=== PATIENT | male | born 1955 | race Caucasian/White ===

== ENCOUNTER → 2020-10-11 09:27 | Day surgery (SDC) | payer MEDICARE, MEDICAID, SELFPAY ==
[2020-10-11 11:44] VITALS: PULSE 56; RESP 16; TEMP 36.4; O2SAT 93
== END ==
PROVIDERS: Visit Provider Nurse Practitioner Family
DX: N39.0 Urinary tract infection, site not specified (principal)
CPT/HCPCS: 36569

== ENCOUNTER 2021-06-21 12:54 | Inpatient (IN) | payer MEDICARE, MEDICAID, SELFPAY ==
[2021-06-21] VITALS (14 sets, daily range): BP systolic 141–167; BP diastolic 85–121; PULSE 91–104; RESP 15–27; TEMP 36.9; O2SAT 86–99; BMI 21.5
--- NOTE | 2021-06-21 13:06 | W.ED.SOB ---
HPI - SOB/Dyspnea General: Chief Complaint: ER Hold Stated Complaint: COPD EXACERBATION Time Seen by Provider: 06/21/21 12:57 History of Present Illness: HPI Narrative: 65-year-old male comes in complaining of shortness of breath last 2 days. Patient took a COVID test at home yesterday that was negative. He has a history of liver failure and previous pneumonia as well as moderate COPD. He is significantly disabled has some contractures of his upper extremities. Has had a nonproductive cough and loose stools. Flulike symptoms as well. MD elicited complaint: shortness of breath and cough Pertinent past history: COPD Onset (ago): minute(s) Context: recent illness Timing: constant Severity: moderate Exacerbating factors: exertion and coughing Relieving factors: oxygen and rest Known history of: COPD Associated symptoms: Reports chest congestion, cough, fever(s) and myalgias; Deny abdominal pain, chest pain, diaphoresis, dizziness, extremity pain, hemoptysis, lightheadedness, nausea, orthopnea, palpitations, paresthesias, polydipsia, polyuria, rash, sense of impending doom, syncope or vomiting Treatment prior to arrival: oxygen Related Data: Home oxygen amount: none Review of Systems Const: Reports: fever(s); Denies: diaphoresis Card: Denies: chest pain, palpitations, lightheadedness, syncope or orthopnea Resp: Reports: chest congestion; Denies: hemoptysis GI: Denies: abdominal pain, nausea or vomiting Musc: Denies: extremity pain Neuro: Denies: dizziness Endo: Denies: polyuria or polydipsia PFSH ED PFSH: Medical History Afib BPH (benign prostatic hyperplasia) COPD (chronic obstructive pulmonary disease) Disability Gastritis HTN (hypertension) Liver cirrhosis etoh abuse Osmotic myelinolysis Pill rolling tremors Presence of externally removable percutaneous endoscopic gastrostomy (PEG) tube Pulmonary HTN Surgical History H/O hemorrhoidectomy Family History Denies family history of Diabetes Social History Smoking and tobacco status: current every day smoker Alcohol intake: unknown Physical Exam Const: COMMON NORMALS: no acute distress GENERAL APPEARANCE: cooperative and comfortable ORIENTATION/CONSCIOUSNESS: Yes awake, Yes oriented to person, Yes oriented to place and Yes oriented to time HENMT: COMMON NORMALS: normocephalic, atraumatic and hearing grossly normal bilaterally HEAD & SCALP: normocephalic and atraumatic Neck/C-Spine: COMMON NORMALS: no JVD Lymph: LYMPHATIC: no lymphadenopathy noted and no lymphedema noted Resp: AUSCULTATION: crackles, wheezes and diminished lung sounds Cardio: COMMON NORMALS: no JVD, regular rate, regular rhythm and No murmurs present (Cardio) RATE: regular rate RHYTHM: regular rhythm GI: COMMON NORMALS: Soft to palpation and No hepatosplenomegaly present AUSCULTATION: Yes normoactive bowel sounds PALPATION: Yes Soft to palpation, No Tenderness to palpation present (GI), No Guarding due to palpation present (GI) and Yes No hepatosplenomegaly present Extremity: COMMON NORMALS: normal to inspection, capillary refill normal, no clubbing, cyanosis or edema, no calf tenderness and no pedal edema Neuro: SENSORIUM/ORIENTATION: Yes oriented to person, Yes oriented to place and Yes oriented to time Skin: COMMON NORMALS: no rashes or lesions noted GENERAL SKIN EXAM: no rashes or lesions noted Course Vital Signs: Vital signs: Vital Signs Temperature 98 F 06/23/21 03:17 Pulse Rate 100 06/23/21 05:41 Respiratory Rate 23 H 06/23/21 03:17 Blood Pressure 136/93 06/23/21 03:17 Pulse Oximetry 93 06/23/21 03:17 MDM - SOB/Dyspnea Medical Decision Making Coronavirus is positive its variant does not test positive is COVID-19. However he acts as if he does have a full-blown COVID-19 infection he certainly has an exacerbation of his COPD and is requiring oxygen supplementation which is not usually at home. Patient also has progressive neurologic disorder much she cannot give me the name of will have to contact family to get more history. Given his neurologic disorder and his respiratory exacerbation and COPD I do believe he needs to be hospitalized for aggressive pulmonary toilet oxygen support and monitoring for development of secondary pneumonia. Discussed with hospitalist were going to go ahead and start remdesivir at this point as well. Medical Records I reviewed the patient's medical records. Lab Data I reviewed the patient's lab results. : 06/23/21 02:23 06/23/21 02:23 Labs/Radiology: Radiology Impressions Chest X-Ray 06/21/21 13:10 IMPRESSION: Complex chest with long interval since the previous examination at which time the patient had a large left pleural effusion. Much if not all of the abnormality is likely chronic however an acute pneumonitis is difficult to exclude especially within the left lower lung. Chest Ultrasound 06/22/21 23:54 IMPRESSION: Long-term stability of a small LEFT pleural effusion with extensive pleural thickening noted. Due to long-term stability thoracentesis will not be performed at this time. Laboratory Results WBC 3.2 10^3/uL (4.0-10.0) L 06/21/21 11:49 RBC 3.90 10^6/uL (4.1-5.3) L 06/21/21 11:49 Hgb 11.4 g/dL (11.7-16.6) L 06/21/21 11:49 Hct 33.4 % (42.0-52.0) L 06/21/21 11:49 MCV 85.6 fl (80-94) 06/21/21 11:49 MCH 29.2 pg (28.0-34.0) 06/21/21 11:49 MCHC 34.1 g/dL (30.0-36.0) 06/21/21 11:49 RDW 13.2 % (12.1-15.1) 06/21/21 11:49 Plt Count 333 10^3/cmm (130-400) 06/21/21 11:49 MPV 8.6 fL (7.4-10.4) 06/21/21 11:49 Neut % (Auto) 63.7 % 06/21/21 11:49 Lymph % (Auto) 13.8 % 06/21/21 11:49 [place] % (Auto) 17.5 % 06/21/21 11:49 Eos % (Auto) 3.8 % 06/21/21 11:49 Baso % (Auto) 0.6 % 06/21/21 11:49 Neut # (Auto) 2.04 10^3/uL (1.8-7.7) 06/21/21 11:49 Lymph # (Auto) 0.4 10^3/uL (0.8-4.8) L 06/21/21 11:49 [place] # (Auto) 0.6 10^3/uL (0.2-0.9) 06/21/21 11:49 Eos # (Auto) 0.1 10^3/uL (0.0-0.8) 06/21/21 11:49 Baso # (Auto) 0.0 10^3/uL (0.0-0.1) 06/21/21 11:49 Nucleated RBC % (auto) 0 % 06/21/21 11:49 Nucleated RBCs # 0.0 /100WBC 06/21/21 11:49 Specimen Type Arterial 06/21/21 13:45 Sample Site Brachial, right 06/21/21 13:45 ABG pH 7.32 (7.35-7.45) L 06/21/21 13:45 ABG pCO2 49.2 mmHg (35-45) H 06/21/21 13:45 ABG pO2 88.9 mmHg (80.0-100.0) 06/21/21 13:45 ABG HCO3 25.5 mmol/L (22-26) 06/21/21 13:45 ABG O2 Saturation 97.2 06/21/21 13:45 ABG Base Excess -0.9 mmol/L (-2.0-2.0) 06/21/21 13:45 Hammad Test N/a 06/21/21 13:45 A-a O2 Gradient 6.4 mmHg (5-10) 06/21/21 13:45 Hematocrit 34.8 % (42-52) L 06/21/21 13:45 Hgb O2 Saturation 95.0 % (95-100) 06/21/21 13:45 Carboxyhemoglobin 1.8 %THgb (0.4-20.1) 06/21/21 13:45 Methemoglobin 0.4 % (0.4-1.5) 06/21/21 13:45 Total Hemoglobin 11.4 g/dL (14-18) L 06/21/21 13:45 Sodium 123.0 mmol/L (131-143) L 06/21/21 13:45 Potassium 3.8 mmol/L (3.5-5.0) 06/21/21 13:45 Glucose 99.0 mg/dL (70-115) 06/21/21 13:45 Ionized Calcium 1.2 mmol/L (1.1-1.4) 06/21/21 13:45 O2 Delivery Device Nc 06/21/21 13:45 O2 Liters/Min 2.0 % 06/21/21 13:45 FiO2 28.0 % 06/21/21 13:45 Materials Research Engineer ID Amh 06/21/21 13:45 Sodium 122 mmol/L (136-145) L 06/21/21 11:49 Potassium 4.0 mmol/L (3.5-5.1) 06/21/21 11:49 Chloride 89 mmol/L (98-107) L 06/21/21 11:49 Carbon Dioxide 26 mmol/L (22-29) 06/21/21 11:49 Anion Gap 11.0 (5-19) 06/21/21 11:49 BUN 12 mg/dL (8-23) 06/21/21 11:49 Creatinine 0.5 mg/dL (0.7-1.2) L 06/21/21 11:49 GFR Calculation 166.4 mL/min (90-130) H 06/21/21 11:49 Glucose 82 mg/dL (65-115) 06/21/21 11:49 Calculated Osmolality 253 mOsm/kg (285-295) L 06/21/21 11:49 Calcium 8.1 mg/dL (8.5-10.5) L 06/21/21 11:49 Total Bilirubin 0.2 mg/dL (0.15-1.2) 06/21/21 11:49 AST 18 U/L (0-40) 06/21/21 11:49 ALT 14 U/L (0-41) 06/21/21 11:49 Alkaline Phosphatase 83 IU/L (40-130) 06/21/21 11:49 Total Protein 6.7 g/dL (6.6-8.7) 06/21/21 11:49 Albumin 3.4 g/dL (3.5-5.2) L 06/21/21 11:49 Globulin 3.3 g/dL (1.3-4.6) 06/21/21 11:49 Procalcitonin 0.44 ng/mL (0-0.5) 06/21/21 11:49 Coronavirus 229E (PCR) Detected (NOT DETECT) A 06/21/21 13:45 SARS-CoV-2 (PCR) Not detected (NOT DETECT) 06/21/21 13:45 Discharge Plan Discharge Patient Disposition: Admitted As Inpatient Admit Provider: Shay Bhagat Clinical Impression: Acute exacerbation of chronic obstructive pulmonary disease, Coronavirus infection Condition: Stable Coding Level of Care Code ED Panel Assembler for Demetria Villalobos
--- NOTE | 2021-06-21 13:10 | ECG_ITS ---
[facility] Test Date: 2021-06-21 Pat Name: Ludwin Lux Department: Room: Gender: Male Data Integrity Consultant: : 1955 Requested By: Billy Contreras Order Number: [id number] Prakash MD: Jessica Rios M.D. Measurements Intervals [place] Rate: 91 P: 91 VT: 161 QRS: 29 QRSD: 110 T: 18 QT: 371 QTc: 459 Interpretive Statements SINUS RHYTHM ANTEROSEPTAL MYOCARDIAL INFARCTION , OF INDETERMINATE AGE [40+ ms Q WAVE IN V1-V4] Compared to ECG 02/04/2018 11:02:11 No significant changes Electronically Signed On 06-21-2021 17:08:15 HEAVY DUTY TRUCK MECHANIC by Jessica Rios M.D. [id number]
--- NOTE | 2021-06-21 13:10 | XR_ITS ---
WS: [id number] XR chest 1V portable [id number] REASON FOR EXAM: dyspnea/cough FINDINGS: In comparison to the previous examination of 02/04/2018, there is complex opacification of the left lo wer hemithorax presumably related to previous large left pleural effusion with interval development o f pleural peel, left lower lung entrapment, and tenting/elevation of the left hemidiaphragm. Reticula r opacities in the left lower lung are of unknown chronicity. There are reticular nodular opacities in the right lower lung field and right mid lung field some of which were not present on the previous examination of 02/04/2018. There is blunting of the right costophrenic angle which has occurred since the previous examination o f 02/04/2018. XR/XR chest 1V portable [id number] IMPRESSION: Complex chest with long interval since the previous examination at which time t he patient had a large left pleural effusion. Much if not all of the abnormalit y is likely chronic however an acute pneumonitis is difficult to exclude especi ally within the left lower lung.
[2021-06-21 13:25] LABS: Basophils % 0.6 %; Eosinophils # 0.1 10^3/uL (0.0-0.8); Eosinophils % 3.8 %; Hematocrit 33.4 % (42.0-52.0); Hemoglobin 11.4 g/dL (11.7-16.6); Lymphocytes # 0.4 10^3/uL (0.8-4.8); Lymphocytes % 13.8 %; Mean Corpuscular HGB Conc 34.1 g/dL (30.0-36.0); Mean Corpuscular Hemoglobin 29.2 pg (28.0-34.0); Mean Corpuscular Volume 85.6 fl (80-94); Mean Platelet Volume 8.6 fL (7.4-10.4); Monocytes # 0.6 10^3/uL (0.2-0.9); Monocytes % 17.5 %; Neutrophils # 2.04 10^3/uL (1.8-7.7); Neutrophils % 63.7 %; Nucleated Red Blood Cells % 0 %; Platelet Count 333 10^3/cmm (130-400); Red Cell Distribution Width 13.2 % (12.1-15.1); White Blood Count 3.2 10^3/uL (4.0-10.0)
[2021-06-21 13:57] LABS: ABG PCO2 49.2 mmHg (35-45); ABG PH Result 7.32 (7.35-7.45); Alveolar-Arterial Oxygen Gradi 6.4 mmHg (5-10); Arterial Blood Gas Hematocrit 34.8 % (42-52); Base Excess ABG -0.9 mmol/L (-2.0-2.0); Blood Gas Operator Identificat AMH; Blood Gas Sample Site Brachial, right; Blood Gas Sample Type Arterial; Carboxyhemoglobin 1.8 %THgb (0.4-20.1); HCO3 ABG 25.5 mmol/L (22-26); Ionized Calcium Level - ABG 1.2 mmol/L (1.1-1.4); Methemoglobin 0.4 % (0.4-1.5); Oxygen Device NC; Oxygen Saturation ABG 97.2; PO2 ABG 88.9 mmHg (80.0-100.0); Potassium Level - ABG 3.8 mmol/L (3.5-5.0); Total Hemoglobin 11.4 g/dL (14-18)
[2021-06-21 13:59] LABS: Alanine Aminotransferase 14 U/L (0-41); Albumin Level 3.4 g/dL (3.5-5.2); Alkaline Phosphatase 83 IU/L (40-130); Aspartate Amino Transferase 18 U/L (0-40); Blood Urea Nitrogen 12 mg/dL (8-23); Calcium 8.1 mg/dL (8.5-10.5); Carbon Dioxide 26 mmol/L (22-29); Chloride 89 mmol/L (98-107); Creatinine Clr Calc Pharmacy 91.2353; Globulin 3.3 g/dL (1.3-4.6); Glomerular Filtration Rate 166.4 mL/min (90-130); Glucose 82 mg/dL (65-115); Osmolality Calculated 253 mOsm/kg (285-295); Sodium 122 mmol/L (136-145); Total Bilirubin 0.2 mg/dL (0.15-1.2); Total Protein 6.7 g/dL (6.6-8.7)
[2021-06-21] MEDS: sodium chloride 0.9% 1,000 ML 75 ML IV (14:48)
[2021-06-21 15:51] LABS: Adenovirus Not Detected (NOT DETECT); Chlamydia Pneumoniae Not Detected (NOT DETECT); Coronavirus 229E,HKU1,NL63,OC4 Detected (NOT DETECT); Human Metapneumovirus Not Detected (NOT DETECT); Human Rhinovirus/Enterovirus Not Detected (NOT DETECT); Influenza A Not Detected (NOT DETECT); Influenza A H1 Not Detected (NOT DETECT); Influenza A H1-2009 Not Detected (NOT DETECT); Influenza A H3 Not Detected (NOT DETECT); Influenza B Not Detected (NOT DETECT); Mycoplasma Pneumoniae Not Detected (NOT DETECT); Parainfluenza Virus Type 1 Not Detected (NOT DETECT); Parainfluenza Virus Type 2 Not Detected (NOT DETECT); Parainfluenza Virus Type 3 Not Detected (NOT DETECT); Parainfluenza Virus Type 4 Not Detected (NOT DETECT); Respiratory Syncytial Virus A Not Detected (NOT DETECT); Respiratory Syncytial Virus B Not Detected (NOT DETECT); SARS-COV-2 Not Detected (NOT DETECT)
[2021-06-21] MEDS: dexamethasone 10 mg/mL INJ 6 MG IVP (16:57)
[2021-06-21] MEDS: remdesivir 200 MG in sodium chloride 0.9% (100 ml) 60 ML 100 MG IV (16:58)
--- NOTE | 2021-06-21 18:51 | PM.HP ---
Providers/Chief Complaint Chief Complaint: COPD EXACERBATION History of Present Illness Ludwin Lux is a 65 year old male carries history of liver cirrhosis, etoh abuse in the past, chronic left-sided pleural effusion, osmotic demyelination syndrome, chronic indwelling catheter, presented to the hospital chief: Worsening shortness of breath patient is not a reliable historian. 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 No nausea, vomiting or chest pain. He was having conversational dyspnea as well at home. In the ER he has Covid 229E screen positive chest x-ray consistent with left-sided pneumonia and pleural effusion Chronic hyponatremia Patient has a chronic indwelling catheter Is only oriented to himself Cachectic, malnourished Able to answer my questions Nonfocal neuro exam he was given remdesivir and Decadron in the ER along normal saline Review of Systems Const: Reports: chills, body aches and fatigue Eyes: Denies: change in vision ENMT: Denies: throat pain Card: Denies: chest pain Resp: Reports: dyspnea and non-productive cough GI: Denies: abdominal pain : Denies: flank pain Musc: Denies: neck pain Skin/Breast: Denies: rash Neuro: Denies: headache(s) Psych: Reports: anxiety Endo: Denies: polyuria Thiago/Lymph: Denies: easy bruising All/Imm: Denies: urticaria Medications/Allergies Home Medications Medication Instructions Recorded Confirmed Last Taken Type amlodipine 10 mg tablet 10 mg PO DAILY 06/21/21 06/21/21 Unknown History calcium carbonate 500 mg (1,250 1 tab PO DAILY 06/21/21 06/21/21 Unknown History mg)-vitamin D3 200 unit tablet (Oyster Shell Calcium-Vit D3) cetirizine 10 mg tablet 10 mg PO DAILY 06/21/21 06/21/21 Unknown History doxycycline hyclate 100 mg capsule 100 mg PO DAILY 06/21/21 06/21/21 Unknown History fluticasone propionate 50 1 spray INTRANASAL DAILY PRN 06/21/21 06/21/21 Unknown History mcg/actuation nasal spray,suspension folic acid 1 mg tablet 1 mg PO DAILY 06/21/21 06/21/21 Unknown History hydroxyzine pamoate 50 mg capsule 50 mg PO Q6H PRN 06/21/21 06/21/21 Unknown History nystatin 100,000 unit/gram topical 1 applic TOPICAL BID 06/21/21 06/21/21 Unknown History cream propranolol 10 mg tablet 10 mg PO TID 06/21/21 06/21/21 Unknown History ropinirole 1 mg tablet 1 mg PO BID 06/21/21 06/21/21 Unknown History sennosides 8.6 mg-docusate sodium 2 tab PO DAILY 06/21/21 06/21/21 Unknown History 50 mg tablet (Stool Softener-Laxative) temazepam 30 mg capsule 30 mg PO DAILY 06/21/21 06/21/21 Unknown History venlafaxine 225 mg tablet,extended 225 mg PO DAILY 06/21/21 06/21/21 Unknown History release 24 hr Allergies Allergy/AdvReac Type Severity Reaction Status Date / Time Unable to Assess Allergy Unverified 06/21/21 17:50 PFSH Acute PFSH: Medical History Afib BPH (benign prostatic hyperplasia) COPD (chronic obstructive pulmonary disease) Disability Gastritis HTN (hypertension) Liver cirrhosis etoh abuse Osmotic myelinolysis Pill rolling tremors Presence of externally removable percutaneous endoscopic gastrostomy (PEG) tube Pulmonary HTN Surgical History H/O hemorrhoidectomy Family History Denies family history of Diabetes Social History Smoking and tobacco status: current every day smoker Alcohol intake: unknown Vitals/I&O/Wt Last Vital Signs Temp 98.4 F 06/21/21 12:59 Pulse 95 06/21/21 18:30 Resp 22 H 06/21/21 18:30 BP 165/99 06/21/21 18:30 Pulse Ox 94 06/21/21 18:30 Weight last 48 hrs Weight 68.039 kg Physical Exam Narrative: EXAM NARRATIVE: Middle-age male Bedbound Malnourished Cachectic Answer to my questions appropriately Not able to give much detail Answering simple questions Nonfocal neuro exam Decrease strength of upper and lower extremities Chronic indwelling catheter Abdomen soft No acute respiratory distress or conversational dyspnea Currently on 2 L of oxygen saturating 93% When I entered he was on room air saturating 91% Data : 06/21/21 11:49 06/21/21 11:49 A&P Assessment and plan (1) Acute exacerbation of chronic obstructive pulmonary disease: Status: Acute (2) Coronavirus infection: Status: Acute (3) Chronic hyponatremia: Status: Acute (4) Respiratory acidosis: Status: Acute Plan Acute on chronic hypoxia related to left-sided pneumonia Common cold variant of COVID-19 positive I will continue remdesivir and Decadron Vancomycin and Zosyn Sputum culture Bacterial antigen MRSA PCR DuoNeb every 4 as needed Budesonide Patient is full code Chronic smoker more than 2 packs/day Never has been diagnosed with malignancy, weight loss, cachectic, malnourished Chronic hyponatremia, history of osmotic demyelination syndrome Bedbound, chronic indwelling catheter EKG showing sinus rhythm We will put him on BiPAP for mild respiratory acidosis We will request left-sided pleural effusion thoracentesis to rule out malignancy Attestations Medical Necessity Statement*: >2midnights anticipated Time Spent in Patient Care: 45mins Coding Level of Care Code Acute Wafer Slicer for [facility] Fwem[facility] Diagnoses Acute exacerbation of chronic obstructive pulmonary disease J44.1 Coronavirus infection B34.2 Chronic hyponatremia E87.1 Respiratory acidosis E87.2
[2021-06-21 19:44] LABS: Procalcitonin 0.44 ng/mL (0-0.5)
[2021-06-22] VITALS (33 sets, daily range): BP systolic 129–177; BP diastolic 75–107; PULSE 80–102; RESP 17–30; TEMP 36.6–37.3; O2SAT 86–100
--- NOTE | 2021-06-22 00:11 | PC.PHAR ---
Vancomycin is dosed at 1gm IVPB every 8 hours to produce a predicted trough level of 15.34 (population based pharmacokinetic analysis). A trough level has been ordered from the lab to be obtained before the fourth dose to confirm and adjust if needed.
[2021-06-22] MEDS: dexamethasone 10 mg/mL INJ 6 MG IVP (00:39)
[2021-06-22] MEDS: piperacillin-tazobactam 3.375 GM in sodium chloride 0.9% (plus) 50 ML IV ×3 (00:40→15:01)
[2021-06-22] MEDS: HYDROmorphone 1 mg/mL INJ 1 mL 0.4 MG IVP (00:41)
[2021-06-22] MEDS: vancomycin 1,000 MG in sodium chloride 0.9% 250 ML 250 MG IV ×3 (02:44→15:47)
[2021-06-22] MEDS: propranolol 20 mg Tablet 10 MG PO ×4 (03:30→20:51)
[2021-06-22 04:28] LABS: Basophils % 0.2 %; Hematocrit 32.3 % (42.0-52.0); Lymphocytes # 0.3 10^3/uL (0.8-4.8); Lymphocytes % 4.9 %; Mean Corpuscular HGB Conc 34.1 g/dL (30.0-36.0); Mean Corpuscular Hemoglobin 28.9 pg (28.0-34.0); Mean Corpuscular Volume 84.8 fl (80-94); Mean Platelet Volume 8.4 fL (7.4-10.4); Monocytes # 0.3 10^3/uL (0.2-0.9); Monocytes % 5.4 %; Neutrophils # 5.66 10^3/uL (1.8-7.7); Nucleated Red Blood Cells % 0 %; Platelet Count 353 10^3/cmm (130-400); Red Blood Count 3.81 10^6/uL (4.1-5.3); Red Cell Distribution Width 12.9 % (12.1-15.1); White Blood Count 6.4 10^3/uL (4.0-10.0)
[2021-06-22 04:58] LABS: Alanine Aminotransferase 12 U/L (0-41); Alkaline Phosphatase 78 IU/L (40-130); Blood Urea Nitrogen 14 mg/dL (8-23); C Reactive Protein 42.5 mg/L (0.0-4.9); Calcium 7.8 mg/dL (8.5-10.5); Carbon Dioxide 23 mmol/L (22-29); Chloride 90 mmol/L (98-107); Globulin 3.1 g/dL (1.3-4.6); Glomerular Filtration Rate 134.8 mL/min (90-130); Glucose 160 mg/dL (65-115); Osmolality Calculated 262 mOsm/kg (285-295); Sodium 124 mmol/L (136-145); Total Bilirubin 0.2 mg/dL (0.15-1.2); Total Protein 6.1 g/dL (6.6-8.7)
[2021-06-22 05:12] LABS: Creatinine Clr Calc Pharmacy 91.2353
[2021-06-22 05:13] LABS: Aspartate Amino Transferase 15 U/L (0-40)
[2021-06-22 05:30] LABS: ABG PCO2 41.4 mmHg (35-45); Arterial Blood Gas Hematocrit 35.5 % (42-52); Base Excess ABG 0.3 mmol/L (-2.0-2.0); Blood Gas Allen Test Pos; Blood Gas Sample Site Brachial, right; Blood Gas Sample Type Arterial; HCO3 ABG 25.3 mmol/L (22-26); Oxygen Device NC; PO2 ABG 93.5 mmHg (80.0-100.0)
[2021-06-22 05:44] LABS: Lactate Dehydrogenase 137 U/L (135-225)
[2021-06-22 08:10] LABS: INR 1.05 (0.8-1.2)
[2021-06-22] MEDS: ropinirole 1 mg Tablet PO ×2 (08:18→17:33)
[2021-06-22] MEDS: nicotine 21 mg Patch 1 PATCH TRANSDERMA (08:18)
[2021-06-22] MEDS: amlodipine 10 mg Tablet PO (08:18)
[2021-06-22] MEDS: cetirizine 10 mg Tablet PO (08:18)
[2021-06-22] MEDS: sennosides-docusate Tablet 2 TAB PO (08:18)
[2021-06-22] MEDS: bumetanide 1 mg Tablet PO (08:18)
[2021-06-22] MEDS: nystatin cream 30 gm 1 APPLIC TOPICAL ×2 (08:24→18:26)
[2021-06-22] MEDS: acetylcysteine 200 mg/mL SDV 4 mL INHALATION ×3 (08:50→22:37)
[2021-06-22] MEDS: ipratropium-albuterol 3 mL Neb INHALATION ×3 (08:50→22:38)
[2021-06-22] MEDS: budesonide 0.5 mg/2 mL Neb INHALATION (08:50)
--- NOTE | 2021-06-22 12:25 | P.PN_ITS ---
Subjective Subjective: Interval history: Patient is requiring 5 L of nasal cannula however he was saturating 99% asked RT to wean off oxygen down to 2 to 3 L, he is not complaining of active shortness of breath or chest pain Thoracentesis canceled because of thickened pleura chronic pleural effusion, he is not spiking fever,No leukocytosis dc covid rx as this is common cold variant Vitals/I&O/Wt Last Vital Signs Temp 98.4 F 06/21/21 12:59 Pulse 87 06/22/21 09:02 Resp 20 H 06/22/21 09:02 BP 161/94 06/22/21 08:00 Pulse Ox 96 06/22/21 09:02 06/21/21 06/22/21 06/22/21 22:59 06:59 14:59 Intake Total 60 / 60 300 / 360 300 / 300 Balance 60 / 60 300 / 360 300 / 300 Weight last 48 hrs Weight 68.039 kg Physical Exam Narrative: EXAM NARRATIVE: Patient is doing well on 5 nasal cannula No active shortness of breath No active chest pain Dehydrated malnourished cachectic Urias catheter draining yellow-colored urine He is able to comprehend all my questions Nonfocal neuro exam EOMI, PERRLA Data : 06/22/21 04:20 06/22/21 04:20 A&P Assessment and plan (1) Pneumonia: Status: Acute (2) Chronic hyponatremia: Status: Acute (3) Respiratory acidosis: Status: Acute (4) Acute exacerbation of chronic obstructive pulmonary disease: Status: Acute (5) Coronavirus infection: Status: Acute (6) Disability: Status: Acute Plan Coronavirus 229 e- strain which is not COVID-19, I will discontinue Decadron and remdesivir, he can be off isolation for now, this variant is common cold coronavirus species I would continue antibiotics for community-acquired pneumonia for his left-sided chronic pleural effusion thoracentesis could not be done today I am planning to keep him today and continue antibiotics and steroids Wean off oxygen bring it down to 2 to 3 L Continue breathing regimen Osmotic demyelination syndrome Patient will be able to return home Patient is currently full code he was on hospice few years ago, currently living with his sister I will keep him on mechanical soft diet N-acetylcysteine Bumex 1 mg daily, IV Zosyn, will DC vancomycin if MRSA PCR negative Attestations Medical Necessity Statement*: Continue medical management Time Spent in Patient Care: 15min Coding Level of Care Code Acute Automatic Lathe Setter for Chg Fwd Diagnoses Pneumonia J18.9 Chronic hyponatremia E87.1 Respiratory acidosis E87.2 Acute exacerbation of chronic obstructive pulmonary disease J44.1 Coronavirus infection B34.2 Disability
[2021-06-22 13:18] LABS: D Dimer 2.11 ug/mIFEU (0-0.59)
[2021-06-22] MEDS: ALPRAZolam 0.5 mg Tablet PO (15:47)
--- NOTE | 2021-06-22 19:30 | PC.NURSE ---
Received patient from ED via stretcher to 101. Patient has chronic prieto in place. Patient admission complete in ED. Patient denies needs. No distress observed. Instructed patient regarding Restoril. Patient verbalized complete understanding. Will continue to monitor.
[2021-06-22] MEDS: temazepam 15 mg Capsule 30 MG PO (20:51)
--- NOTE | 2021-06-22 23:54 | US_ITS ---
WS: [id number] Ultrasound thorax. HISTORY: Evaluate LEFT pleural effusion for possible thoracentesis. COMPARISON: 06/21/2021, 02/04/2018 and 10/10/2017 There is a small LEFT pleural effusion identified. There is significant pleural thickening. There are low level echoes within the fluid. This effusion has been present for multiple years. Small effusion has been present since at least 2018. The lungs would probably not reexpand after removing fluid. Pr oceeding with thoracentesis at this time is not strongly recommended unless this effusion increases i n size. US/US chest [id number] IMPRESSION: Long-term stability of a small LEFT pleural effusion with extensive pleural thi ckening noted. Due to long-term stability thoracentesis will not be performed a t this time.
[2021-06-23] VITALS (13 sets, daily range): BP systolic 131–157; BP diastolic 80–105; PULSE 84–108; RESP 18–29; TEMP 36.6–37.1; O2SAT 85–97
[2021-06-23] MEDS: vancomycin 1,000 MG in sodium chloride 0.9% 250 ML 250 MG IV ×2 (00:13→07:44)
[2021-06-23] MEDS: piperacillin-tazobactam 3.375 GM in sodium chloride 0.9% (plus) 50 ML IV (01:13)
[2021-06-23] MEDS: acetylcysteine 200 mg/mL SDV 4 mL INHALATION ×3 (03:12→14:33)
[2021-06-23] MEDS: ipratropium-albuterol 3 mL Neb INHALATION ×3 (03:12→14:33)
[2021-06-23 03:44] LABS: Basophils % 0.3 %; Eosinophils # 0.1 10^3/uL (0.0-0.8); Eosinophils % 1.9 %; Hematocrit 32.3 % (42.0-52.0); Hemoglobin 10.9 g/dL (11.7-16.6); Lymphocytes # 0.6 10^3/uL (0.8-4.8); Lymphocytes % 11.1 %; Mean Corpuscular HGB Conc 33.7 g/dL (30.0-36.0); Mean Corpuscular Hemoglobin 28.7 pg (28.0-34.0); Mean Platelet Volume 8.2 fL (7.4-10.4); Monocytes # 0.7 10^3/uL (0.2-0.9); Monocytes % 12.3 %; Neutrophils # 4.23 10^3/uL (1.8-7.7); Neutrophils % 73.7 %; Nucleated Red Blood Cells % 0 %; Platelet Count 353 10^3/cmm (130-400); Red Cell Distribution Width 13.1 % (12.1-15.1); White Blood Count 5.8 10^3/uL (4.0-10.0)
[2021-06-23 04:09] LABS: Anion Gap 13.5 (5-19); Blood Urea Nitrogen 12 mg/dL (8-23); Calcium 8.5 mg/dL (8.5-10.5); Carbon Dioxide 25 mmol/L (22-29); Chloride 93 mmol/L (98-107); Glomerular Filtration Rate 166.4 mL/min (90-130); Glucose 79 mg/dL (65-115); Osmolality Calculated 265 mOsm/kg (285-295); Potassium 3.5 mmol/L (3.5-5.1); Sodium 128 mmol/L (136-145)
[2021-06-23 04:16] LABS: Creatinine Clr Calc Pharmacy 91.2353
--- NOTE | 2021-06-23 07:20 | CT_ITS ---
WS: [id number] CTA OF THE CHEST WITH PULMONARY EMBOLISM PROTOCOL TECHNIQUE: High-resolution contrast enhanced CTA of the chest with coronal and sagittal reformatted i mages with pulmonary embolism protocol. MIP images are also reviewed. CLINICAL INFORMATION: Hypoxia COMPARISON: No prior CT chest comparisons. DLP: 703.[address] scans at [facility] use at least one of these dose optimization techniques: automated e xposure control; mA and/or kV adjustment per patient size (includes targeted exams where dose is matc hed to clinical indication); or iterative reconstruction. FINDINGS: Small complex LEFT pleural effusion with diffuse enhancing circumferential pleural thickening similar to the recent ultrasound. Subsegmental atelectasis and partial consolidation LEFT lower lobe. Obstru ction of the LEFT lower lobe bronchi with volume loss LEFT lung. Proximal main pulmonary arteries are normal. Normal segmental and subsegmental pulmonary arteries. No evidence of pulmonary embolus. Normal caliber thoracic aorta. RIGHT to LEFT mediastinal shift due to volume loss LEFT lung. No mediastinal or hilar lymphadenopathy. No axillary lymphadenopathy. Moderate to advanced chronic emphysematous changes. Small RIGHT pleural effusion with slight atelecta sis RIGHT lower lobe. Mild hypertrophic changes thoracic spine. Adrenal glands appear normal. Partial ly evaluated lobulated lesion upper pole LEFT kidney likely renal cyst measuring 2.9 CM. This can be followed up with ultrasound. CT/CT angio chest PE protcl [id number] IMPRESSION: 1. No evidence of pulmonary embolus. 2. Chronic volume loss LEFT lung with chronic appearing complex LEFT pleural e ffusion with peripheral enhancing pleural thickening. This is unchanged since t he recent ultrasound. 3. Partial collapse LEFT lower lobe with subtotal consolidation 4. Small RIGHT pleural effusion with slight subsegmental atelectasis. 5. Chronic RIGHT to LEFT mediastinal shift due to chronic LEFT lung volume los s. 6. Moderate to advanced chronic emphysematous changes. 7. Partially evaluated LEFT upper pole renal lesion likely renal cyst but tech nically indeterminate. This can be followed up with ultrasound. This measures 2 .9 cm 8. A few low-attenuation lesions in the liver likely hepatic cysts.
--- NOTE | 2021-06-23 07:20 | USCV_ITS ---
LuxLudwin cruz Age: 65 Gender: M : 1955 Exam Date: 06/23/2021 08:41 Ordering Phys: Shay Bhagat MD Technologist: Exam Location: [facility] [place] Indication: bed statis PROCEDURES: The venous duplex Doppler examination of both lower extremities was performed in the standard fashion. The following venous structures were evaluated: common femoral vein, profunda vein, proximal portion of the greater saphenous vein, superficial femoral vein, and the popliteal vein. FINDINGS: Normal 2-D Doppler and augmentation and compressibility throughout the lower extremity venous structures. Additional imaging through the proximal calf veins also reveals no thrombus. Limited evaluation of the greater saphenous vein is patent with no thrombus. CONCLUSIONS No DVT bilateral lower extremities. Dr. Marlena Guzmán DO (Electronically Signed) Final Date: 23 June 2021 09:15 S
[2021-06-23] MEDS: bumetanide 1 mg Tablet PO (07:46)
[2021-06-23] MEDS: cetirizine 10 mg Tablet PO (07:46)
[2021-06-23] MEDS: propranolol 20 mg Tablet 10 MG PO ×3 (07:46→22:49)
[2021-06-23] MEDS: nicotine 21 mg Patch 1 PATCH TRANSDERMA (07:47)
[2021-06-23] MEDS: sennosides-docusate Tablet 2 TAB PO (07:47)
[2021-06-23] MEDS: amlodipine 10 mg Tablet PO (07:47)
--- NOTE | 2021-06-23 09:18 | P.PN_ITS ---
Subjective Subjective: Interval history: No leukocytosis or fever requested CT chest rule out PE patient is doing well on 4 L nasal cannula Patient was eating breakfast IV antibiotics discontinued Vitals/I&O/Wt Last Vital Signs Temp 97.8 F 06/23/21 07:11 Pulse 92 06/23/21 07:11 Resp 25 H 06/23/21 07:11 BP 147/91 06/23/21 07:11 Pulse Ox 93 06/23/21 07:11 06/22/21 06/23/21 06/23/21 22:59 06:59 14:59 Intake Total 418 / 1190 300 / 1490 Output Total 700 / 2700 2400 / 5100 Balance -282 / -1510 -2100 / -3610 Weight last 48 hrs Weight 68.039 kg Physical Exam Narrative: EXAM NARRATIVE: Patient was eating breakfast this morning Saturating well on 4 L nasal cannula Bilateral breath sounds slightly diminished left-sided No active wheezing or crackles Abdomen soft Hard of hearing Nonfocal neuro exam Urias catheter draining dilute urine EOMI: PERRLA Data : 06/23/21 02:23 06/23/21 02:23 Micro: Microbiology 06/22/21 03:44 MRSA Culture - Final Nose A&P Assessment and plan (1) Pneumonia: Status: Acute (2) Chronic hyponatremia: Status: Acute (3) Respiratory acidosis: Status: Acute (4) Acute exacerbation of chronic obstructive pulmonary disease: Status: Acute (5) Coronavirus infection: Status: Acute (6) Disability: Status: Acute Plan Left-sided community-acquired pneumonia Common cold variant of coronavirus Discontinued remdesivir and Decadron I will discontinue IV antibiotics and switch to p.o. 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
--- NOTE | 2021-06-23 09:33 | PC.CHAP ---
Pastoral Care Encounter/Spiritual Assessment Type of Contact [] Declined template layout worker visit [] Patient/Family/Request visit [] Outpatient visit [] Follow-up visit [] Physician referral [] Code/Alert [x] Routine visit [] Staff referral [] Actively dying [] Patient sleeping [] Family support [] [] Out of room [] Palliative care [] [] Receiving care in room [] Pre-surgical visit [] Trauma [] Long length of stay [] ICU visit [] Other: Relational/Emotional Strength [] Patient feels connected with others/family/visitors/staff [] Distress [] Loneliness/isolation [] Abandonment Spirituality of Patient [] Person of Casi [] Attends Anabaptism of their Casi [] Believes in Prayer [] Reads Bible or Latter Day materials [] There are Spiritual issues to be addressed Linen Manager Interventions [x] Prayer [x] Active listening [x] Non-anxious presence [x] Spiritual/emotional support [] Crisis/trauma care [] Spiritual counseling [] Bereavement support [] Provided bereavement packet [] Provided Bible/devotional materials [] Provided toy/stuffed animal, coloring book to patient or family member [] Provided Communion [] Anointing/Raven [] Salvation [x] Completed spiritual assessment [] Other: Impact on Illness or Injury [] Angry [] Fearful [] Anxious [] Often cries [] Exhaustion [] Unable to work [] Unable to attend moravian [] Unable to walk/stand [] Unable to read [] Unable to drive [] Unable to eat/drink [] Unable to sleep [] Unable to be with family [] Patient intubated [] Other: Summary not a praying man... but we did it anyway... resting well Time spent with patient 5 min
[2021-06-23] MEDS: budesonide 0.5 mg/2 mL Neb INHALATION (09:35)
[2021-06-23] MEDS: iohexol 350 mg/mL 100 mL Btl IV (10:01)
[2021-06-23] MEDS: temazepam 15 mg Capsule 30 MG PO (10:32)
[2021-06-23] MEDS: ropinirole 1 mg Tablet PO ×2 (10:32→18:28)
[2021-06-23] MEDS: enoxaparin 40 mg/0.4 mL Syringe SUBCUT (10:35)
[2021-06-24] VITALS (10 sets, daily range): BP systolic 142–147; BP diastolic 92–100; PULSE 79–100; RESP 18–21; TEMP 36.8; O2SAT 87–96
[2021-06-24] MEDS: acetylcysteine 200 mg/mL SDV 4 mL INHALATION (02:16)
[2021-06-24] MEDS: ipratropium-albuterol 3 mL Neb INHALATION ×2 (02:17→07:37)
[2021-06-24] MEDS: levoFLOXacin 750 mg Tablet PO (05:10)
--- NOTE | 2021-06-24 05:13 | PC.NURSE ---
Frequent safety and comfort rounds continue. Orders and/or nursing care completed as indicated. Patient monitored for response to intervention and treatment(s). Education provided includes levaquin and oxygen safety. Patient and/or instruments sales representative verbalizes understanding. Will continue to monitor.
--- NOTE | 2021-06-24 06:13 | PC.NURSE ---
Patient eager for breakfast. Wishes for coffee. Called and wanted to know why he was wrapped in all the wires that were connected to him. Patient with suprapubic catheter draining well. Will continue to monitor.
[2021-06-24] MEDS: budesonide 0.5 mg/2 mL Neb INHALATION (07:37)
--- NOTE | 2021-06-24 08:32 | PC.SOCIAL ---
IM follow up explained and copy provided. Pt indicates he is ready to go home now. Initial assessment also completed.
[2021-06-24] MEDS: propranolol 20 mg Tablet 10 MG PO (10:19)
[2021-06-24] MEDS: bumetanide 1 mg Tablet PO (10:19)
[2021-06-24] MEDS: ropinirole 1 mg Tablet PO (10:19)
[2021-06-24] MEDS: cetirizine 10 mg Tablet PO (10:20)
[2021-06-24] MEDS: amlodipine 10 mg Tablet PO (10:20)
[2021-06-24] MEDS: nicotine 21 mg Patch 1 PATCH TRANSDERMA (10:23)
[2021-06-24] MEDS: enoxaparin 40 mg/0.4 mL Syringe SUBCUT (10:27)
--- NOTE | 2021-06-24 10:46 | PM.DCS ---
Discharge Providers Date of Admission: 06/21/21 18:30 Date of Discharge: June 24, 2021 Attending Provider at Admission: Shay Bhagat MD Attending Provider at Discharge: Shay Bhagat MD Primary Care Provider: Indu Cullen Diagnoses at Discharge Discharge Diagnosis (1) Pneumonia: Status: Acute (2) Chronic hyponatremia: Status: Acute (3) Respiratory acidosis: Status: Acute (4) Acute exacerbation of chronic obstructive pulmonary disease: Status: Acute (5) Coronavirus infection: Status: Acute Permanent problem details: Common cold variant 229E (6) Disability: Status: Acute Reason for Visit Reason for Visit: COPD EXACERBATION Hospital Course Hospital Course This is my admission note: Ludwin Lux is a 65 year old male carries history of liver cirrhosis, etoh abuse in the past, chronic left-sided pleural effusion, osmotic demyelination syndrome, chronic indwelling catheter, presented to the hospital chief: Worsening shortness of breath patient is not a reliable historian.? I called his sister who is stating that he is a chronic smoker who would smoke more than 2 packs a day, is bedbound since his pneumonia 3 years ago, he was intubated for 14 days and was discharged [facility], his sister brought him back to her home and he has been living there for last 3 years, and last 24 hours he started becoming short of breath and hypoxic on room air, he was prescribed oxygen but he never used it yesterday was the first time he used 2.5 L of oxygen.? No nausea, vomiting or chest pain.? He was having conversational dyspnea as well at home. In the ER he has Covid 229E screen positive chest x-ray consistent with left-sided pneumonia and pleural effusion Chronic hyponatremia Patient has a chronic indwelling catheter Is only oriented to himself Cachectic, malnourished Able to answer my questions Nonfocal neuro exam he was given remdesivir and Decadron in the ER along normal saline Hospital course Patient was admitted for management evaluation of acute on chronic hypoxic respiratory failure, he does have underlying COPD, he was prescribed oxygen however he has not been using it for quite some time recently started using 2 to 3 L of oxygen at home, in the ER he was diagnosed with COVID 229 e- strain which is associated with common cold flulike symptoms. His Decadron and remdesivir discontinued next day. His symptoms did not worsen during hospitalization. He was kept on broad-spectrum antibiotics for pneumonia associated with pleural effusion. Review of records revealed that his pleural effusion is chronic and interventional radiologist did not recommend thoracentesis for chronic pleural effusion. He remained afebrile no severe leukocytosis noted during hospitalization. Bacterial antigen, sputum culture negative. MRSA PCR negative. Patient smokes more than 2 packs of cigarettes at home he was put on high-dose nicotine patch. He does have history of chronic hyponatremia related to osmotic demyelination syndrome, sodium level did not worsen with the treatment during hospitalization. Qualified for 2 L of oxygen with home O2 eval. He was able to eat properly, he did not aspirate on regular diet. Physical Exam Narrative: EXAM NARRATIVE: Cachectic malnourished Patient was eating breakfast this morning Doing well on 2 L nasal cannula Abdomen soft Nonfocal neuro exam Decrease strength of lower extremities Hard of hearing S1, S2 sinus rhythm non labored breathing No signs of edema of legs Discharge Data Studies Completed and Pending Completed Studies During Hospitalization Category Date Time Status CTA PE [CT angio chest PE protcl 52814] Routine Cat Scan 06/23/21 07:20 Completed XR chest 1V portable [id number] Stat Exams 06/21/21 13:10 [place] [id number] Routine Ultrasound 06/23/21 07:20 Completed US chest [id number] Routine Ultrasound 06/22/21 23:54 Completed Pending at discharge Category Date Time Status Bacterial Antigen Routine Lab 06/21/21 23:54 Uncollected Radiology Impressions Chest X-Ray 06/21/21 13:10 IMPRESSION: Complex chest with long interval since the previous examination at which time the patient had a large left pleural effusion. Much if not all of the abnormality is likely chronic however an acute pneumonitis is difficult to exclude especially within the left lower lung. Chest Ultrasound 06/22/21 23:54 IMPRESSION: Long-term stability of a small LEFT pleural effusion with extensive pleural thickening noted. Due to long-term stability thoracentesis will not be performed at this time. Chest CTA 06/23/21 07:20 IMPRESSION: 1. No evidence of pulmonary embolus. 2. Chronic volume loss LEFT lung with chronic appearing complex LEFT pleural effusion with peripheral enhancing pleural thickening. This is unchanged since the recent ultrasound. 3. Partial collapse LEFT lower lobe with subtotal consolidation 4. Small RIGHT pleural effusion with slight subsegmental atelectasis. 5. Chronic RIGHT to LEFT mediastinal shift due to chronic LEFT lung volume loss. 6. Moderate to advanced chronic emphysematous changes. 7. Partially evaluated LEFT upper pole renal lesion likely renal cyst but technically indeterminate. This can be followed up with ultrasound. This measures 2.9 cm 8. A few low-attenuation lesions in the liver likely hepatic cysts. Laboratory Results WBC 5.8 10^3/uL (4.0-10.0) 06/23/21 02: RBC 3.80 10^6/uL (4.1-5.3) L 06/23/21 02:23 Hgb 10.9 g/dL (11.7-16.6) L 06/23/21 02: Hct 32.3 % (42.0-52.0) L 06/23/21 02: MCV 85.0 fl (80-94) 06/23/21 02: MCH 28.7 pg (28.0-34.0) 06/23/21 02: MCHC 33.7 g/dL (30.0-36.0) 06/23/21 02: RDW 13.1 % (12.1-15.1) 06/23/21 02: Plt Count 353 10^3/cmm (130-400) 06/23/21 02: MPV 8.2 fL (7.4-10.4) 06/23/21 02: Neut % (Auto) 73.7 % 06/23/21 02: Lymph % (Auto) 11.1 % 06/23/21 02:23 [facility] % (Auto) 12.3 % 06/23/21 02: Eos % (Auto) 1.9 % 06/23/21 02: Baso % (Auto) 0.3 % 06/23/21 02:23 Neut # (Auto) 4.23 10^3/uL (1.8-7.7) 06/23/21 02: Lymph # (Auto) 0.6 10^3/uL (0.8-4.8) L 06/23/21 02:23 [facility] [place] # (Auto) 0.7 10^3/uL (0.2-0.9) 06/23/21 02: Eos # (Auto) 0.1 10^3/uL (0.0-0.8) 06/23/21 02:23 Baso # (Auto) 0.0 10^3/uL (0.0-0.1) 06/23/21 02: Nucleated RBC % (auto) 0 % 06/23/21 02: Nucleated RBCs # 0.0 /100WBC 06/23/21 02:23 PT 14.00 SECONDS (12.1-14.9) 06/22/21 07:45 INR 1.05 (0.8-1.2) 06/22/21 07:45 D-Dimer 2.11 ug/mIFEU (0-0.59) H 06/22/21 07:45 Specimen Type Arterial 06/22/21 04:52 Sample Site Brachial, right 06/22/21 04:52 ABG pH 7.40 (7.35-7.45) 06/22/21 04:52 ABG pCO2 41.4 mmHg (35-45) 06/22/21 04:52 ABG pO2 93.5 mmHg (80.0-100.0) 06/22/21 04:52 ABG HCO3 25.3 mmol/L (22-26) 06/22/21 04:52 ABG O2 Saturation 97.2 06/21/21 13:45 ABG Base Excess 0.3 mmol/L (-2.0-2.0) 06/22/21 04:52 Hammad Test Pos 06/22/21 04:52 A-a O2 Gradient 6.4 mmHg (5-10) 06/21/21 13:45 Hematocrit 35.5 % (42-52) L 06/22/21 04:52 Hgb O2 Saturation 95.0 % (95-100) 06/21/21 13:45 Carboxyhemoglobin 1.8 %THgb (0.4-20.1) 06/21/21 13:45 Methemoglobin 0.4 % (0.4-1.5) 06/21/21 13:45 Total Hemoglobin 11.4 g/dL (14-18) L 06/21/21 13:45 Sodium 123.0 mmol/L (131-143) L 06/21/21 13:45 Potassium 3.8 mmol/L (3.5-5.0) 06/21/21 13:45 Glucose 99.0 mg/dL (70-115) 06/21/21 13:45 Ionized Calcium 1.2 mmol/L (1.1-1.4) 06/21/21 13:45 O2 Delivery Device Nc 06/22/21 04:52 O2 Liters/Min 3.0 % 06/22/21 04:52 FiO2 28.0 % 06/21/21 13:45 Mix House Operator ID Buttr 06/22/21 04:52 Sodium 128 mmol/L (136-145) L 06/23/21 02:23 Potassium 3.5 mmol/L (3.5-5.1) 06/23/21 02:23 Chloride 93 mmol/L (98-107) L 06/23/21 02:23 Carbon Dioxide 25 mmol/L (22-29) 06/23/21 02:23 Anion Gap 13.5 (5-19) 06/23/21 02:23 BUN 12 mg/dL (8-23) 06/23/21 02:23 Creatinine 0.5 mg/dL (0.7-1.2) L 06/23/21 02:23 GFR Calculation 166.4 mL/min (90-130) H 06/23/21 02:23 Glucose 79 mg/dL (65-115) 06/23/21 02:23 Calculated Osmolality 265 mOsm/kg (285-295) L 06/23/21 02:23 Calcium 8.5 mg/dL (8.5-10.5) 06/23/21 02:23 Magnesium 2.0 mg/dL (1.7-2.3) 06/22/21 04:20 Total Bilirubin 0.2 mg/dL (0.15-1.2) 06/22/21 04:20 AST 15 U/L (0-40) 06/22/21 04:20 ALT 12 U/L (0-41) 06/22/21 04:20 Alkaline Phosphatase 78 IU/L (40-130) 06/22/21 04:20 Lactate Dehydrogenase 137 U/L (135-225) 06/22/21 04:20 C-Reactive Protein 42.5 mg/L (0.0-4.9) H 06/22/21 04:20 Total Protein 6.1 g/dL (6.6-8.7) L 06/22/21 04:20 Albumin 3.0 g/dL (3.5-5.2) L 06/22/21 04:20 Globulin 3.1 g/dL (1.3-4.6) 06/22/21 04:20 Procalcitonin 0.44 ng/mL (0-0.5) 06/21/21 11:49 Vancomycin Trough 17.0 ug/mL (10-15) H 06/22/21 23:15 Coronavirus 229E (PCR) Detected (NOT DETECT) A 06/21/21 13:45 SARS-CoV-2 (PCR) Not detected (NOT DETECT) 06/21/21 13:45 Vitals Last Vital Signs Temp 98.2 F 06/24/21 03:44 Pulse 88 06/24/21 07:47 Resp 20 H 06/24/21 07:39 BP 147/97 06/24/21 03:44 Pulse Ox 87 L 06/24/21 07:50 Discharge Plan Discharge Patient Disposition: Home Condition: Stable Prescriptions: New albuterol sulfate 90 mcg/actuation HFA aerosol inhaler 2 inh inhalation Q8H PRN (Reason: shortness of breath or wheezing) Qty: 8.5 2RF Continued ropinirole 1 mg tablet 1 mg PO BID 0RF cetirizine 10 mg tablet 10 mg PO DAILY 0RF Stool Softener-Laxative 8.6-50 mg tablet 2 tab PO DAILY 0RF hydroxyzine pamoate 50 mg capsule 50 mg PO Q6H PRN (Reason: Anxiety) 0RF propranolol 10 mg tablet 10 mg PO TID 0RF temazepam 30 mg capsule 30 mg PO DAILY 0RF amlodipine 10 mg tablet 10 mg PO DAILY 0RF nystatin 100,000 unit/gram cream 1 applic TOPICAL BID 0RF folic acid 1 mg tablet 1 mg PO DAILY 0RF fluticasone propionate 50 mcg/actuation spray,suspension 1 spray INTRANASAL DAILY PRN (Reason: Nasal Congestion) 0RF Oyster Shell Calcium-Vit D3 500 mg(1,250mg) -200 unit tablet 1 tab PO DAILY 0RF venlafaxine 225 mg tablet extended release 24hr 225 mg PO DAILY 0RF doxycycline hyclate 100 mg capsule 100 mg PO DAILY Qty: 10 0RF Discharge Orders: Discharge Order (Routine); Ordered 06/24/21 Ordered By: Shya Bhagat Referrals: Indu Cullen FNP-C [Primary Care Provider] - 7-10 days ([facility] will be calling to schedule a hospital followup with MERLYN Montesinos. If you don't hear from them within a reasonable amount of time, please give them a call. Thank you) Discharge Diet: Regular Discharge Activity: Resume usual activity Patient Instructions: Opioid Safety Discharge Attestations Time Spent in Discharge Care*: less than 30 min Quality Metrics Clinical Quality Measures [ No reported AMI, CVA or VTE this stay] Coding Level of Care Code Acute Chg FW MI note Diagnoses Pneumonia J18.9 Chronic hyponatremia E87.1 Respiratory acidosis E87.2 Acute exacerbation of chronic obstructive pulmonary disease J44.1 Coronavirus infection B34.2 Disability
--- NOTE | 2021-06-24 14:26 | PC.NURSE ---
discharge instructions given and explained to cg.she verb understanding of instructions.discharged via w/c to exit.daughter to drive pt home.
== END 2021-06-24 13:30 | disposition home or self-care (01) | DRG 190 ==
LOC: ER 17:33 → ER IP 21:07 → CSU 06-22 16:49
PROVIDERS: Admitting Provider Internal Medicine; Emergency Provider Family Medicine; PCP Nurse Practitioner Family; Visit Provider Internal Medicine
DX: J44.1 Chronic obstructive pulmonary disease with (acute) exacerbation (principal); J18.9 Pneumonia, unspecified organism; J96.21 Acute and chronic respiratory failure with hypoxia; G37.8 Other specified demyelinating diseases of central nervous system; E87.1 Hypo-osmolality and hyponatremia; E46 Unspecified protein-calorie malnutrition; J90 Pleural effusion, not elsewhere classified; E87.2 Acidosis; J44.0 Chronic obstructive pulmonary disease with (acute) lower respiratory infection; B34.2 Coronavirus infection, unspecified; K70.30 Alcoholic cirrhosis of liver without ascites; F10.11 Alcohol abuse, in remission; Z87.01 Personal history of pneumonia (recurrent); I48.91 Unspecified atrial fibrillation; N40.0 Benign prostatic hyperplasia without lower urinary tract symptoms; I10 Essential (primary) hypertension; I27.20 Pulmonary hypertension, unspecified; F17.210 Nicotine dependence, cigarettes, uncomplicated; Z96.0 Presence of urogenital implants; Z74.01 Bed confinement status; Z68.21 Body mass index [BMI] 21.0-21.9, adult
CPT/HCPCS: 36415; 36600; 71045; 71275; 76604; 80048; 80051; 80053; 80202; 82330; 82803; 82805; 83615; 83735; 84145; 85025; 85378; 85610; 86140; 87635; 87641; 93005; 93970; 94640; 96372; J1100; J1170; J1650; J2543; J3370; J7030; J7050; J7608; J7626; Q9967

== ENCOUNTER 2022-02-03 11:38 | Inpatient (IN) | payer MEDICARE, MEDICAID, SELFPAY ==
[2022-02-03] VITALS (26 sets, daily range): BP systolic 112–194; BP diastolic 52–121; PULSE 74–100; RESP 12–23; TEMP 36.2–36.6; O2SAT 85–100; BMI 24.3
--- NOTE | 2022-02-03 11:43 | XR_ITS ---
WS: [id number] Portable AP upright chest, 02/03/2022 Clinical Data: mas Comparison: Portable chest, 06/21/2021. Findings: There is an opacity in the left lower lung which is probably a combination of effusion, ate lectasis and pleural thickening. The appearance is not changed in the last 7 months. The right diaphr agm is flattened with minimal right pleural thickening. The heart is normal. The aortic arch and desc ending thoracic aorta show calcification and tortuosity. No nodules or masses are seen. No acute pneu monia or pneumothorax is noted. XR/XR chest 1V portable [id number] Impression: 1. No change in left lower lobe opacity. 2. Atherosclerosis and hyperinflation.
--- NOTE | 2022-02-03 11:43 | CT_ITS ---
WS: [id number] CT abdomen pelvis w con* [id number] REASON FOR EXAM: abd pain IV CONTRAST ADMINISTERED: Omnipaque 350 80 mL. TOTAL EXAM DLP: 495.[address] scans at [facility] use at least one of these dose optimization techniques: automat ed exposure control; mA and/or kV adjustment per patient size (includes targeted exams where dose is matched to clinical indication); or iterative reconstruction. FINDINGS: Left pleural effusion and consolidation in the left lower lobe. The liver and spleen are unremarkable. Gallbladder is dilated and elongated and contains a single christopher culus. No bile duct dilatation. There is mild to moderate atrophy of the pancreas without focal lesion or calcification. Multiple cysts within the kidneys. No free fluid. Air-fluid collection seen in the right upper quadrant just medial and inferior to the gallbladder whi ch appears to be a loop of small bowel. Significant dilatation of the left and transverse colons. Moderate amount of stool in the right colon . Gross dilatation of the rectum/rectosigmoid. There is a large mass within the rectum which contains s tool, fat density, and small amounts of air. There is a narrowed segment of colon in the sigmoid colon proximal to the rectosigmoid. CT/CT abdomen pelvis w con* [id number] IMPRESSION: Dilated colon proximal to a nonspecific narrowing of the sigmoid colon and a la rge complex mass in the rectum as above. Presumably the rectal mass is some for m of chronic impaction.
--- NOTE | 2022-02-03 11:43 | CT_ITS ---
WS: [id number] CT head wo con* [id number] REASON FOR EXAM: ams IV CONTRAST ADMINISTERED:None. TOTAL EXAM DLP: 1052.[address] scans at [facility] use at least one of these dose optimization techniques: automat ed exposure control; mA and/or kV adjustment per patient size (includes targeted exams where dose is matched to clinical indication); or iterative reconstruction. FINDINGS: Examination is unchanged compared to 02/04/2018. There is no midline shift or other significant mass effect. No findings of intracranial hemorrhage. No acute focal brain parenchymal abnormality. Prominence of the pituitary unchanged compared to the previous examination. Mild global symmetric atrophy. Moderate symmetric low attenuation in the periventricular white matter compatible with small vessel c hronic ischemic demyelination. The base of the skull and the calvarium are intact. CT/CT head wo con* [id number] IMPRESSION: Stable CT scan of the brain with no acute abnormality identified.
[2022-02-03 11:57] LABS: Basophils # 0.1 10^3/uL (0.0-0.1); Basophils % 1.4 %; Eosinophils # 0.6 10^3/uL (0.0-0.8); Eosinophils % 9.8 %; Hematocrit 33.5 % (42.0-52.0); Hemoglobin 11.1 g/dL (11.7-16.6); Lymphocytes # 0.8 10^3/uL (0.8-4.8); Lymphocytes % 14.7 %; Mean Corpuscular HGB Conc 33.1 g/dL (30.0-36.0); Mean Corpuscular Volume 87.5 fl (80-94); Mean Platelet Volume 8.3 fL (7.4-10.4); Monocytes # 0.6 10^3/uL (0.2-0.9); Monocytes % 9.6 %; Neutrophils # 3.66 10^3/uL (1.8-7.7); Neutrophils % 64.1 %; Nucleated Red Blood Cells % 0 %; Platelet Count 316 10^3/cmm (130-400); Red Blood Count 3.83 10^6/uL (4.1-5.3); Red Cell Distribution Width 14.7 % (12.1-15.1); White Blood Count 5.7 10^3/uL (4.0-10.0)
[2022-02-03 11:59] LABS: ABG PH Result 7.44 (7.35-7.45); Arterial Blood Gas Hematocrit 34.4 % (42-52); Base Excess ABG 2.9 mmol/L (-2.0-2.0); Blood Gas Sample Type Arterial; HCO3 ABG 27.3 mmol/L (22-26); PO2 ABG 75.1 mmHg (80.0-100.0)
[2022-02-03 12:00] LABS: Blood Gas Operator Identificat ED; Blood Gas Sample Site Brachial, left; Oxygen Device ROOM AIR
[2022-02-03 12:11] LABS: Ammonia 10 umol/L (16-60)
[2022-02-03] MEDS: nicotine 21 mg Patch 1 PATCH TRANSDERMA (12:15)
[2022-02-03 12:20] LABS: Troponin(5th) Baseline 18 ng/L (0-15)
--- NOTE | 2022-02-03 12:20 | ECG_ITS ---
[facility] Test Date: 2022-02-03 Pat Name: Ludwin Lux Department: Room: Gender: Male Cloth Tester: : 1955 Requested By: [place] Order Number: [id number] Prakash MD: Jessica Rios M.D. Measurements Intervals [place] Rate: 75 P: 73 NC: 173 QRS: 53 QRSD: 98 T: 35 QT: 401 QTc: 448 Interpretive Statements SINUS RHYTHM ANTEROSEPTAL MYOCARDIAL INFARCTION , OF INDETERMINATE AGE [40+ ms Q WAVE IN V1-V4] Compared to ECG 06/21/2021 13:08:27 No significant changes Electronically Signed On 02-03-2022 13:30:43 CDT by Jessica Rios M.D. [email or web address]
[2022-02-03 12:29] LABS: Alanine Aminotransferase 15 U/L (0-41); Albumin Level 3.3 g/dL (3.5-5.2); Alkaline Phosphatase 72 U/L (40-130); Anion Gap 11.5 (5-19); Aspartate Amino Transferase 14 U/L (0-40); Blood Urea Nitrogen 11 mg/dL (8-23); Calcium 8.3 mg/dL (8.5-10.5); Carbon Dioxide 27 mmol/L (22-29); Chloride 90 mmol/L (98-107); Globulin 3.2 g/dL (1.3-4.6); Glomerular Filtration Rate 134.4 mL/min (90-130); Glucose 79 mg/dL (65-115); Lipase 30 U/L (13-60); Magnesium 1.7 mg/dL (1.7-2.3); NT Pro B Type Natriuretic Pept 873 pg/mL (0-125); Osmolality Calculated 258 mOsm/kg (285-295); Potassium 3.5 mmol/L (3.5-5.1); Sodium 125 mmol/L (136-145); Total Bilirubin 0.2 mg/dL (0.15-1.2); Total Protein 6.5 g/dL (6.6-8.7)
[2022-02-03 12:42] LABS: Add Urine Microscopic? YES; Bilirubin Urine Neg (Negative); Blood Urine 3+ (Negative); Glucose Urine UA Norm (Normal); Ketones Urine Negative (Negative); Leukocyte Esterase Urine 2+ (Negative); Nitrate Urine Negative (Negative); Protein Urine 2+ (Negative); Specific Gravity, Urine 1.005 (1.005-1.030); Urine Appearance Clear (CLEAR); Urine Color Yellow (Yellow); Urobilinogen Urine Norm (Negative); pH Urine 6.5 (5-7)
[2022-02-03 12:43] LABS: Add Urine Culture? Yes; Bacteria Urine TRACE /hpf; RBC Urine 25-40 /hpf (0-2); Squamous Epithelial Cell Urine 0-4 /hpf (0-5); WBC Urine 25-40 /hpf (0-5)
[2022-02-03 12:46] LABS: INR 1.34 (0.8-1.2)
[2022-02-03] MEDS: iohexol 350 mg/mL 100 mL Btl IV (12:48)
[2022-02-03 13:13] LABS: Lactate (Lactic Acid level) 0.5 mmol/L (0.5-2.2)
--- NOTE | 2022-02-03 13:29 | W.ED.AMS ---
HPI - Altered Mental Status General: Chief Complaint: Altered Mental Status Stated Complaint: CONFUSION SINCE SUNDAY & UTI Time Seen by Provider: 02/03/22 11:38 Source: EMS Mode of arrival: EMS Limitations: altered mental status History of Present Illness: 66-year-old male who has a history of cirrhosis has had increasing altered mental status since Sunday. Patient able to follow verbal commands but does not answer any questions he has a history of cirrhosis he had a UTI on Sunday has been on antibiotics. He has been afebrile no vomiting no diarrhea. Review of Systems General: Reports: ROS unobtainable due to mental status [facility] PFSH: Medical History Acute exacerbation of chronic obstructive pulmonary disease Afib BPH (benign prostatic hyperplasia) Chronic hyponatremia COPD (chronic obstructive pulmonary disease) Coronavirus infection Common cold variant 229E Disability Gastritis HTN (hypertension) Liver cirrhosis etoh abuse Osmotic myelinolysis Pill rolling tremors Presence of externally removable percutaneous endoscopic gastrostomy (PEG) tube Pulmonary HTN Surgical History H/O hemorrhoidectomy Family History Denies family history of Diabetes Social History Smoking and tobacco status: current every day smoker Alcohol intake: unknown Physical Exam Const: COMMON NORMALS: apparent distress and negative for patient oriented x3 HENMT: COMMON NORMALS: normocephalic and atraumatic HEAD & SCALP: normocephalic and atraumatic THROAT: posterior oropharynx normal Eye: COMMON NORMALS: negative for Equal, round and reactive pupils present PUPIL: No Equal, round and reactive pupils present Neck/C-Spine: COMMON NORMALS: supple Chest: COMMONS NORMALS: normal inspection of the chest and normal palpation of entire chest wall Resp: COMMON NORMALS: normal respiratory effort and No retractions Cardio: COMMON NORMALS: regular rate and regular rhythm RATE: regular rate RHYTHM: regular rhythm GI: COMMON NORMALS: Normal to inspection, nondistended, normoactive bowel sounds present and non-tender Extremity: COMMON NORMALS: normal to inspection Neuro: COMMON NORMALS: negative for patient oriented x3 Skin: COMMON NORMALS: no rashes or lesions noted GENERAL SKIN EXAM: no rashes or lesions noted Course Vital Signs: Vital signs: Vital Signs Temperature 97.2 F L 02/03/22 11:39 Pulse Rate 74 02/03/22 11:39 Respiratory Rate 18 02/03/22 11:39 Blood Pressure 172/107 02/03/22 14:00 Pulse Oximetry 94 02/03/22 13:30 Oxygen Delivery Me thod 02/03/22 11:39 MDM - Altered Mental Status Medical Decision Making Patient presents here with altered mental status he is quite altered here he is hyponatremic chronic in nature no signs of any severe infection spoke to hospitalist will admit at this time. Lab Data : 02/03/22 11:50 02/03/22 11:50 Radiology Impressions Abdomen/Pelvis CT 02/03/22 11:43 IMPRESSION: Dilated colon proximal to a nonspecific narrowing of the sigmoid colon and a large complex mass in the rectum as above. Presumably the rectal mass is some form of chronic impaction. Chest X-Ray 02/03/22 11:43 Impression: 1. No change in left lower lobe opacity. 2. Atherosclerosis and hyperinflation. Head CT 02/03/22 11:43 IMPRESSION: Stable CT scan of the brain with no acute abnormality identified. Laboratory Results WBC 5.7 10^3/uL (4.0-10.0) 02/03/22 11:50 RBC 3.83 10^6/uL (4.1-5.3) L 02/03/22 11:50 Hgb 11.1 g/dL (11.7-16.6) L 02/03/22 11:50 Hct 33.5 % (42.0-52.0) L 02/03/22 11:50 MCV 87.5 fl (80-94) 02/03/22 11:50 MCH 29.0 pg (28.0-34.0) 02/03/22 11:50 MCHC 33.1 g/dL (30.0-36.0) 02/03/22 11:50 RDW 14.7 % (12.1-15.1) 02/03/22 11:50 Plt Count 316 10^3/cmm (130-400) 02/03/22 11:50 MPV 8.3 fL (7.4-10.4) 02/03/22 11:50 Neut % (Auto) 64.1 % 02/03/22 11:50 Lymph % (Auto) 14.7 % 02/03/22 11:50 [place] % (Auto) 9.6 % 02/03/22 11:50 Eos % (Auto) 9.8 % 02/03/22 11:50 Baso % (Auto) 1.4 % 02/03/22 11:50 Neut # (Auto) 3.66 10^3/uL (1.8-7.7) 02/03/22 11:50 Lymph # (Auto) 0.8 10^3/uL (0.8-4.8) 02/03/22 11:50 [place] # (Auto) 0.6 10^3/uL (0.2-0.9) 02/03/22 11:50 Eos # (Auto) 0.6 10^3/uL (0.0-0.8) 02/03/22 11:50 Baso # (Auto) 0.1 10^3/uL (0.0-0.1) 02/03/22 11:50 Nucleated RBC % (auto) 0 % 02/03/22 11:50 Nucleated RBCs # 0.0 /100WBC 02/03/22 11:50 PT 16.90 SECONDS (12.1-14.9) H 02/03/22 12:25 INR 1.34 (0.8-1.2) H 02/03/22 12:25 Specimen Type Arterial 02/03/22 11:49 Sample Site Brachial, left 02/03/22 11:49 ABG pH 7.44 (7.35-7.45) 02/03/22 11:49 ABG pCO2 40.0 mmHg (35-45) 02/03/22 11:49 ABG pO2 75.1 mmHg (80.0-100.0) L 02/03/22 11:49 ABG HCO3 27.3 mmol/L (22-26) H 02/03/22 11:49 ABG Base Excess 2.9 mmol/L (-2.0-2.0) H 02/03/22 11:49 Hammad Test N/a 02/03/22 11:49 Hematocrit 34.4 % (42-52) L 02/03/22 11:49 O2 Delivery Device Room air 02/03/22 11:49 FiO2 21.0 % 02/03/22 11:49 International Account Representative ID Ed 02/03/22 11:49 Sodium 125 mmol/L (136-145) L 02/03/22 11:50 Potassium 3.5 mmol/L (3.5-5.1) 02/03/22 11:50 Chloride 90 mmol/L (98-107) L 02/03/22 11:50 Carbon Dioxide 27 mmol/L (22-29) 02/03/22 11:50 Anion Gap 11.5 (5-19) 02/03/22 11:50 BUN 11 mg/dL (8-23) 02/03/22 11:50 Creatinine 0.6 mg/dL (0.7-1.2) L 02/03/22 11:50 GFR Calculation 134.4 mL/min (90-130) H 02/03/22 11:50 Glucose 79 mg/dL (65-115) 02/03/22 11:50 Calculated Osmolality 258 mOsm/kg (285-295) L 02/03/22 11:50 Lactate 0.5 mmol/L (0.5-2.2) 02/03/22 11:50 Calcium 8.3 mg/dL (8.5-10.5) L 02/03/22 11:50 Magnesium 1.7 mg/dL (1.7-2.3) 02/03/22 11:50 Total Bilirubin 0.2 mg/dL (0.15-1.2) 02/03/22 11:50 AST 14 U/L (0-40) 02/03/22 11:50 ALT 15 U/L (0-41) 02/03/22 11:50 Alkaline Phosphatase 72 U/L (40-130) 02/03/22 11:50 Ammonia 10 umol/L (16-60) L 02/03/22 11:50 Troponin T Baseline 18 ng/L (0-15) H 02/03/22 11:50 Troponin T 120 Minute 18.56 ng/L (0-15) H 02/03/22 13:58 Delta Troponin T 0.56 ABS# (0-10) 02/03/22 13:58 NT-Pro-B Natriuret Pep 873 pg/mL (0-125) H 02/03/22 11:50 Total Protein 6.5 g/dL (6.6-8.7) L 02/03/22 11:50 Albumin 3.3 g/dL (3.5-5.2) L 02/03/22 11:50 Globulin 3.2 g/dL (1.3-4.6) 02/03/22 11:50 Lipase 30 U/L (13-60) 02/03/22 11:50 Urine Color Yellow (Yellow) 02/03/22 12:20 Urine Appearance Clear (CLEAR) 02/03/22 12:20 Urine pH 6.5 (5-7) 02/03/22 12:20 Ur Specific [place] 1.005 (1.005-1.030) 02/03/22 12:20 Urine Protein 2+ (Negative) H 02/03/22 12:20 Urine Glucose (UA) Norm (Normal) 02/03/22 12:20 Urine Ketones Negative (Negative) 02/03/22 12:20 Urine Blood 3+ (Negative) H 02/03/22 12:20 Urine Nitrate Negative (Negative) 02/03/22 12:20 Urine Bilirubin Neg (Negative) 02/03/22 12:20 Urine Urobilinogen Norm mg/dL (Negative) 02/03/22 12:20 Ur Leukocyte Esterase 2+ (Negative) H 02/03/22 12:20 Urine RBC 25-40 /hpf (0-2) H 02/03/22 12:20 Urine WBC 25-40 /hpf (0-5) H 02/03/22 12:20 Ur Squamous Epith Cells 0-4 /hpf (0-5) H 02/03/22 12:20 Amorphous Sediment Not Reportable 02/03/22 12:20 Urine Bacteria Trace /hpf (NONE) 02/03/22 12:20 EKG Data EKG 1: I personally reviewed and interpreted this EKG as follows: EKG interpretation date: 02/03/22 Interpretation: nsr hr [address] or t wave abnormalities qrs 98 qtc 429 Discharge Plan Discharge Patient Disposition: Admitted As Inpatient Clinical Impression: Altered mental status, Hyponatremia Condition: Stable Coding Level of Care Code ED Seasonal Sales Associate for Chg Fwd Exam Comprehensive
--- NOTE | 2022-02-03 13:44 | ECG_ITS ---
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 Measurements Intervals [place] Rate: 78 P: 75 ND: 163 QRS: 60 QRSD: 102 T: 54 QT: 406 QTc: 463 Interpretive Statements SINUS RHYTHM ANTEROSEPTAL MYOCARDIAL INFARCTION , OF INDETERMINATE AGE [40+ ms Q WAVE IN V1-V4] Compared to ECG 02/03/2022 12:20:49 No significant changes Electronically Signed On 02-04-2022 8:41:31 CDT by Jessica Rios M.D. [email or web address] [email or web address] [email or web address] [id number]
[2022-02-03 14:21] LABS: Troponin 5 2HR 18.56 ng/L (0-15)
[2022-02-03 14:25] LABS: Troponin 5 2HR Delta 0.56 ABS# (0-10)
--- NOTE | 2022-02-03 17:04 | P.HP_ITS ---
Providers/Chief Complaint Primary Care Provider: JAYNA Rivera Chief Complaint: CONFUSION SINCE SUNDAY & UTI History of Present Illness Ludwin Lux is a 66 year old male with past medical history of COPD, atrial fibrillation, BPH, chronic hyponatremia, COPD, gastritis, hypertension, liver cirrhosis secondary to alcohol abuse, osmotic myelinolysis, pulmonary hypertension presented to the hospital today with altered mental status. He is complete with his daughter. He states he has a chronic suprapubic catheter neurogenic bladder and primary care doctor manages that. He has a history of recurrent UTIs. Most recently he was diagnosed with a UTI on Sunday and placed on oral antibiotics at home. She does not know the name of the antibiotics but in the chart it is listed it seems it was doxycycline and levofloxacin. He states however he has been worsening. He has gotten very very confused as the days have gone by. He is also been slightly more distended according to her. He is chronically hyponatremic. She states he was hospitalized recently and [facility] for possibly abdominal issues. We will be requesting records. There was something to do with the gallbladder but she does not know t he details. She states that she is supposed to follow-up with the surgeon soon to find out the results of the work-up that was done there. At this time she says she repeats everything you tell him to and is confused. He does not follow many commands but does follow some. She also states that prior to this he was able to have normal conversations. He is chronically bedbound. She states years ago he was in the ICU and critically ill and after his stay he became chronically bedbound. His got a contracture on his left arm and right side is weak at baseline. Prepubic catheter was replaced today by nurse. He has home health nurse comes every 2 weeks to replace the catheter. ED course: Blood pressure 172/107, respiratory 18, pulse 74, temperature 97.2, pulse ox 94%. CT abdomen pelvis showed dilated colon proximal to the nonspecific narrowing of sigmoid colon and large complex mass in rectum as above. Presumably picture of masses some form of chronic impaction. Chest x- ray did not show a change in left lower lobe opacity. Atherosclerosis and hyperinflation. Head CT showed stable CT scan of brain with no acute abnormality identified. Hospitalist was called to admit patient for altered mental status and hyponatremia. Medications/Allergies Home Medications Medication Instructions Recorded Confirmed Last Taken Type cetirizine 10 mg tablet 10 mg PO DAILY 06/21/21 02/03/22 02/02/22 History fluticasone propionate 50 1 spray intranasal DAILY PRN Nasal 06/21/21 02/03/22 Unknown History mcg/actuation nasal Congestion spray,suspension hydroxyzine pamoate 50 mg capsule 50 mg PO Q6H PRN Anxiety 06/21/21 02/03/22 02/02/22 History nystatin 100,000 unit/gram topical 1 applic topical BID PRN Rash 06/21/21 02/03/22 Unknown History cream propranolol 10 mg tablet 10 mg PO TID 06/21/21 02/03/22 02/03/22 History ropinirole 1 mg tablet 1 mg PO BID PRN Cramps 06/21/21 02/03/22 Unknown History sennosides 8.6 mg-docusate sodium 2 tab PO DAILY 06/21/21 02/03/22 02/02/22 History 50 mg tablet (Stool Softener-Laxative) temazepam 30 mg capsule 30 mg PO DAILY 06/21/21 02/03/22 02/02/22 History venlafaxine 225 mg tablet,extended 225 mg PO DAILY 06/21/21 02/03/22 02/03/22 History release 24 hr doxycycline hyclate 100 mg capsule 100 mg PO DAILY #10 caps 06/24/21 02/03/22 02/03/22 Rx Lactobacillus acidophilus 500 500 mmu cells PO DAILY 02/03/22 02/03/22 02/03/22 History million cell tablet albuterol sulfate 2.5 mg inhalation TID PRN 02/03/22 02/03/22 02/03/22 History Shortness Of Breath Or Wheezing apixaban 5 mg tablet (Eliquis) 5 mg PO BID 02/03/22 02/03/22 02/03/22 History budesonide 0.5 mg/2 mL suspension 0.5 mg inhalation BID 02/03/22 02/03/22 02/03/22 History for nebulization cranberry extract-vitamin C 250 1 cap PO QPM 02/03/22 02/03/22 02/02/22 History mg-60 mg capsule cyanocobalamin (vitamin B-12) 500 500 mcg PO QPM 02/03/22 02/03/2202/02/22 History mcg tablet (Vitamin B-12) diltiazem HCl 240 mg 240 mg PO DAILY 02/03/22 02/03/22 02/03/22 History capsule,extended release 24 hr ferrous sulfate 325 mg (65 mg 325 mg PO QPM 02/03/22 02/03/22 02/02/22 History iron) tablet (iron) formoterol fumarate 20 mcg/2 mL 2 ml inhalation BID 02/03/22 02/03/22 02/03/22 History solution for nebulization (Perforomist) guaifenesin 600 mg tablet, 600 mg PO Q12H PRN Congestion 02/03/22 02/03/22 Unknown History extended release 12 hr (Mucinex) lactulose 10 gram/15 mL oral 15 ml PO DAILY PRN Constipation 02/03/22 02/03/22 Unknown History solution levofloxacin 500 mg tablet 500 mg PO DAILY 02/03/22 02/03/22 02/03/22 History rqhvpujd-inksfyck-jtdjy acid 400 1 tab PO QPM 02/03/22 02/03/22 02/02/22 History mcg-vit K 20 mcg-lycop 300 mcg tablet (Men's One Daily) mupirocin 2 % topical ointment 1 applic topical BID PRN Rash 02/03/22 02/03/22 Unknown History ondansetron 8 mg disintegrating 8 mg PO Q8H PRN Nausea And Vomiting 02/03/22 02/03/22 Unknown History tablet polyethylene glycol 3350 17 gram 17 g PO DAILY 02/03/22 02/03/22 Unknown History oral powder packet (Miralax) revefenacin 175 mcg/3 mL solution 175 mcg inhalation DAILY 02/03/22 02/03/22 02/03/22 History for nebulization (Yupelri) sodium chloride 1 gram tablet 1,000 mg PO BID 02/03/22 02/03/22 02/03/22 History Allergies Allergy/AdvReac Type Severity Reaction Status Date / Time Sulfa (Sulfonamide Allergy ALGY-Rash Verified 02/03/22 14:57 Antibiotics) PFSH Acute PFSH: Medical History (Updated 02/03/22 @ 19:34 by Gabriela Angelo MD) Acute exacerbation of chronic obstructive pulmonary disease Afib BPH (benign prostatic hyperplasia) Chronic hyponatremia COPD (chronic obstructive pulmonary disease) Coronavirus infection Common cold variant 229E Disability Gastritis HTN (hypertension) Liver cirrhosis etoh abuse Osmotic myelinolysis Pill rolling tremors Presence of externally removable percutaneous endoscopic gastrostomy (PEG) tube Pulmonary HTN Surgical History H/O hemorrhoidectomy Family History Denies family history of Diabetes Social History Smoking and tobacco status: current every day smoker Alcohol intake: unknown Vitals/I&O/Wt Last Vital Signs Temp 97.2 F L 02/03/22 11:39 Pulse 74 02/03/22 11:39 Resp 18 02/03/22 11:39 BP 176/105 02/03/22 15:00 Pulse Ox 97 02/03/22 15:00 O2 Del Method 02/03/22 11:39 Weight last 48 hrs Weight 77.111 kg Physical Exam Narrative: General: Alert but not oriented. Unable to assess orientation. Repeats every word that you say to him. Does not follow any commands. Was able to stick his tongue out for me but that is it. No acute distress at this time daughter present at bedside. Frail-appearing thin male. Has got a contracture on left arm unable to assess neurologically otherwise. Able to somewhat track my head. Altered. Unable to obtain any history. HEENT: Normocephalic, atraumatic, EOMI, breathing comfortably on room air. Cardio: Regular rate rhythm, normal S1-S2, Respiratory: Rales at left base, rest of lungs clear to auscultation with diminished in bilateral upper lobes GI: Abdomen soft, but distended, nontender, does not grimace to palpation, suprapubic catheter in place. Extremities: No lower extremity edema noted no cyanosis. Patient able to wiggle his toes. Data : 02/03/22 11:50 02/03/22 11:50 A&P Assessment and plan (1) Altered mental status: Status: Acute (2) Hyponatremia: Status: Acute (3) Liver cirrhosis: Status: Acute (4) HTN (hypertension): Status: Acute (5) Afib: Status: Acute (6) Osmotic myelinolysis: Status: Acute (7) COPD (chronic obstructive pulmonary disease): Status: Acute (8) BPH (benign prostatic hyperplasia): Status: Acute Plan #Altered mental status, metabolic? #Urinary tract infection #Chronic hyponatremia, seems to be at baseline #COPD, stable #Hypertension #Liver cirrhosis secondary to alcohol abuse #History of osmotic myelinolysis syndrome #Pulmonary hypertension #A. fib #BPH #Rectal mass ? Continue Cardizem 240 daily, hydroxyzine, formoterol, fluticasone, vitamin B12, budesonide twice daily, MiraLAX, propranolol 3 times daily, revefenacin, ropinirole, sodium tablet 1 g twice daily, venlafaxine to 25 daily ? Speech swallow evaluation. Patient qualified for ground meat and thin liquids ? CT head negative for stroke ? Check vitamin B12, ammonia. Ammonia is 10 ? We will place on gentle fluid hydration normal saline 75 cc/h ? Check urine culture, blood culture. Will place on Zosyn ? CT abdomen pelvis shows dilated colon proximal to nonspecific narrowing assessment: Complex large mass in rectum. Mass has stool fat and air in it. We will consult general surgery for evaluation -Placed on oxygen and wean as able. DuoNeb every 4 hours as needed -Patient's medication list is not reconciled accurately. Nursing staff is working to obtain the list. At that point we will reconcile his medications properly. Apparently patient took all his morning medications will be unable to identify which ones are the morning medications at this time. For now for blood pressure we will give hydralazine 5 mg IV x1. -Check abdominal ultrasound to evaluate for ascites Full code DVT prophylaxis: Heparin subcu Will obtain records from [facility] regarding patient's most recent stay. Attestations Medical Necessity Statement*: Patient will cross greater than 2 midnight stay for work-up and management of altered mental status, chronic hyponatremia, UTI, rectal mass Coding Level of Care Code Acute Clinical Education Consultant for g Fwd Diagnoses Altered mental status R41.82 Hyponatremia E87.1 Liver cirrhosis K74.60 HTN (hypertension) I10 Afib I48.91 Osmotic myelinolysis G37.2 COPD (chronic obstructive pulmonary disease) J44.9 BPH (benign prostatic hyperplasia) N40.0
--- NOTE | 2022-02-03 17:57 | ECG_ITS ---
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 Measurements Intervals [place] Rate: 83 P: 72 [place]: 171 QRS: 62 QRSD: 104 T: 69 QT: 394 QTc: 465 Interpretive Statements SINUS RHYTHM WITH SINUS ARRHYTHMIA ANTEROSEPTAL MYOCARDIAL INFARCTION , OF INDETERMINATE AGE [40+ ms Q WAVE IN V1-V4] Compared to ECG 02/03/2022 14:26:31 No significant changes Electronically Signed On 02-04-2022 8:39:29 CDT by Jessica Rios M.D. [id number]
[2022-02-03] MEDS: labetalol 5 mg/mL SDV 20mL IVP (18:02)
[2022-02-03 19:33] LABS: Troponin 5 6HR 17.42 ng/L (0-15); Troponin 5 6HR Delta -0.58 ng/L (0-12)
--- NOTE | 2022-02-03 19:34 | USR_ITS ---
PROCEDURE INFORMATION: Exam: US Abdomen Complete Exam date and time: 02/03/2022 7:48 PM Age: 66 years old Clinical indication: Abdominal pain; Acute; Patient HX: Abd pain; Additional info: Ascites TECHNIQUE: Imaging protocol: Real-time ultrasound of the abdomen with image documentation. Complete exam. COMPARISON: US abdomen limited [id number] 02/04/2018 4:35 PM FINDINGS: Liver: Normal. No mass. Gallbladder: Cholelithiasis. Biliary ducts: Normal. No stones. No dilation. Pancreas: Visualized pancreas is unremarkable. Right kidney: Normal. No mass. No hydronephrosis. Left kidney: Left kidney 2.6 cm cyst. Spleen: Normal. No splenomegaly. Aorta: Normal. No aneurysm. Inferior vena cava: Normal. US/US abdomen complete* [id number] IMPRESSION: 1. Cholelithiasis negative for cholecystitis 2. Left kidney 2.6 cm cyst.
[2022-02-03] MEDS: sodium chloride 0.9% 1,000 ML 75 ML IV ×2 (19:45→23:13)
[2022-02-03] MEDS: piperacillin-tazobactam 3.375 GM in sodium chloride 0.9% (plus) 50 ML IV (19:46)
--- NOTE | 2022-02-03 19:55 | PM.CONSULT ---
Providers/Reason For Consult Consulting Physician/Specialty*: Karel Harrison/Gen surg Reason for Consult*: Abdominal distention Requesting Physician: Dr. Angelo Primary Care Provider: JAYNA Rivera History of Present Illness History of Present Illness Ludwin Lux is a 66 year old male He was brought to the emergency room today by his daughter. By the time I came to evaluate the patient, the doctor left. The patient is nonverbal is not able to provide any details about his symptoms, past medical surgical history or anything else related to the history of present illness. History obtained from reviewing of the medical records and conversation with other healthcare providers. The patient has multiple medical problems as outlined below. He was brought to the emergency room today with altered mental status. He was evaluated by the emergency room physician and hospitalist and admitted to medicine. Reportedly, he was recently admitted to [facility] with some kind of abdominal issues. His daughter does not know details. Records were requested by the hospitalist. CT scan was performed for abdominal distention and showed colonic obstruction at the distal rectum. Large amount of stool in the rectum. No obvious mass present, questionable fecal impaction versus malignancy. Review of Systems Narrative: Unable to obtain review of system because of the altered mental status of the patient Medications/Allergies Home Medications Medication Instructions Recorded Confirmed Last Taken Type cetirizine 10 mg tablet 10 mg PO DAILY 06/21/21 02/03/22 02/02/22 History fluticasone propionate 50 1 spray intranasal DAILY PRN Nasal 06/21/21 02/03/22 Unknown History mcg/actuation nasal Congestion spray,suspension hydroxyzine pamoate 50 mg capsule 50 mg PO Q6H PRN Anxiety 06/21/21 02/03/22 02/02/22 History nystatin 100,000 unit/gram topical 1 applic topical BID PRN Rash 06/21/21 02/03/22 Unknown History cream propranolol 10 mg tablet 10 mg PO TID 06/21/21 02/03/22 02/03/22 History ropinirole 1 mg tablet 1 mg PO BID PRN Cramps 06/21/21 02/03/22 Unknown History sennosides 8.6 mg-docusate sodium 2 tab PO DAILY 06/21/21 02/03/22 02/02/22 History 50 mg tablet (Stool Softener-Laxative) temazepam 30 mg capsule 30 mg PO DAILY 06/21/21 02/03/22 02/02/22 History venlafaxine 225 mg tablet,extended 225 mg PO DAILY 06/21/21 02/03/22 02/03/22 History release 24 hr doxycycline hyclate 100 mg capsule 100 mg PO DAILY #10 caps 06/24/21 02/03/22 02/03/22 Rx Lactobacillus acidophilus 500 500 mmu cells PO DAILY 02/03/22 02/03/22 02/03/22 History million cell tablet albuterol sulfate 2.5 mg inhalation TID PRN 02/03/22 02/03/22 02/03/22 History Shortness Of Breath Or Wheezing apixaban 5 mg tablet (Eliquis) 5 mg PO BID 02/03/22 02/03/22 02/03/22 History budesonide 0.5 mg/2 mL suspension 0.5 mg inhalation BID 02/03/22 02/03/22 02/03/22 History for nebulization cranberry extract-vitamin C 250 1 cap PO QPM 02/03/22 02/03/22 02/02/22 History mg-60 mg capsule cyanocobalamin (vitamin B-12) 500 500 mcg PO QPM 02/03/22 02/03/22 02/02/22 History mcg tablet (Vitamin B-12) diltiazem HCl 240 mg 240 mg PO DAILY 02/03/22 02/03/22 02/03/22 History capsule,extended release 24 hr ferrous sulfate 325 mg (65 mg 325 mg PO QPM 02/03/22 02/03/22 02/02/22 History iron) tablet (iron) formoterol fumarate 20 mcg/2 mL 2 ml inhalation BID 02/03/22 02/03/22 02/03/22 History solution for nebulization (Perforomist) guaifenesin 600 mg tablet, 600 mg PO Q12H PRN Congestion 02/03/22 02/03/22 Unknown History extended release 12 hr (Mucinex) lactulose 10 gram/15 mL oral 15 ml PO DAILY PRN Constipation 02/03/22 02/03/22 Unknown History solution levofloxacin 500 mg tablet 500 mg PO DAILY 02/03/22 02/03/22 02/03/22 History rjsrobis-hobwlcqi-jkaxv acid 400 1 tab PO QPM 02/03/22 02/03/2202/02/22 History mcg-vit K 20 mcg-lycop 300 mcg tablet (Men's One Daily) mupirocin 2 % topical ointment 1 applic topical BID PRN Rash 02/03/22 02/03/22 Unknown History ondansetron 8 mg disintegrating 8 mg PO Q8H PRN Nausea And Vomiting 02/03/22 02/03/22 Unknown History tablet polyethylene glycol 3350 17 gram 17 g PO DAILY 02/03/22 02/03/22 Unknown History oral powder packet (Miralax) revefenacin 175 mcg/3 mL solution 175 mcg inhalation DAILY 02/03/22 02/03/22 02/03/22 History for nebulization (Yupelri) sodium chloride 1 gram tablet 1,000 mg PO BID 02/03/22 02/03/22 02/03/22 History Allergies Allergy/AdvReac Type Severity Reaction Status Date / Time Sulfa (Sulfonamide Allergy ALGY-Rash Verified 02/03/22 14:57 Antibiotics) Current Medications Generic Name Dose Route Start Last Admin Trade Name Freq PRN Reason Stop Dose Admin Sodium Chloride 1,000 mls @ 75 mls/hr 02/03/22 19:15 02/03/22 19:45 Sodium Chloride 0.9% IV 75 mls/hr .[id number] ANGELA Administration Piperacillin Sod/Tazobactam 50 mls @ 12.5 mls/hr 02/03/22 19:30 02/03/22 19:46 Sod 3.375 gm/ Sodium Chloride IV 12.5 mls/hr Q8H ANGELA Administration Protocol As Directed PFSH Acute PFSH: Medical History (Updated 02/03/22 @ 20:05 by Karel Harrison MD) Acute exacerbation of chronic obstructive pulmonary disease Afib BPH (benign prostatic hyperplasia) Chronic hyponatremia COPD (chronic obstructive pulmonary disease) Coronavirus infection Common cold variant 229E Disability Gastritis HTN (hypertension) Liver cirrhosis etoh abuse Osmotic myelinolysis Pill rolling tremors Presence of externally removable percutaneous endoscopic gastrostomy (PEG) tube Pulmonary HTN Surgical History H/O hemorrhoidectomy Family History Denies family history of Diabetes Social History Smoking and tobacco status: current every day smoker Alcohol intake: unknown Vitals/I&O/Wt Last Vital Signs Temp 97.2 F L 02/03/22 11:39 Pulse 74 02/03/22 11:39 Resp 18 02/03/22 11:39 BP 167/110 02/03/22 19:00 Pulse Ox 85 L 02/03/22 19:00 O2 Del Method 02/03/22 11:39 Weight last 48 hrs Weight 170 lb Physical Exam Narrative: General: Very thin and cachectic, Psych: Nonverbal Eyes: [sclerae are white] Head/ENT: [normocephalic, symmetric] CV: no JVD Lungs: [symmetrical chest rise] Abdomen: Diffusely distended, the patient does not react to palpation, no peritoneal signs. Suprapubic urinary catheter present. It is not clear if he has no pain or he is altered to the point that he cannot perceive pain well. Ext: [no obvious traumatic deformities] Skin: warm Data : 02/03/22 11:50 02/03/22 11:50 A&P Assessment and plan (1) Fecal impaction in rectum: Status: Acute (2) Obstruction of colon: Status: Acute (3) Liver cirrhosis: Status: Acute (4) Altered mental status: Status: Acute (5) Hyponatremia: Status: Acute (6) Afib: Status: Acute (7) COPD (chronic obstructive pulmonary disease): Status: Acute (8) HTN (hypertension): Status: Acute Plan Large bowel obstruction secondary to fecal impaction versus malignancy in the rectum. The patient is in altered mental status and is unable to cooperate. Plan to proceed with fecal disimpaction under light conscious sedation to facilitate cooperation with the procedure. Can be done at bedside. If impaction secondary to malignancy and there is an obstructive lesion, he will require surgical intervention. We will reassess after attempted disimpaction. At this time there is no evidence of any perforation/ischemic colon. He is hemodynamically stable. Troponins are elevated, EKG showed age-indeterminate infarcts, I will defer need for cardiology consult to medical team. However, given degree of abdominal distention and large bowel obstruction, troponin elevation may represent demand ischemia secondary to pain/stress. Multiple other medical problems will be managed by a medical team as well.. -Plan to proceed with rectal exam, disimpaction and light conscious sedation. Consent: Management was discussed with the patient's daughter. Plan to perform the procedure under conscious sedation. Agreed to proceed. Risks and benefits of surgery were discussed. All questions were answered. Moderate sedation/preanesthesia assessment: Heart: AFib Lungs: COPD, on oxygen Airway: MP class 2 List of medications was reviewed. ASA class: [III] Independent trained observer was present and assisted with monitoring of the patient?s level of consciousness and physiologic status through the procedure Immediately prior to procedure the patient was reassessed and remains an appropriate candidate for the planned sedation and procedure. Under conscious sedation with 2 of Versed and 50 of fentanyl rectal exam was performed. There was a large rocklike ball of stool located in the upper rectum which I was not able to remove. A lot of liquid gas and air came out under pressure and rectum was effectively decompressed. Abdominal distention improved. There was no obstructive malignancy or any other obstructive lesion on physical exam. Plan to proceed with laxatives, MiraLAX twice daily and bisacodyl twice a day suppository in addition to docusate senna and lactulose. If abdominal distention recur, decompression and disimpaction can be performed by nursing staff twice a day. If above mentioned therapies not sufficient, the patient may require colostomy, however, it will be the very last step. Also, the patient is nonverbal, his quality of life is poor, goals of care should be carefully discussed with the family. - Surgery will continue to follow until resolution of large bowel obstruction. - Please hold oral anticoagulation for now and continue with short acting agents until there is normal need for a surgical intervention Coding Level of Care Code Acute [employer] Teacher for Chg Fwd Diagnoses Fecal impaction in rectum K56.41 Obstruction of colon K56.609 Liver cirrhosis K74.60 Altered mental status R41.82 Hyponatremia E87.1 Afib I48.91 COPD (chronic obstructive pulmonary disease) J44.9 HTN (hypertension) I10
--- NOTE | 2022-02-03 20:03 | PC.NURSE ---
Per Dr Harrison hold Heparin until after conscious sedation
[2022-02-03] MEDS: midazolam 1 mg/mL INJ 2 mL 2 MG IVP (20:24)
[2022-02-03] MEDS: fentaNYL 50 mcg/mL INJ 2mL IVP (20:24)
[2022-02-03 20:26] LABS: Procalcitonin 0.07 ng/mL (0-0.5)
[2022-02-03] MEDS: heparin 5,000 unit/mL INJ 1 mL 5000 UNIT SUBCUT (20:45)
--- NOTE | 2022-02-03 20:50 | XRR_ITS ---
PROCEDURE INFORMATION: Exam: XR Abdomen Exam date and time: 02/03/2022 8:57 PM Age: 66 years old Clinical indication: Bloating; Additional info: Colon obstruction TECHNIQUE: Imaging protocol: Radiologic exam of the abdomen. Views: Frontal supine view of the abdomen. 1 View. COMPARISON: CT abdomen pelvis w con* [id number] 02/03/2022 12:40 PM FINDINGS: Gastrointestinal tract: Colon appears somewhat diffusely prominent measuring up to 8 cm without gross dilation to indicate obstruction, finding may potentially reflect an ileus or perhaps a partial obstruction. Bones/joints: Unremarkable. XR/XR abdomen 1V* [id number] IMPRESSION: Colon appears somewhat diffusely prominent measuring up to 8 cm without gross dilation to indicate obstruction, finding may potentially reflect an ileus or perhaps a partial obstruction.
--- NOTE | 2022-02-03 21:03 | PC.NURSE ---
Gave report to Jose Hancock
[2022-02-03] MEDS: ipratropium-albuterol 3 mL Neb INHALATION (21:44)
[2022-02-03] MEDS: propranolol 20 mg Tablet 10 MG PO (22:00)
[2022-02-03] MEDS: polyethylene glycol 3350 Pkt 17 gm PO (22:00)
[2022-02-04] VITALS (24 sets, daily range): BP systolic 101–174; BP diastolic 46–94; PULSE 75–90; RESP 16–20; TEMP 36.4–36.9; O2SAT 92–98
[2022-02-04 00:49] LABS: Urine Random Sodium 96 mmol/L
[2022-02-04] MEDS: piperacillin-tazobactam 3.375 GM in sodium chloride 0.9% (plus) 50 ML IV ×3 (03:45→19:58)
--- NOTE | 2022-02-04 03:51 | PC.NURSE ---
suprapubic catheter noted
--- NOTE | 2022-02-04 04:29 | PC.NURSE ---
0420 patient becoming nauseated with small amount of thick, yellow emesis noted; Dr. Pacheco notified, new orders noted (see MAR)
[2022-02-04] MEDS: ondansetron 2 mg/ML SDV 2 mL 4 MG IVP (04:34)
[2022-02-04 05:49] LABS: Basophils % 0.5 %; Eosinophils # 0.4 10^3/uL (0.0-0.8); Eosinophils % 5.6 %; Hematocrit 35.2 % (42.0-52.0); Hemoglobin 11.6 g/dL (11.7-16.6); Lymphocytes # 0.4 10^3/uL (0.8-4.8); Lymphocytes % 6.3 %; Mean Corpuscular Hemoglobin 28.4 pg (28.0-34.0); Mean Corpuscular Volume 86.1 fl (80-94); Mean Platelet Volume 8.9 fL (7.4-10.4); Monocytes # 0.3 10^3/uL (0.2-0.9); Monocytes % 4.7 %; Neutrophils % 82.4 %; Nucleated Red Blood Cells % 0 %; Platelet Count 351 10^3/cmm (130-400); Red Blood Count 4.09 10^6/uL (4.1-5.3); Red Cell Distribution Width 14.6 % (12.1-15.1); White Blood Count 6.6 10^3/uL (4.0-10.0)
[2022-02-04 06:18] LABS: Alanine Aminotransferase 12 U/L (0-41); Albumin Level 3.2 g/dL (3.5-5.2); Alkaline Phosphatase 71 U/L (40-130); Anion Gap 10.6 (5-19); Aspartate Amino Transferase 12 U/L (0-40); Blood Urea Nitrogen 11 mg/dL (8-23); Carbon Dioxide 27 mmol/L (22-29); Chloride 96 mmol/L (98-107); Globulin 2.6 g/dL (1.3-4.6); Glomerular Filtration Rate 134.4 mL/min (90-130); Glucose 80 mg/dL (65-115); Magnesium 1.7 mg/dL (1.7-2.3); Osmolality Calculated 268 mOsm/kg (285-295); Potassium 3.6 mmol/L (3.5-5.1); Sodium 130 mmol/L (136-145); Total Bilirubin 0.4 mg/dL (0.15-1.2); Total Protein 5.8 g/dL (6.6-8.7)
[2022-02-04] MEDS: ipratropium-albuterol 3 mL Neb INHALATION ×4 (07:37→20:51)
[2022-02-04] MEDS: budesonide 0.5 mg/2 mL Neb INHALATION ×2 (08:00→20:51)
--- NOTE | 2022-02-04 08:50 | XRR_ITS ---
PROCEDURE INFORMATION: Exam: XR Abdomen Exam date and time: 02/04/2022 7:57 AM Age: 66 years old Clinical indication: Condition or disease; Intestinal condition; Obstruction; Additional info: Colon obstruction TECHNIQUE: Imaging protocol: Radiologic exam of the abdomen. Views: Frontal supine view of the abdomen. 1 View. COMPARISON: CR (ABDOMEN, ) 02/03/2022 8:57 PM FINDINGS: Gastrointestinal tract: Marked colonic dilatation along with prominent stool. Intraperitoneal space: Incomplete visualization of the superior and left lateral abdomen. Vasculature: Vascular calcification. Bones/joints: Osteopenia and degenerative change. XR/XR abdomen 1V* [id number] IMPRESSION: Marked colonic dilatation along with prominent stool.
[2022-02-04] MEDS: bisacodyl 10 mg Supp PR ×2 (09:47→17:30)
[2022-02-04] MEDS: lactobacillus 1 Tablet 1 TAB PO (09:47)
[2022-02-04] MEDS: propranolol 20 mg Tablet 10 MG PO ×3 (09:47→20:00)
[2022-02-04] MEDS: polyethylene glycol 3350 Pkt 17 gm PO ×2 (09:47→17:29)
[2022-02-04] MEDS: sodium chloride 1 gm Tablet PO ×2 (09:48→17:31)
[2022-02-04] MEDS: venlafaxine ER (24HR) 75 mg Capsule 225 MG PO (09:48)
[2022-02-04] MEDS: dilTIAZem ER (24HR) 240 mg Capsule PO (09:49)
[2022-02-04] MEDS: heparin 5,000 unit/mL INJ 1 mL 5000 UNIT SUBCUT ×2 (09:49→19:58)
[2022-02-04] MEDS: cetirizine 10 mg Tablet PO (09:49)
[2022-02-04] MEDS: sennosides-docusate Tablet 2 TAB PO (09:49)
--- NOTE | 2022-02-04 10:25 | P.PN_ITS ---
Subjective Subjective: The patient did not have any bowel movements overnight. No other acute events per nursing report. Vitals/I&O/Wt Last Vital Signs Temp 97.5 F L 02/04/22 08:00 Pulse 82 02/04/22 08:00 Resp 17 02/04/22 08:00 BP 165/89 02/04/22 08:00 Pulse Ox 94 02/04/22 08:00 O2 Del Method 02/04/22 08:00 02/03/22 02/04/22 02/04/22 22:59 06:59 14:59 Intake Total 1111 / 1111 50 / 50 Output Total 1000 / 1000 Balance 111 / 111 50 / 50 Weight last 48 hrs Weight 170 lb Physical Exam Narrative: General: Very thin and cachectic, Psych: Nonverbal Eyes: [sclerae are white] Head/ENT: [normocephalic, symmetric] CV: no JVD Lungs: [symmetrical chest rise] Abdomen: Diffusely distended, slightly less than yesterday, however, more than after decompression and disimpaction in the evening. The patient does not react to palpation, no peritoneal signs. Suprapubic urinary catheter present. It is not clear if he has no pain or he is altered to the point that he cannot perceive pain at all Ext: [no obvious traumatic deformities] Skin: warm Data : 02/04/22 04:45 02/04/22 04:45 Micro: Microbiology 02/03/22 12:20 Urine Culture - Preliminary Urine,Clean Catch 02/03/22 19:51 Blood Culture - Preliminary Blood SPECIMEN COLLECTED 02/03/22 19:45 Blood Culture - Preliminary Blood SPECIMEN COLLECTED Other data: Abdominal x-ray was reviewed. Sigmoid: Remains very dilated, up to 10 cm. X- ray picture consistent with a sigmoid volvulus, distal obstruction of the rectum. No free air. A&P Assessment and plan (1) Fecal impaction in rectum: Status: Acute (2) Obstruction of colon: Status: Acute (3) Chronic constipation with overflow: Status: Acute (4) Dolichocolon: Status: Acute (5) Liver cirrhosis: Status: Acute (6) Altered mental status: Status: Acute (7) Hyponatremia: Status: Acute (8) Afib: Status: Acute (9) COPD (chronic obstructive pulmonary disease): Status: Acute (10) HTN (hypertension): Status: Acute Plan I discussed the patient's care with the daughter of the patient Patsy Nieves. Phone number is [phone]. She confirmed that the patient is suffering from chronic constipation for multiple years. Usually she does not have a bowel movement for several days despite laxative administration and then continues to leak liquid stool several times a day in his diapers. Clinical picture consistent with chronic constipation with overflow incontinence. 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 I am almost certain that there is some degree of chronic sigmoid volvulus which contributes to constipation, chronic intermittent obstruction of the colon. Sigmoid is up to 10 cm on the x-ray today, no free air present, however, there is no significant improvement in the appearance of the sigmoid colon compared to yesterday. Rectal exam with decompression and evacuation of more air and stool was again performed at bedside. At least half a liter of liquid stool and significant amount of air came out. Abdominal distention improved significantly after the procedure. I will order an x-ray at 4:00 PM to reassess the radiologic appearan ce of the sigmoid. Management was discussed with the patient's daughter. It seems to be a chronic ongoing problem which culminated in obstruction of the colon secondary to fecal impaction, dolichosigma and some degree of chronic intermittent volvulus. If there is no significant improvement in the next 12 to 24 hours, I think the patient will benefit from sigmoidectomy and permanent colostomy. He is nonverbal and it will be very difficult to follow him clinically, if colonic distention persist, he will be at high risk for perforation. The patient's daughter agreed with the plan. The patient is on apixaban, last dose was presumably yesterday. His coags are essentially normal. If there is no significant deterioration on the x-ray, I would rather do his surgery tomorrow to let the effect of anticoagulation to wear off. I will repeat INR and PTT tomorrow. Also, mild coagulopathy on ad mission may be related to the history of liver cirrhosis. Attestations Medical Necessity Statement*: Colon obstruction Coding Level of Care Code Acute [employer] Operator for g Fwd Diagnoses Fecal impaction in rectum K56.41 Obstruction of colon K56.609 Chronic constipation with overflow K59.09 Dolichocolon Q43.8 Liver cirrhosis K74.60 Altered mental status R41.82 Hyponatremia E87.1 Afib I48.91 COPD (chronic obstructive pulmonary disease) J44.9 HTN (hypertension) I10 Time Spent (min) 70
[2022-02-04] MEDS: sodium chloride 0.9% 1,000 ML 75 ML IV (11:01)
--- NOTE | 2022-02-04 11:12 | PM.PN ---
Subjective Subjective: Seen this AM. Family present at bedside patient son and patient's is there. Patient again is nonverbal unable to answer any questions or give any history at this time. He was disimpacted by general surgery yesterday. There is evidence of sigmoid volvulus on x-ray this AM. Plan for possible surgery in a.m. Discussed this with the family and they are agreeable Vitals/I&O/Wt Last Vital Signs Temp 97.5 F L 02/04/22 08:00 Pulse 82 02/04/22 08:00 Resp 17 02/04/22 08:00 BP 165/89 02/04/22 08:00 Pulse Ox 94 02/04/22 08:00 O2 Del Method 02/04/22 08:00 02/03/22 02/04/22 02/04/22 22:59 06:59 14:59 Intake Total 1111 / 1111 935 / 935 Output Total 1000 / 1000 Balance 111 / 111 935 / 935 Weight last 48 hrs Weight 77.111 kg Physical Exam Narrative: General: Alert but not oriented. Unable to assess orientation. No acute distress frail-appearing thin male. Has got a contracture on left arm unable to assess neurologically otherwise. Altered. Unable to obtain any history. HEENT: Normocephalic, atraumatic, EOMI, breathing comfortably on room air. Cardio: Regular rate rhythm, normal S1-S2, Respiratory: Rales at left base, rest of lungs clear to auscultation with diminished in bilateral upper lobes GI: Abdomen soft, but distended, nontender, does not grimace to palpation, suprapubic catheter in place. Extremities: No lower extremity edema noted no cyanosis. Patient able to wiggle his toes. Data : 02/04/22 04:45 02/04/22 04:45 Micro: Microbiology 02/03/22 12:20 Urine Culture - Preliminary Urine,Clean Catch 02/03/22 19:51 Blood Culture - Preliminary Blood SPECIMEN COLLECTED 02/03/22 19:45 Blood Culture - Preliminary Blood SPECIMEN COLLECTED A&P Assessment and plan (1) Altered mental status: Status: Acute (2) Hyponatremia: Status: Acute (3) Liver cirrhosis: Status: Acute (4) HTN (hypertension): Status: Acute (5) Afib: Status: Acute (6) Osmotic myelinolysis: Status: Acute (7) COPD (chronic obstructive pulmonary disease): Status: Acute (8) BPH (benign prostatic hyperplasia): Status: Acute Plan #Altered mental status, metabolic? #Urinary tract infection #Sigmoid volvulus #CHronic constipation with overflow incontinance #Chronic hyponatremia, seems to be at baseline #COPD, stable #Hypertension #Liver cirrhosis secondary to alcohol abuse #History of osmotic myelinolysis syndrome #Pulmonary hypertension #A. fib #BPH ? Continue Cardizem 240 daily, hydroxyzine, formoterol, fluticasone, vitamin B12, budesonide twice daily, MiraLAX, propranolol 3 times daily, revefenacin, ropinirole, sodium tablet 1 g twice daily, venlafaxine to 25 daily ? Speech swallow evaluation. Patient qualified for ground meat and thin liquids ? CT head negative for stroke ? Check vitamin B12, ammonia. Ammonia is 10 ? We will place on gentle fluid hydration normal saline 75 cc/h ? Check urine culture, blood culture. Will place on Zosyn ? CT abdomen pelvis shows dilated colon proximal to nonspecific narrowing assessment: Complex large mass in rectum. Mass has stool fat and air in it. No surgery evaluated patient and disimpacted him. Appreciate recommendations and help with management. 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 Patient will require a permanent colostomy and sigmoidectomy possibly. General surgery would repeat an x-ray of the abdomen around 4 PM to see if there is any improvement. If not he will go for surgery in a.m. He discussed this with the daughter who is agreeable as well. -Placed on oxygen and wean as able. DuoNeb every 4 hours as needed -Keep patient n.p.o. tonight for surgery in a.m. ? Check PT/INR in a.m. ? Continue to hold Eliquis. Full code DVT prophylaxis: Heparin subcu Will obtain records from [facility] regarding patient's most recent stay. Attestations Medical Necessity Statement*: Possible surgery in AM. COntinue to monitor in hospital. Coding Level of Care Code Acute Ict Analyst for Chg Fwd Diagnoses Altered mental status R41.82 Hyponatremia E87.1 Liver cirrhosis K74.60 HTN (hypertension) I10 Afib I48.91 Osmotic myelinolysis G37.2 COPD (chronic obstructive pulmonary disease) J44.9 BPH (benign prostatic hyperplasia) N40.0
--- NOTE | 2022-02-04 16:00 | XRR_ITS ---
PROCEDURE INFORMATION: Exam: XR Abdomen Exam date and time: 02/04/2022 4:00 PM Age: 66 years old Clinical indication: Other: Sigmoid volvulous TECHNIQUE: Imaging protocol: Radiologic exam of the abdomen. Views: Frontal supine view of the abdomen. 1 View. COMPARISON: CR (ABDOMEN, ) 02/04/2022 7:57 AM FINDINGS: Gastrointestinal tract: Air/stool filled sigmoid colon with dilatation similar to the prior study. Colonic constipation is present. Bones/joints: Unremarkable. XR/XR abdomen 1V* [id number] IMPRESSION: The appearance of the dilated air/stool-filled sigmoid colon is similar to the prior study.
[2022-02-04] MEDS: cyanocobalamin 1,000 mcg Tablet 500 MCG PO (17:31)
[2022-02-04] MEDS: ferrous sulfate EC 325 mg Tablet PO (17:31)
--- NOTE | 2022-02-04 19:23 | P.PN_ITS ---
Subjective Subjective: The patient had 1 medium size liquid bowel movement. X-ray at 1600 showed slight improvement in the size of the sigmoid colon, however, his provement is mild. I personally reviewed x-ray and radiology report.. Patient mental status somewhat improved, he is able to say yes or no. His vital signs remain unremarkable. Abdomen soft, distended, no peritoneal signs. Degree of distention is stable, not worse, however, not significantly better as well. -Continue observation, laxatives -Nursing will perform disimpaction and suppository at 1999 -Abdominal x-ray tomorrow a.m., if there is no significant resolution of gaseous distention of the colon, will plan for surgical intervention and colostomy. Vitals/I&O/Wt Last Vital Signs Temp 98.2 F 02/04/22 16:00 Pulse 78 02/04/22 16:00 Resp 17 02/04/22 16:00 BP 144/90 02/04/22 16:00 Pulse Ox 94 02/04/22 16:00 O2 Del Method 02/04/22 16:00 02/04/22 02/04/22 02/04/22 06:59 14:59 22:59 Intake Total 1111 / 1111 935 / 935 50 / 985 Output Total 1000 / 1000 Balance 111 / 111 935 / 935 50 / 985 Weight last 48 hrs Weight 170 lb Data : 02/04/22 04:45 02/04/22 04:45 Micro: Microbiology 02/03/22 12:20 Urine Culture - Preliminary Urine,Clean Catch 02/03/22 19:51 Blood Culture - Preliminary Blood SPECIMEN COLLECTED 02/03/22 19:45 Blood Culture - Preliminary Blood SPECIMEN COLLECTED Attestations Medical Necessity Statement*: bowel obstruction Coding Level of Care Code Acute Reporting Process Consultant for g Griselda
[2022-02-05] VITALS (26 sets, daily range): BP systolic 77–162; BP diastolic 50–124; PULSE 62–96; RESP 8–25; TEMP 36.3–38.1; O2SAT 85–100
[2022-02-05] MEDS: sodium chloride 0.9% 1,000 ML 75 ML IV ×2 (00:16→22:15)
[2022-02-05] MEDS: piperacillin-tazobactam 3.375 GM in sodium chloride 0.9% (plus) 50 ML IV ×3 (02:38→18:36)
[2022-02-05 05:59] LABS: Basophils % 0.2 %; Eosinophils # 0.8 10^3/uL (0.0-0.8); Hematocrit 34.4 % (42.0-52.0); Hemoglobin 11.2 g/dL (11.7-16.6); Lymphocytes # 0.5 10^3/uL (0.8-4.8); Lymphocytes % 7.4 %; Mean Corpuscular HGB Conc 32.6 g/dL (30.0-36.0); Mean Corpuscular Hemoglobin 28.1 pg (28.0-34.0); Mean Corpuscular Volume 86.4 fl (80-94); Mean Platelet Volume 8.5 fL (7.4-10.4); Monocytes # 0.3 10^3/uL (0.2-0.9); Neutrophils # 5.02 10^3/uL (1.8-7.7); Neutrophils % 76.2 %; Nucleated Red Blood Cells % 0 %; Platelet Count 341 10^3/cmm (130-400); Red Blood Count 3.98 10^6/uL (4.1-5.3); Red Cell Distribution Width 14.6 % (12.1-15.1); White Blood Count 6.6 10^3/uL (4.0-10.0)
--- NOTE | 2022-02-05 06:00 | XRR_ITS ---
PROCEDURE INFORMATION: Exam: XR Abdomen Exam date and time: 02/05/2022 7:30 AM Age: 66 years old Clinical indication: Condition or disease; Intestinal condition; Obstruction; Additional info: Colonic obstruction, pls, include entire abdomen and pelvis TECHNIQUE: Imaging protocol: Radiologic exam of the abdomen. Views: Frontal supine view of the abdomen. 1 View. COMPARISON: Abdominal CT 02/03/22 FINDINGS: Gastrointestinal tract: Marked bowel dilatation, disproportionately involving the colon, as evidenced on recent CT. Prominent stool also demonstrated. Intraperitoneal space: Incomplete visualization of the superior and lateral most aspects of the abdomen. Bones/joints: Degenerative change. XR/XR abdomen 1V* [id number] IMPRESSION: Marked bowel dilatation, disproportionately involving the colon, along with prominent stool.
[2022-02-05 06:11] LABS: INR 1.26 (0.8-1.2)
[2022-02-05 06:24] LABS: Anion Gap 13.1 (5-19); Blood Urea Nitrogen 15 mg/dL (8-23); Calcium 7.8 mg/dL (8.5-10.5); Carbon Dioxide 23 mmol/L (22-29); Chloride 96 mmol/L (98-107); Glomerular Filtration Rate 112.5 mL/min (90-130); Glucose 72 mg/dL (65-115); Magnesium 1.8 mg/dL (1.7-2.3); Osmolality Calculated 267 mOsm/kg (285-295); Potassium 3.1 mmol/L (3.5-5.1); Sodium 129 mmol/L (136-145)
[2022-02-05] MEDS: heparin 5,000 unit/mL INJ 1 mL 5000 UNIT SUBCUT (06:24)
[2022-02-05] MEDS: ipratropium-albuterol 3 mL Neb INHALATION (07:33)
--- NOTE | 2022-02-05 07:55 | PM.CONSULT ---
Providers/Reason For Consult Consulting Physician/Specialty*: Karel Harrison / gen surgery Reason for Consult*: HD catheter placement Attending Physician: Gabriela Angelo MD Primary Care Provider: JAYNA Rivera History of Present Illness History of Present Illness Ludwin Lux is a 66 year old male Review of Systems Narrative: 10 point review of systems is negative except as per HPI Medications/Allergies Home Medications Medication Instructions Recorded Confirmed Last Taken Type cetirizine 10 mg tablet 10 mg PO DAILY 06/21/21 02/03/22 02/02/22 History fluticasone propionate 50 1 spray intranasal DAILY PRN Nasal 06/21/21 02/03/22 Unknown History mcg/actuation nasal Congestion spray,suspension hydroxyzine pamoate 50 mg capsule 50 mg PO Q6H PRN Anxiety 06/21/21 02/03/22 02/02/22 History nystatin 100,000 unit/gram topical 1 applic topical BID PRN Rash 06/21/21 02/03/22 Unknown History cream propranolol 10 mg tablet 10 mg PO TID 06/21/21 02/03/22 02/03/22 History ropinirole 1 mg tablet 1 mg PO BID PRN Cramps 06/21/21 02/03/22 Unknown History sennosides 8.6 mg-docusate sodium 2 tab PO DAILY 06/21/21 02/03/22 02/02/22 History 50 mg tablet (Stool Softener-Laxative) temazepam 30 mg capsule 30 mg PO DAILY 06/21/21 02/03/22 02/02/22 History venlafaxine 225 mg tablet,extended 225 mg PO DAILY 06/21/21 02/03/22 02/03/22 History release 24 hr doxycycline hyclate 100 mg capsule 100 mg PO DAILY #10 caps 06/24/21 02/03/22 02/03/22 Rx Lactobacillus acidophilus 500 500 mmu cells PO DAILY 02/03/22 02/03/22 02/03/22 History million cell tablet albuterol sulfate 2.5 mg inhalation TID PRN 02/03/22 02/03/22 02/03/22 History Shortness Of Breath Or Wheezing apixaban 5 mg tablet (Eliquis) 5 mg PO BID 02/03/22 02/03/22 02/03/22 History budesonide 0.5 mg/2 mL suspension 0.5 mg inhalation BID 02/03/22 02/03/22 02/03/22 History for nebulization cranberry extract-vitamin C 250 1 cap PO QPM 02/03/22 02/03/22 02/02/22 History mg-60 mg capsule cyanocobalamin (vitamin B-12) 500 500 mcg PO QPM 02/03/22 02/03/22 02/02/22 History mcg tablet (Vitamin B-12) diltiazem HCl 240 mg 240 mg PO DAILY 02/03/22 02/03/22 02/03/22 History capsule,extended release 24 hr ferrous sulfate 325 mg (65 mg 325 mg PO QPM 02/03/22 02/03/22 02/02/22 History iron) tablet (iron) formoterol fumarate 20 mcg/2 mL 2 ml inhalation BID 02/03/22 02/03/22 02/03/22 History solution for nebulization (Perforomist) guaifenesin 600 mg tablet, 600 mg PO Q12H PRN Congestion 02/03/22 02/03/22 Unknown History extended release 12 hr (Mucinex) lactulose 10 gram/15 mL oral 15 ml PO DAILY PRN Constipation 02/03/22 02/03/22 Unknown History solution levofloxacin 500 mg tablet 500 mg PO DAILY 02/03/22 02/03/22 02/03/22 History lcozkaee-zkpmcltw-daowo acid 400 1 tab PO QPM 02/03/22 02/03/22 02/02/22 History mcg-vit K 20 mcg-lycop 300 mcg tablet (Men's One Daily) mupirocin 2 % topical ointment 1 applic topical BID PRN Rash 02/03/22 02/03/22 Unknown History ondansetron 8 mg disintegrating 8 mg PO Q8H PRN Nausea And Vomiting 02/03/22 02/03/22 Unknown History tablet polyethylene glycol 3350 17 gram 17 g PO DAILY 02/03/22 02/03/22 Unknown History oral powder packet (Miralax) revefenacin 175 mcg/3 mL solution 175 mcg inhalation DAILY 02/03/22 02/03/22 02/03/22 History for nebulization (Yupelri) sodium chloride 1 gram tablet 1,000 mg PO BID 02/03/22 02/03/22 02/03/22 History Allergies Allergy/AdvReac Type Severity Reaction Status Date / Time Sulfa (Sulfonamide Allergy ALGY-Rash Verified 02/03/22 14:57 Antibiotics) Current Medications Generic Name Dose Route Start Last Admin Trade Name Freq PRN Reason Stop Dose Admin Albuterol/Ipratropium 3 ml 02/03/22 20:00 02/05/22 07:33 Ipratropium-Albuterol 3 Ml Neb INHALATION 3 ml QID.RESPIRATORY ANGELA Administration Bisacodyl 10 mg 02/04/22 09:00 02/04/22 17:30 Bisacodyl 10 Mg Supp DC 10 mg BID ANGELA Administration Budesonide 0.5 mg 02/04/22 09:00 02/04/22 20:51 Budesonide 0.5 Mg/2 Ml Neb INHALATION 0.5 mg BID ANGELA Administration Cetirizine HCl 10 mg 02/04/22 09:00 02/04/22 09:49 Cetirizine 10 Mg Tablet PO 10 mg DAILY ANGELA Administration Cyanocobalamin 500 mcg 02/04/22 18:00 02/04/22 17:31 Cyanocobalamin 1,000 Mcg Tablet PO 500 mcg QPM ANGELA Administration Diltiazem HCl 240 mg 02/04/22 09:00 02/04/22 09:49 Diltiazem Er (24hr) 240 Mg Capsule PO 240 mg DAILY ANGELA Administration Ferrous Sulfate 325 mg 02/04/22 18:00 02/04/22 17:31 Ferrous Sulfate Ec 325 Mg Tablet PO 325 mg QPM ANGELA Administration Heparin Sodium (Porcine) 5,000 unit 02/03/22 19:30 02/05/22 06:24 Heparin 5,000 Unit/Ml Inj 1 Ml SUBCUT 5,000 unit Q12H ANGELA Administration Sodium Chloride 1,000 mls @ 75 mls/hr 02/03/22 19:15 02/05/22 00:16 Sodium Chloride 0.9% IV 75 mls/hr .[id number] ANGELA Administration Piperacillin Sod/Tazobactam 50 mls @ 12.5 mls/hr 02/03/22 19:30 02/05/22 06:36 Sod 3.375 gm/ Sodium Chloride IV Infused Q8H ANGELA Infusion Protocol As Directed Lactobacillus Acidophilus 1 tab 02/04/22 09:00 02/04/22 09:47 Lactobacillus 1 Tablet PO 1 tab DAILY ANGELA Administration Non-Formulary Medication 1 cap 02/04/22 18:00 02/04/22 17:31 Cranberry Extract-Vitamin C PO Not Given QPM ANGELA Non-Formulary Medication 2 ml 02/04/22 09:00 02/04/22 17:31 Formoterol Fumarate [Perforomist] INHALATION Not Given BID ANGELA Non-Formulary Medication 175 mcg 02/04/22 09:00 02/04/22 10:02 Revefenacin [Yupelri] INHALATION Not Given DAILY ANGELA Ondansetron HCl 4 mg 02/04/22 04:26 02/04/22 04:34 Ondansetron 2 Mg/Ml Sdv 2 Ml IVP 4 mg Q4H PRN Administration NAUSEA AND VOMITING Polyethylene Glycol 17 gm 02/04/22 09:00 02/04/22 09:47 Polyethylene Glycol 3350 Pkt 17 Gm PO 17 gm DAILY ANGELA Administration Polyethylene Glycol 17 gm 02/03/22 20:40 02/04/22 17:29 Polyethylene Glycol 3350 Pkt 17 Gm PO 17 gm BID ANGELA Administration Propranolol HCl 10 mg 02/03/22 21:00 02/04/22 20:00 Propranolol 20 Mg Tablet PO 10 mg TID ANGELA Administration Senna/Docusate Sodium 2 tab 02/04/22 09:00 02/04/22 09:49 Sennosides-Docusate Tablet PO 2 tab DAILY ANGELA Administration Sodium Chloride 1 gm 02/04/22 09:00 02/04/22 17:31 Sodium Chloride 1 Gm Tablet PO 1 gm BID ANGELA Administration Venlafaxine HCl 225 mg 02/04/22 09:00 02/04/22 09:48 Venlafaxine Er (24hr) 75 Mg Capsule PO 225 mg DAILY ANGELA Administration PFSH Acute PFSH: Medical History (Updated 02/04/22 @ 10:35 by Karel Harrison MD) Acute exacerbation of chronic obstructive pulmonary disease Afib BPH (benign prostatic hyperplasia) Chronic hyponatremia COPD (chronic obstructive pulmonary disease) Coronavirus infection Common cold variant 229E Disability Gastritis HTN (hypertension) Liver cirrhosis etoh abuse Osmotic myelinolysis Pill rolling tremors Presence of externally removable percutaneous endoscopic gastrostomy (PEG) tube Pulmonary HTN Surgical History H/O hemorrhoidectomy Family History Denies family history of Diabetes Social History Smoking and tobacco status: current every day smoker Alcohol intake: unknown Vitals/I&O/Wt Last Vital Signs Temp 98.5 F 02/05/22 07:40 Pulse 92 02/05/22 07:40 Resp 17 02/05/22 07:40 BP 160/88 02/05/22 07:40 Pulse Ox 93 02/05/22 07:40 O2 Del Method 02/05/22 07:40 02/04/22 02/05/22 02/05/22 22:59 06:59 14:59 Intake Total 50 / 985 1093.75 / 2078.75 Output Total 350 / 350 200 / 550 Balance -300 / 635 893.75 / 1528.75 Weight last 48 hrs Weight 170 lb Physical Exam Narrative: General: No acute distress Psych: [AAOx3] Eyes: [sclerae are white] Head/ENT: [normocephalic, symmetric] CV: no JVD Lungs: [symmetrical chest rise] Abdomen: [soft, ND] Ext: [no obvious traumatic deformities] Skin: warm Data : 02/05/22 05:25 02/05/22 05:25 Micro: Microbiology 02/03/22 19:51 Blood Culture - Preliminary Blood NEGATIVE TO DATE 02/03/22 19:45 Blood Culture - Preliminary Blood NEGATIVE TO DATE 02/03/22 12:20 Urine Culture - Preliminary Urine,Clean Catch Coding Level of Care Code Acute Mortgage Loan Closer for Demetria Villalobos
[2022-02-05] MEDS: budesonide 0.5 mg/2 mL Neb INHALATION (08:01)
--- NOTE | 2022-02-05 09:02 | P.PN_ITS ---
Subjective Subjective: The patient had a liquid bowel movement overnight. Abdominal x- ray showed marked distention of the colon, not much different compared to yesterday, not much worse as well. I personally reviewed x-ray picture and radiology report. No other acute events overnight. Remains afebrile, complains about mild abdominal pain by nodding his head and saying yes Vitals/I&O/Wt Last Vital Signs Temp 98.5 F 02/05/22 07:40 Pulse 92 02/05/22 07:40 Resp 17 02/05/22 07:40 BP 160/88 02/05/22 07:40 Pulse Ox 93 02/05/22 07:40 O2 Del Method 02/05/22 07:40 02/04/22 02/05/22 02/05/22 22:59 06:59 14:59 Intake Total 50 / 985 1093.75 / 2078.75 Output Total 350 / 350 200 / 550 Balance -300 / 635 893.75 / 1528.75 Weight last 48 hrs Weight 170 lb Physical Exam Narrative: General: No acute distress Psych: [AAOx3] Eyes: [sclerae are white] Head/ENT: [normocephalic, symmetric] CV: no JVD Lungs: [symmetrical chest rise] Abdomen: [soft, slightly more distended than yesterday evening. Rectal exam was performed, again, a lot of liquid stool came out under a lot of pressure.] Skin: warm Data : 02/05/22 05:25 02/05/22 05:25 Micro: Microbiology 02/03/22 12:20 Urine Culture - Final Urine,Clean Catch 02/03/22 19:51 Blood Culture - Preliminary Blood NEGATIVE TO DATE 02/03/22 19:45 Blood Culture - Preliminary Blood NEGATIVE TO DATE A&P Assessment and plan (1) Fecal impaction in rectum: Status: Acute (2) Obstruction of colon: Status: Acute (3) Chronic constipation with overflow: Status: Acute (4) Dolichocolon: Status: Acute (5) Liver cirrhosis: Status: Acute (6) Altered mental status: Status: Acute (7) Hyponatremia: Status: Acute (8) Afib: Status: Acute (9) COPD (chronic obstructive pulmonary disease): Status: Acute (10) HTN (hypertension): Status: Acute Plan I discussed the patient's care with his daughter, Patsy Nieves. She again confirms that the patient is suffering from chronic constipation for several years, also, it is his first visit to the hospital. He appears to have a complex problem including the dolichosigma, possible intermittent partial volvulus, chronic distention of the colon with subsequent atony of the rectosigmoid parts. It all results with a large bowel obstruction and level of rectosigmoid colon. Mild colonic distention improved compared to admission, however, it is still markedly distended and it did not resolve in 3 days. Today during rectal exam the stool and gas came out from under such a high pressure that is present for almost 2-2-1/2 m distance from the patient. My concern is that this chronic distention of the rectosigmoid area and constant high pressure may lead to a necrosis at the rectosigmoid junction with subsequent perforation. Over the 3 days the condition did not improve significantly to attempt the procedure laparoscopically. I think the patient would benefit from fecal diversion and permanent colostomy to resolve acute on chronic colonic obstruction with subsequent risk of perforation and alleviate chronic problems with constipation. Anticoagulation should wear off by this time. His coags look better already. Given his history of liver cirrhosis, they may not ever normalize completely. Risks and benefits of surgery were discussed with the patient's daughter Patsy Nieves. Explained the risk and benefits of surgery and she agreed to proceed. However, she has a second sister who is coming to the hospital right now to actually sign a consent and have another discussion. -Plan for a laparotomy, sigmoidectomy, permanent colostomy Attestations Medical Necessity Statement*: bowel obstruction Coding Level of Care Code Acute Pocketed Spring Assembler for g Fwd Diagnoses Fecal impaction in rectum K56.41 Obstruction of colon K56.609 Chronic constipation with overflow K59.09 Dolichocolon Q43.8 Liver cirrhosis K74.60 Altered mental status R41.82 Hyponatremia E87.1 Afib I48.91 COPD (chronic obstructive pulmonary disease) J44.9 HTN (hypertension) I10
[2022-02-05] MEDS: bisacodyl 10 mg Supp PR (09:08)
[2022-02-05] MEDS: venlafaxine ER (24HR) 75 mg Capsule 225 MG PO (09:08)
[2022-02-05] MEDS: cetirizine 10 mg Tablet PO (09:08)
[2022-02-05] MEDS: lactobacillus 1 Tablet 1 TAB PO (09:09)
[2022-02-05] MEDS: dilTIAZem ER (24HR) 240 mg Capsule PO (09:09)
[2022-02-05] MEDS: propranolol 20 mg Tablet 10 MG PO (09:09)
[2022-02-05] MEDS: sennosides-docusate Tablet 2 TAB PO (09:09)
[2022-02-05] MEDS: polyethylene glycol 3350 Pkt 17 gm PO (09:20)
[2022-02-05] MEDS: sodium chloride 1 gm Tablet PO (09:21)
--- NOTE | 2022-02-05 09:56 | ANES.PREANE2 ---
Pre-Anesthetic Assessment Height/Weight: Height 1.78 m Weight 77.111 kg Temp Pulse Resp BP Pulse Ox O2 Del Method 98.5 F 92 17 160/88 93 02/05/22 07:40 02/05/22 07:40 02/05/22 07:40 02/05/22 07:40 02/05/22 07:40 02/05/22 07:40 Preop Diagnosis: Impaction, colon obstruction laparotomy, sigmoidectomy, colostomy Familial anesthetic complications: Hx from patient's daughter, no complications in family/patient from anesthesia Was Beta Joselo taken within 24 hours: Yes Was Clonidine taken within 24 hours: N/A Last intake: 02/04/22 Social Tobacco and No alcohol Exam alert (AMS), oriented x 3, clear to auscultation bilaterally and regular rate & rhythm Airway Cervical ROM: within normal limits and Other (Does not participate in this component of exam ) Mallampati: Class II Dentition: false Pulmonary Chronic Obstructive Pulmonary Disease Pulmonary HTN CV/HEM Atrial Fibrillation, Anemia (Hgb 11.2) and Hypertension Plt 341 EKG 02/03/22 ?? Interpretive Statements SINUS RHYTHM WITH SINUS ARRHYTHMIA ANTEROSEPTAL MYOCARDIAL INFARCTION , OF INDETERMINATE AGE [40+ ms Q WAVE IN V1-V4] Compared to ECG 02/03/2022 14:26:31 No significant changes Electronically Signed On 02-04-2022 8:39:29 CDT by Jessica Rios M.D. [email or web address] BPH Chronic hyponatremia, NA 129, K 3.1, Chloride 96 Hepatic Cirrhosis (Secondary to ETOH abuse ) GI Obstruction of colon, fecal impaction, dolichocolon Gastritis Metabolic Thyroid Disease [facility] [place] Right side weakness Contracture left arm Bed bound Neuropsych Osmotic myelinolysis AMS Anesthetic Plan ASA status: 3 Anesthesia: Anesthesia Evaluation, General and Regional (specify below) Other: We discussed risk and benefits of general anesthesia including PONV, sore throat (sometimes severe), corneal abrasion, positioning and peripheral nerve injuries, life threatening allergic reaction, post operative ICU admission requiring prolonged intubation, aspiration, stroke, heart attack, , and rare incidences of recall. Patient consents to proceed with general anesthesia. Plan GETA, RSI, arterial line. Risk of > 500 ml blood loss (7ml/kg in children): No Medications/Allergies Home Medications Medication Instructions Recorded Confirmed Last Taken Type cetirizine 10 mg tablet 10 mg PO DAILY 06/21/21 02/03/22 02/02/22 History fluticasone propionate 50 1 spray intranasal DAILY PRN Nasal 06/21/21 02/03/22 Unknown History mcg/actuation nasal Congestion spray,suspension hydroxyzine pamoate 50 mg capsule 50 mg PO Q6H PRN Anxiety 06/21/21 02/03/22 02/02/22 History nystatin 100,000 unit/gram topical 1 applic topical BID PRN Rash 06/21/21 02/03/22 Unknown History cream propranolol 10 mg tablet 10 mg PO TID 06/21/21 02/03/22 02/03/22 History ropinirole 1 mg tablet 1 mg PO BID PRN Cramps 06/21/21 02/03/22 Unknown History sennosides 8.6 mg-docusate sodium 2 tab PO DAILY 06/21/21 02/03/22 02/02/22 History 50 mg tablet (Stool Softener-Laxative) temazepam 30 mg capsule 30 mg PO DAILY 06/21/21 02/03/22 02/02/22 History venlafaxine 225 mg tablet,extended 225 mg PO DAILY 06/21/21 02/03/22 02/03/22 History release 24 hr doxycycline hyclate 100 mg capsule 100 mg PO DAILY #10 caps 06/24/21 02/03/22 02/03/22 Rx Lactobacillus acidophilus 500 500 mmu cells PO DAILY 02/03/22 02/03/22 02/03/22 History million cell tablet albuterol sulfate 2.5 mg inhalation TID PRN 02/03/22 02/03/22 02/03/22 History Shortness Of Breath Or Wheezing apixaban 5 mg tablet (Eliquis) 5 mg PO BID 02/03/22 02/03/22 02/03/22 History budesonide 0.5 mg/2 mL suspension 0.5 mg inhalation BID 02/03/22 02/03/22 02/03/22 History for nebulization cranberry extract-vitamin C 250 1 cap PO QPM 02/03/22 02/03/22 02/02/22 History mg-60 mg capsule cyanocobalamin (vitamin B-12) 500 500 mcg PO QPM 02/03/22 02/03/22 02/02/22 History mcg tablet (Vitamin B-12) diltiazem HCl 240 mg 240 mg PO DAILY 02/03/22 02/03/22 02/03/22 History capsule,extended release 24 hr ferrous sulfate 325 mg (65 mg 325 mg PO QPM 02/03/22 02/03/22 02/02/22 History iron) tablet (iron) formoterol fumarate 20 mcg/2 mL 2 ml inhalation BID 02/03/22 02/03/22 02/03/22 History solution for nebulization (Perforomist) guaifenesin 600 mg tablet, 600 mg PO Q12H PRN Congestion 02/03/22 02/03/22 Unknown History extended release 12 hr (Mucinex) lactulose 10 gram/15 mL oral 15 ml PO DAILY PRN Constipation 02/03/22 02/03/22 Unknown History solution levofloxacin 500 mg tablet 500 mg PO DAILY 02/03/22 02/03/22 02/03/22 History dbhuyzjz-gqvidrhb-xdwzf acid 400 1 tab PO QPM 02/03/22 02/03/22 02/02/22 History mcg-vit K 20 mcg-lycop 300 mcg tablet (Men's One Daily) mupirocin 2 % topical ointment 1 applic topical BID PRN Rash 02/03/22 02/03/22 Unknown History ondansetron 8 mg disintegrating 8 mg PO Q8H PRN Nausea And Vomiting 02/03/22 02/03/22 Unknown History tablet polyethylene glycol 3350 17 gram 17 g PO DAILY 02/03/22 02/03/22 Unknown History oral powder packet (Miralax) revefenacin 175 mcg/3 mL solution 175 mcg inhalation DAILY 02/03/22 02/03/22 02/03/22 History for nebulization (Yupelri) sodium chloride 1 gram tablet 1,000 mg PO BID 02/03/22 02/03/22 02/03/22 History Allergies Allergy/AdvReac Type Severity Reaction Status Date / Time Sulfa (Sulfonamide Allergy ALGY-Rash Verified 02/03/22 14:57 Antibiotics) Current Medications Generic Name Dose Route Start Last Admin Trade Name Freq PRN Reason Stop Dose Admin Albuterol/Ipratropium 3 ml 02/03/22 20:00 02/05/22 07:33 Ipratropium-Albuterol 3 Ml Neb INHALATION 3 ml QID.RESPIRATORY ANGELA Administration Bisacodyl 10 mg 02/04/22 09:00 02/05/22 09:08 Bisacodyl 10 Mg Supp HI 10 mg BID ANGELA Administration Budesonide 0.5 mg 02/04/22 09:00 02/05/22 08:01 Budesonide 0.5 Mg/2 Ml Neb INHALATION 0.5 mg BID ANGELA Administration Cetirizine HCl 10 mg 02/04/22 09:00 02/05/22 09:08 Cetirizine 10 Mg Tablet PO 10 mg DAILY ANGELA Administration Cyanocobalamin 500 mcg 02/04/22 18:00 02/04/22 17:31 Cyanocobalamin 1,000 Mcg Tablet PO 500 mcg QPM ANGELA Administration Diltiazem HCl 240 mg 02/04/22 09:00 02/05/22 09:09 Diltiazem Er (24hr) 240 Mg Capsule PO 240 mg DAILY ANGELA Administration Ferrous Sulfate 325 mg 02/04/22 18:00 02/04/22 17:31 Ferrous Sulfate Ec 325 Mg Tablet PO 325 mg QPM ANGELA Administration Heparin Sodium (Porcine) 5,000 unit 02/03/22 19:30 02/05/22 06:24 Heparin 5,000 Unit/Ml Inj 1 Ml SUBCUT 5,000 unit Q12H ANGELA Administration Sodium Chloride 1,000 mls @ 75 mls/hr 02/03/22 19:15 02/05/22 00:16 Sodium Chloride 0.9% IV 75 mls/hr .[id number] ANGELA Administration Piperacillin Sod/Tazobactam 50 mls @ 12.5 mls/hr 02/03/22 19:30 02/05/22 06:36 Sod 3.375 gm/ Sodium Chloride IV Infused Q8H ANGELA Infusion Protocol As Directed Lactobacillus Acidophilus 1 tab 02/04/22 09:00 02/05/22 09:09 Lactobacillus 1 Tablet PO 1 tab DAILY ANGELA Administration Non-Formulary Medication 1 cap 02/04/22 18:00 02/04/22 17:31 Cranberry Extract-Vitamin C PO Not Given QPM ANGELA Non-Formulary Medication 2 ml 02/04/22 09:00 02/05/22 08:17 Formoterol Fumarate [Perforomist] INHALATION Not Given BID [facility] Non-Formulary Medication 175 mcg 02/04/22 09:00 02/05/22 09:10 Revefenacin [Yupelri] INHALATION Not Given DAILY ANGELA Ondansetron HCl 4 mg 02/04/22 04:26 02/04/22 04:34 Ondansetron 2 Mg/Ml Sdv 2 Ml IVP 4 mg Q4H PRN Administration NAUSEA AND VOMITING Polyethylene Glycol 17 gm 02/04/22 09:00 02/05/22 09:20 Polyethylene Glycol 3350 Pkt 17 Gm PO 17 gm DAILY ANGELA Administration Polyethylene Glycol 17 gm 02/03/22 20:40 02/05/22 09:21 Polyethylene Glycol 3350 Pkt 17 Gm PO Not Given BID ANGELA Propranolol HCl 10 mg 02/03/22 21:00 02/05/22 09:09 Propranolol 20 Mg Tablet PO 10 mg TID ANGELA Administration Senna/Docusate Sodium 2 tab 02/04/22 09:00 02/05/22 09:09 Sennosides-Docusate Tablet PO 2 tab DAILY ANGELA Administration Sodium Chloride 1 gm 02/04/22 09:00 02/05/22 09:21 Sodium Chloride 1 Gm Tablet PO 1 gm BID ANGELA Administration Venlafaxine HCl 225 mg 02/04/22 09:00 02/05/22 09:08 Venlafaxine Er (24hr) 75 Mg Capsule PO 225 mg DAILY ANGELA Administration PFS Anesthesia Medical History Acute exacerbation of chronic obstructive pulmonary disease Afib BPH (benign prostatic hyperplasia) Chronic hyponatremia COPD (chronic obstructive pulmonary disease) Coronavirus infection Common cold variant 229E Disability Gastritis HTN (hypertension) Liver cirrhosis etoh abuse Osmotic myelinolysis Pill rolling tremors Presence of externally removable percutaneous endoscopic gastrostomy (PEG) tube Pulmonary HTN Surgical History H/O hemorrhoidectomy Family History Denies family history of Diabetes Social History Smoking and tobacco status: current every day smoker Alcohol intake: unknown Data Anesthesia : 02/05/22 05:25 02/05/22 05:25 Short CBC 02/03/22 02/04/22 02/05/22 Range/Units 11:50 04:45 05:25 WBC 5.7 6.6 6.6 (4.0-10.0) 10^3/uL Hgb 11.1 L 11.6 L 11.2 L (11.7-16.6) g/dL Hct 33.5 L 35.2 L 34.4 L (42.0-52.0) % MCV 87.5 86.1 86.4 (80-94) fl Plt Count 316 351 341 (130-400) 10^3/cmm Neut % (Auto) 64.1 82.4 76.2 % Neut # (Auto) 3.66 5.40 5.02 (1.8-7.7) 10^3/uL BMP 02/03/22 02/04/22 02/05/22 11:50 04:45 05:25 Sodium 125 L 130 L 129 L Potassium 3.5 3.6 3.1 L Chloride 90 L 96 L 96 L Carbon Dioxide 27 27 23 BUN 11 11 15 Creatinine 0.6 L 0.6 L 0.7 Glucose 79 80 72 Calcium 8.3 L 8.0 L 7.8 L Cardiac Enzymes 02/03/22 02/03/22 02/03/22 Range/Units 11:50 11:50 13:58 Troponin T Baseline 18 H (0-15) ng/L Troponin T 120 Minute 18.56 H (0-15) ng/L Delta Troponin T 0.56 (0-10) ABS# Troponin T Hi Sens 6Hr (0-15) ng/L Troponin T Hi Sens 6Hr Delta (0-12) ng/L NT-Pro-B Natriuret Pep 873 H (0-125) pg/mL 02/03/22 Range/Units 18:30 Troponin T Baseline (0-15) ng/L Troponin T 120 Minute (0-15) ng/L Delta Troponin T (0-10) ABS# Troponin T Hi Sens 6Hr 17.42 H (0-15) ng/L Troponin T Hi Sens 6Hr Delta -0.58 L (0-12) ng/L NT-Pro-B Natriuret Pep (0-125) pg/mL Liver Function 02/03/22 02/04/22 Range/Units 11:50 04:45 Total Bilirubin 0.2 0.4 (0.15-1.2) mg/dL AST 14 12 (0-40) U/L ALT 15 12 (0-41) U/L Alkaline Phosphatase 72 71 (40-130) U/L Albumin 3.3 L 3.2 L (3.5-5.2) g/dL Urine 02/03/22 Range/Units 12:20 Urine Color Yellow (Yellow) Urine Appearance Clear (CLEAR) Urine pH 6.5 (5-7) Ur Specific [place] 1.005 (1.005-1.030) Urine Protein 2+ H (Negative) Urine Glucose (UA) Norm (Normal) Urine Ketones Negative (Negative) Urine Nitrate Negative (Negative) Urine Bilirubin Neg (Negative) Ur Leukocyte Esterase 2+ H (Negative) Urine RBC 25-40 H (0-2) /hpf Urine WBC 25-40 H (0-5) /hpf Coags 02/03/22 02/05/22 12:25 05:40 PT 16.90 H 16.10 H INR 1.34 H 1.26 H ABG 02/03/22 11:49 Specimen Type Arterial Sample Site Brachial, left ABG pH 7.44 ABG pCO2 40.0 ABG pO2 75.1 L ABG HCO3 27.3 H ABG Base Excess 2.9 H O2 Delivery Device Room air FiO2 21.0 Microbiology 02/03/22 12:20 Urine Culture - Final Urine,Clean Catch 02/03/22 19:51 Blood Culture - Preliminary Blood NEGATIVE TO DATE 02/03/22 19:45 Blood Culture - Preliminary Blood NEGATIVE TO DATE Cardiac Studies: No Data to Display
[2022-02-05] MEDS: potassium chloride premix 20 MEQ/100 ML 50 MEQ IV (10:14)
--- NOTE | 2022-02-05 10:44 | PC.NURSE ---
to or via bed at this time
--- NOTE | 2022-02-05 11:09 | PC.NURSE ---
surgeon in this morning approx 0800..disimpacted pt..copius amt liquid and hard formed stool return noted.pt tolerated procedure well.
--- NOTE | 2022-02-05 12:24 | SUR.PHASEI ---
1045 PT TO OPS ROOM 8 PT SLEEPS DOES NOT AWAKE TO VERBAL STIMULI, VSS IV TO RT HAND #20 WITH 1/2 NS UP BUT KCL 20 MEQ IVPB IN FUSING AT 25ML/HR OR 10MEQ /HOUR PER PUMP,PT HAS MARSH CATHETER TO DD WITH YELLOW URINE NOTED TO BAG, PT RESTING ON LT SIDE WITH HOB AT 30 DEGREES FOR COMFORT, BED LOCKED , SR UP X 3. 1050 DR MOORE AT BEDSIDE TALKING WITH PTS DAUGHTER , MULTIPLE QUESTIONS BY DAUGHTER ABOUT PT RISKS AND POST SURGERY CARE ANSWERED BY DR Grier, DAUGHTER AGREES TO SURGERY, WILL SIGN PERMIT 1056 PT CARE ASSUMED BY OPS NURSE SRAVANI WEINSTEIN , PT READY FOR SURGERY. NO ORDERS RECIEVED FROM DR MOORE OR ANESTHESIS AT THIS TIME.
--- NOTE | 2022-02-05 12:27 | ANES.PROC ---
Anesthesia Procedures Procedure/Date: 02/05/22 Other Information: After sterile prep, using sterile technique, and using real time US guidance for vessel selection a 20 g radial arterial was inserted with real time visualization of needle entry and real time visualization of catheter advancement. Tolerated well. 1 attempt. After sterile prep and using real time US guidance for vessel selection a 16 g PIV was inserted with real time visualization of needle entry and real time visualization of catheter advancement. Tolerated well. 1 attempt.
--- NOTE | 2022-02-05 13:25 | P.PN_ITS ---
Subjective Subjective: No acute events overnight. History abdominal x-rays have continued to show bowel obstruction. He will be going for surgery today. Vitals/I&O/Wt Last Vital Signs Temp 100.5 F H 02/05/22 10:45 Pulse 84 02/05/22 10:45 Resp 20 H 02/05/22 10:45 BP 148/86 02/05/22 10:45 Pulse Ox 94 02/05/22 10:45 O2 Del Method 02/05/22 10:45 02/04/22 02/05/22 02/05/22 22:59 06:59 14:59 Intake Total 50 / 985 1093.75 / 2078.75 Output Total 350 / 350 200 / 550 Balance -300 / 635 893.75 / 1528.75 Physical Exam 2 Narrative: Unable to examine prior to surgery but did see him in the hallway as he was being wheeled down to go to the OR. No acute events overnight reported by nursing staff. Patient was awake and alert. Not much change since yesterday in terms of mental status. Data : 02/05/22 05:25 02/05/22 05:25 Micro: Microbiology 02/03/22 12:20 Urine Culture - Final Urine,Clean Catch 02/03/22 19:51 Blood Culture - Preliminary Blood NEGATIVE TO DATE 02/03/22 19:45 Blood Culture - Preliminary Blood NEGATIVE TO DATE A&P Assessment and plan (1) Altered mental status: Status: Acute (2) Hyponatremia: Status: Acute (3) Liver cirrhosis: Status: Acute (4) HTN (hypertension): Status: Acute (5) Afib: Status: Acute (6) Osmotic myelinolysis: Status: Acute (7) COPD (chronic obstructive pulmonary disease): Status: Acute (8) BPH (benign prostatic hyperplasia): Status: Acute Plan #Altered mental status, metabolic? #Urinary tract infection #Sigmoid volvulus, bowel obstruction #CHronic constipation with overflow incontinance #Chronic hyponatremia, seems to be at baseline #COPD, stable #Hypertension #Liver cirrhosis secondary to alcohol abuse #History of osmotic myelinolysis syndrome #Pulmonary hypertension #A. fib #BPH ? Continue Cardizem 240 daily, hydroxyzine, formoterol, fluticasone, vitamin B12, budesonide twice daily, MiraLAX, propranolol 3 times daily, revefenacin, ropinirole, sodium tablet 1 g twice daily, venlafaxine to 25 daily ? Speech swallow evaluation. Patient qualified for ground meat and thin liquids ? CT head negative for stroke ? Check vitamin B12, ammonia. Ammonia is 10 ? We will place on gentle fluid hydration normal saline 75 cc/h ? Check urine culture, blood culture. Will place on Zosyn ? CT abdomen pelvis shows dilated colon proximal to nonspecific narrowing assessment: Complex large mass in rectum. Mass has stool fat and air in it. No surgery evaluated patient and disimpacted him. Appreciate recommendations and help with management. It appears the patient has a sigmoid volvulus which looks like chronic and aged or disabled carer along with chronic constipation over the incontinence. Patient will require a permanent colostomy and sigmoidectomy possibly. General surgery has done serial abdominal x-rays and it was decided to take patient to surgery this AM. ? Patient to go for surgery today. -Placed on oxygen and wean as able. DuoNeb every 4 hours as needed -N.p.o. for surgery today. ? Continue to hold [email or web address]. Full code DVT prophylaxis: Heparin subcu Will obtain records from [facility] regarding patient's most recent stay. Attestations Medical Necessity Statement*: Bowel obstruction, sigmoid volvulus. For surgery today. Coding Level of Care Code Acute Substation Technician for Chg Fwd Diagnoses Altered mental status R41.82 Hyponatremia E87.1 Liver cirrhosis K74.60 HTN (hypertension) I10 Afib I48.91 Osmotic myelinolysis G37.2 COPD (chronic obstructive pulmonary disease) J44.9 BPH (benign prostatic hyperplasia) N40.0
--- NOTE | 2022-02-05 13:25 | SUR.OPER ---
Family Notified Of Patient's Status Via Phone.
--- NOTE | 2022-02-05 15:08 | P.OP_ITS ---
Operative Report Date of procedure: February 05, 2022 Pre-op diagnosis: February 06, 2020 03:10 PM Preoperative diagnosis: Acute on chronic large bowel obstruction secondary to chronic constipation, Dolichosigma, chronic volvulus and intussusception Postoperative diagnosis: The same_. Procedure: Exploratory laparotomy low anterior resection. End colostomy. Surgeon: Karel Harrison MD, RPVI Start/End time: please, see nursing documentation. Lead Customer Service Representative: none Anesthesia: General Endotracheal Anesthesiologist/PAINTER HELPER SIGN: please, see anesthesia documentation. EBL, ml: 100 ml Specimen: Sigmoid colon and upper to mid rectum Complications: none Findings: [Upper and mid rectum as well as sigmoid colon are severely distended, scattered tissue and adhesions present on the mesentery and bowel wall consistent with a chronic process. Sigmoid is very long with a very narrow base that can potentially predispose to sigmoid volvulus. The wall of the rectum is very sick consistent with a chronic process. It also appears that the sigmoid was intussuscepting in the rectum given the large diameter of the colon at the rectosigmoid junction.]_ Indications: 66-year-old male_ with a clinical picture of acute on chronic large bowel obstruction secondary to above-mentioned. We have a long conversation with the patient's daughter Veda, discussed all the risks and benefits of surgery as well as possible complications and they both agreed to proceed with surgery. Details of the procedure: The patient was identified in the holding area and brought to the operating room and positioned supine on the operating table. Sequential compression devices were applied to bilateral lower extremities to prevent deep venous thromboembolism. Subsequently, [general endotracheal anesthesia] was initiated without any complications. The surgical area was prepped and draped in a regular sterile fashion. TIME OUT: Immediately prior to procedure, time out was performed to include correct patient, agreement on the procedure to be performed, correct side, site, position, accurate procedure consent, relevant images, antibiotics, fluids. Everybody agreed. Midline laparotomy was performed. There was no exudate in the abdominal cavity. The bowel was viable. Bookwalter retractor was placed to assist with exposure. Sigmoid colon was long and distended as outlined in findings. There was pretty clear transition zone between the sigmoid and descending colon. I think it was the point of partial volvulus. Bowel was divided at this area for colostomy creation. Mesentery of the sigmoid colon and upper rectum was divided with a bipolar device. Palpable blood vessels were controlled with 0 silk suture ties. Hemorrhoidal artery was divided. PASTOR was preserved. The colon was so distended at the rectosigmoid junction that it would require multiple donnie to transected. Also, I was concerned about the fact that the remaining upper rectum is so mobile that it can invaginate and even prolapse through the lower rectum and anus. At this time I decided to divide the rectum closer to peritoneal reflection where it was much smaller in size, at least twice smaller. Rectum was divided slightly above the peritoneal reflection with several blue load staplers. Remaining mesentery was divided with a bipolar device. Specimen was passed off the field. Hemostasis was excellent. The area was irrigated with saline and hemostasis was confirmed. There was very loose abundant peritoneum which I closed over the rectal stump. Then the place for ostomy was identified, opening was created which accumulated 3 fingers and distal descending colon was brought onto the abdominal wall. Midline laparotomy was closed with 2 running 0 PDS sutures. I also placed 6 internal retention sutures given the patient is malnourished and will be at high risk of wound dehiscence. Skin was closed with donnie. Ostomy was matured with 3-0 Vicryl's. Ostomy appliances were applied. The needle, instrument and sponge counts were correct x 2. The patient tolerated the procedure well, was extubated in the OR and was transferred to the recovery in stable condition. I called the patient daughter and discussed the operative findings. She had no further questions at this time. I called Dr. Angelo, a hospitalist and discussed a plan of care with her. The patient will be transferred to the ICU for observation. continue n.p.o., Pain control. Monitor ostomy output..
--- NOTE | 2022-02-05 15:26 | PC.NURSE ---
pt will be going to icu5 after surgery.report phoned to josh booth.
--- NOTE | 2022-02-05 16:14 | PC.NURSE ---
REPORT RECEIVED FROM THE FLOOR NURSE WELL OR NURSE. PT ARRIVED TO THE UNIT AT APPROXIMATELY 1531. BEDSIDE REPORT RECEIVED AGAIN FROM OR NURSE ARRIVAL VITAL SIGNS OBTAINED AND DOCUMENTED. SURGICAL SITE LOOKS GOOD. DRESSING IS ON WITH MINIMAL SANGUINEOUS DRAINAGE. COLOSTOMY LOOKS SITE LOOKS GOOD. STOMA IS PINK WITH MINIMAL SANGUINEOUS DRAINAGE. PT IS NOW CURRENTLY RESTING IN BED, ORAL AIRWAY HAS BEEN REMOVED. PT PLACED ON NASAL CANULA CURRENTLY SATING AT 98%. ALL OTHER VITALS ARE WNL. PT DOES NOT APPEAR TO BE IN ANY PAIN. DOCTOR BRAVO ROUNDED ON PT AND GAVE REPORT ON PT WELL. IT IS UNSURE WHETHER OR NOT PT WILL BE ORIENTATED AFTER ANESTHETICS WEAR OFF; DR CORDON, FLOOR NURSE, AND PTS DAUGHTER, DICK, INFORM THIS NURSE OF THE PT BEING ALERTED FOR SOME TIME NOW. PT IS RESPONDING VERBALLY. WILL CONTINUE TO MONITOR.
[2022-02-05 16:59] LABS: ABG PCO2 42.8 mmHg (35-45); ABG PH Result 7.29 (7.35-7.45); Alveolar-Arterial Oxygen Gradi 13.3 mmHg (5-10); Arterial Blood Gas Hematocrit 32.9 % (42-52); Base Excess ABG -5.6 mmol/L (-2.0-2.0); Blood Gas Allen Test Pos; Blood Gas Operator Identificat BD; Blood Gas Sample Site ALINE; Blood Gas Sample Type Arterial; Carboxyhemoglobin 0.9 %THgb (0.4-20.1); HCO3 ABG 20.7 mmol/L (22-26); Ionized Calcium Level - ABG 1.1 mmol/L (1.1-1.4); Methemoglobin 0.9 % (0.4-1.5); Oxygen Device NC; Oxygen Saturation ABG 91.7; Total Hemoglobin 10.7 g/dL (14-18)
[2022-02-05 17:56] LABS: Basophils % 0.2 %; Eosinophils # 0.3 10^3/uL (0.0-0.8); Eosinophils % 3.2 %; Hemoglobin 10.8 g/dL (11.7-16.6); Lymphocytes # 0.4 10^3/uL (0.8-4.8); Lymphocytes % 3.9 %; Mean Corpuscular HGB Conc 32.7 g/dL (30.0-36.0); Mean Corpuscular Hemoglobin 28.8 pg (28.0-34.0); Mean Platelet Volume 8.4 fL (7.4-10.4); Monocytes # 0.3 10^3/uL (0.2-0.9); Monocytes % 3.1 %; Neutrophils # 9.37 10^3/uL (1.8-7.7); Neutrophils % 89.2 %; Nucleated Red Blood Cells % 0 %; Platelet Count 300 10^3/cmm (130-400); Red Blood Count 3.75 10^6/uL (4.1-5.3); Red Cell Distribution Width 14.8 % (12.1-15.1); White Blood Count 10.5 10^3/uL (4.0-10.0)
--- NOTE | 2022-02-05 17:58 | PC.NURSE ---
PT IS RESTING IN BED AND APPEARS TO BE COMFORTABLE. PT IS BECOMING MORE AROUSABLE. HE WAS ABLE TO TELL THIS NURSE HIS DENISE, , AND WHERE HE WAS AT AND THAT HE HAD SURGERY TODAY. HE DOES NOT HAVE ANY COMPLAINTS OF PAIN. CONTINUING TO MONITOR.
[2022-02-05 18:06] LABS: Lactate (Lactic Acid level) 0.6 mmol/L (0.5-2.2)
[2022-02-05 18:07] LABS: Alanine Aminotransferase 11 U/L (0-41); Albumin Level 2.9 g/dL (3.5-5.2); Alkaline Phosphatase 57 U/L (40-130); Anion Gap 14.4 (5-19); Aspartate Amino Transferase 17 U/L (0-40); Blood Urea Nitrogen 17 mg/dL (8-23); Calcium 7.4 mg/dL (8.5-10.5); Carbon Dioxide 20 mmol/L (22-29); Chloride 101 mmol/L (98-107); Globulin 2.4 g/dL (1.3-4.6); Glomerular Filtration Rate 112.5 mL/min (90-130); Glucose 85 mg/dL (65-115); Magnesium 1.7 mg/dL (1.7-2.3); Osmolality Calculated 275 mOsm/kg (285-295); Phosphorus 3.9 mg/dL (2.5-4.5); Potassium 3.4 mmol/L (3.5-5.1); Sodium 132 mmol/L (136-145); Total Bilirubin 0.5 mg/dL (0.15-1.2); Total Protein 5.3 g/dL (6.6-8.7)
[2022-02-05] MEDS: HYDROmorphone 1 mg/mL INJ 1 mL 0.4 MG IVP ×2 (18:35→23:23)
[2022-02-05] MEDS: ketorolac 30 mg/mL INJ 15 MG IVP (21:19)
[2022-02-05 21:25] LABS: Glucose Point of Care 97 mg/dL (70-110)
--- NOTE | 2022-02-05 22:07 | PC.PHAR ---
Vancomycin is dosed at 1500mg IVPB every 12 hours to produce a predicted trough level of 14.47 (population based pharmacokinetic analysis). A trough level has been ordered from the lab to be obtained before the fourth dose to confirm and adjust if needed.
[2022-02-05] MEDS: vancomycin 1,500 MG/300 ML PIGGYBACK 150 MG IV (22:16)
[2022-02-05] MEDS: cloNIDine 0.1 mg Tablet PO (22:18)
[2022-02-05] MEDS: sodium chloride 0.9% 500 ML 999 ML IV (22:50)
--- NOTE | 2022-02-05 23:53 | PC.NURSE ---
At 2217 pt was given 0.1mg of oral clonidine (see MAR) with BP of 157/69 on ART line, and SPO2 of 95 on 2L NC. Pt was sat up in bed for safety to swallow. Pt swallowed pill with no issues. HOB was then lowered for pt comfort. At 2222 BP started to decrease to 97/47 SPO2 of 89 on 2L NC. Vitals continued to decrease. ART line was adjusted, manual BP taken 66/38 manual and pt placed on 7L NC with bubbler for decreasing SPO2. 2232 Yahir was called x 2. fluid bolus, and norepi ordered. BP issues resolved. yahir updated on condition.
[2022-02-06] VITALS (97 sets, daily range): BP systolic 121–169; BP diastolic 71–100; PULSE 71–97; RESP 6–26; TEMP 36.7–37.7; O2SAT 89–100
[2022-02-06 03:17] LABS: Glucose Point of Care 90 mg/dL (70-110)
[2022-02-06] MEDS: piperacillin-tazobactam 3.375 GM in sodium chloride 0.9% (plus) 50 ML IV ×3 (03:35→21:20)
[2022-02-06] MEDS: ketorolac 30 mg/mL INJ 15 MG IVP ×3 (03:39→15:58)
[2022-02-06 03:53] LABS: Basophils % 0.1 %; Eosinophils % 0.1 %; Hematocrit 29.1 % (42.0-52.0); Hemoglobin 9.5 g/dL (11.7-16.6); Lymphocytes # 0.2 10^3/uL (0.8-4.8); Lymphocytes % 1.8 %; Mean Corpuscular HGB Conc 32.6 g/dL (30.0-36.0); Mean Corpuscular Hemoglobin 28.7 pg (28.0-34.0); Mean Corpuscular Volume 87.9 fl (80-94); Mean Platelet Volume 8.8 fL (7.4-10.4); Monocytes # 0.5 10^3/uL (0.2-0.9); Monocytes % 4.3 %; Neutrophils % 93.3 %; Nucleated Red Blood Cells % 0 %; Platelet Count 270 10^3/cmm (130-400); Red Blood Count 3.31 10^6/uL (4.1-5.3); Red Cell Distribution Width 14.8 % (12.1-15.1); White Blood Count 11.9 10^3/uL (4.0-10.0)
[2022-02-06 04:17] LABS: Alanine Aminotransferase 11 U/L (0-41); Albumin Level 2.4 g/dL (3.5-5.2); Alkaline Phosphatase 52 U/L (40-130); Anion Gap 12.2 (5-19); Aspartate Amino Transferase 21 U/L (0-40); Blood Urea Nitrogen 17 mg/dL (8-23); Calcium 7.3 mg/dL (8.5-10.5); Carbon Dioxide 20 mmol/L (22-29); Chloride 104 mmol/L (98-107); Globulin 2.6 g/dL (1.3-4.6); Glomerular Filtration Rate 112.5 mL/min (90-130); Glucose 86 mg/dL (65-115); Magnesium 1.7 mg/dL (1.7-2.3); Osmolality Calculated 277 mOsm/kg (285-295); Potassium 3.2 mmol/L (3.5-5.1); Sodium 133 mmol/L (136-145); Total Bilirubin 0.3 mg/dL (0.15-1.2)
[2022-02-06] MEDS: sodium chloride 0.9% 1,000 ML 75 ML IV ×2 (05:48→21:22)
--- NOTE | 2022-02-06 06:30 | PM.PN ---
Subjective Subjective: The patient was examined at 0620 and his care was discussed with the bedside nurse. Episode of hypotension after clonidine administration PO, responded well to fluid bolus and small dose of pressors. Hb is slightly downtrending, I think dilutional given fluid administration and small blood loss No other acute events. on PE he is more awake, able to communicate with the nursing staff in short sentences. Abdomen soft, ND, ostomy in place, 10 cc blood clot in the bag and around the ostomy. It was removed and the ostomy was examined. No evidence of active bleeding. - continue ongoing care, OK for sips/meds, possibly clears tomorrow if doing well. - OK for toradol, Lovenox. - CBC tomorrow am I checked out the patient to Dr. Cates. Vitals/I&O/Wt Last Vital Signs Temp 99.9 F H 02/06/22 04:00 Pulse 80 02/06/22 08:00 Resp 17 02/06/22 08:00 BP 130/77 02/06/22 06:00 Pulse Ox 98 02/06/22 08:00 O2 Del Method 02/06/22 08:00 O2 Flow Rate 2 02/06/22 08:00 02/05/22 02/06/22 02/06/22 22:59 06:59 14:59 Intake Total 2877.774 / 2877.774 1366.25 / 4244.024 50 / 50 Output Total 950 / 950 400 / 1350 Balance 1927.774 / 1927.774 966.25 / 2894.024 50 / 50 Data : 02/06/22 03:00 02/06/22 03:00 Micro: Microbiology 02/03/22 12:20 Urine Culture - Final Urine,Clean Catch Attestations Medical Necessity Statement*: post op Coding Level of Care Code Acute Machine Shop Helper for Demetria Villalobos
[2022-02-06] MEDS: potassium chloride premix 100 ML 25 MEQ IV (08:03)
[2022-02-06] MEDS: enoxaparin 40 mg/0.4 mL Syringe SUBCUT (08:03)
[2022-02-06] MEDS: budesonide 0.5 mg/2 mL Neb INHALATION ×2 (08:04→19:36)
--- NOTE | 2022-02-06 09:56 | PC.CHAP ---
x Pastoral Care Encounter/Spiritual Assessment Type of Contact [] Declined radar scientist visit [] Patient/Family/Request visit [] Outpatient visit [] Follow-up visit [] Physician referral [] Code/Alert [x] Routine visit [] Staff referral [] Actively dying [] Patient sleeping [] Family support [] [] Out of room [] Palliative care [] [] Receiving care in room [] Pre-surgical visit [] Trauma [] Long length of stay [x] ICU visit [x] Other: checked with staff.. PT requested decaf coffee Relational/Emotional Strength [] Patient feels connected with others/family/visitors/staff [] Distress [] Loneliness/isolation [] Abandonment Spirituality of Patient [] Person of Casi [] Attends Judaism of their Casi [] Believes in Prayer [] Reads Bible or Restorationism materials [] There are Spiritual issues to be addressed Final Expense Agent Interventions [x] Prayer [] Active listening [] Non-anxious presence [] Spiritual/emotional support [] Crisis/trauma care [] Spiritual counseling [] Bereavement support [] Provided bereavement packet [] Provided Bible/devotional materials [] Provided toy/stuffed animal, coloring book to patient or family member [] Provided Communion [] Anointing/Thurman [] Salvation [x] Completed spiritual assessment [] Other: Impact on Illness or Injury [] Angry [] Fearful [] Anxious [] Often cries [] Exhaustion [] Unable to work [] Unable to attend christianity [] Unable to walk/stand [] Unable to read [] Unable to drive [] Unable to eat/drink [] Unable to sleep [] Unable to be with family [] Patient intubated [] Other: Summary Time spent with patient x
--- NOTE | 2022-02-06 09:57 | ANE.PACU2 ---
Inpatient post-anesthesia follow up: Airway intact: Yes Vital signs: Temperature 99.9 F Pulse Rate 79 Respiratory Rate 16 Blood Pressure 149/81 Pulse Oximetry 99 Oxygen Delivery Me thod Nasal Cannula Oxygen Flow Rate 2 Fraction of Inspir ed Oxygen Hydration adequate: Yes Nausea and vomiting: No Mental status: Baseline
[2022-02-06] MEDS: vancomycin 1,500 MG/300 ML PIGGYBACK 150 MG IV (10:29)
--- NOTE | 2022-02-06 12:46 | PM.PN ---
Subjective Subjective: Seen this AM. Overnight pt had an episode of high bp. was given clonidine. subsequently pressure dropped and he required levophed for 12 min total. Pt stable thereafter. Vitals/I&O/Wt Last Vital Signs Temp 98.0 F 02/06/22 08:00 Pulse 74 02/06/22 12:30 Resp 15 02/06/22 12:30 BP 153/81 02/06/22 12:30 Pulse Ox 96 02/06/22 12:30 O2 Del Method 02/06/22 08:00 O2 Flow Rate 2 02/06/22 08:00 02/05/22 02/06/22 02/06/22 22:59 06:59 14:59 Intake Total 2877.774 / 2877.774 1366.25 / 4244.024 450 / 450 Output Total 950 / 950 400 / 1350 Balance 1927.774 / 1927.774 966.25 / 2894.024 450 / 450 Physical Exam Narrative: General: Alert but not oriented. Unable to assess orientation. No acute distress frail-appearing thin male. Has got a contracture on left arm unable to assess neurologically otherwise. Altered. Unable to obtain any history. HEENT: Normocephalic, atraumatic, EOMI, breathing comfortably on room air. Cardio: Regular rate rhythm, normal S1-S2, Respiratory: Rales at left base, rest of lungs clear to auscultation with diminished in bilateral upper lobes GI: Abdomen soft, but distended, nontender, does not grimace to palpation, suprapubic catheter in place. Extremities: No lower extremity edema noted no cyanosis. Patient able to wiggle his toes. Data : 02/06/22 03:00 02/06/22 03:00 Micro: Microbiology 02/03/22 12:20 Urine Culture - Final Urine,Clean Catch A&P Assessment and plan (1) Altered mental status: Status: Acute (2) Hyponatremia: Status: Acute (3) Liver cirrhosis: Status: Acute (4) HTN (hypertension): Status: Acute (5) Afib: Status: Acute (6) Osmotic myelinolysis: Status: Acute (7) COPD (chronic obstructive pulmonary disease): Status: Acute (8) BPH (benign prostatic hyperplasia): Status: Acute Plan #Sigmoid volvulus, bowel obstruction s/p sigmoidectomy and ostomy postop day 1 #Altered mental status, metabolic? #Urinary tract infection #CHronic constipation with overflow incontinance #Acute on chronic hyponatremia, improving #COPD, stable #Hypertension #Liver cirrhosis secondary to alcohol abuse #History of osmotic myelinolysis syndrome #Pulmonary hypertension #A. fib #BPH ? Continue Cardizem 240 daily, hydroxyzine, formoterol, fluticasone, vitamin B12, budesonide twice daily, MiraLAX, propranolol 3 times daily, revefenacin, ropinirole, sodium tablet 1 g twice daily, venlafaxine to 25 daily ? Speech swallow evaluation. Patient qualified for ground meat and thin liquids ? CT head negative for stroke ? ammonia. Ammonia is 10 ? We will place on gentle fluid hydration normal saline 75 cc/h ? Check urine culture, blood culture. -Continue vancomycin and Zosyn. Patient is postop day 1. ? CT abdomen pelvis shows dilated colon proximal to nonspecific narrowing assessment: Complex large mass in rectum. Mass has stool fat and air in it. General surgery evaluated patient and disimpacted him. -Patient is status post colostomy and sigmoidectomy, postop day 1 ? Continue on vancomycin and Zosyn empirically ? Keep patient n.p.o. for now ? Start diet as per general surgery recommendations ? Dr. De Santiago will follow patient. ? Continue to hold Eliquis. ? Start patient on DVT prophylaxis if cleared by general surgery. ? DuoNeb every 4 hours as needed ? Continue to hold Eliquis. Full code DVT prophylaxis: Heparin subcu Will obtain records from [facility] regarding patient's most recent stay. Attestations Medical Necessity Statement*: Pt is post op day 1. COntinue to manage in hospital Critical Care Time: 30 Coding Level of Care Code Acute Motor Expert for Chg Fwd Diagnoses Altered mental status R41.82 Hyponatremia E87.1 Liver cirrhosis K74.60 HTN (hypertension) I10 Afib I48.91 Osmotic myelinolysis G37.2 COPD (chronic obstructive pulmonary disease) J44.9 BPH (benign prostatic hyperplasia) N40.0
[2022-02-06 21:44] LABS: Glucose Point of Care 91 mg/dL (70-110)
[2022-02-06] MEDS: HYDROmorphone 1 mg/mL INJ 1 mL 0.4 MG IVP (22:00)
--- NOTE | 2022-02-06 23:00 | NUR.SHIFT ---
upon entering pt room patient is sitting in bed watching tv. This RN introduces herself to pt. pt repeats what RN says in mumbles voice. pt when asked what patient's name is patient appears to be struggling finding words. patient does this with all orientation questions. patient is then asked yes or no questions. ex (is you name Richy? patient nodded head yes.) pt consistency nodded head incorrectly to all questions asked. When asked to follow this RN finger pt was unable to do so. pt appears to mainly look to right and center. This RN moved to left side to see if pt would be able to look at her. he was not able too. When asked to squeeze fingers patient did follow this command, but when asked to flex ankles patient did not follow commands. pupils are equal, 2mm júnior Patient's colostomy appears much more swollen and edematous today that yesterday and seems to be protruding more than yesterday. pt still has bloody drainage coming from stoma. MD Yahir notified of these changes. per MD tejinder lopes do to unsafe swallow ability.
[2022-02-07] VITALS (68 sets, daily range): BP systolic 146–197; BP diastolic 81–153; PULSE 75–118; RESP 10–35; TEMP 36.6–37.1; O2SAT 74–100
[2022-02-07] MEDS: vancomycin 1,500 MG/300 ML PIGGYBACK 150 MG IV ×3 (00:52→22:31)
[2022-02-07] MEDS: HYDROmorphone 1 mg/mL INJ 1 mL 0.4 MG IVP ×4 (01:01→22:31)
--- NOTE | 2022-02-07 01:18 | XRR_ITS ---
PROCEDURE INFORMATION: Exam: XR Chest Exam date and time: 02/07/2022 2:23 AM Age: 66 years old Clinical indication: Shortness of breath; Additional info: AMS TECHNIQUE: Imaging protocol: Radiologic exam of the chest. Views: 1 view. COMPARISON: CR XR chest 1V portable [id number] 02/03/2022 11:50 AM FINDINGS: Lungs: See Pleural spaces finding. Pleural spaces: There is a left pleural effusion similar in size to that seen on 02/03/2022. Some strandy and patchy opacities superimposed over the pleural effusion likely representing atelectasis versus infiltrates. Heart/Mediastinum: Unremarkable. No cardiomegaly. Bones/joints: Unremarkable. XR/XR chest 1V portable [id number] IMPRESSION: Stable left pleural effusion with superimposed left basilar atelectasis versus infiltrates.
--- NOTE | 2022-02-07 01:20 | XRR_ITS ---
PROCEDURE INFORMATION: Exam: XR Abdomen Exam date and time: 02/07/2022 2:20 AM Age: 66 years old Clinical indication: Other: Recent bowel resection; Prior surgery; Additional info: Change is stoma appearance TECHNIQUE: Imaging protocol: Radiologic exam of the abdomen. Views: Frontal supine view of the abdomen. 1 View. COMPARISON: CR (ABDOMEN, ) 02/05/2022 7:30 AM FINDINGS: Tubes, catheters and devices: There on midline surgical donnie present. Gastrointestinal tract: There is a ostomy site seen in the left lower flank. There is a slightly decreased bowel gas pattern seen within the abdomen compared with 02/05/2022. Bones/joints: Unremarkable. XR/XR KUB portable [id number] IMPRESSION: There are no acute abdominal findings.
--- NOTE | 2022-02-07 01:22 | CTR_ITS ---
PROCEDURE INFORMATION: Exam: CT Head Without Contrast Exam date and time: 02/07/2022 2:14 AM Age: 66 years old Clinical indication: Altered mental status/memory loss; Additional info: AMS TECHNIQUE: Imaging protocol: Computed tomography of the head without contrast. Radiation optimization: All CT scans at this facility use at least one of these dose optimization techniques: automated exposure control; mA and/or kV adjustment per patient size (includes targeted exams where dose is matched to clinical indication); or iterative reconstruction. COMPARISON: CT head wo con* [id number] 02/03/2022 12:36 PM RADIATION DOSE METRICS: Total DLP (mGy-cm): 1107.89 FINDINGS: Brain: There is mild diffuse cerebral atrophy. Patchy areas of hypoattenuation are seen in the deep white matter of the cerebral hemispheres compatible with deep white matter microvascular disease. No hemorrhage. No mass effect. Cerebral ventricles: No ventriculomegaly. Paranasal sinuses: Visualized sinuses are unremarkable. No fluid levels. Mastoid air cells: Visualized mastoid air cells are well aerated. Bones/joints: Unremarkable. No acute fracture. Soft tissues: Unremarkable. CT/CT head wo con* [id number] IMPRESSION: No acute intracranial abnormality.
[2022-02-07 01:34] LABS: ABG PCO2 32.7 mmHg (35-45); ABG PH Result 7.35 (7.35-7.45); Arterial Blood Gas Hematocrit 24.3 % (42-52); Blood Gas Allen Test Pos; Blood Gas Sample Site Radial, right; Blood Gas Sample Type Arterial; HCO3 ABG 17.9 mmol/L (22-26); Oxygen Device ROOM AIR; PO2 ABG 62.5 mmHg (80.0-100.0)
[2022-02-07 01:42] LABS: Basophils % 0.1 %; Eosinophils # 0.3 10^3/uL (0.0-0.8); Eosinophils % 4.1 %; Hematocrit 26.7 % (42.0-52.0); Hemoglobin 8.7 g/dL (11.7-16.6); Lymphocytes # 0.4 10^3/uL (0.8-4.8); Lymphocytes % 6.4 %; Mean Corpuscular HGB Conc 32.6 g/dL (30.0-36.0); Mean Platelet Volume 8.7 fL (7.4-10.4); Monocytes # 0.4 10^3/uL (0.2-0.9); Monocytes % 5.9 %; Neutrophils # 5.63 10^3/uL (1.8-7.7); Neutrophils % 83.4 %; Nucleated Red Blood Cells % 0 %; Platelet Count 222 10^3/cmm (130-400); Red Cell Distribution Width 15.3 % (12.1-15.1); White Blood Count 6.8 10^3/uL (4.0-10.0)
[2022-02-07 01:58] LABS: Troponin T (5th) Once 31 ng/L (0-15)
[2022-02-07 02:09] LABS: Alanine Aminotransferase 13 U/L (0-41); Albumin Level 2.8 g/dL (3.5-5.2); Alkaline Phosphatase 46 U/L (40-130); Anion Gap 14.4 (5-19); Aspartate Amino Transferase 20 U/L (0-40); Blood Urea Nitrogen 17 mg/dL (8-23); Calcium 7.4 mg/dL (8.5-10.5); Carbon Dioxide 19 mmol/L (22-29); Chloride 103 mmol/L (98-107); Globulin 2.2 g/dL (1.3-4.6); Glomerular Filtration Rate 112.5 mL/min (90-130); Glucose 84 mg/dL (65-115); Magnesium 1.8 mg/dL (1.7-2.3); Osmolality Calculated 277 mOsm/kg (285-295); Potassium 3.4 mmol/L (3.5-5.1); Sodium 133 mmol/L (136-145); Thyroid Stimulating Hormone 1.98 uIU/mL (0.27-4.20); Total Bilirubin 0.3 mg/dL (0.15-1.2)
[2022-02-07] MEDS: piperacillin-tazobactam 3.375 GM in sodium chloride 0.9% (plus) 50 ML IV ×3 (03:38→20:02)
[2022-02-07 04:08] LABS: Basophils % 0.1 %; Eosinophils # 0.4 10^3/uL (0.0-0.8); Eosinophils % 5.8 %; Hematocrit 27.3 % (42.0-52.0); Hemoglobin 8.9 g/dL (11.7-16.6); Lymphocytes # 0.5 10^3/uL (0.8-4.8); Lymphocytes % 6.7 %; Mean Corpuscular HGB Conc 32.6 g/dL (30.0-36.0); Mean Corpuscular Hemoglobin 28.7 pg (28.0-34.0); Mean Corpuscular Volume 88.1 fl (80-94); Mean Platelet Volume 8.7 fL (7.4-10.4); Monocytes # 0.5 10^3/uL (0.2-0.9); Neutrophils # 5.41 10^3/uL (1.8-7.7); Neutrophils % 80.1 %; Nucleated Red Blood Cells % 0 %; Platelet Count 229 10^3/cmm (130-400); Red Cell Distribution Width 15.2 % (12.1-15.1); White Blood Count 6.8 10^3/uL (4.0-10.0)
[2022-02-07 04:27] LABS: Troponin 5 2HR 29.96 ng/L (0-15)
[2022-02-07 04:31] LABS: Alanine Aminotransferase 13 U/L (0-41); Albumin Level 2.7 g/dL (3.5-5.2); Alkaline Phosphatase 45 U/L (40-130); Anion Gap 15.3 (5-19); Aspartate Amino Transferase 19 U/L (0-40); Blood Urea Nitrogen 15 mg/dL (8-23); Calcium 7.6 mg/dL (8.5-10.5); Carbon Dioxide 18 mmol/L (22-29); Chloride 101 mmol/L (98-107); Globulin 2.7 g/dL (1.3-4.6); Glomerular Filtration Rate 112.5 mL/min (90-130); Glucose 80 mg/dL (65-115); Magnesium 1.7 mg/dL (1.7-2.3); Osmolality Calculated 272 mOsm/kg (285-295); Potassium 3.3 mmol/L (3.5-5.1); Sodium 131 mmol/L (136-145); Total Bilirubin 0.2 mg/dL (0.15-1.2); Total Protein 5.4 g/dL (6.6-8.7)
[2022-02-07 04:37] LABS: Ammonia 24 umol/L (16-60); Troponin 5 2HR Delta -1.4 ABS# (0-10)
--- NOTE | 2022-02-07 07:01 | P.PN_ITS ---
Subjective Subjective: Patient continues to be nonverbal, neurological changes have noticed by nursing staff overnight and further work-up was done for a CT of the head was done showed no acute intracranial abnormalities also there was concern about the look of the stoma and a KUB was obtained that showed no acute findi ngs. Had a discussion with patient's daughter yesterday about starting the feeding when appropriate as the patient should start passing gas first. Medications: Reviewed: Yes Vitals/I&O/Wt Last Vital Signs Temp 97.8 F 02/07/22 06:00 Pulse 82 02/07/22 06:45 Resp 21 H 02/07/22 06:45 BP 177/98 02/07/22 06:45 Pulse Ox 97 02/07/22 06:45 O2 Del Method 02/07/22 06:00 O2 Flow Rate 2 02/07/22 06:00 02/06/22 02/07/22 02/07/22 22:59 06:59 14:59 Intake Total 1000 / 1500 350 / 1850 Output Total 850 / 850 1710 / 2560 Balance 150 / 650 -1360 / -710 Physical Exam Narrative: Patient is conscious alert does not seem to be oriented No apparent distress BMI 24.4 Head and neck examination PERRLA no masses no cervical lymphadenopathy no jaundice Abdomen nontender nondistended soft no organomegaly guarding or rigidity/no signs of peritonitis Incision is clean dry and intact and skin donnie in place as well as suprapubic catheter Stoma had a large blood clot that was removed bedside and underneath it pink, patent without complication of the stoma Data : 02/07/22 03:51 02/07/22 03:51 A&P Assessment and plan (1) Status post partial resection of colon: Assessment 66 years old gentleman status post exploratory laparotomy with Haider's procedure 02/05/2022 Plan N.p.o. except for popsicles and ice chips Awaiting bowel functions before start feeding the patient Highly recommend speech pathology once the patient is appropriate to start feeds Aspiration precaution From surgery standpoint of view patient can go to the floor Family updates Assurance and education All questions have been answered and all concerns have been addressed to patient's satisfaction. Status: Acute Attestations Medical Necessity Statement*: Per admitting service Coding Level of Care Code Acute Production Statistical Clerk for Chg Fwd Diagnoses Status post partial resection of colon Z90.49
[2022-02-07 07:50] LABS: Troponin 5 6HR 31.32 ng/L (0-15)
[2022-02-07 07:53] LABS: Troponin 5 6HR Delta 0.32 ng/L (0-12)
--- NOTE | 2022-02-07 08:16 | PC.NURSE ---
Seizure-like activity 0720 patient had approx. 1 minute of seizure like activity followed by post ictal state lasting less than 5 minutes.
[2022-02-07] MEDS: budesonide 0.5 mg/2 mL Neb INHALATION ×2 (08:19→20:34)
[2022-02-07] MEDS: ipratropium-albuterol 3 mL Neb INHALATION ×4 (08:19→20:35)
[2022-02-07] MEDS: enoxaparin 40 mg/0.4 mL Syringe SUBCUT (08:30)
--- NOTE | 2022-02-07 08:38 | PM.PN ---
Subjective Subjective: Seen this morning. Patient is following some commands. Able to wiggle his toes and look at me. He would not open his mouth however. He was able to move his eyes in all directions and can move all 4 extremities. Earlier this morning he told the nurse his name was norma. Nursing staff reported that patient has been having seizures. 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 He had rhythmic tonic-clonic movements of upper and lower extremities. He also has postictal phase. There was also a blood clot in his ostomy which was cleared out with general surgery this AM. Hemoglobin is stable. He is not passing gas through the ostomy yet. Patient is on 6 L nasal cannula at this time. Vitals/I&O/Wt Last Vital Signs Temp 98.4 F 02/07/22 08:00 Pulse 97 02/07/22 08:19 Resp 16 02/07/22 08:19 BP 181/116 02/07/22 08:00 Pulse Ox 92 02/07/22 08:19 O2 Del Method 02/07/22 08:19 O2 Flow Rate 2 02/07/22 08:19 02/06/22 02/07/22 02/07/22 22:59 06:59 14:59 Intake Total 1000 / 1500 350 / 1850 50 / 50 Output Total 850 / 850 1710 / 2560 Balance 150 / 650 -1360 / -710 50 / 50 Physical Exam Narrative: General: Alert but not oriented. Unable to assess orientation. No acute distress frail-appearing thin male. Has got a contracture on left arm unable to assess neurologically otherwise. Altered. Unable to obtain any history. Appears comfortable. Able to move all 4 extremities. HEENT: Normocephalic, atraumatic, EOMI, breathing comfortably on room air. Cardio: Regular rate rhythm, normal S1-S2, Respiratory: Rales at left base, rest of lungs clear to auscultation with diminished in bilateral upper lobes GI: Abdomen soft, but distended, nontender, does not grimace to palpation, suprapubic catheter in place. Extremities: No lower extremity edema noted no cyanosis. Patient able to wiggle his toes. Data : 02/07/22 03:51 02/07/22 03:51 A&P Assessment and plan (1) Altered mental status: Status: Acute (2) Hyponatremia: Status: Acute (3) Liver cirrhosis: Status: Acute (4) HTN (hypertension): Status: Acute (5) Afib: Status: Acute (6) Osmotic myelinolysis: Status: Acute (7) COPD (chronic obstructive pulmonary disease): Status: Acute (8) BPH (benign prostatic hyperplasia): Status: Acute Plan #New onset seizure #Sigmoid volvulus, bowel obstruction s/p sigmoidectomy and ostomy postop day 2 #Altered mental status, metabolic? #Urinary tract infection #CHronic constipation with overflow incontinance #Acute on chronic hyponatremia, improving #COPD, stable #Hypertension #Liver cirrhosis secondary to alcohol abuse #History of osmotic myelinolysis syndrome #Pulmonary hypertension #A. fib #BPH ? Hold p.o. meds at this time as patient cannot take anything orally due to waiting on bowel function to return. ? We will place on metoprolol 5 mg IV every 4 hours as needed ? We will place on hydralazine 10 mg IV every 4 hours as needed ? For patient's seizure we loaded him with Keppra 1 g and started him on 750 twice daily. Also check lactic acid and prolactin. Results are pending. Patient also got 2 mg of Ativan x1. We will continue to monitor patient. If patient does not respond to Keppra we will consider neurology consult with Dr. Bonilla. Ativan 2 mg IV every 5 minutes as needed for seizure. Maximum dose 8 mg. Should he have status we will plan to intubate patient. Consider MRI brain once seizures are controlled. - Speech swallow evaluation was done prior to surgery. Patient qualified for ground meat. At this time we believe he will require another speech evaluation after return of bowel function. ? CT head negative for stroke ? Continue normal saline 75 cc/h ? MRSA nares negative, urine culture negative so far ? We will place on gentle fluid hydration normal saline 75 cc/h ?Continue vancomycin and Zosyn for empiric coverage ? CT abdomen pelvis shows dilated colon proximal to nonspecific narrowing assessment: Complex large mass in rectum. Mass has stool fat and air in it. General surgery evaluated patient and disimpacted him. ? Keep patient n.p.o. for now ? Start diet as per general surgery recommendations ? Dr. De Santiago will follow patient. ? Continue to hold Eliquis. ? Continue DVT prophylaxis with Lovenox 40 daily ? DuoNeb every 4 hours as needed ? May discontinue arterial line. Discussed with RN. Full code DVT prophylaxis: Lovenox 40 daily Will obtain records from [facility] regarding patient's most recent stay. Still awaiting records. Attestations Medical Necessity Statement*: Continue to monitor patient in the ICU today due to recurrent seizures. Critical Care Time: 40 min Coding Level of Care Code Acute Compound Filler for Claytong Fwd Diagnoses Altered mental status R41.82 Hyponatremia E87.1 Liver cirrhosis K74.60 HTN (hypertension) I10 Afib I48.91 Osmotic myelinolysis G37.2 COPD (chronic obstructive pulmonary disease) J44.9 BPH (benign prostatic hyperplasia) N40.0
[2022-02-07 09:52] LABS: Vancomycin Trough 12.4 ug/mL (10-15)
[2022-02-07] MEDS: sodium chloride 0.9% 1,000 ML 75 ML IV (09:55)
[2022-02-07] MEDS: hyDRALAzine 20 mg/mL INJ 1 mL 10 MG IVP (11:39)
[2022-02-07] MEDS: LORazepam 2 mg/mL oral liquid (mL) SUBLINGUAL (13:01)
[2022-02-07 14:39] LABS: Lactate (Lactic Acid level) 2.2 mmol/L (0.5-2.2)
[2022-02-07] MEDS: metoprolol tartrate 1 mg/1 mL SDV 5 mL 5 MG IVP (14:41)
[2022-02-07] MEDS: magnesium sulfate premix 2 GM/50 ML PIGGYBACK IV (14:41)
[2022-02-07 14:48] LABS: Prolactin 12.81 ng/mL (4.0-15.2)
[2022-02-07] MEDS: lidocaine 1% 5 ML in potassium chloride premix 100 ML 25 ML IV (15:05)
--- NOTE | 2022-02-07 19:00 | PC.NURSE ---
Pt. laying in bed, comfortable, no needs or complaints expressed at this time.
--- NOTE | 2022-02-07 19:00 | PC.NURSE ---
Pt. laying in bed, has mid abdominal surgical incision closed with donnie. Pt. has suprapubic catheter that is clean and intact. Pt. has left sided colostomy draining bloody muccus. No needs identified at this time.
--- NOTE | 2022-02-07 23:45 | PC.NURSE ---
Pt. desating into 86%. Placed patient on 5L nasal cannula without improvement. Called RT for further evaluation.
[2022-02-08] VITALS (48 sets, daily range): BP systolic 138–174; BP diastolic 82–136; PULSE 85–117; RESP 14–31; TEMP 36.6–37.7; O2SAT 79–100
[2022-02-08] MEDS: metoprolol tartrate 1 mg/1 mL SDV 5 mL 5 MG IVP ×4 (01:14→22:21)
[2022-02-08] MEDS: levETIRAcetam 750 MG in sodium chloride 0.9% (100 ml) 100 ML 420 MG IV ×2 (01:35→13:48)
[2022-02-08] MEDS: piperacillin-tazobactam 3.375 GM in sodium chloride 0.9% (plus) 50 ML IV ×3 (02:37→20:04)
[2022-02-08] MEDS: sodium chloride 0.9% 1,000 ML 75 ML IV ×2 (02:38→16:03)
[2022-02-08] MEDS: HYDROmorphone 1 mg/mL INJ 1 mL 0.4 MG IVP ×3 (02:42→16:02)
[2022-02-08 03:48] LABS: Basophils % 0.4 %; Eosinophils # 0.2 10^3/uL (0.0-0.8); Eosinophils % 3.3 %; Hematocrit 27.4 % (42.0-52.0); Hemoglobin 8.9 g/dL (11.7-16.6); Lymphocytes # 0.5 10^3/uL (0.8-4.8); Lymphocytes % 7.3 %; Mean Corpuscular HGB Conc 32.5 g/dL (30.0-36.0); Mean Corpuscular Hemoglobin 28.8 pg (28.0-34.0); Mean Corpuscular Volume 88.7 fl (80-94); Mean Platelet Volume 8.8 fL (7.4-10.4); Monocytes # 0.7 10^3/uL (0.2-0.9); Neutrophils % 78.7 %; Nucleated Red Blood Cells % 0 %; Platelet Count 226 10^3/cmm (130-400); Red Blood Count 3.09 10^6/uL (4.1-5.3); White Blood Count 6.7 10^3/uL (4.0-10.0)
[2022-02-08] MEDS: hyDRALAzine 20 mg/mL INJ 1 mL 10 MG IVP ×2 (04:02→12:52)
[2022-02-08 04:18] LABS: Alanine Aminotransferase 13 U/L (0-41); Albumin Level 2.7 g/dL (3.5-5.2); Alkaline Phosphatase 68 U/L (40-130); Anion Gap 15.1 (5-19); Aspartate Amino Transferase 19 U/L (0-40); Blood Urea Nitrogen 10 mg/dL (8-23); Calcium 7.9 mg/dL (8.5-10.5); Carbon Dioxide 21 mmol/L (22-29); Chloride 102 mmol/L (98-107); Globulin 2.7 g/dL (1.3-4.6); Glomerular Filtration Rate 134.4 mL/min (90-130); Glucose 71 mg/dL (65-115); Osmolality Calculated 278 mOsm/kg (285-295); Potassium 3.1 mmol/L (3.5-5.1); Sodium 135 mmol/L (136-145); Total Bilirubin 0.4 mg/dL (0.15-1.2); Total Protein 5.4 g/dL (6.6-8.7)
--- NOTE | 2022-02-08 07:11 | PM.PN ---
Subjective Subjective: No acute events overnight, patient did have some gas in the stoma bag on evening rounds yesterday, continues to have scanty bloody aspirate in the bag today but no clot formation. Stable H&H Medications: Reviewed: Yes Vitals/I&O/Wt Last Vital Signs Temp 100 F H 02/08/22 04:27 Pulse 107 H 02/08/22 06:30 Resp 19 H 02/08/22 06:30 BP 163/106 02/08/22 06:30 Pulse Ox 96 02/08/22 06:30 O2 Del Method 02/07/22 20:35 O2 Flow Rate 2 02/07/22 20:35 02/07/22 02/08/22 02/08/22 22:59 06:59 14:59 Intake Total 205 / 1606.25 1050 / 2656.25 Output Total 1850 / 2850 1400 / 4250 Balance -1645 / -1243.75 -350 / -1593.75 Physical Exam Narrative: Patient is conscious alert disoriented No apparent distress BMI 24.4 Head and neck examination PERRLA no masses no cervical lymphadenopathy no jaundice Abdomen nontender nondistended soft no organomegaly guarding or rigidity/no signs of peritonitis Incision is clean dry and intact and skin donnie in place as well as suprapubic catheter Stoma is pink, patent without complication of the stoma, scanty bloody aspirate in the bag with little gas. Data : 02/08/22 03:05 02/08/22 03:05 A&P Assessment and plan (1) Status post partial resection of colon: Assessment 66 years old gentleman status post exploratory laparotomy with Haider's procedure 02/05/2022 Plan N.p.o. except for popsicles and ice chips We will follow on speech pathology recommendations before starting the patient on p.o. intake I would suggest to start the patient on PPN till we figure out an appropriate mode of feeding the patient Aspiration precaution Highly recommend to have the patient on PPI therapy From surgery standpoint of view patient can go to the floor Family updates Assurance and education All questions have been answered and all concerns have been addressed to patient's satisfaction. Status: Acute Attestations Medical Necessity Statement*: Per admitting service Coding Level of Care Code Acute Behavioral Intervention Specialist for Demetria Fwemilee Diagnoses Status post partial resection of colon Z90.49
[2022-02-08] MEDS: ipratropium-albuterol 3 mL Neb INHALATION ×4 (08:02→20:06)
[2022-02-08] MEDS: budesonide 0.5 mg/2 mL Neb INHALATION ×2 (08:02→20:06)
[2022-02-08] MEDS: enoxaparin 40 mg/0.4 mL Syringe SUBCUT (09:06)
[2022-02-08] MEDS: pantoprazole 40 mg SDV IVP ×2 (09:07→20:04)
--- NOTE | 2022-02-08 10:15 | PC.NURSE ---
rounded on patient with dr tello, discussed plan of care. Dr. Morales called, left message informing him that there is clotted blood coming out of colostomy per Dr. hCang's request.
--- NOTE | 2022-02-08 10:17 | PC.NUTR ---
MD notes mentioned possibly starting PPN today. If medically appropriate, recommend PPN starting @ 13 mls/hr, increasing 10 mls Q8H until 83 mls/hr is reached, with 25 grams/125 mls Fat Emulsion, Standard Electrolytes, and Multivitamins 10 mls/day. Details in RD assessment.
[2022-02-08] MEDS: lidocaine 1% 5 ML in potassium chloride premix 100 ML 25 ML IV (10:28)
[2022-02-08 10:44] LABS: Iron 19 ug/dL (59-158); Percent Saturation 11.5 % (20-50); Total Iron Binding Capacity 165 mcg/dl; Unsaturated Iron Binding 146 ug/dL (112-347)
--- NOTE | 2022-02-08 13:49 | P.PN_ITS ---
Subjective Subjective: Hospital course, labs appreciated. On examination patient lying comfortably in bed. Awake, alert but not oriented to surroundings. Patient is alert to himself, being in the hospital. He is complaining of feeling hungry. Overnight has remained medically stable. T-max within last 24 hours 100 Fahrenheit today morning. Medications: Reviewed: Yes Vitals/I&O/Wt Last Vital Signs Temp 100 F H 02/08/22 04:27 Pulse 88 02/08/22 11:12 Resp 22 H 02/08/22 11:12 BP 162/92 02/08/22 11:00 Pulse Ox 98 02/08/22 11:12 O2 Del Method 02/08/22 11:12 O2 Flow Rate 4 02/08/22 11:12 02/07/22 02/08/22 02/08/22 22:59 06:59 14:59 Intake Total 205 / 1606.25 1050 / 2656.25 457.5 / 457.5 Output Total 1850 / 2850 1400 / 4250 Balance -1645 / -1243.75 -350 / -1593.75 457.5 / 457.5 Physical Exam Narrative: General: Alert but not oriented. Unable to assess orientation. No acute distress frail-appearing thin male. Has got a contracture on left arm unable to assess neurologically otherwise. Altered. Unable to obtain any history. Appears comfortable. Able to move all 4 extremities. HEENT: Normocephalic, atraumatic, EOMI, breathing comfortably on room air. Cardio: Regular rate rhythm, normal S1-S2, Respiratory: Rales at left base, rest of lungs clear to auscultation with diminished in bilateral upper lobes GI: Abdomen soft, but distended, nontender, does not grimace to palpation, suprapubic catheter in place. Extremities: No lower extremity edema noted no cyanosis. Patient able to wiggle his toes. Data : 02/08/22 03:05 02/08/22 03:05 A&P Assessment and plan (1) Fecal impaction in rectum: With sigmoid volvulus, due to bowel obstruction post sigmoidectomy and ostomy. Postop day 4. Appreciate surgical recommendations. Possibility of slight clot in ostomy. Site looks healthy otherwise. Start on Protonix IV twice daily. Keep NPO. As per surgical recommendations can start on liquid diet if okayed with swallow evaluation. Status: Acute (2) Status post partial resection of colon: Status: Acute (3) Altered mental status: Present on admission. Secondary to sepsis from sigmoid volvulus and fecal impac tion versus possibly from postictal status given new seizures during this hospitalization. Resolving now. Continue to monitor. 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 Baseline seems to be between 1 28-1 30. Currently 135. Continue with normal saline at 50 cc/h. Monitor BMP daily. Status: Acute (5) Seizure disorder: New onset. Multiple episodes during this hospitalization. Review head negative for acute abnormality. For now continue with Keppra 500 mg twice daily. Status: Acute (6) Osmotic myelinolysis: Status: Acute (7) HTN (hypertension): Status: Acute (8) Afib: Having occasional episodes of RVR with heart rate running up to 110s. Seems patient takes propranolol 10 mg 3 times daily at home. Currently not getting p.o. medications. Change metoprolol 5 mg every 4 hourly as needed to every 6 hourly scheduled. To be withheld if systolic blood pressure less than 100 mmHg or heart rate less than 80 bpm. Status: Acute (9) COPD (chronic obstructive pulmonary disease): No exacerbation. Continue with DuoNebs, budesonide. Status: Acute (10) BPH (benign prostatic hyperplasia): Status: Acute (11) Chronic constipation with overflow: Status: Acute (12) Liver cirrhosis: Status: Acute Plan Febrile episode: No leukocytosis. Patient is postoperative. Less likely secondary infections. Continue with Zosyn for now. Check MRSA swab. Stop vancomycin for now. If patient continues to have febrile episodes will check for COVID-19. For now check D-dimer thromboembolic work-up. Intensive spirometry for prevention of atelectasis. Full code. NPO. Protonix for PUD prophylaxis Lovenox for DVT prophylaxis Transfer to [facility] Attestations Medical Necessity Statement*: Meant of postoperative status secondary to sigmoidectomy, ostomy given sigmoid volvulus with fecal impaction, chronic hyponatremia, new onset seizure disorder Time Spent in Patient Care: Greater than 35 minutes Coding Level of Care Code Acute Engineering Psychologist for [facility] Fw Diagnoses Fecal impaction in rectum K56.41 Status post partial resection of colon Z90.49 Altered mental status R41.82 Hyponatremia E87.1 Seizure disorder G40.909 Osmotic myelinolysis G37.2 HTN (hypertension) I10 Afib I48.91 COPD (chronic obstructive pulmonary disease) J44.9 BPH (benign prostatic hyperplasia) N40.0 Chronic constipation with overflow K59.09 Liver cirrhosis K74.60
[2022-02-08 17:11] LABS: D Dimer 2.54 ug/mIFEU (0-0.59)
--- NOTE | 2022-02-08 17:14 | USR_ITS ---
PROCEDURE INFORMATION: Exam: US Duplex Lower Extremity Veins, Bilateral Exam date and time: 02/08/2022 5:31 PM Age: 66 years old Clinical indication: Abnormal findings; Abnormal lab test; Elevated d-dimer; Additional info: Elevated dimer TECHNIQUE: Imaging protocol: Real-time Duplex ultrasound of the bilateral extremities with 2-D doherty scale, color Doppler flow and spectral waveform analysis with image documentation. Complete exam focused on the bilateral lower extremity veins. COMPARISON: CT abdomen pelvis w con* [id number] 02/03/2022 12:40 PM FINDINGS: Right deep veins: Unremarkable. The common femoral, femoral, proximal profunda femoral and popliteal veins are patent without thrombus. Normal Doppler waveforms. Normal compressibility and/or augmentation response. Right superficial veins: Saphenofemoral junction is patent without thrombus. Left deep veins: Unremarkable. The common femoral, femoral, proximal profunda femoral and popliteal veins are patent without thrombus. Normal Doppler waveforms. Normal compressibility and/or augmentation response. Left superficial veins: Saphenofemoral junction is patent without thrombus. Soft tissues: Unremarkable. US/CV venous duplex [facility] [id number] IMPRESSION: No evidence of deep vein thrombosis.
[2022-02-09] VITALS (17 sets, daily range): BP systolic 163–187; BP diastolic 88–103; PULSE 0–114; RESP 16–24; TEMP 36.6–37.1; O2SAT 94–98
[2022-02-09] MEDS: metoprolol tartrate 1 mg/1 mL SDV 5 mL 5 MG IVP ×4 (04:14→20:48)
[2022-02-09] MEDS: piperacillin-tazobactam 3.375 GM in sodium chloride 0.9% (plus) 50 ML IV ×3 (04:15→19:05)
[2022-02-09 05:02] LABS: Basophils % 0.4 %; Eosinophils # 0.4 10^3/uL (0.0-0.8); Eosinophils % 5.5 %; Hematocrit 27.1 % (42.0-52.0); Hemoglobin 8.7 g/dL (11.7-16.6); Lymphocytes # 0.6 10^3/uL (0.8-4.8); Lymphocytes % 8.6 %; Mean Corpuscular HGB Conc 32.1 g/dL (30.0-36.0); Mean Corpuscular Hemoglobin 28.4 pg (28.0-34.0); Mean Corpuscular Volume 88.6 fl (80-94); Mean Platelet Volume 8.9 fL (7.4-10.4); Monocytes # 0.5 10^3/uL (0.2-0.9); Monocytes % 6.7 %; Neutrophils # 5.41 10^3/uL (1.8-7.7); Neutrophils % 78.4 %; Nucleated Red Blood Cells % 0 %; Platelet Count 218 10^3/cmm (130-400); Red Blood Count 3.06 10^6/uL (4.1-5.3); Red Cell Distribution Width 14.6 % (12.1-15.1); White Blood Count 6.9 10^3/uL (4.0-10.0)
--- NOTE | 2022-02-09 05:07 | PC.NURSE ---
The LIQUEFACTION PLANT OPERATOR called this nurse to the patient room stating the patient was punching his colostomy and pulling at his suprapubic catheter. Patient stated he did not want them. Redirected patient and explained to him that he is causing harm to the sites by hitting and pulling at the sites.
[2022-02-09 05:23] LABS: Alanine Aminotransferase 15 U/L (0-41); Albumin Level 2.6 g/dL (3.5-5.2); Alkaline Phosphatase 44 U/L (40-130); Anion Gap 15.3 (5-19); Aspartate Amino Transferase 29 U/L (0-40); Blood Urea Nitrogen 7 mg/dL (8-23); Calcium 7.9 mg/dL (8.5-10.5); Carbon Dioxide 21 mmol/L (22-29); Chloride 98 mmol/L (98-107); Chol HDL Ratio 3.74 mg/dL (1.0-5.00); Cholesterol 116 mg/dL (0-200); Glomerular Filtration Rate 134.4 mL/min (90-130); Glucose 74 mg/dL (65-115); HDL Cholesterol 31 mg/dL (60-100); LDL Cholesterol Calculated 66 mg/dL (50-129); Osmolality Calculated 269 mOsm/kg (285-295); Potassium 3.3 mmol/L (3.5-5.1); Sodium 131 mmol/L (136-145); Total Bilirubin 0.4 mg/dL (0.15-1.2); Total Protein 5.6 g/dL (6.6-8.7); Triglycerides 96 mg/dL (0-150); VLDL Cholestrol Calculation 19 mg/dL (0-30)
[2022-02-09 05:35] LABS: Estmated Average Glucose 100; Hemoglobin A1C 5.1 % (4.0-6.0)
--- NOTE | 2022-02-09 07:14 | PM.PN ---
Subjective Subjective: Patient was transferred from the ICU to the floor. Per nursing night shift supervisor patient started pulling on the suprapubic catheter and hitting his colostomy and more blood clots were found in the stoma bag. An assigned sitter was placed and I was informed and immediately I requested to have the patient in soft restraints till further evaluation. Patient has been passing gas Medications: Reviewed: Yes Vitals/I&O/Wt Last Vital Signs Temp 98.4 F 02/09/22 04:00 Pulse 87 02/09/22 04:00 Resp 18 02/09/22 04:00 BP 177/93 02/09/22 04:00 Pulse Ox 98 02/09/22 04:00 O2 Del Method 02/09/22 04:00 O2 Flow Rate 3.5 02/09/22 04:00 02/08/22 02/09/22 02/09/22 22:59 06:59 14:59 Intake Total 1372.5 / 2030.0 155 / 2185.0 Output Total 350 / 350 1200 / 1550 Balance 1022.5 / 1680.0 -1045 / 635.0 Physical Exam Narrative: Patient is conscious alert yet agitated No apparent distress BMI 24.4 Head and neck examination PERRLA no masses no cervical lymphadenopathy no jaundice Abdomen nontender nondistended soft no organomegaly guarding or rigidity/no signs of peritonitis Incision is clean dry and intact and skin donnie in place as well as suprapubic catheter Stoma is pink, patent without complication of the stoma, blood clot was removed bedside and stoma remains to be intact scanty bloody aspirate in the bag with gas. Data : 02/09/22 04:29 02/09/22 04:29 Micro: Microbiology 02/03/22 19:51 Blood Culture - Final Blood NO GROWTH AFTER 5 DAYS 02/03/22 19:45 Blood Culture - Final Blood NO GROWTH AFTER 5 DAYS A&P Assessment and plan (1) Status post partial resection of colon: Assessment 66 years old gentleman status post exploratory laparotomy with Haider's procedure 02/05/2022 Plan Patient was started on clear liquid diet yesterday evening and will also add protein shakes with every meal, aspiration precautions. Patient was started on PPI therapy yesterday Soft restraints and family updates Aspiration precaution Continue to have a sitter bedside 11/12 Assurance and education All questions have been answered and all concerns have been addressed to patient's satisfaction. Status: Acute Attestations Medical Necessity Statement*: Per admitting service Coding Level of Care Code Acute Fruit Stuffer for Claytong Fwd Diagnoses Status post partial resection of colon Z90.49
[2022-02-09] MEDS: budesonide 0.5 mg/2 mL Neb INHALATION ×2 (08:57→20:13)
[2022-02-09] MEDS: ipratropium-albuterol 3 mL Neb INHALATION ×4 (08:57→20:13)
[2022-02-09] MEDS: enoxaparin 40 mg/0.4 mL Syringe SUBCUT (09:08)
[2022-02-09] MEDS: pantoprazole 40 mg SDV IVP ×2 (09:09→20:52)
[2022-02-09] MEDS: HYDROmorphone 1 mg/mL INJ 1 mL 0.4 MG IVP ×3 (13:13→20:46)
[2022-02-09 13:53] LABS: Ammonia 27 umol/L (16-60)
[2022-02-09] MEDS: sodium chloride 0.9% 1,000 ML 75 ML IV (14:16)
--- NOTE | 2022-02-09 15:48 | PM.PN ---
Subjective Subjective: Today morning patient seen with daughter at bedside on [facility] floor. Patient is a little more confused today than yesterday. As per the nurse patient has been trying to pull on his suprapubic catheter and has been seen to be fiddling and punching his ostomy bag. Patient was put in soft restraints as per surgical team. Patient is otherwise hemodynamically stable and afebrile. It seems patient is in pain at the ostomy site. Medications: Reviewed: Yes Vitals/I&O/Wt Last Vital Signs Temp 98.1 F 02/09/22 11:29 Pulse 100 02/09/22 13:00 Resp 18 02/09/22 14:16 BP 187/103 02/09/22 11:29 Pulse Ox 94 02/09/22 13:00 O2 Del Method 02/09/22 13:00 O2 Flow Rate 3 02/09/22 13:00 02/09/22 02/09/22 02/09/22 06:59 14:59 22:59 Intake Total 1155 / 3185.0 770 / 770 Output Total 1200 / 1550 Balance -45 / 1635.0 770 / 770 Physical Exam Narrative: General: Alert but not oriented. Unable to assess orientation. No acute distress frail-appearing thin male. Has got a contracture on left arm unable to assess neurologically otherwise. Altered. Unable to obtain any history. Appears comfortable. Able to move all 4 extremities. HEENT: Normocephalic, atraumatic, EOMI, breathing comfortably on room air. Cardio: Regular rate rhythm, normal S1-S2, Respiratory: Rales at left base, rest of lungs clear to auscultation with diminished in bilateral upper lobes GI: Abdomen soft, but distended, nontender, does not grimace to palpation, suprapubic catheter in place. Extremities: No lower extremity edema noted no cyanosis. Patient able to wiggle his toes. Data : 02/09/22 04:29 02/09/22 04:29 Micro: Microbiology 02/08/22 10:50 MRSA Culture - Final Nose 02/03/22 19:51 Blood Culture - Final Blood NO GROWTH AFTER 5 DAYS 02/03/22 19:45 Blood Culture - Final Blood NO GROWTH AFTER 5 DAYS A&P Assessment and plan (1) Fecal impaction in rectum: With sigmoid volvulus, due to bowel obstruction post sigmoidectomy and ostomy. Postop day 4. Appreciate surgical recommendations. Possibility of slight clot in ostomy. Site looks healthy otherwise. Start on Protonix IV twice daily. Keep NPO. As per surgical recommendations can start on liquid diet if okayed with swallow evaluation. Status: Acute (2) Status post partial resection of colon: Status: Acute (3) Altered mental status: Present on admission. Secondary to sepsis from sigmoid volvulus and fecal impaction versus possibly from postictal status given new seizures during this hospitalization. Resolving now. Continue to monitor. 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 Baseline seems to be between 1 28- 30. Currently 135. Continue with normal saline at 50 cc/h. Monitor BMP daily. Status: Acute (5) Seizure disorder: New onset. Multiple episodes during this hospitalization. Review head negative for acute abnormality. For now continue with Keppra 500 mg twice daily. Status: Acute (6) Osmotic myelinolysis: Status: Acute (7) HTN (hypertension): Status: Acute (8) Afib: Having occasional episodes of RVR with heart rate running up to 110s. Seems patient takes propranolol 10 mg 3 times daily at home. Currently not getting p.o. medications. Change metoprolol 5 mg every 4 hourly as needed to every 6 hourly scheduled. To be withheld if systolic blood pressure less than 100 mmHg or heart rate less than 80 bpm. Status: Acute (9) COPD (chronic obstructive pulmonary disease): No exacerbation. Continue with DuoNebs, budesonide. Status: Acute (10) BPH (benign prostatic hyperplasia): Status: Acute (11) Chronic constipation with overflow: Status: Acute (12) Liver cirrhosis: Status: Acute Plan Febrile episode: No leukocytosis. Patient is postoperative. Less likely secondary infections. Continue with Zosyn for now. Check MRSA swab. Stop vancomycin for now. If patient continues to have febrile episodes will check for COVID-19. For now check D-dimer thromboembolic work-up. Intensive spirometry for prevention of atelectasis. Full code. NPO. Protonix for PUD prophylaxis Lovenox for DVT prophylaxis Transfer to [facility] Plan for the day: Clear liquid diet as per surgical team. Continue with soft restraints right now. Sitter at bedside. Continue with Zosyn to finish 7-day course. Check ammonia levels, CT head, vitamin B12. Agitation most likely secondary to pain but patient is not able to verbalize because of his baseline mentation. Have asked nurse to give Dilaudid more regularly. Hydralazine 10 mg IV every 4 hour as needed for systolic blood pressure more than 160 mmHg. Care discussed in detail with daughter at bedside. We discussed that unfortunately patient seems to be having worsening of his mentation most likely secondary to sundowning which is worsening of his baseline mentation while being in the hospital it is quite possible it can take up to 2 to 3 weeks to get back to his baseline once all other organic reasons are ruled out. Daughter verbalizes understanding and she is concerned that she might not be able to take care of patient if he continues to have the similar mentation while at being at hospital. Case management alerted for possible SNF discharge versus home health arrangement. Attestations Medical Necessity Statement*: Requires further hospitalization for management of altered mental status in setting of fecal impaction requiring sigmoidectomy Time Spent in Patient Care: Greater than 35 minutes Coding Level of Care Code Acute Bacteriologist Soil for [facility] Fwd Diagnoses Fecal impaction in rectum K56.41 Status post partial resection of colon Z90.49 Altered mental status R41.82 Hyponatremia E87.1 Seizure disorder G40.909 Osmotic myelinolysis G37.2 HTN (hypertension) I10 Afib I48.91 COPD (chronic obstructive pulmonary disease) J44.9 BPH (benign prostatic hyperplasia) N40.0 Chronic constipation with overflow K59.09 Liver cirrhosis K74.60
--- NOTE | 2022-02-09 15:49 | CTR_ITS ---
PROCEDURE INFORMATION: Exam: CT Head Without Contrast Exam date and time: 02/09/2022 6:36 PM Age: 66 years old Clinical indication: Altered mental status/memory loss and other: Confusion, patient was in restraints, and had sedation; Additional info: AMS TECHNIQUE: Imaging protocol: Computed tomography of the head without contrast. Radiation optimization: All CT scans at this facility use at least one of these dose optimization techniques: automated exposure control; mA and/or kV adjustment per patient size (includes targeted exams where dose is matched to clinical indication); or iterative reconstruction. COMPARISON: CT chest abd pel w con* 02/07/2022 2:14 AM RADIATION DOSE METRICS: Total DLP (mGy-cm): 1457.88 FINDINGS: Limitations: Moderate motion artifact. Brain: There is diffuse cerebral atrophy and chronic microvascular white matter disease. There is no acute intracranial hemorrhage. Cerebral ventricles: There is mild ex vacuo dilation of the lateral ventricles. The basal cisterns are unremarkable. Paranasal sinuses: The paranasal sinuses are clear. Mastoid air cells: The mastoid air cells are clear. Bones/joints: The calvarium is intact. Soft tissues: The visible extracranial soft tissues are unremarkable. CT/CT head wo con* [id number] IMPRESSION: No acute intracranial abnormality.
--- NOTE | 2022-02-09 15:52 | CTR_ITS ---
PROCEDURE INFORMATION: Exam: CTA Chest With Contrast Exam date and time: 02/09/2022 6:43 PM Age: 66 years old Clinical indication: Cough and dyspnea and fever; Additional info: Elevated dimer, shortness of breath, confusion TECHNIQUE: Imaging protocol: Computed tomographic angiography of the chest with contrast. 3D rendering (Not supervised by radiologist): MIP and/or 3D reconstructed images were created by the technologist. Radiation optimization: All CT scans at this facility use at least one of these dose optimization techniques: automated exposure control; mA and/or kV adjustment per patient size (includes targeted exams where dose is matched to clinical indication); or iterative reconstruction. Contrast material: OMNIPAQUE 350; Contrast volume: 80 ml; Contrast route: INTRAVENOUS (IV); COMPARISON: CT angio chest PE protcl [id number] 06/23/2021 9:59 AM RADIATION DOSE METRICS: Total DLP (mGy-cm): 289.22 FINDINGS: Pulmonary arteries: Pulmonary arteries are adequately opacified for evaluation to the central segmental level. More peripheral vessels are obscured. There is no filling defect to suggest embolism. Aorta: There is mild aortic atherosclerotic disease. Lungs: There is complete atelectasis of the left lower lobe. There is mild upper lung predominant centrilobular emphysema. Mild dependent ground-glass and reticular opacity in the right upper and lower lobes. Bronchial wall thickening and mucus plugging in the right lower lobe. No focal consolidation. Pleural spaces: Moderate left pleural effusion similar to the finding on 06/23/2021. There is pleural thickening and enhancement at the left base. Heart: There is mild cardiac enlargement. There is mild coronary artery calcification. Lymph nodes: There is no mediastinal or hilar lymphadenopathy. Intraperitoneal space: Extensive intraperitoneal free air in the upper abdomen. Moderate ascites noted. Bones/joints: Bones are unremarkable. Soft tissues: The extrathoracic soft tissues are unremarkable. CT/CT angio chest PE protcl [id number] IMPRESSION: 1. Mild dependent opacity in the right upper and lower lobes. Probable subsegmental atelectasis. Superimposed infection not excluded. 2. No visible pulmonary embolism. Evaluation is limited to the central segmental level. More peripheral vessels are poorly visualized. 3. Chronic bronchial wall thickening in the right lower lobe. Probable bronchitis. 4. Moderate left pleural effusion and pleural thickening/enhancement similar to 06/23/2021. Possible empyema. 5. Left lower lobe atelectasis, similar to 06/23/2021. 6. Intraperitoneal free air in the upper abdomen. Findings are consistent with reported history of recent bowel resection.
[2022-02-09] MEDS: hyDRALAzine 20 mg/mL INJ 1 mL 10 MG IVP (16:12)
[2022-02-09 16:48] LABS: Folate Level 18.6 ng/mL (4.5-32.2)
[2022-02-09 16:49] LABS: Vitamin B12 1168 pg/mL (232-1245)
[2022-02-10] VITALS (15 sets, daily range): BP systolic 147–166; BP diastolic 86–97; PULSE 80–102; RESP 14–18; TEMP 36.4–36.7; O2SAT 91–98
[2022-02-10] MEDS: levETIRAcetam 750 MG in sodium chloride 0.9% (100 ml) 100 ML 420 MG IV (03:22)
[2022-02-10] MEDS: piperacillin-tazobactam 3.375 GM in sodium chloride 0.9% (plus) 50 ML IV ×3 (03:41→18:40)
[2022-02-10 05:31] LABS: Basophils % 0.3 %; Eosinophils # 0.3 10^3/uL (0.0-0.8); Eosinophils % 4.5 %; Hematocrit 27.4 % (42.0-52.0); Hemoglobin 8.8 g/dL (11.7-16.6); Lymphocytes # 0.5 10^3/uL (0.8-4.8); Lymphocytes % 7.8 %; Mean Corpuscular HGB Conc 32.1 g/dL (30.0-36.0); Mean Corpuscular Hemoglobin 28.4 pg (28.0-34.0); Mean Corpuscular Volume 88.4 fl (80-94); Mean Platelet Volume 8.6 fL (7.4-10.4); Monocytes # 0.5 10^3/uL (0.2-0.9); Monocytes % 7.8 %; Neutrophils # 5.25 10^3/uL (1.8-7.7); Nucleated Red Blood Cells % 0 %; Platelet Count 223 10^3/cmm (130-400); Red Cell Distribution Width 14.6 % (12.1-15.1); White Blood Count 6.7 10^3/uL (4.0-10.0)
[2022-02-10] MEDS: metoprolol tartrate 1 mg/1 mL SDV 5 mL 5 MG IVP ×3 (05:35→16:23)
[2022-02-10 05:50] LABS: Alanine Aminotransferase 17 U/L (0-41); Albumin Level 2.4 g/dL (3.5-5.2); Alkaline Phosphatase 43 U/L (40-130); Anion Gap 15.1 (5-19); Aspartate Amino Transferase 26 U/L (0-40); Blood Urea Nitrogen 6 mg/dL (8-23); Carbon Dioxide 21 mmol/L (22-29); Chloride 100 mmol/L (98-107); Globulin 2.9 g/dL (1.3-4.6); Glomerular Filtration Rate 134.4 mL/min (90-130); Glucose 102 mg/dL (65-115); Osmolality Calculated 274 mOsm/kg (285-295); Potassium 3.1 mmol/L (3.5-5.1); Sodium 133 mmol/L (136-145); Total Bilirubin 0.3 mg/dL (0.15-1.2); Total Protein 5.3 g/dL (6.6-8.7)
--- NOTE | 2022-02-10 07:23 | PM.PN ---
Subjective Subjective: No acute events overnight. Continues to be in soft restraints for safety purposes and to minimize any potential harm inflicted by the patient upon himself. Unfortunately I did not get the chance to talk with the family in person which is something that I am looking forward to to set expectations. Patient is tolerating p.o. intake and I did see myself speech pathologist bedside feeding the patient and today there is brown stool per stoma with scanty residual bloody aspirate. But no evidence of hematoma which tells me that likely that hematoma formed before due to potential trauma that the patient may have inflicted. Patient continues to have disorientation and I am not able to conduct any history from him. Patient also continues to have a sitter 11/12 Medications: Reviewed: Yes Vitals/I&O/Wt Last Vital Signs Temp 98.0 F 02/10/22 04:00 Pulse 94 02/10/22 04:00 Resp 16 02/10/22 04:00 BP 147/94 02/10/22 04:00 Pulse Ox 94 02/10/22 04:00 O2 Del Method 02/10/22 04:00 O2 Flow Rate 3 02/10/22 02:56 02/09/22 02/10/22 02/10/22 22:59 06:59 14:59 Intake Total 635 / 1405 1257.5 / 2662.5 Output Total 800 / 800 Balance 635 / 1405 457.5 / 1862.5 Physical Exam Narrative: Patient is conscious alert seems confused BMI 24.4 Head and neck examination PERRLA no masses no cervical lymphadenopathy no jaundice Abdomen nontender nondistended soft no organomegaly guarding or rigidity/no signs of peritonitis Incision is clean dry and intact and skin donnie in place as well as suprapubic catheter Stoma is pink, patent without complication of the stoma, brown stool in the bag with scanty bloody aspirate Data : 02/10/22 04:59 02/10/22 04:59 Micro: Microbiology 02/08/22 10:50 MRSA Culture - Final Nose A&P Assessment and plan (1) Status post partial resection of colon: Assessment 66 years old gentleman status post exploratory laparotomy with Haider's procedure 02/05/2022 Plan Advance diet as tolerated and per speech pathology guidance Will have to continue soft restraints for another 24 hours for patient's safety I would highly recommend talking and update the family in the presence of hospitalist service to set expectations Aspiration precaution Continue to have a sitter bedside 11/12 Assurance and education All questions have been answered and all concerns have been addressed to patient's satisfaction. Status: Acute Attestations Medical Necessity Statement*: Per admitting service Coding Level of Care Code Acute Assistant Director Of Public Works for [facility] Fwd Diagnoses Status post partial resection of colon Z90.49
[2022-02-10] MEDS: budesonide 0.5 mg/2 mL Neb INHALATION ×2 (08:04→20:40)
[2022-02-10] MEDS: ipratropium-albuterol 3 mL Neb INHALATION ×4 (08:04→20:40)
--- NOTE | 2022-02-10 08:16 | PC.NURSE ---
Physician notified of pt's potassium of 3.1.
[2022-02-10] MEDS: enoxaparin 40 mg/0.4 mL Syringe SUBCUT (09:01)
[2022-02-10] MEDS: sodium chloride 0.9% 1,000 ML 50 ML IV (09:02)
[2022-02-10] MEDS: pantoprazole 40 mg SDV IVP ×2 (09:05→21:19)
[2022-02-10] MEDS: potassium chloride ER 20 mEq Tablet 80 MEQ PO (09:54)
[2022-02-10 12:14] LABS: INR 1.16 (0.8-1.2)
--- NOTE | 2022-02-10 13:41 | PC.SOCIAL ---
IMM Updated Updated pt's daughter on IMM. No questions voiced. Provided pt a copy. Initialed, dated, & timed copy in chart.
--- NOTE | 2022-02-10 14:30 | US_ITS ---
WS: [id number] Ultrasound chest, limited. HISTORY: Evaluate for thoracentesis. Imaging of the LEFT chest pleural space demonstrates a small effusion. There is atelectatic lung thro ughout the pleural effusion. There is mild pleural thickening. No safe access was evident. There was lung extending in an out of the pleural effusion during respiration. There is only a small effusion. US/US chest [id number] IMPRESSION: Small LEFT pleural effusion contains lung. No safe access for aspiration.
--- NOTE | 2022-02-10 15:34 | P.PN_ITS ---
Subjective Subjective: No acute overnight. Seen with daughter at bedside. Patient seems to be more awake and alert today., Today. Not pulling on stoma anymore. Otherwise no new complaints. Has remained medically stable afebrile on 2 L. Medications: Reviewed: Yes Vitals/I&O/Wt Last Vital Signs Temp 97.6 F 02/10/22 11:33 Pulse 102 H 02/10/22 15:04 Resp 18 02/10/22 14:59 BP 165/97 02/10/22 11:33 Pulse Ox 97 02/10/22 14:59 O2 Del Method 02/10/22 14:59 O2 Flow Rate 2 02/10/22 14:59 02/10/22 02/10/22 02/10/22 06:59 14:59 22:59 Intake Total 1257.5 / 2662.5 50 / 50 Output Total 800 / 800 1000 / 1000 Balance 457.5 / 1862.5 -950 / -950 Physical Exam 2 Narrative: General: Alert but not oriented. Unable to assess orientation. No acute distress frail-appearing thin male. Has got a contracture on left arm rachael ble to assess neurologically otherwise. Altered. Unable to obtain any history. Appears comfortable. Able to move all 4 extremities. HEENT: Normocephalic, atraumatic, EOMI, breathing comfortably on room air. Cardio: Regular rate rhythm, normal S1-S2, Respiratory: Rales at left base, rest of lungs clear to auscultation with diminished in bilateral upper lobes GI: Abdomen soft, but distended, nontender, does not grimace to palpation, suprapubic catheter in place. Extremities: No lower extremity edema noted no cyanosis. Patient able to wiggle his toes. Data : 02/10/22 04:59 02/10/22 04:59 Micro: Microbiology 02/08/22 10:50 MRSA Culture - Final Nose A&P Assessment and plan (1) Fecal impaction in rectum: With sigmoid volvulus, due to bowel obstruction post sigmoidectomy and ostomy. Postop day 6. Appreciate surgical recommendations. Possibility of slight clot in ostomy. Most likely traumatic secondary to patient picking up on colostomy. Site looks healthy otherwise. Continue with Protonix 40 mg twice daily. Diet advance as per swallow evaluation. Status: Acute (2) Status post partial resection of colon: Status: Acute (3) Altered mental status: Present on admission. Secondary to sepsis from sigmoid volvulus and fecal impaction versus possibly from postictal status given new seizures during this hospitalization along with worsening of baseline mentation secondary to myelinolysis. As patient is taking orally now can restart his home medication of venlafaxine at a lower dose of 75 mg daily. Sitter. Continue to monitor. 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 Baseline seems to be between 1 28-1 30. Continue with normal saline at 50 cc/h. Monitor BMP daily. Status: Acute (5) Seizure disorder: New onset. Multiple episodes during this hospitalization. Review head negative for acute abnormality. For now continue with Keppra 750 mg twice daily. Status: Acute (6) Osmotic myelinolysis: Status: Acute (7) HTN (hypertension): Status: Acute (8) Afib: Having occasional episodes of RVR with heart rate running up to 110s. Restart home dose of Cardizem 240 mg oral daily. Seems patient takes propranolol 10 mg 3 times daily at home. Continue with metoprolol 5 mg every 4 hourly as needed to every 6 hourly scheduled. To be withheld if systolic blood pressure less than 100 mmHg or heart rate less than 80 bpm. Status: Acute (9) COPD (chronic obstructive pulmonary disease): No exacerbation. Continue with DuoNebs, budesonide. Status: Acute (10) BPH (benign prostatic hyperplasia): Status: Acute (11) Chronic constipation with overflow: Status: Acute (12) Liver cirrhosis: Status: Acute Plan Febrile episode: No leukocytosis. Last fever on 02/08 patient is postoperative. Less likely secondary infections. Continue with Zosyn for now to finish a 5-day course. MRSA swab negative, D-dimer elevated but lower limb Doppler and CTA negative for thromboembolic event. CTA concerning for a possibility of empyema. As per daughter patient did have thoracentesis done recently at [place] which was negative for infection. Requested ultrasound-guided thoracentesis but could not be done because of minimal fluid. For now we will continue to monitor if patient spikes more fever will consult pulmonology. Full code. Advance as per swallow evaluation Protonix for PUD prophylaxis Lovenox for DVT prophylaxis Continue care at [facility] Plan for the day: Diet changed as per swallow evaluation. Restart home dose of venlafaxine and Cardizem. Sitter. Clear liquid diet as per surgical team. Continue soft restraints. Discussed in detail with patient's daughter at bedside we discussed that patient most likely has worsening of his baseline mentation secondary to being in hospital, possibility of infection. We discussed most likely patient also has baseline difficulty in communication as he does not able to explain his pain secondary to fecal impaction. Daughter verbalizes understanding. We discussed about quality of life versus quantity of life. We discussed that the biggest concern right now is patient causing more trauma to his ostomy site secondary to confusion. Discussed that patient might have good and bad days till the time his mentation improves if he improves. Could take a long time given his history of myelinolysis. Daughter verbalized understanding. Will discuss with her mother and her sister who is also the DPOA. Did offer patient to have family meeting within next 48 hours and possible. Attestations Medical Necessity Statement*: Requires further hospitalization for management of altered mental status secondary to fecal impaction, sigmoid volvulus requiring ostomy in a patient with baseline chronic myelolysis while safe discharge planning is sought. Time Spent in Patient Care: Greater than 35 minutes Coding Level of Care Code Acute In School Suspension Coordinator for g Fwd Diagnoses Fecal impaction in rectum K56.41 Status post partial resection of colon Z90.49 Altered mental status R41.82 Hyponatremia E87.1 Seizure disorder G40.909 Osmotic myelinolysis G37.2 HTN (hypertension) I10 Afib I48.91 COPD (chronic obstructive pulmonary disease) J44.9 BPH (benign prostatic hyperplasia) N40.0 Chronic constipation with overflow K59.09 Liver cirrhosis K74.60
[2022-02-10] MEDS: HYDROcodone-acetaminophen 10-325 mg Tablet 1 TAB PO ×2 (16:03→23:18)
[2022-02-10] MEDS: levETIRAcetam 750 MG in sodium chloride 0.9% (100 ml) 100 ML 400 MG IV (16:03)
[2022-02-10] MEDS: venlafaxine ER (24HR) 75 mg Capsule PO (16:23)
[2022-02-10] MEDS: cyanocobalamin 1,000 mcg Tablet 500 MCG PO (17:13)
[2022-02-11] VITALS (10 sets, daily range): BP systolic 143–165; BP diastolic 78–99; PULSE 81–99; RESP 16–20; TEMP 36.5–37.2; O2SAT 92–97
[2022-02-11 02:34] LABS: Basophils % 0.8 %; Eosinophils # 0.5 10^3/uL (0.0-0.8); Eosinophils % 10.3 %; Hematocrit 27.8 % (42.0-52.0); Hemoglobin 9.1 g/dL (11.7-16.6); Lymphocytes # 0.6 10^3/uL (0.8-4.8); Lymphocytes % 12.4 %; Mean Corpuscular HGB Conc 32.7 g/dL (30.0-36.0); Mean Corpuscular Hemoglobin 28.4 pg (28.0-34.0); Mean Corpuscular Volume 86.9 fl (80-94); Monocytes # 0.5 10^3/uL (0.2-0.9); Monocytes % 9.3 %; Neutrophils # 3.45 10^3/uL (1.8-7.7); Neutrophils % 66.8 %; Nucleated Red Blood Cells % 0 %; Platelet Count 220 10^3/cmm (130-400); Red Cell Distribution Width 14.5 % (12.1-15.1); White Blood Count 5.2 10^3/uL (4.0-10.0)
[2022-02-11 02:54] LABS: Alanine Aminotransferase 15 U/L (0-41); Albumin Level 2.8 g/dL (3.5-5.2); Alkaline Phosphatase 51 U/L (40-130); Aspartate Amino Transferase 19 U/L (0-40); Blood Urea Nitrogen 5 mg/dL (8-23); Calcium 8.1 mg/dL (8.5-10.5); Carbon Dioxide 25 mmol/L (22-29); Chloride 103 mmol/L (98-107); Globulin 2.5 g/dL (1.3-4.6); Glomerular Filtration Rate 134.4 mL/min (90-130); Glucose 100 mg/dL (65-115); Osmolality Calculated 279 mOsm/kg (285-295); Sodium 136 mmol/L (136-145); Total Bilirubin 0.2 mg/dL (0.15-1.2); Total Protein 5.3 g/dL (6.6-8.7)
[2022-02-11] MEDS: levETIRAcetam 750 MG in sodium chloride 0.9% (100 ml) 100 ML 400 MG IV ×2 (03:18→15:38)
[2022-02-11] MEDS: piperacillin-tazobactam 3.375 GM in sodium chloride 0.9% (plus) 50 ML IV ×2 (03:39→11:20)
[2022-02-11] MEDS: sodium chloride 0.9% 1,000 ML 50 ML IV (04:13)
[2022-02-11] MEDS: budesonide 0.5 mg/2 mL Neb INHALATION ×2 (07:17→20:13)
[2022-02-11] MEDS: ipratropium-albuterol 3 mL Neb INHALATION ×4 (07:17→20:13)
--- NOTE | 2022-02-11 07:33 | PM.PN ---
Subjective Subjective: Patient was seen and examined today and seems to be more reasonable and comfortable. No acute events overnight and tolerating p.o. intake with brown stool in the stoma and start to trend up in his hemoglobin up to 9.1 after soft restraints were applied. Medications: Reviewed: Yes Vitals/I&O/Wt Last Vital Signs Temp 98.4 F 02/11/22 04:00 Pulse 87 02/11/22 07:19 Resp 16 02/11/22 07:19 BP 165/89 02/11/22 04:00 Pulse Ox 97 02/11/22 07:19 O2 Del Method 02/11/22 07:19 O2 Flow Rate 2 02/11/22 07:19 02/10/22 02/11/22 02/11/22 22:59 06:59 14:59 Intake Total 277.5 / 327.5 1116.667 / 1444.167 Balance 277.5 / -672.5 1116.667 / 444.167 Physical Exam Narrative: Patient is conscious alert seems confused BMI 24.4 Head and neck examination PERRLA no masses no cervical lymphadenopathy no jaundice Abdomen nontender nondistended soft no organomegaly guarding or rigidity/no signs of peritonitis Incision is clean dry and intact and skin donnie in place as well as suprapubic catheter Stoma is pink, patent without complication of the stoma, brown stool in the bag with no evidence of blood Data : 02/11/22 01:32 02/11/22 01:32 A&P Assessment and plan (1) Status post partial resection of colon: Assessment 66 years old gentleman status post exploratory laparotomy with Haider's procedure 02/05/2022 Plan Advance diet as tolerated and per speech pathology guidance I did have some conversation today with the patient bedside in the presence of the nursing staff [place] and he promised me that he will not apply any trauma to his catheters or stoma. And thus I will DC the soft restraints and I did apply a soft abdominal binder, and while we will continue the sitter. I came back yesterday in the afternoon to try to catch the family member to update them but unfortunately I did not have the chance to see any one of them as they have just left. Aspiration precaution Continue to have a sitter bedside 11/12 From surgical standpoint of view of patient continues to be appropriate can be discharged to a nursing facility and I will defer further evaluation to Dr. Retana Assurance and education All questions have been answered and all concerns have been addressed to patient's satisfaction. Attestations Medical Necessity Statement*: Per admitting service Coding Level of Care Code Acute Systems Security Analyst for [facility] Fwd Diagnoses Status post partial resection of colon Z90.49
[2022-02-11] MEDS: pantoprazole 40 mg SDV IVP ×2 (08:47→21:24)
[2022-02-11] MEDS: enoxaparin 40 mg/0.4 mL Syringe SUBCUT (08:47)
[2022-02-11] MEDS: venlafaxine ER (24HR) 75 mg Capsule PO (08:48)
[2022-02-11] MEDS: dilTIAZem ER (24HR) 240 mg Capsule PO (08:48)
[2022-02-11] MEDS: metoprolol tartrate 1 mg/1 mL SDV 5 mL 5 MG IVP ×3 (10:40→21:24)
--- NOTE | 2022-02-11 11:04 | PC.NURSE ---
1000 Sister and sons came to see pt. Pt ate applesauce and pudding. Sister is still at bedside.
--- NOTE | 2022-02-11 11:10 | PC.NURSE ---
correction prior post said sister but its his .
--- NOTE | 2022-02-11 14:14 | P.PN_ITS ---
Subjective Subjective: No acute events overnight. Patient seen with at bedside. Patient is a lot more awake and alert today. Calm. We will have complete conversation. As per nurse did have his meal. Restraints taken off early in the morning today. Mentation seems to be better after restarting some of his home psych medications. Medications: Reviewed: Yes Vitals/I&O/Wt Last Vital Signs Temp 98.1 F 02/11/22 12:00 Pulse 95 02/11/22 12:00 Resp 20 H 02/11/22 12:00 BP 155/89 02/11/22 12:00 Pulse Ox 93 02/11/22 12:00 O2 Del Method 02/11/22 12:00 O2 Flow Rate 2 02/11/22 11:11 02/10/22 02/11/22 02/11/22 22:59 06:59 14:59 Intake Total 277.5 / 327.5 1116.667 / 2765.741 6277 / 1400 Balance 277.5 / -672.5 1116.667 / 009.368 9100 / 1400 Physical Exam 2 Narrative: General: Alert but not oriented. Unable to assess orientation. No acute distress frail-appearing thin male. Has got a contracture on left arm rachael ble to assess neurologically otherwise. Altered. Unable to obtain any history. Appears comfortable. Able to move all 4 extremities. HEENT: Normocephalic, atraumatic, EOMI, breathing comfortably on room air. Cardio: Regular rate rhythm, normal S1-S2, Respiratory: Rales at left base, rest of lungs clear to auscultation with diminished in bilateral upper lobes GI: Abdomen soft, but distended, nontender, does not grimace to palpation, suprapubic catheter in place. Extremities: No lower extremity edema noted no cyanosis. Patient able to wiggle his toes. Data : 02/11/22 01:32 02/11/22 01:32 A&P Assessment and plan (1) Fecal impaction in rectum: With sigmoid volvulus, due to bowel obstruction post sigmoidectomy and ostomy. Postop day 6. Appreciate surgical recommendations. Possibility of slight clot in ostomy. Most likely traumatic secondary to patient picking up on colostomy. Site looks healthy otherwise. Continue with Protonix 40 mg twice daily. Diet advance as per swallow evaluation. (2) Status post partial resection of colon: (3) Altered mental status: Present on admission. Secondary to sepsis from sigmoid volvulus and fecal impaction versus possibly from postictal status given new seizures during this hospitalization along with worsening of baseline mentation secondary to myelinolysis. As patient is taking orally now can restart his home medication of venlafaxine at a lower dose of 75 mg daily. Sitter. Continue to monitor. 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 Baseline seems to be between 1 28-1 30. Continue with normal saline at 50 cc/h. Monitor BMP daily. (5) Seizure disorder: New onset. Multiple episodes during this hospitalization. Review head negative for acute abnormality. For now continue with Keppra 750 mg twice daily. (6) Osmotic myelinolysis: (7) HTN (hypertension): (8) Afib: Having occasional episodes of RVR with heart rate running up to 110s. Restart home dose of Cardizem 240 mg oral daily. Seems patient takes propranolol 10 mg 3 times daily at home. Continue with metoprolol 5 mg every 4 hourly as needed to every 6 hourly scheduled. To be withheld if systolic blood pressure less than 100 mmHg or heart rate less than 80 bpm. (9) COPD (chronic obstructive pulmonary disease): No exacerbation. Continue with DuoNebs, budesonide. (10) BPH (benign prostatic hyperplasia): (11) Chronic constipation with overflow: (12) Liver cirrhosis: Plan Febrile episode: No leukocytosis. Last fever on 02/08 patient is postoperative. Less likely secondary infections. Continue with Zosyn for now to finish a 5-day course. MRSA swab negative, D-dimer elevated but lower limb Doppler and CTA negative for thromboembolic event. CTA concerning for a possibility of empyema. As per daughter patient did have thoracentesis done recently at [facility] which was negative for infection. Requested ultrasound-guided thoracentesis but could not be done because of minimal fluid. For now we will continue to monitor if patient spikes more fever will consult pulmonology. Full code. Advance as per swallow evaluation Protonix for PUD prophylaxis Lovenox for DVT prophylaxis Continue care at [facility] Plan for the day: Continue to advance diet as per swallow evaluation. Continue with home venlafaxine and Cardizem. Remove sitter. Monitor behavior without sitter and restraints. Keep close eye on possible injury to stoma if patient has decline in mentation. Currently stoma being covered by abdominal binder. Has been on antibiotics for last 9 days. We will stop Zosyn and monitor. Attestations Medical Necessity Statement*: Requires further hospitalization for resolving altered mental status in setting of sigmoid volvulus, fecal impaction leading to intestinal obstruction in a patient with baseline osmotic myelinolysis while safe discharge planning is sought Time Spent in Patient Care: Greater than 35 minutes Coding Level of Care Code Acute Snake Charmer for Demetria Villalobos Diagnoses Fecal impaction in rectum K56.41 Status post partial resection of colon Z90.49 Altered mental status R41.82 Hyponatremia E87.1 Seizure disorder G40.909 Osmotic myelinolysis G37.2 HTN (hypertension) I10 Afib I48.91 COPD (chronic obstructive pulmonary disease) J44.9 BPH (benign prostatic hyperplasia) N40.0 Chronic constipation with overflow K59.09 Liver cirrhosis K74.60
[2022-02-11] MEDS: cyanocobalamin 1,000 mcg Tablet 500 MCG PO (17:18)
[2022-02-11] MEDS: HYDROcodone-acetaminophen 10-325 mg Tablet 1 TAB PO (17:18)
--- NOTE | 2022-02-11 19:03 | PC.NURSE ---
abd binder Waiting for Nursing Super to find a binder for pt. Explained to nightshift about the binder and showed her that we have sheet wrapped around his abd until we can get binder.
[2022-02-12] VITALS (13 sets, daily range): BP systolic 129–176; BP diastolic 73–101; PULSE 71–104; RESP 16–20; TEMP 36.7–37.3; O2SAT 92–96
[2022-02-12 03:53] LABS: Basophils % 0.7 %; Eosinophils # 0.6 10^3/uL (0.0-0.8); Eosinophils % 11.2 %; Hematocrit 26.1 % (42.0-52.0); Hemoglobin 8.4 g/dL (11.7-16.6); Lymphocytes # 0.7 10^3/uL (0.8-4.8); Lymphocytes % 12.9 %; Mean Corpuscular HGB Conc 32.2 g/dL (30.0-36.0); Mean Corpuscular Hemoglobin 27.9 pg (28.0-34.0); Mean Corpuscular Volume 86.7 fl (80-94); Mean Platelet Volume 8.8 fL (7.4-10.4); Monocytes # 0.5 10^3/uL (0.2-0.9); Monocytes % 9.4 %; Neutrophils # 3.55 10^3/uL (1.8-7.7); Neutrophils % 65.2 %; Nucleated Red Blood Cells % 0 %; Platelet Count 228 10^3/cmm (130-400); Red Blood Count 3.01 10^6/uL (4.1-5.3); Red Cell Distribution Width 14.5 % (12.1-15.1); White Blood Count 5.4 10^3/uL (4.0-10.0)
[2022-02-12 04:15] LABS: Alanine Aminotransferase 15 U/L (0-41); Albumin Level 2.8 g/dL (3.5-5.2); Alkaline Phosphatase 47 U/L (40-130); Anion Gap 11.3 (5-19); Aspartate Amino Transferase 16 U/L (0-40); Blood Urea Nitrogen 9 mg/dL (8-23); Calcium 8.1 mg/dL (8.5-10.5); Carbon Dioxide 27 mmol/L (22-29); Chloride 103 mmol/L (98-107); Globulin 2.5 g/dL (1.3-4.6); Glomerular Filtration Rate 134.4 mL/min (90-130); Glucose 100 mg/dL (65-115); Osmolality Calculated 283 mOsm/kg (285-295); Potassium 4.3 mmol/L (3.5-5.1); Sodium 137 mmol/L (136-145); Total Bilirubin 0.2 mg/dL (0.15-1.2); Total Protein 5.3 g/dL (6.6-8.7)
[2022-02-12] MEDS: levETIRAcetam 750 MG in sodium chloride 0.9% (100 ml) 100 ML 400 MG IV ×2 (04:20→17:36)
[2022-02-12] MEDS: metoprolol tartrate 1 mg/1 mL SDV 5 mL 5 MG IVP ×2 (04:30→11:03)
--- NOTE | 2022-02-12 07:48 | PM.PN ---
Subjective Subjective: Patient maintained to be appropriate and not reaching or traumatizing his colostomy or suprapubic catheter. Soft restraints were removed by me yesterday morning. Tolerating p.o. intake and abdominal binder maintained to be in place. Continues to pass gas and having nonbloody brown bowel movements per stoma Medications: Reviewed: Yes Vitals/I&O/Wt Last Vital Signs Temp 98.7 F 02/12/22 07:20 Pulse 83 02/12/22 07:20 Resp 20 H 02/12/22 07:20 BP 149/83 02/12/22 07:20 Pulse Ox 93 02/12/22 07:20 O2 Del Method 02/12/22 05:16 O2 Flow Rate 2 02/11/22 11:11 02/11/22 02/12/22 02/12/22 22:59 06:59 14:59 Intake Total 397.5 / 1797.5 107.5 / 1905.0 Output Total 700 / 875 1050 / 1925 Balance -302.5 / 922.5 -942.5 / -20.0 Physical Exam Narrative: Patient is conscious alert BMI 24.4 Comfortable in bed having breakfast more engaged Head and neck examination PERRLA no masses no cervical lymphadenopathy no jaundice Abdomen nontender nondistended soft no organomegaly guarding or rigidity/no signs of peritonitis Incision is clean dry and intact and skin donnie in place as well as suprapubic catheter Stoma is pink, patent without complication of the stoma, brown stool in the bag with no evidence of blood and evidence of moderate amount of gas. Data : 02/12/22 03:27 02/12/22 03:27 A&P Assessment and plan (1) Status post partial resection of colon: Assessment 66 years old gentleman status post exploratory laparotomy with Haider's procedure 02/05/2022 Plan Patient continues to be appropriate. Continue p.o. intake with aspiration precautions Stoma care Return to surgery office upon discharge Abdominal binder for comfort Assurance and education All questions have been answered and all concerns have been addressed to patient's satisfaction. Attestations Medical Necessity Statement*: Per admitting service Coding Level of Care Code Acute Tobacco Prizer for Demetria Villalobos Diagnoses Status post partial resection of colon Z90.49
[2022-02-12] MEDS: ipratropium-albuterol 3 mL Neb INHALATION ×4 (08:20→20:11)
[2022-02-12] MEDS: budesonide 0.5 mg/2 mL Neb INHALATION ×2 (08:21→20:11)
[2022-02-12] MEDS: venlafaxine ER (24HR) 75 mg Capsule PO (08:52)
[2022-02-12] MEDS: enoxaparin 40 mg/0.4 mL Syringe SUBCUT (08:52)
[2022-02-12] MEDS: pantoprazole 40 mg SDV IVP ×2 (08:53→20:50)
[2022-02-12] MEDS: dilTIAZem ER (24HR) 240 mg Capsule PO (08:53)
--- NOTE | 2022-02-12 11:53 | PC.SOCIAL ---
IMM UPDATED IMM dated and initialed, copy placed in chart and copy given to patient
--- NOTE | 2022-02-12 13:18 | P.PN_ITS ---
Subjective Subjective: No acute events overnight. Patient doing well as per mentation. Continues to remain off sedation, sitter and soft restraints. No further injury to stoma. Seen with family at bedside. Patient awake and alert, pleasant. Able to complete conversation. Otherwise has remained hemodynamically stable, afebrile and on room air. Medications: Reviewed: Yes Vitals/I&O/Wt Last Vital Signs Temp 98.5 F 02/12/22 11:29 Pulse 88 02/12/22 11:32 Resp 18 02/12/22 11:29 BP 139/78 02/12/22 11:29 Pulse Ox 95 02/12/22 11:29 O2 Del Method 02/12/22 11:29 O2 Flow Rate 2 02/11/22 11:11 02/11/22 02/12/22 02/12/22 22:59 06:59 14:59 Intake Total 397.5 / 1797.5 107.5 / 1905.0 240 / 240 Output Total 700 / 875 1050 / 1925 Balance -302.5 / 922.5 -942.5 / -20.0 240 / 240 Physical Exam Narrative: General: Alert, oriented x2-3, at baseline, family at bedside. Pleasant. Not in restraints or no sitter at bedside HEENT: Normocephalic, atraumatic, EOMI, breathing comfortably on room air. Cardio: Regular rate rhythm, normal S1-S2, Respiratory: Rales at left base, rest of lungs clear to auscultation with dim inished in bilateral upper lobes GI: Abdomen soft, but distended, nontender, does not grimace to palpation, suprapubic catheter in place. Extremities: No lower extremity edema noted no cyanosis. Patient able to wiggle his toes. Data : 02/12/22 03:27 02/12/22 03:27 A&P Assessment and plan (1) Fecal impaction in rectum: With sigmoid volvulus, due to bowel obstruction post sigmoidectomy and ostomy. Postop day 6. Appreciate surgical recommendations. Possibility of slight clot in ostomy. Most likely traumatic secondary to patient picking up on colostomy. Site looks healthy otherwise. Continue with Protonix 40 mg twice daily. Diet advance as per swallow evaluation. (2) Status post partial resection of colon: (3) Altered mental status: Present on admission. Secondary to sepsis from sigmoid volvulus and fecal impaction versus possibly from postictal status given new seizures during this hospitalization along with worsening of baseline mentation secondary to myelinolysis. As patient is taking orally now can restart his home medication of venlafaxine at a lower dose of 75 mg daily. Sitter. Continue to monitor. 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 Baseline seems to be between 1 28-1 30. Continue with normal saline at 50 cc/h. Monitor BMP daily. (5) Seizure disorder: New onset. Multiple episodes during this hospitalization. Review head negative for acute abnormality. For now continue with Keppra 750 mg twice daily. (6) Osmotic myelinolysis: (7) HTN (hypertension): (8) Afib: Having occasional episodes of RVR with heart rate running up to 110s. Restart home dose of Cardizem 240 mg oral daily. Seems patient takes propranolol 10 mg 3 times daily at home. Continue with metoprolol 5 mg every 4 hourly as needed to every 6 hourly scheduled. To be withheld if systolic blood pressure less than 100 mmHg or heart rate less than 80 bpm. (9) COPD (chronic obstructive pulmonary disease): No exacerbation. Continue with DuoNebs, budesonide. (10) BPH (benign prostatic hyperplasia): (11) Chronic constipation with overflow: (12) Liver cirrhosis: Plan Febrile episode: No leukocytosis. Last fever on 02/08 patient is postoperative. Less likely secondary infections. Continue with Zosyn for now to finish a 5-day course. MRSA swab negative, D-dimer elevated but lower limb Doppler and CTA negative for thromboembolic event. CTA concerning for a possibility of empyema. As per daughter patient did have thoracentesis done recently at [facility] which was negative for infection. Requested ultrasound-guided thoracentesis but could not be done because of minimal fluid. For now we will continue to monitor if patient spikes more fever will consult pulmonology. Full code. Advance as per swallow evaluation Protonix for PUD prophylaxis Lovenox for DVT prophylaxis Continue care at [facility] Plan for the day: Continue to follow swallow evaluation and advance diet accordingly. Continue with home venlafaxine, Requip and Cardizem. Continue to hold off on propranolol. Switch IV metoprolol to oral metoprolol tartrate 25 mg twice daily. Continue with Keppra 750 mg twice daily. Discharge planning: Family more comfortable taking patient home now given he is back to near his baseline mentation. Home health is being arranged as per case management. Plan to teach family to take care of ostomy and abdominal binder today. Most likely discharge on pur?e diet going forward. Recommendation discussed in detail with family at bedside. They verbalized understanding and are agreeable. All the questions were answered. Attestations Medical Necessity Statement*: Requires further hospitalization for management of altered mental status in setting of chronic myelolysis, post sigmoidectomy for sigmoid volvulus and fecal impaction Time Spent in Patient Care: Greater than 35 minutes Coding Level of Care Code Acute Ethylene Plant Operator for [facility] Fwd Diagnoses Fecal impaction in rectum K56.41 Status post partial resection of colon Z90.49 Altered mental status R41.82 Hyponatremia E87.1 Seizure disorder G40.909 Osmotic myelinolysis G37.2 HTN (hypertension) I10 Afib I48.91 COPD (chronic obstructive pulmonary disease) J44.9 BPH (benign prostatic hyperplasia) N40.0 Chronic constipation with overflow K59.09 Liver cirrhosis K74.60
[2022-02-12] MEDS: cyanocobalamin 1,000 mcg Tablet 500 MCG PO (17:37)
[2022-02-12] MEDS: metoprolol tartrate 25 mg Tablet PO (20:12)
[2022-02-13] VITALS (8 sets, daily range): BP systolic 145–168; BP diastolic 84–89; PULSE 81–98; RESP 16–18; TEMP 36.8–37.3; O2SAT 93–96
[2022-02-13] MEDS: levETIRAcetam 750 MG in sodium chloride 0.9% (100 ml) 100 ML 400 MG IV (04:05)
[2022-02-13 04:56] LABS: Basophils % 0.6 %; Eosinophils # 0.5 10^3/uL (0.0-0.8); Eosinophils % 9.3 %; Hemoglobin 8.3 g/dL (11.7-16.6); Lymphocytes # 0.6 10^3/uL (0.8-4.8); Lymphocytes % 12.4 %; Mean Corpuscular HGB Conc 33.2 g/dL (30.0-36.0); Mean Corpuscular Hemoglobin 28.8 pg (28.0-34.0); Mean Corpuscular Volume 86.8 fl (80-94); Mean Platelet Volume 8.9 fL (7.4-10.4); Monocytes # 0.4 10^3/uL (0.2-0.9); Monocytes % 8.7 %; Neutrophils # 3.29 10^3/uL (1.8-7.7); Neutrophils % 68.4 %; Nucleated Red Blood Cells % 0 %; Platelet Count 228 10^3/cmm (130-400); Red Blood Count 2.88 10^6/uL (4.1-5.3); Red Cell Distribution Width 14.3 % (12.1-15.1); White Blood Count 4.8 10^3/uL (4.0-10.0)
[2022-02-13 05:26] LABS: Alanine Aminotransferase 14 U/L (0-41); Albumin Level 2.8 g/dL (3.5-5.2); Alkaline Phosphatase 47 U/L (40-130); Anion Gap 11.3 (5-19); Aspartate Amino Transferase 13 U/L (0-40); Blood Urea Nitrogen 8 mg/dL (8-23); Calcium 8.1 mg/dL (8.5-10.5); Carbon Dioxide 27 mmol/L (22-29); Chloride 99 mmol/L (98-107); Globulin 2.6 g/dL (1.3-4.6); Glomerular Filtration Rate 165.9 mL/min (90-130); Glucose 94 mg/dL (65-115); Osmolality Calculated 274 mOsm/kg (285-295); Potassium 4.3 mmol/L (3.5-5.1); Sodium 133 mmol/L (136-145); Total Bilirubin 0.2 mg/dL (0.15-1.2); Total Protein 5.4 g/dL (6.6-8.7)
[2022-02-13] MEDS: ipratropium-albuterol 3 mL Neb INHALATION (08:13)
[2022-02-13] MEDS: budesonide 0.5 mg/2 mL Neb INHALATION (08:13)
[2022-02-13] MEDS: pantoprazole 40 mg SDV IVP (09:34)
[2022-02-13] MEDS: enoxaparin 40 mg/0.4 mL Syringe SUBCUT (09:34)
[2022-02-13] MEDS: dilTIAZem ER (24HR) 240 mg Capsule PO (09:35)
[2022-02-13] MEDS: venlafaxine ER (24HR) 75 mg Capsule PO (09:35)
[2022-02-13] MEDS: metoprolol tartrate 25 mg Tablet PO (09:35)
--- NOTE | 2022-02-13 10:18 | P.DS_ITS ---
Discharge Providers Date of Admission: 02/03/22 19:09 Date of Discharge: February 13, 2022 Attending Provider at Admission: Gabriela Angelo MD Attending Provider at Discharge: Gabriela Angelo MD Primary Care Provider: JAYNA Rivera Diagnoses at Discharge Discharge Diagnosis (1) Fecal impaction in rectum: Status: Resolved (2) Status post partial resection of colon: Status: Acute (3) Altered mental status: Status: Resolved (4) Hyponatremia: Status: Resolved (5) Seizure disorder: Status: Acute (6) Osmotic myelinolysis: Status: Acute (7) HTN (hypertension): Status: Acute (8) Afib: Status: Acute (9) COPD (chronic obstructive pulmonary disease): Status: Acute (10) BPH (benign prostatic hyperplasia): Status: Acute (11) Chronic constipation with overflow: Status: Resolved (12) Liver cirrhosis: Status: Acute Permanent problem details: etoh abuse Reason for Visit Reason for Visit: CONFUSION SINCE SUNDAY & UTI Brief History: Ludwin Lux is a 66 year old male with past medical history of COPD, atrial fibrillation, BPH, chronic hyponatremia, COPD, gastritis, hypertension, liver cirrhosis secondary to alcohol abuse, osmotic myelinolysis, pulmonary hypertensi on presented to the hospital today with altered mental status.? He is complete with his daughter.? He states he has a chronic suprapubic catheter neurogenic bladder and primary care doctor manages that.? He has a history of recurrent UTIs.? Most recently he was diagnosed with a UTI on Sunday and placed on oral antibiotics at home.? She does not know the name of the antibiotics but in the chart it is listed it seems it was doxycycline and levofloxacin.? He states however he has been worsening.? He has gotten very very confused as the days have gone by.? He is also been slightly more distended according to her.? He is chronically hyponatremic.? She states he was hospitalized recently and [facility] for possibly abdominal issues.? We will be requesting records.? There was something to do with the gallbladder but she does not know the details.? She states that she is supposed to follow-up with the surgeon soon to find out the results of the work-up that was done there.? At this time she says she repeats everything you tell him to and is confused.? He does not follow many commands but does follow some.? She also states that prior to this he was able to have normal conversations.? He is chronically bedbound.? She states years ago he was in the ICU and critically ill and after his stay he became chronically bedbound.? His got a contracture on his left arm and right side is weak at baseline.? Prepubic catheter was replaced today by nurse.? He has home health nurse comes every 2 weeks to replace the catheter. ED course: Blood pressure 172/107, respiratory 18, pulse 74, temperature 97.2, pulse ox 94%.? CT abdomen pelvis showed dilated colon proximal to the nonspecific narrowing of sigmoid colon and large complex mass in rectum as above.? Presumably picture of masses some form of chronic impaction.? Chest x- ray did not show a change in left lower lobe opacity.? Atherosclerosis and hyperinflation.? Head CT showed stable CT scan of brain with no acute abnormalit y identified.? Hospitalist was called to admit patient for altered mental status and hyponatremia. Hospital Course Hospital Course Patient admitted for an altered mental status initially. He does have a history of chronic UTIs and has a suprapubic catheter that gets replaced every [address] abdomen pelvis showed a mass in rectum. General surgery was consulted. It was actually fecal impaction after evaluation by surgery. Patient was disimpacted several times and had overflow incontinence. His scans persistently showed a sigmoid volvulus. Eventually sigmoidectomy and colostomy was done. This was found to be permanent and there will be no reversal of this. Patient did suffer from chronic constipation. He also had history of chronic hyponatremia and chronic osmotic myelinolysis syndrome. Sodium was low at admission. His baseline is 1 28-1 30. Also during hospital stay patient suffered from multiple seizures for which he was loaded with Keppra and placed on Keppra 750 mg twice a day. He is to follow-up with neurology for EEG and further management and work-up. MRSA swab was negative, Dopplers ruled out DVT, CT negative for thromboembolic event. CTA was concerning for empyema but daughter stated the patient had a recent thoracentesis done at [place] which was negative for infection. Ultrasound-guided thoracentesis was requested at this admission but could not be done because of minimal fluid. Patient remained afebrile and on day of discharge was talking and back to his baseline mental status. He was asking for coffee. He felt well and had no complaints at this time. Swallow evaluation was completed and patient was placed on dysphagia level 4 diet and provided documentation by nursing staff on details on the diet. He was discharged home on pur?ed diet. Patient was discharged home on his regular medication. Metroprolol tartrate 25 twice daily was added and propanolol was stopped. Family was stopped care for the ostomy and abdominal binder. Patient already had home health services including home services. They will be managing his ostomy bag as well. Case management discussed with them. Patient discharged home in stable condition. Sodium tablets and temazepam was held to be seen by her primary care doctor before resuming. Cetirizine, lactulose, levofloxacin,propranolol was discontinued. Venlafaxine dose was adjusted to 75 daily. Physical Exam Narrative: General: Alert, oriented x2-3, at baseline,Pleasant.? Not in restraints or no sitter at bedside,. Smiling and asking for coffee. States he is doing really well and would like to go home. HEENT: Normocephalic, atraumatic, EOMI, breathing comfortably on room air. Cardio: Regular rate rhythm, normal S1-S2, Respiratory: mild crackles at left base, rest of lungs clear to auscultation with diminished in bilateral upper lobes GI: Abdomen soft, non distended, nontender, does not grimace to palpation, suprapubic catheter in place. Extremities: No lower extremity edema noted no cyanosis.? Patient able to wiggle his toes and follow simple commands. Discharge Data Studies Completed and Pending Completed Studies During Hospitalization Category Date Time Status CT abdomen pelvis w con* [id number] Stat Cat Scan 02/03/22 11:[address] head wo con* [id number] Routine Cat Scan 02/07/22 01:[address] head wo con* [id number] Routine Cat Scan 02/09/22 15:[address] head wo con* [id number] Stat Cat Scan 02/03/22 11:43 Completed CTA PE [CT angio chest PE protcl [id number]] Routine Cat Scan 02/09/22 15:52 Completed XR KUB portable [id number] Routine Exams 02/07/22 01:20 Completed XR abdomen 1V* [id number] Routine Exams 02/04/22 08:50 Completed XR abdomen 1V* [id number] Routine Exams 02/04/22 16:00 Completed XR abdomen 1V* [id number] Routine Exams 02/05/22 06:00 Completed XR abdomen 1V* [id number] Stat Exams 02/03/22 20:50 Completed XR chest 1V portable [id number] Routine Exams 02/07/22 01:18 Completed XR chest 1V portable [id number] Stat Exams 02/03/22 11:43 Completed Pathology: Surgical [PTH] Routine Pth 02/05/22 15:22 [place] [id number] Urgent Ultrasound 02/08/22 17:14 Completed US abdomen complete* [id number] Urgent Ultrasound 02/03/22 19:34 Completed US chest [id number] Routine Ultrasound 02/10/22 14:30 Completed Radiology Impressions Abdomen/Pelvis CT 02/03/22 11:43 IMPRESSION: Dilated colon proximal to a nonspecific narrowing of the sigmoid colon and a large complex mass in the rectum as above. Presumably the rectal mass is some form of chronic impaction. Abdomen Ultrasound 02/03/22 19:34 IMPRESSION: 1. Cholelithiasis negative for cholecystitis 2. Left kidney 2.6 cm cyst. Abdomen X-Ray 02/05/22 06:00 IMPRESSION: Marked bowel dilatation, disproportionately involving the colon, along with prominent stool. Chest X-Ray 02/07/22 01:18 IMPRESSION: Stable left pleural effusion with superimposed left basilar atelectasis versus infiltrates. KUB X-Ray 02/07/22 01:20 IMPRESSION: There are no acute abdominal findings. Venous Duplex 02/08/22 17:14 IMPRESSION: No evidence of deep vein thrombosis. Head CT 02/09/22 15:49 IMPRESSION: No acute intracranial abnormality. Chest CTA 02/09/22 15:52 IMPRESSION: 1. Mild dependent opacity in the right upper and lower lobes. Probable subsegmental atelectasis. Superimposed infection not excluded. 2. No visible pulmonary embolism. Evaluation is limited to the central segmental level. More peripheral vessels are poorly visualized. 3. Chronic bronchial wall thickening in the right lower lobe. Probable bronchitis. 4. Moderate left pleural effusion and pleural thickening/enhancement similar to 06/23/2021. Possible empyema. 5. Left lower lobe atelectasis, similar to 06/23/2021. 6. Intraperitoneal free air in the upper abdomen. Findings are consistent with reported history of recent bowel resection. Chest Ultrasound 02/10/22 14:30 IMPRESSION: Small LEFT pleural effusion contains lung. No safe access for aspiration. Laboratory Results WBC 4.8 10^3/uL (4.0-10.0) 02/13/22 04:43 RBC 2.88 10^6/uL (4.1-5.3) L 02/13/22 04:43 Hgb 8.3 g/dL (11.7-16.6) L 02/13/22 04:43 Hct 25.0 % (42.0-52.0) L 02/13/22 04:43 MCV 86.8 fl (80-94) 02/13/22 04:43 MCH 28.8 pg (28.0-34.0) 02/13/22 04:43 MCHC 33.2 g/dL (30.0-36.0) 02/13/22 04:43 RDW 14.3 % (12.1-15.1) 02/13/22 04:43 Plt Count 228 10^3/cmm (130-400) 02/13/22 04:43 MPV 8.9 fL (7.4-10.4) 02/13/22 04:43 Neut % (Auto) 68.4 % 02/13/22 04:43 Lymph % (Auto) 12.4 % 02/13/22 04:43 Irion % (Auto) 8.7 % 02/13/22 04:43 Eos % (Auto) 9.3 % 02/13/22 04:43 Baso % (Auto) 0.6 % 02/13/22 04:43 Neut # (Auto) 3.29 10^3/uL (1.8-7.7) 02/13/22 04:43 Lymph # (Auto) 0.6 10^3/uL (0.8-4.8) L 02/13/22 04:43 Irion # (Auto) 0.4 10^3/uL (0.2-0.9) 02/13/22 04:43 Eos # (Auto) 0.5 10^3/uL (0.0-0.8) 02/13/22 04:43 Baso # (Auto) 0.0 10^3/uL (0.0-0.1) 02/13/22 04:43 Nucleated RBC % (auto) 0 % 02/13/22 04:43 Nucleated RBCs # 0.0 /100WBC 02/13/22 04:43 PT 15.10 SECONDS (12.1-14.9) H 02/10/22 11:55 INR 1.16 (0.8-1.2) 02/10/22 11:55 D-Dimer 2.54 ug/mIFEU (0-0.59) H 02/08/22 16:10 Specimen Type Arterial 02/07/22 01:32 Sample Site Radial, right 02/07/22 01:32 ABG pH 7.35 (7.35-7.45) 02/07/22 01:32 ABG pCO2 32.7 mmHg (35-45) L 02/07/22 01:32 ABG pO2 62.5 mmHg (80.0-100.0) L 02/07/22 01:32 ABG HCO3 17.9 mmol/L (22-26) L 02/07/22 01:32 ABG O2 Saturation 91.7 02/05/22 16:50 ABG Base Excess -7.0 mmol/L (-2.0-2.0) L 02/07/22 01:32 Hammad Test Pos 02/07/22 01:32 A-a O2 Gradient 13.3 mmHg (5-10) H 02/05/22 16:50 Hematocrit 24.3 % (42-52) L 02/07/22 01:32 Hgb O2 Saturation 90.0 % (95-100) L 02/05/22 16:50 Carboxyhemoglobin 0.9 %THgb (0.4-20.1) 02/05/22 16:50 Methemoglobin 0.9 % (0.4-1.5) 02/05/22 16:50 Total Hemoglobin 10.7 g/dL (14-18) L 02/05/22 16:50 Sodium 134.0 mmol/L (131-143) 02/05/22 16:50 Potassium 3.0 mmol/L (3.5-5.0) L 02/05/22 16:50 Glucose 84.0 mg/dL (70-115) 02/05/22 16:50 Ionized Calcium 1.1 mmol/L (1.1-1.4) 02/05/22 16:50 O2 Delivery Device Room air 02/07/22 01:32 O2 Liters/Min 3.0 % 02/05/22 16:50 FiO2 32.0 % 02/05/22 16:50 [place] Worker ID [email or web address] 02/07/22 01:32 Sodium 133 mmol/L (136-145) L 02/13/22 04:43 Potassium 4.3 mmol/L (3.5-5.1) 02/13/22 04:43 Chloride 99 mmol/L (98-107) 02/13/22 04:43 Carbon Dioxide 27 mmol/L (22-29) 02/13/22 04:43 Anion Gap 11.3 (5-19) 02/13/22 04:43 BUN 8 mg/dL (8-23) 02/13/22 04:43 Creatinine 0.5 mg/dL (0.7-1.2) L 02/13/22 04:43 GFR Calculation 165.9 mL/min (90-130) H 02/13/22 04:43 Glucose 94 mg/dL (65-115) 02/13/22 04:43 POC Glucose 91 mg/dL (70-110) 02/06/22 21:22 Estimat Average Glucose 100 02/09/22 04:29 Hemoglobin A1c 5.1 % (4.0-6.0) 02/09/22 04:29 Calculated Osmolality 274 mOsm/kg (285-295) L 02/13/22 04:43 Lactate 2.2 mmol/L (0.5-2.2) 02/07/22 14:17 Calcium 8.1 mg/dL (8.5-10.5) L 02/13/22 04:43 Phosphorus 4.0 mg/dL (2.5-4.5) 02/06/22 03:00 Magnesium 2.0 mg/dL (1.7-2.3) 02/08/22 03:05 Iron 19 ug/dL (59-158) L 02/08/22 03:05 TIBC 165 mcg/dl 02/08/22 03:05 % Saturation 11.5 % (20-50) L 02/08/22 03:05 Unsat Iron Binding 146 ug/dL (112-347) 02/08/22 03:05 Total Bilirubin 0.2 mg/dL (0.15-1.2) 02/13/22 04:43 AST 13 U/L (0-40) 02/13/22 04:43 ALT 14 U/L (0-41) 02/13/22 04:43 Alkaline Phosphatase 47 U/L (40-130) 02/13/22 04:43 Ammonia 27 umol/L (16-60) 02/09/22 13:20 Troponin T Gen 5 ng/L 31 ng/L (0-15) H 02/07/22 01:30 Troponin T Baseline 18 ng/L (0-15) H 02/03/22 11:50 Troponin T 120 Minute 29.96 ng/L (0-15) H 02/07/22 03:15 Delta Troponin T -1.4 ABS# (0-10) L 02/07/22 03:15 Troponin T Hi Sens 6Hr 31.32 ng/L (0-15) H 02/07/22 07:22 Troponin T Hi Sens 6Hr Delta 0.32 ng/L (0-12) 02/07/22 07:22 NT-Pro-B Natriuret Pep 873 pg/mL (0-125) H 02/03/22 11:50 Total Protein 5.4 g/dL (6.6-8.7) L 02/13/22 04:43 Albumin 2.8 g/dL (3.5-5.2) L 02/13/22 04:43 Globulin 2.6 g/dL (1.3-4.6) 02/13/22 04:43 Triglycerides 96 mg/dL (0-150) 02/09/22 04:29 Cholesterol 116 mg/dL (0-200) 02/09/22 04:29 LDL Cholesterol, Calc 66 mg/dL (50-129) 02/09/22 04:29 Total VLDL Cholesterol 19 mg/dL (0-30) 02/09/22 04:29 HDL Cholesterol 31 mg/dL (60-100) L 02/09/22 04:29 Cholesterol/HDL Ratio 3.74 mg/dL (1.0-5.00) 02/09/22 04:29 Lipase 30 U/L (13-60) 02/03/22 11:50 Vitamin B12 1168 pg/mL (232-1245) 02/09/22 04:29 Folate 18.6 ng/mL (4.5-32.2) 02/06/22 03:00 Procalcitonin 0.07 ng/mL (0-0.5) 02/03/22 19:45 TSH 1.98 uIU/mL (0.27-4.20) 02/07/22 01:30 Prolactin 12.81 ng/mL (4.0-15.2) 02/07/22 14:17 Urine Color Yellow (Yellow) 02/03/22 12:20 Urine Appearance Clear (CLEAR) 02/03/22 12:20 Urine pH 6.5 (5-7) 02/03/22 12:20 Ur Specific [place] 1.005 (1.005-1.030) 02/03/22 12:20 Urine Protein 2+ (Negative) H 02/03/22 12:20 Urine Glucose (UA) Norm (Normal) 02/03/22 12:20 Urine Ketones Negative (Negative) 02/03/22 12:20 Urine Blood 3+ (Negative) H 02/03/22 12:20 Urine Nitrate Negative (Negative) 02/03/22 12:20 Urine Bilirubin Neg (Negative) 02/03/22 12:20 Urine Urobilinogen Norm mg/dL (Negative) 02/03/22 12:20 Ur Leukocyte Esterase 2+ (Negative) H 02/03/22 12:20 Urine RBC 25-40 /hpf (0-2) H 02/03/22 12:20 Urine WBC 25-40 /hpf (0-5) H 02/03/22 12:20 Ur Squamous Epith Cells 0-4 /hpf (0-5) H 02/03/22 12:20 Amorphous Sediment Not Reportable 02/03/22 12:20 Urine Bacteria Trace /hpf (NONE) 02/03/22 12:20 Ur Random Sodium 96 mmol/L 02/03/22 12:20 Vancomycin Trough 12.4 ug/mL (10-15) 02/07/22 09:22 Blood Type A Positive 02/05/22 10:24 Rho(D) Type Positive 02/05/22 10:24 Antibody Screen Negative 02/05/22 10:24 Crossmatch See Detail 02/05/22 10:24 Vitals Last Vital Signs Temp 98.2 F 02/13/22 07:34 Pulse 98 02/13/22 08:20 Resp 16 02/13/22 08:13 BP 158/89 02/13/22 07:34 Pulse Ox 93 02/13/22 08:13 O2 Del Method 02/13/22 08:13 O2 Flow Rate 2 02/11/22 11:11 Discharge Plan Discharge Patient Disposition: Home Health Service Condition: Stable Prescriptions: New metoprolol tartrate 25 mg Tablet 25 mg PO BID@0900,2100 30 Days Qty: 60 0RF hydralazine 25 mg tablet 25 mg PO TID 30 Days Qty: 90 0RF venlafaxine 75 mg capsule,extended release 24hr 75 mg PO DAILY 30 Days Qty: 30 0RF Keppra 750 mg tablet 750 mg PO BID 30 Days Qty: 60 0RF Continued ropinirole 1 mg tablet 1 mg PO BID PRN (Reason: Cramps) sennosides-docusate sodium [Stool Softener-Laxative] 8.6-50 mg tablet 2 tab PO DAILY hydroxyzine pamoate 50 mg capsule 50 mg PO Q6H PRN (Reason: Anxiety) nystatin 100,000 unit/gram cream 1 applic TOPICAL BID PRN (Reason: Rash) fluticasone propionate 50 mcg/actuation spray,suspension 1 spray INTRANASAL DAILY PRN (Reason: Nasal Congestion) doxycycline hyclate 100 mg capsule 100 mg PO DAILY Qty: 10 0RF albuterol sulfate 2.5 mg /3 mL (0.083 %) Solution For Nebulization 2.5 mg INHALATION TID PRN (Reason: Shortness Of Breath Or Wheezing) diltiazem HCl 240 mg capsule,extended release 24hr 240 mg PO DAILY ondansetron 8 mg tablet,disintegrating 8 mg PO Q8H PRN (Reason: Nausea And Vomiting) Vitamin B-12 500 mcg Tablet 500 mcg PO QPM iron 325 mg (65 mg iron) Tablet 325 mg PO QPM budesonide 0.5 mg/2 mL Suspension For Nebulization 0.5 mg INHALATION BID mupirocin 2 % Ointment 1 applic TOPICAL BID PRN (Reason: Rash) Lactobacillus acidophilus 500 million cell Tablet 500 mmu cells PO DAILY Perforomist 20 mcg/2 mL Solution For Nebulization 2 ml INHALATION BID cranberry extract-vitamin C 250-60 mg Capsule 1 cap PO QPM Men's One Daily 400-20-300 mcg Tablet 1 tab PO QPM Eliquis 5 mg tablet 5 mg PO BID Mucinex 600 mg Tablet Extended Release 12hr 600 mg PO Q12H PRN (Reason: Congestion) Yupelri 175 mcg/3 mL Solution For Nebulization 175 mcg INHALATION DAILY Miralax 17 gram Powder In Packet 17 g PO DAILY Held temazepam 30 mg capsule 30 mg PO DAILY Hold Instructions: see pcp before resuming sodium chloride 1 gram Tablet 1,000 mg PO BID Hold Instructions: see pcp before resuming Discontinued cetirizine 10 mg tablet 10 mg PO DAILY propranolol 10 mg tablet 10 mg PO TID venlafaxine 225 mg tablet extended release 24hr 225 mg PO DAILY levofloxacin 500 mg tablet 500 mg PO DAILY lactulose 10 gram/15 mL Solution 15 ml PO DAILY PRN (Reason: Constipation) Discharge Orders: Discharge Order (Routine); Ordered 02/13/22 Ordered By: Gabriela Angelo Other Ambulatory Orders: Basic Metabolic Panel (Routine) Timeframe: 1 Week Facility: [facility] - Location: Lab - Main Lab Ordered By: Gabriela Angelo EEG electroencephalogram (Routine) Timeframe: 1 Week Facility: [facility] - Location: Neurology Ordered By: Gabriela Angelo Referrals: [facility] [Other] Lata Bonilla MD [Physician] - 03/28/22 10:00 am (New onset seizures) Codey De Santiago MD [Physician] - 02/22/22 2:00 pm (Return to surgery office in 1 week) Alexandro Lipscomb CPNP [Primary Care Provider] - 02/15/22 1:15 pm Discharge Diet: Advance as tolerated Discharge Activity: Limit activity as instructed Patient Instructions: Metoprolol (By mouth), Hydralazine (By mouth), Venlafaxine (By mouth), Levetiracetam (By mouth), Colostomy Care (GEN), Level 3 National Dysphagia Diet (GEN), Exploratory Laparotomy (GEN), Opioid Safety Activity Restrictions/Additional Instructions: 1. Patient can shower after 48 hours from surgery 2. Stoma care and teaching 3. Activity per physical therapy recommendation 4. Do not lift more than 5 pounds first 2 weeks after surgery and not more than 25 pounds 6 to 8 weeks after surgery. 5. Education about side effects of narcotic 6.Contact the office or return to the ER for worsening nausea vomiting fevers or chills, or noticing any redness around incision sites or discharge. Please follow up with PCP within 4-7 days of discharge, neurology within 2 weeks, surgery as directed. Please follow dysphagia level 4 diet. Please follow documentation provided to you with details. APPOINTMENT FOR EEG IN DR BONILLA OFFICE WILL BE FEBRUARY 20 AT 8:00 AM Discharge Attestations Time Spent in Discharge Care*: greater than 30 min Quality Metrics Clinical Quality Measures [ No reported AMI, CVA or VTE this stay] Coding Level of Care Code Acute Chg FW DC note Diagnoses Fecal impaction in rectum K56.41 Status post partial resection of colon Z90.49 Altered mental status R41.82 Hyponatremia E87.1 Seizure disorder G40.909 Osmotic myelinolysis G37.2 HTN (hypertension) I10 Afib I48.91 COPD (chronic obstructive pulmonary disease) J44.9 BPH (benign prostatic hyperplasia) N40.0 Chronic constipation with overflow K59.09 Liver cirrhosis K74.60
[2022-02-13] MEDS: ondansetron 2 mg/ML SDV 2 mL 4 MG IVP (10:40)
== END 2022-02-13 13:21 | disposition home health service (06) | DRG 330 ==
LOC: ER 14:45 → MEDSURG 02-04 07:39 → ICU 02-06 07:51 → MEDSURG 02-09 04:15 → ICU 02-09 04:16
PROVIDERS: Family Medicine; Radiology Diagnostic Radiology; Student in an Organized Health Care Education/Training Program; Surgery; Admitting Provider Internal Medicine; Emergency Provider Emergency Medicine; PCP Registered Nurse; Visit Provider Internal Medicine
PROC: 0DTN0ZZ Resection of Sigmoid Colon, Open Approach (ICD-10-PCS; CPT 49000; principal; 2022-02-05 11:45)
PROC: 0DTN0ZZ Resection of Sigmoid Colon, Open Approach (ICD-10-PCS; CPT 44320; 2022-02-05 11:45)
PROC: 0DTN0ZZ Resection of Sigmoid Colon, Open Approach (ICD-10-PCS; 2022-02-05 11:45)
DX: K56.2 Volvulus (principal); E87.1 Hypo-osmolality and hyponatremia; N39.0 Urinary tract infection, site not specified; Q43.8 Other specified congenital malformations of intestine; G37.2 Central pontine myelinolysis; J44.9 Chronic obstructive pulmonary disease, unspecified; I48.91 Unspecified atrial fibrillation; N40.0 Benign prostatic hyperplasia without lower urinary tract symptoms; I10 Essential (primary) hypertension; K70.30 Alcoholic cirrhosis of liver without ascites; I27.20 Pulmonary hypertension, unspecified; Z96.0 Presence of urogenital implants; N31.9 Neuromuscular dysfunction of bladder, unspecified; Z87.440 Personal history of urinary (tract) infections; Z74.01 Bed confinement status; G25.2 Other specified forms of tremor; I95.9 Hypotension, unspecified; R41.82 Altered mental status, unspecified; R56.9 Unspecified convulsions; R45.1 Restlessness and agitation; Z79.01 Long term (current) use of anticoagulants; Z79.51 Long term (current) use of inhaled steroids; R13.10 Dysphagia, unspecified; K56.41 Fecal impaction; F17.200 Nicotine dependence, unspecified, uncomplicated
CPT/HCPCS: 12345; 36415; 36416; 36600; 70450; 71045; 71275; 74018; 74177; 76604; 76700; 80048; 80051; 80053; 80061; 80202; 81001; 82140; 82330; 82607; 82746; 82803; 82805; 82962; 83036; 83540; 83550; 83605; 83690; 83735; 83880; 84100; 84145; 84146; 84300; 84443; 84484; 85025; 85378; 85610; 86850; 86900; 86920; 87040; 87086; 87641; 88309; 92507; 92523; 92526; 92610; 93005; 93970; 94640; 96372; 96374; 99285; C9113; J0360; J1100; J1170; J1644; J1650; J1885; J1953; J2250; J2370; J2405; J2543; J2704; J2710; J3010; J3370; J3475; J3480; J3490; J7030; J7040; J7626; J9352; Q9967

== ENCOUNTER 2022-02-22 15:24 | Inpatient (IN) | payer MEDICARE, MEDICAID, SELFPAY ==
[2022-02-22] VITALS (17 sets, daily range): BP systolic 75–112; BP diastolic 53–71; PULSE 58–66; RESP 15–25; TEMP 35.9–36.4; O2SAT 79–100; BMI 17.1
--- NOTE | 2022-02-22 15:40 | ED_ITS ---
HPI - Altered Mental Status General: Chief Complaint: Altered Mental Status Stated Complaint: High BP Time Seen by Provider: 02/22/22 15:40 History of Present Illness: presents through triage from home by family weak and pale. Urias catheter in place, normal urine in bag, no hematemesis, melena, or hematochezia, no abd distension, no cp or sob, appears altered or confused, unsure of baseline. Cachectic overall appearance. Generalized weakness. Noted to be hypotensive upon arrival, wearing adult diaper, no evidence of GI bleed Review of Systems General: Reports: 10 or more systems reviewed and unremarkable except in HPI and below Const: Reports: malaise Eyes: Denies: eye redness ENMT: Reports: dry mouth; Denies: throat pain, nasal congestion or epistaxis Card: Denies: chest pain, swelling of feet/ankles or leg pain with exertion Resp: Denies: dyspnea or pain on inspiration GI: Denies: nausea, hematemesis, fecal incontinence, hematochezia or melena : Reports: other (catheter in place) Skin/Breast: Reports: dry skin and other (pallor) Neuro: Reports: difficulty walking (generalized weakness) [facility] ED PFSH: Medical History Acute exacerbation of chronic obstructive pulmonary disease Afib BPH (benign prostatic hyperplasia) Chronic hyponatremia COPD (chronic obstructive pulmonary disease) Coronavirus infection Common cold variant 229E Disability Dolichocolon Gastritis HTN (hypertension) Liver cirrhosis etoh abuse 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 Presence of externally removable percutaneous endoscopic gastrostomy (PEG) tube Pulmonary HTN Surgical History H/O hemorrhoidectomy Status post laparoscopic-assisted sigmoidectomy Family History Denies family history of Diabetes Social History Smoking and tobacco status: current every day smoker Alcohol intake: unknown Physical Exam Const: GENERAL APPEARANCE: ill appearing, frail appearing and appears older than stated age HENMT: COMMON NORMALS: normocephalic, atraumatic and Normal external nose present HEAD & SCALP: normocephalic and atraumatic NOSE: Normal external nose present Eye: COMMON NORMALS: Equal, round and reactive pupils present, EOMs intact bilaterally, conjunctivae normal and no scleral icterus CONJUNCTIVA: Yes conjunctivae normal PUPIL: Yes Equal, round and reactive pupils present Neck/C-Spine: COMMON NORMALS: full ROM and no JVD Chest: COMMONS NORMALS: normal inspection of the chest Resp: COMMON NORMALS: normal respiratory effort and No retractions Cardio: COMMON NORMALS: no JVD, regular rate and regular rhythm RATE: reg ular rate RHYTHM: regular rhythm GI: COMMON NORMALS: Soft to palpation and non-tender PALPATION: Yes Soft to palpation : COMMON NORMALS: Yes no CVA tenderness BLADDER/KIDNEY EXAM: Yes no CVA tenderness OTHER: Urias catheter in place Back/Pelvis: COMMON NORMALS: no CVA tenderness Extremity: COMMON NORMALS: full ROM and no pedal edema Neuro: COMMON NORMALS: CN's II-XII intact bilaterally, moves all extremities and no focal motor deficits Course ED course: Discussed hyponatremia with hospitalist, patient states he is eating well and able to eat and drink more as needed, therefore we will be able to discharge home, may hold a dose of his hydralazine and have daughter monitor bp, follow up closely with pcp returning for concerns or problems, daughter and patient agree with this plan Vital Signs: Vital signs: Vital Signs Temperature 96.7 F L 02/22/22 15:30 Pulse Rate 58 L 02/22/22 15:45 Respiratory Rate 20 H 02/22/22 15:46 Blood Pressure 92/53 02/22/22 15:46 Pulse Oximetry 97 02/22/22 15:46 Oxygen Delivery Me thod 02/22/22 15:46 Oxygen Flow Rate 5 02/22/22 15:46 MDM - Altered Mental Status Medical Decision Making appears dehydrated, will check for infectious or metabolic etiology for weakness, suspect anemia at this time, no blood loss or gi bleeding reported. Will review chart as family not at bedside to provide much of a history or hpi/ ros Differential Diagnosis Likely altered mental status, hypoglycemia, hyponatremia and sepsis Lab Data hyponatremia : 02/22/22 15:11 02/22/22 15:11 Radiology Impressions Chest X-Ray 02/22/22 15:47 IMPRESSION: Relatively stable appearance of left basilar pleural effusion/associated consolidation. See discussion above and most recent chest CT exam report. Laboratory Results WBC 5.3 10^3/uL (4.0-10.0) 02/22/22 15:11 RBC 2.94 10^6/uL (4.1-5.3) L 02/22/22 15:11 Hgb 8.4 g/dL (11.7-16.6) L 02/22/22 15:11 Hct 26.2 % (42.0-52.0) L 02/22/22 15:11 MCV 89.1 fl (80-94) 02/22/22 15:11 MCH 28.6 pg (28.0-34.0) 02/22/22 15:11 MCHC 32.1 g/dL (30.0-36.0) 02/22/22 15:11 RDW 14.6 % (12.1-15.1) 02/22/22 15:11 Plt Count 413 10^3/cmm (130-400) H 02/22/22 15:11 MPV 8.6 fL (7.4-10.4) 02/22/22 15:11 Neut % (Auto) 66.1 % 02/22/22 15:11 Lymph % (Auto) 19.5 % 02/22/22 15:11 [place] % (Auto) 12.3 % 02/22/22 15:11 Eos % (Auto) 0.9 % 02/22/22 15:11 Baso % (Auto) 0.4 % 02/22/22 15:11 Neut # (Auto) 3.48 10^3/uL (1.8-7.7) 02/22/22 15:11 Lymph # (Auto) 1.0 10^3/uL (0.8-4.8) 02/22/22 15:11 [place] # (Auto) 0.7 10^3/uL (0.2-0.9) 02/22/22 15:11 Eos # (Auto) 0.1 10^3/uL (0.0-0.8) 02/22/22 15:11 Baso # (Auto) 0.0 10^3/uL (0.0-0.1) 02/22/22 15:11 Nucleated RBC % (auto) 0 % 02/22/22 15:11 Nucleated RBCs # 0.0 /100WBC 02/22/22 15:11 Sodium 125 mmol/L (136-145) L 02/22/22 15:11 Potassium 4.0 mmol/L (3.5-5.1) 02/22/22 15:11 Chloride 91 mmol/L (98-107) L 02/22/22 15:11 Carbon Dioxide 26 mmol/L (22-29) 02/22/22 15:11 Anion Gap 12.0 (5-19) 02/22/22 15:11 BUN 20 mg/dL (8-23) 02/22/22 15:11 Creatinine 0.7 mg/dL (0.7-1.2) 02/22/22 15:11 GFR Calculation 112.5 mL/min (90-130) 02/22/22 15:11 Glucose 76 mg/dL (65-115) 02/22/22 15:11 Calculated Osmolality 261 mOsm/kg (285-295) L 02/22/22 15:11 Lactate 1.4 mmol/L (0.5-2.2) 02/22/22 15:11 Calcium 8.6 mg/dL (8.5-10.5) 02/22/22 15:11 Magnesium 1.6 mg/dL (1.7-2.3) L 02/22/22 15:11 Total Bilirubin 0.2 mg/dL (0.15-1.2) 02/22/22 15:11 AST 15 U/L (0-40) 02/22/22 15:11 ALT 12 U/L (0-41) 02/22/22 15:11 Alkaline Phosphatase 57 U/L (40-130) 02/22/22 15:11 Troponin T Baseline 25 ng/L (0-15) H 02/22/22 15:11 C-Reactive Protein 58.5 mg/L (0.0-4.9) H 02/22/22 15:11 Total Protein 5.8 g/dL (6.6-8.7) L 02/22/22 15:11 Albumin 2.9 g/dL (3.5-5.2) L 02/22/22 15:11 Globulin 2.9 g/dL (1.3-4.6) 02/22/22 15:11 Urine Color Yellow (Yellow) 02/22/22 16:45 Urine Appearance Clear (CLEAR) 02/22/22 16:45 Urine pH 6 (5-7) 02/22/22 16:45 Ur Specific [place] 1.010 (1.005-1.030) 02/22/22 16:45 Urine Protein 1+ (Negative) H 02/22/22 16:45 Urine Glucose (UA) Norm (Normal) 02/22/22 16:45 Urine Ketones Negative (Negative) 02/22/22 16:45 Urine Blood 2+ (Negative) H 02/22/22 16:45 Urine Nitrate Negative (Negative) 02/22/22 16:45 Urine Bilirubin Neg (Negative) 02/22/22 16:45 Urine Urobilinogen Norm mg/dL (Negative) 02/22/22 16:45 Ur Leukocyte Esterase 2+ (Negative) H 02/22/22 16:45 Urine RBC 5-10 /hpf (0-2) H 02/22/22 16:45 Urine WBC 25-40 /hpf (0-5) H 02/22/22 16:45 Ur Squamous Epith Cells None /hpf (0-5) 02/22/22 16:45 Amorphous Sediment Not Reportable 02/22/22 16:45 Urine Bacteria 1+ /hpf (NONE) H 02/22/22 16:45 Urine Yeast Trace /hpf 02/22/22 16:45 Blood Type A Positive 02/22/22 16:17 Rho(D) Type Positive 02/22/22 16:17 Antibody Screen Negative 02/22/22 16:17 Discharge Plan Discharge Patient Disposition: Home Clinical Impression: Hyponatremia, Hypotension Condition: Stable Prescriptions: No Action ropinirole 1 mg tablet 1 mg PO BID PRN (Reason: Cramps) sennosides-docusate sodium [Stool Softener-Laxative] 8.6-50 mg tablet 2 tab PO DAILY hydroxyzine pamoate 50 mg capsule 50 mg PO Q6H PRN (Reason: Anxiety) temazepam 30 mg capsule 30 mg PO DAILY Hold Instructions: see pcp before resuming nystatin 100,000 unit/gram cream 1 applic TOPICAL BID PRN (Reason: Rash) fluticasone propionate 50 mcg/actuation spray,suspension 1 spray INTRANASAL DAILY PRN (Reason: Nasal Congestion) doxycycline hyclate 100 mg capsule 100 mg PO DAILY Qty: 10 0RF albuterol sulfate 2.5 mg /3 mL (0.083 %) Solution For Nebulization 2.5 mg INHALATION TID PRN (Reason: Shortness Of Breath Or Wheezing) diltiazem HCl 240 mg capsule,extended release 24hr 240 mg PO DAILY sodium chloride 1 gram Tablet 1,000 mg PO BID Hold Instructions: see pcp before resuming ondansetron 8 mg tablet,disintegrating 8 mg PO Q8H PRN (Reason: Nausea And Vomiting) cyanocobalamin (vitamin B-12) [Vitamin B-12] 500 mcg Tablet 500 mcg PO QPM ferrous sulfate [iron] 325 mg (65 mg iron) Tablet 325 mg PO QPM budesonide 0.5 mg/2 mL Suspension For Nebulization 0.5 mg INHALATION BID mupirocin 2 % Ointment 1 applic TOPICAL BID PRN (Reason: Rash) Lactobacillus acidophilus 500 million cell Tablet 500 mmu cells PO DAILY formoterol fumarate [Perforomist] 20 mcg/2 mL Solution For Nebulization 2 ml INHALATION BID cranberry extract-vitamin C 250-60 mg Capsule 1 cap PO QPM Men's One Daily 400-20-300 mcg Tablet 1 tab PO QPM Eliquis 5 mg tablet 5 mg PO BID guaifenesin [Mucinex] 600 mg Tablet Extended Release 12hr 600 mg PO Q12H PRN (Reason: Congestion) Yupelri 175 mcg/3 mL Solution For Nebulization 175 mcg INHALATION DAILY polyethylene glycol 3350 [Miralax] 17 gram Powder In Packet 17 g PO DAILY metoprolol tartrate 25 mg Tablet 25 mg PO BID@0900,2100 30 Days Qty: 60 0RF hydralazine 25 mg tablet 25 mg PO TID 30 Days Qty: 90 0RF venlafaxine 75 mg capsule,extended release 24hr 75 mg PO DAILY 30 Days Qty: 30 0RF levetiracetam [Keppra] 750 mg tablet 750 mg PO BID 30 Days Qty: 60 0RF Discharge Orders: Discharge ED (Routine); Ordered 02/22/22 Ordered By: Brigette Longoria Referrals: Alexandro Lipscomb CPNP [Primary Care Provider] - Discharge Diet: Regular Discharge Activity: Resume usual activity Patient Instructions: Hyponatremia (ED), Hypotension (ED) Activity Restrictions/Additional Instructions: Decrease hydralazine dose to twice daily from three times daily andmonitor blood pressure. Keep a journal. Follow up with primary care within the week, return for concerns Coding Level of Care Code ED Medical Coding Technician for Chg Fwd Exam Comprehensive
--- NOTE | 2022-02-22 15:47 | XRR_ITS ---
PROCEDURE INFORMATION: Exam: XR Chest Exam date and time: 02/22/2022 3:55 PM Age: 66 years old Clinical indication: Other: Weakness; Additional info: Weak TECHNIQUE: Imaging protocol: Radiologic exam of the chest. Views: 1 view. COMPARISON: CR (CHEST, ) 02/07/2022 2:23 AM FINDINGS: Lungs: See Pleural spaces finding. Probable upper lobe emphysematous disease. Right lung is grossly clear. Pleural spaces: Stable retrocardiac/left basilar opacity suggesting small pleural effusion with adjacent consolidation which may be related to compressive atelectasis versus pneumonia. Postobstructive prostate due to right bronchial obstruction or neoplasm cannot be excluded. Continued follow-up should be obtained. No pneumothorax. Heart/Mediastinum: No cardiomegaly. Vasculature: Aortic arch calcification which may be slightly prominent, about 4 cm, similar to prior exam. Bones/joints: Osteopenia. XR/XR chest 1V portable [id number] IMPRESSION: Relatively stable appearance of left basilar pleural effusion/associated consolidation. See discussion above and most recent chest CT exam report.
--- NOTE | 2022-02-22 15:47 | CTR_ITS ---
PROCEDURE INFORMATION: Exam: CT Head Without Contrast Exam date and time: 02/22/2022 4:25 PM Age: 66 years old Clinical indication: Other: Weakness, somnolence; Additional info: Weakness, lethargy TECHNIQUE: Imaging protocol: Computed tomography of the head without contrast. Radiation optimization: All CT scans at this facility use at least one of these dose optimization techniques: automated exposure control; mA and/or kV adjustment per patient size (includes targeted exams where dose is matched to clinical indication); or iterative reconstruction. COMPARISON: CT head wo con* [id number] 02/09/2022 6:36 PM RADIATION DOSE METRICS: Total DLP (mGy-cm): 1118.58 FINDINGS: Brain: Mild diffuse hypodense changes are noted in the bilateral periventricular regions, likely related to chronic ischemic small vessel disease. There is moderate brain parenchymal atrophy. No acute intracranial hemorrhage, mass effect or midline shift. Cerebral ventricles: No pathologic ventricular dilatation. Paranasal sinuses: Visualized sinuses are unremarkable. No fluid levels. Mastoid air cells: Visualized mastoid air cells are well aerated. Bones/joints: Unremarkable. No acute fracture. Soft tissues: Unremarkable. CT/CT head wo con* [id number] IMPRESSION: No acute intracranial findings.
--- NOTE | 2022-02-22 15:49 | ECG_ITS ---
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 Measurements Intervals [place] Rate: 57 P: 86 AL: 183 QRS: 79 QRSD: 106 T: 75 QT: 451 QTc: 439 Interpretive Statements SINUS BRADYCARDIA ANTEROSEPTAL MYOCARDIAL INFARCTION , OF INDETERMINATE AGE [40+ ms Q WAVE IN V1-V4] Compared to ECG 02/22/2022 16:01:35 No significant changes Electronically Signed On 02-22-2022 20:56:02 CDT by Maicol Randall M.D. [email or web address] medical [email or web address].[employer]/store/[id number]
[2022-02-22 15:58] LABS: Basophils % 0.4 %; Eosinophils # 0.1 10^3/uL (0.0-0.8); Eosinophils % 0.9 %; Hematocrit 26.2 % (42.0-52.0); Hemoglobin 8.4 g/dL (11.7-16.6); Lymphocytes % 19.5 %; Mean Corpuscular HGB Conc 32.1 g/dL (30.0-36.0); Mean Corpuscular Hemoglobin 28.6 pg (28.0-34.0); Mean Corpuscular Volume 89.1 fl (80-94); Mean Platelet Volume 8.6 fL (7.4-10.4); Monocytes # 0.7 10^3/uL (0.2-0.9); Monocytes % 12.3 %; Neutrophils # 3.48 10^3/uL (1.8-7.7); Neutrophils % 66.1 %; Nucleated Red Blood Cells % 0 %; Platelet Count 413 10^3/cmm (130-400); Red Blood Count 2.94 10^6/uL (4.1-5.3); Red Cell Distribution Width 14.6 % (12.1-15.1); White Blood Count 5.3 10^3/uL (4.0-10.0)
--- NOTE | 2022-02-22 16:01 | ECG_ITS ---
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 Measurements Intervals [place] Rate: 57 P: 5 IN: 167 QRS: 52 QRSD: 110 T: 42 QT: 456 QTc: 448 Interpretive Statements SINUS BRADYCARDIA ANTEROSEPTAL MYOCARDIAL INFARCTION , OF INDETERMINATE AGE [40+ ms Q WAVE IN V1-V4] Compared to ECG 02/03/2022 17:57:01 Sinus rhythm no longer present Sinus arrhythmia no longer present Myocardial infarct finding still present Electronically Signed On 02-22-2022 20:55:18 CDT by Maicol Randall M.D. [email or web address]/[id number]
[2022-02-22 16:20] LABS: Troponin(5th) Baseline 25 ng/L (0-15)
[2022-02-22 16:22] LABS: Alanine Aminotransferase 12 U/L (0-41); Albumin Level 2.9 g/dL (3.5-5.2); Alkaline Phosphatase 57 U/L (40-130); Aspartate Amino Transferase 15 U/L (0-40); Blood Urea Nitrogen 20 mg/dL (8-23); C Reactive Protein 58.5 mg/L (0.0-4.9); Calcium 8.6 mg/dL (8.5-10.5); Carbon Dioxide 26 mmol/L (22-29); Chloride 91 mmol/L (98-107); Globulin 2.9 g/dL (1.3-4.6); Glomerular Filtration Rate 112.5 mL/min (90-130); Glucose 76 mg/dL (65-115); Magnesium 1.6 mg/dL (1.7-2.3); Osmolality Calculated 261 mOsm/kg (285-295); Sodium 125 mmol/L (136-145); Total Bilirubin 0.2 mg/dL (0.15-1.2); Total Protein 5.8 g/dL (6.6-8.7)
[2022-02-22 16:33] LABS: Lactate (Lactic Acid level) 1.4 mmol/L (0.5-2.2)
[2022-02-22] MEDS: sodium chloride 0.9% 1,000 ML 999 ML IV ×2 (16:38→17:40)
[2022-02-22 17:19] LABS: Add Urine Microscopic? YES; Bilirubin Urine Neg (Negative); Blood Urine 2+ (Negative); Glucose Urine UA Norm (Normal); Ketones Urine Negative (Negative); Leukocyte Esterase Urine 2+ (Negative); Nitrate Urine Negative (Negative); Protein Urine 1+ (Negative); Urine Appearance Clear (CLEAR); Urine Color Yellow (Yellow); Urobilinogen Urine Norm (Negative); pH Urine 6 (5-7)
[2022-02-22 17:20] LABS: Add Urine Culture? No; Bacteria Urine 1+ /hpf; WBC Urine 25-40 /hpf (0-5)
[2022-02-22 17:43] LABS: Troponin 5 2HR 22.15 ng/L (0-15); Troponin 5 2HR Delta -2.85 ABS# (0-10)
[2022-02-22 18:54] LABS: Lactate (Lactic Acid level) 0.7 mmol/L (0.5-2.2)
[2022-02-22] MEDS: cefTRIAXone 1,000 MG in sodium chloride 0.9% (plus) 50 ML 100 MG IV (19:33)
[2022-02-22] MEDS: azithromycin 500 MG in sodium chloride 0.9% 250 ML 250 MG IV (20:58)
[2022-02-22 20:59] LABS: Troponin 5 6HR 27.58 ng/L (0-15)
[2022-02-22 21:15] LABS: Troponin 5 6HR Delta 2.58 ng/L (0-12)
--- NOTE | 2022-02-22 21:34 | PC.NURSE ---
Pt arrived from ER via [facility] @066, belongings at bedside include socks, shirt, and pants, pt is wearing 5L NC SpO2 100%, colostomy appliance changed, bedbath given, admission completed- admission questions answered by pt, no family present.
--- NOTE | 2022-02-22 21:50 | ECG_ITS ---
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 Measurements Intervals [place] Rate: 62 P: 92 [place]: 178 QRS: 75 QRSD: 113 T: 57 QT: 441 QTc: 450 Interpretive Statements SINUS RHYTHM ANTEROSEPTAL MYOCARDIAL INFARCTION , OF INDETERMINATE AGE [40+ ms Q WAVE IN V1-V4] Compared to ECG 02/22/2022 17:48:53 Sinus bradycardia no longer present Myocardial infarct finding still present Electronically Signed On 02-23-2022 12:53:18 CDT by Jessica Rios M.D. [email or web address]/store/[id number]
[2022-02-22] MEDS: sodium chloride 0.9% 1,000 ML 75 ML IV (23:05)
--- NOTE | 2022-02-22 23:25 | PC.NURSE ---
Pt has a new functioning colostomy and a chronic supra pubic catheter that is draining.
--- NOTE | 2022-02-22 23:30 | PM.HP ---
Providers/Chief Complaint Admitting Physician: Meg York MD Primary Care Provider: JAYNA Rivera Chief Complaint: High BP- Sent by Giurgius History of Present Illness Ludwin Lux is a 66 year old male with past medical history of COPD, atrial fibrillation, BPH, chronic hyponatremia, COPD, gastritis, hypertension, liver cirrhosis secondary to alcohol abuse, osmotic myelinolysis, pulmonary hypertension. He has a history of recurrent chronic UTIs with a suprapubic catheter in place which is replaced every 2 weeks. He was recently admitted here between February 03 to February 13 for a rectal mass and overflow incontinence. Sigmoidectomy and colostomy was performed on this admission. No evidence of malignancy was found. Hospital course had been complicated by development of seizures for which patient was started on Keppra. He had altered mental status upon admission which resolved at the time of discharge showed patient back to his baseline. Multiple medications were adjusted on his last visit. He presented to the emergency room earlier today complaining of generalized weakness and malaise. He was hypotensive initially upon arrival with systolic blood pressure of 87. Patient himself is unable to contribute in history. He is only able to tell me that he has been wheelchair-bound for the last 5 to 6 years and has difficulty ambulating. He reports no specific complaints. It appears after an initial work-up he was planned to be discharged from the emergency room with adjustment of his oral antihypertensives, however when his family was contacted, they stated that they were unable to take care of him in his current state due to significant deconditioning. He had a new oxygen requirement of 4 L/min in the ER, however at the time of my assessment he is on room air saturating 91 to 92%. Currently work-up is with UA showing positive leuk esterase, 25-40 WBC and 1+ bacteria however of note this is from a chronic suprapubic catheter. Concern for left lower lobe pneumonia on his chest x-ray, however compared to prior images left pleural effusion appears to be stable. On February 10 there was concern for possible empyema for which diagnostic thoracentesis was going to be attempted however this was eventually unable to be performed as there was minimal fluid. Review of Systems General: Reports: ROS unobtainable due to medical condition Medications/Allergies Home Medications Medication Instructions Recorded Confirmed Last Taken Type fluticasone propionate 50 1 spray intranasal DAILY PRN Nasal 06/21/21 02/22/22 Unknown History mcg/actuation nasal Congestion spray,suspension hydroxyzine pamoate 50 mg capsule 50 mg PO Q6H PRN Anxiety 06/21/21 02/22/22 02/02/22 History nystatin 100,000 unit/gram topical 1 applic topical BID PRN Rash 06/21/21 02/22/22 Unknown History cream ropinirole 1 mg tablet 1 mg PO BID PRN Cramps 06/21/21 02/22/22 Unknown History sennosides 8.6 mg-docusate sodium 2 tab PO DAILY 06/21/21 02/22/22 02/02/22 History 50 mg tablet (Stool Softener-Laxative) temazepam 30 mg capsule 30 mg PO DAILY 06/21/21 02/22/22 02/02/22 History doxycycline hyclate 100 mg capsule 100 mg PO DAILY #10 caps 06/24/21 02/22/22 02/03/22 Rx Lactobacillus acidophilus 500 500 mmu cells PO DAILY 02/03/22 02/22/22 02/03/22 History million cell tablet albuterol sulfate 2.5 mg/3 mL 2.5 mg inhalation TID PRN 02/03/22 02/22/22 02/03/22 History (0.083 %) solution for nebulization Shortness Of Breath Or Wheezing apixaban 5 mg tablet (Eliquis) 5 mg PO BID 02/03/22 02/22/22 02/03/22 History budesonide 0.5 mg/2 mL suspension 0.5 mg inhalation BID 02/03/22 02/22/22 02/03/22 History for nebulization cranberry extract-vitamin C 250 1 cap PO QPM 02/03/22 02/22/22 02/02/22 History mg-60 mg capsule cyanocobalamin (vitamin B-12) 500 500 mcg PO QPM 02/03/22 02/22/22 02/02/22 History mcg tablet (Vitamin B-12) diltiazem HCl 240 mg 240 mg PO DAILY 02/03/22 02/22/22 02/03/22 History capsule,extended release 24 hr ferrous sulfate 325 mg (65 mg 325 mg PO QPM 02/03/22 02/22/22 02/02/22 History iron) tablet (iron) formoterol fumarate 20 mcg/2 mL 2 ml inhalation BID 02/03/22 02/22/22 02/03/22 History solution for nebulization (Perforomist) guaifenesin 600 mg tablet, 600 mg PO Q12H PRN Congestion 02/03/22 02/22/22 Unknown History extended release 12 hr (Mucinex) imoheazx-sqtfqrja-xlhle acid 400 1 tab PO QPM 02/03/22 02/22/22 02/02/22 History mcg-vit K 20 mcg-lycop 300 mcg tablet (Men's One Daily) mupirocin 2 % topical ointment 1 applic topical BID PRN Rash 02/03/22 02/22/22 Unknown History ondansetron 8 mg disintegrating 8 mg PO Q8H PRN Nausea And Vomiting 02/03/22 02/22/22 Unknown History tablet polyethylene glycol 3350 17 gram 17 g PO DAILY 02/03/22 02/22/22 Unknown History oral powder packet (Miralax) revefenacin 175 mcg/3 mL solution 175 mcg inhalation DAILY 02/03/22 02/22/22 02/03/22 History for nebulization (Yupelri) sodium chloride 1 gram tablet 1,000 mg PO BID 02/03/22 02/22/22 02/03/22 History hydralazine 25 mg tablet 25 mg PO TID 30 days #90 tabs 02/13/22 02/22/22 Unknown Rx levetiracetam 750 mg tablet 750 mg PO BID 30 days #60 tabs 02/13/22 02/22/22 Unknown Rx (Keppra) metoprolol tartrate 25 mg tablet 25 mg PO BID@0900,2100 30 days #60 02/13/22 02/22/22 Unknown Rx tabs venlafaxine 75 mg capsule,extended 75 mg PO DAILY 30 days #30 caps 02/13/22 02/22/22 Unknown Rx release 24 hr Allergies Allergy/AdvReac Type Severity Reaction Status Date / Time Sulfa (Sulfonamide Allergy ALGY-Rash Verified 02/22/22 12:53 Antibiotics) PFSH Acute PFSH: Medical History Acute exacerbation of chronic obstructive pulmonary disease Afib BPH (benign prostatic hyperplasia) Chronic hyponatremia COPD (chronic obstructive pulmonary disease) Coronavirus infection Common cold variant 229E Disability Dolichocolon Gastritis HTN (hypertension) Liver cirrhosis etoh abuse 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 Presence of externally removable percutaneous endoscopic gastrostomy (PEG) tube Pulmonary HTN Surgical History H/O hemorrhoidectomy Status post laparoscopic-assisted sigmoidectomy Family History Denies family history of Diabetes Social History Smoking and tobacco status: current every day smoker Alcohol intake: unknown Vitals/I&O/Wt Last Vital Signs Temp 97.6 F 02/22/22 21:45 Pulse 70 02/23/22 06:00 Resp 26 H 02/23/22 04:00 BP 109/64 02/23/22 04:00 Pulse Ox 91 02/23/22 04:00 O2 Del Method 02/23/22 04:00 O2 Flow Rate 4 02/23/22 00:15 02/22/22 02/22/22 02/23/22 14:59 22:59 06:59 Intake Total 2300 / 2300 Output Total 350 / 350 Balance 2300 / 2300 -350 / 1950 Weight last 48 hrs Weight 50.984 kg Weight 63.503 kg Physical Exam Narrative: General: No acute distress, AO x2-3, which appears to be his recent baseline HEENT: PERRLA, pupils bilaterally equal and reactive, pallors not present Chest: Scattered crackles to auscultation bilateral lower lobes. No CVS: S1-S2 regular, no murmurs, no tachycardia, no gallops, no rubs Abdomen: Soft, nontender, no organomegaly, bowel sounds present Neuro: No focal deficits, no facial deformity, AO x3, power 5/5 in all limbs Data : 02/23/22 03:23 02/23/22 03:23 Micro: Microbiology 02/22/22 16:14 Blood Culture - Preliminary Blood SPECIMEN COLLECTED 02/22/22 16:17 Blood Culture - Preliminary Blood SPECIMEN COLLECTED A&P Assessment and plan (1) Hyponatremia: (2) Hypotension: (3) Liver cirrhosis: (4) COPD (chronic obstructive pulmonary disease): (5) Dehydration: Plan 66-year-old male with multiple comorbidities as listed above, cachectic, chronically ill, malnourished, presented to the emergency room last night with generalized malaise and weakness. Noted to have hypotension. No overt signs or symptoms of sepsis at this time. He has a chronic indwelling suprapubic catheter, UA positive however tough to interpret given that its from a longstanding suprapubic cath. Pending urine culture.On empiric ceftriaxone in the interim. Hold his home doses of diltiazem, hydralazine given hypotension. Continue metoprolol 25 mg p.o. twice daily. Gentle IV hydration with normal saline at 75 cc an hour. Monitor sodium. Patient appears to be clinically dehydrated. He is unable to tell me if he has had an adequate caloric intake recently. Chest x-ray shows left lower lobe pleural effusion, however it appears to be stable given compared to previous radiographs. Recently was unable to be tapped as not enough fluid was noted. Initially upon presentation patient was on supplemental oxygen, however at the time of my assessment he saturating 92% on room air. Low suspicion for pneumonia at this time. Family states unable to care for patient appropriately, will reach out to case management for appropriate disposition planning Attestations Medical Necessity Statement*: anticipate >2 midnight admission for IVF, iv abx, disposition planning Coding Level of Care Code Acute Learning Disabilities Specialist for Demetria Villalobos Diagnoses Hyponatremia E87.1 Hypotension I95.9 Liver cirrhosis K74.60 COPD (chronic obstructive pulmonary disease) J44.9 Dehydration E86.0
[2022-02-22 23:48] LABS: Glucose Point of Care 97 mg/dL (70-110)
[2022-02-23] VITALS (69 sets, daily range): BP systolic 87–142; BP diastolic 61–92; PULSE 62–85; RESP 7–26; O2SAT 91–100
--- NOTE | 2022-02-23 02:53 | PC.NURSE ---
Pt is on RA @ this time. Slowly turned the 5L NC down over several hours. SpO2 97%, RR 18, nonlabored breaths.
[2022-02-23 03:55] LABS: Basophils % 0.3 %; Lymphocytes # 0.7 10^3/uL (0.8-4.8); Mean Corpuscular HGB Conc 31.7 g/dL (30.0-36.0); Nucleated Red Blood Cells % 0 %; White Blood Count 3.2 10^3/uL (4.0-10.0)
[2022-02-23 04:31] LABS: Alanine Aminotransferase 12 U/L (0-41); Albumin Level 2.7 g/dL (3.5-5.2); Alkaline Phosphatase 50 U/L (40-130); Anion Gap 12.7 (5-19); Aspartate Amino Transferase 14 U/L (0-40); Blood Urea Nitrogen 15 mg/dL (8-23); Calcium 7.8 mg/dL (8.5-10.5); Carbon Dioxide 24 mmol/L (22-29); Chloride 95 mmol/L (98-107); Globulin 2.4 g/dL (1.3-4.6); Glomerular Filtration Rate 134.4 mL/min (90-130); Glucose 84 mg/dL (65-115); Osmolality Calculated 266 mOsm/kg (285-295); Potassium 3.7 mmol/L (3.5-5.1); Sodium 128 mmol/L (136-145); Thyroid Stimulating Hormone 6.65 uIU/mL (0.27-4.20); Total Bilirubin 0.2 mg/dL (0.15-1.2); Total Protein 5.1 g/dL (6.6-8.7)
[2022-02-23 07:38] LABS: Free T4 Free Thyroxine 1.02 ng/dL (0.82-1.77); T3 Free 2.2 PG/ML (2.0-4.4)
[2022-02-23] MEDS: pantoprazole DR 40 mg Tablet PO (08:13)
[2022-02-23 08:45] LABS: Hematocrit 24.3 % (42.0-52.0); Hemoglobin 7.7 g/dL (11.7-16.6)
[2022-02-23 08:46] LABS: Eosinophils # 0.1 10^3/uL (0.0-0.8); Eosinophils % 1.6 %; Lymphocytes % 20.6 %; Mean Corpuscular Hemoglobin 28.5 pg (28.0-34.0); Mean Platelet Volume 8.7 fL (7.4-10.4); Monocytes # 0.4 10^3/uL (0.2-0.9); Monocytes % 11.1 %; Neutrophils # 2.07 10^3/uL (1.8-7.7); Neutrophils % 65.5 %; Platelet Count 309 10^3/cmm (130-400); Red Cell Distribution Width 14.7 % (12.1-15.1)
[2022-02-23 08:52] LABS: SARS Covid-2 Antigen positive (Negative)
[2022-02-23 09:26] LABS: LAB Peripheral Smear Sent for Review
--- NOTE | 2022-02-23 10:25 | P.PN_ITS ---
Vitals/I&O/Wt Last Vital Signs Temp 97.6 F 02/22/22 21:45 Pulse 77 02/23/22 08:15 Resp 20 H 02/23/22 08:15 BP 130/82 02/23/22 08:15 Pulse Ox 98 02/23/22 08:15 O2 Del Method 02/23/22 04:00 O2 Flow Rate 4 02/23/22 00:15 02/22/22 02/23/22 02/23/22 22:59 06:59 14:59 Intake Total 2300 / 2300 480 / 480 Output Total 350 / 350 Balance 2300 / 2300 -350 / 1950 480 / 480 Weight last 48 hrs Weight 50.984 kg Weight 63.503 kg Physical Exam Const: COMMON NORMALS: no acute distress and patient oriented x3 HENMT: COMMON NORMALS: normocephalic HEAD & SCALP: normocephalic Eye: COMMON NORMALS: Equal, round and reactive pupils present and EOMs intact bilaterally PUPIL: Yes Equal, round and reactive pupils present Neck/C-Spine: COMMON NORMALS: no JVD Resp: COMMON NORMALS: normal respiratory effort, No retractions, No use of accessory muscles and clear to auscultation bilaterally AUSCULTATION: clear to auscultation bilaterally Cardio: COMMON NORMALS: no JVD, regular rate, regular rhythm, S1 normal heart sound present and S2 normal heart sound present RATE: regular rate RHYTHM: regular rhythm HEART SOUNDS: S1 normal heart sound present and S2 normal heart sound present GI: COMMON NORMALS: Normal to inspection, nondistended, normoactive bowel sounds present, Soft to palpation, non-tender, no masses and no bruits PALPATION: Yes Soft to palpation Extremity: COMMON NORMALS: no pedal edema Neuro: COMMON NORMALS: patient oriented x3 Psych: COMMON NORMALS: mental status grossly normal Data : 02/23/22 03:23 02/23/22 03:23 Micro: Microbiology 02/22/22 16:14 Blood Culture - Preliminary Blood SPECIMEN COLLECTED 02/22/22 16:17 Blood Culture - Preliminary Blood SPECIMEN COLLECTED A&P Assessment and plan (1) Hyponatremia: (2) Hypotension: (3) Liver cirrhosis: (4) COPD (chronic obstructive pulmonary disease): (5) Dehydration: (6) Anemia: (7) Severe muscle deconditioning: (8) Protein calorie malnutrition: (9) Afib: (10) HTN (hypertension): (11) Osmotic myelinolysis: (12) Pneumonia: (13) Weakness: (14) Seizure disorder: (15) Status post partial resection of colon: (16) BPH (benign prostatic hyperplasia): Plan 66-year-old male with multiple comorbidities as listed above, cachectic, chronically ill, malnourished, presented to the emergency room last night with generalized malaise and weakness. Noted to have hypotension. No overt signs or symptoms of sepsis at this time. Hyponatremia, hypovolemic, continue IV fluids Protein calorie malnutrition seen, will consult dietary Consult speech therapy Deconditioning, severe muscular deconditioning, PT OT would benefit from skilled rehab Has a chronic indwelling suprapubic catheter, he tells that it was replaced a few weeks ago, continue empiric Rocephin Hypotension, resolved, hold home medications of Cardizem, hydralazine, continue IV fluids Acute on chronic anemia, hemoglobin down to 7.7, no overt signs of bleeding, no blood from colostomy, iron studies, recheck hemoglobin at 1 PM, hold Eliquis, Protonix, Carafate Chronic left-sided pleural effusion, concern for empyema in the past, after further evaluation on last hospital visit not enough for thoracocentesis Atrial fibrillation, continue metoprolol, holding Eliquis as above History of liver cirrhosis, no reported esophageal varices, continue to monitor Low TSH, start low-dose levothyroxine 25 mcg once daily He has a chronic indwelling suprapubic catheter, UA positive however tough to interpret given that its from a longstanding suprapubic cath. Pending urine culture.On empiric ceftriaxone in the interim. Hold his home doses of diltiazem, hydralazine given hypotension. Continue metoprolol 25 mg p.o. twice daily. Gentle IV hydration with normal saline at 75 cc an hour. Monitor sodium. Patient appears to be clinically dehydrated. He is unable to tell me if he has had an adequate caloric intake recently. Chest x-ray shows left lower lobe pleural effusion, however it appears to be stable given compared to previous radiographs. Recently was unable to be tapped as not enough fluid was noted. Initially upon presentation patient was on supplemental oxygen, however at the time of my assessment he saturating 92% on room air. Low suspicion for pneumonia at this time. Family states unable to care for patient appropriately, will reach out to case management for appropriate disposition planning Attestations Medical Necessity Statement*: Patient requires hospitalization, inpatient, greater than 2 midnights, for acute on chronic anemia, protein-calorie malnutrition, hyponatremia, deconditioning, hypotension Coding Level of Care Code Acute Retail And Promotions Coordinator for [employer] Diagnoses Hyponatremia E87.1 Hypotension I95.9 Liver cirrhosis K74.60 COPD (chronic obstructive pulmonary disease) J44.9 Dehydration E86.0 Anemia D64.9 Severe muscle deconditioning R29.898 Protein calorie malnutrition E46 Afib I48.91 HTN (hypertension) I10 Osmotic myelinolysis G37.2 Pneumonia J18.9 Weakness R53.1 Seizure disorder G40.909 Status post partial resection of colon Z90.49 BPH (benign prostatic hyperplasia) N40.0
--- NOTE | 2022-02-23 10:32 | PC.CHAP ---
x Pastoral Care Encounter/Spiritual Assessment Type of Contact [] Declined customer solutions supervisor visit [] Patient/Family/Request visit [] Outpatient visit [] Follow-up visit [] Physician referral [] Code/Alert [x] Routine visit [] Staff referral [] Actively dying [] Patient sleeping [] Family support [] [] Out of room [] Palliative care [] [x] Receiving care in room [] Pre-surgical visit [] Trauma [] Long length of stay [x] ICU visit [] Other: Relational/Emotional Strength [] Patient feels connected with others/family/visitors/staff [] Distress [] Loneliness/isolation [] Abandonment Spirituality of Patient [] Person of Casi [] Attends Jew of their Casi [] Believes in Prayer [] Reads Bible or Druze materials [] There are Spiritual issues to be addressed Pickers Material Handlers Interventions [x] Prayer [] Active listening [] Non-anxious presence [] Spiritual/emotional support [] Crisis/trauma care [] Spiritual counseling [] Bereavement support [] Provided bereavement packet [] Provided Bible/devotional materials [] Provided toy/stuffed animal, coloring book to patient or family member [] Provided Communion [] Anointing/[place] [] Salvation [x] Completed spiritual assessment [] Other: Impact on Illness or Injury [] Angry [] Fearful [] Anxious [] Often cries [] Exhaustion [] Unable to work [] Unable to attend cheondoism [] Unable to walk/stand [] Unable to read [] Unable to drive [] Unable to eat/drink [] Unable to sleep [] Unable to be with family [] Patient intubated [] Other: Summary Time spent with patient
[2022-02-23] MEDS: sucralfate 1 gm Tablet PO ×2 (11:19→22:17)
[2022-02-23] MEDS: metoprolol tartrate 25 mg Tablet PO ×2 (11:19→20:45)
[2022-02-23 11:30] LABS: Ferritin 217 ng/mL (30-400); Iron 17 ug/dL (59-158); Percent Saturation 10.7 % (20-50); Total Iron Binding Capacity 158 mcg/dl; Unsaturated Iron Binding 141 ug/dL (112-347)
[2022-02-23] MEDS: magnesium sulfate premix 4 GM/100 ML PREMIX IV (11:44)
[2022-02-23] MEDS: pantoprazole 40 mg SDV IVP ×2 (11:45→22:17)
[2022-02-23 11:47] LABS: Vitamin B12 1746 pg/mL (232-1245)
[2022-02-23 12:19] LABS: Hematocrit 24.9 % (42.0-52.0)
[2022-02-23 13:03] LABS: Folate Level 15.8 ng/mL (4.5-32.2)
[2022-02-23] MEDS: cefTRIAXone 1,000 MG in sodium chloride 0.9% (plus) 50 ML 100 MG IV (18:04)
[2022-02-23] MEDS: budesonide 0.5 mg/2 mL Neb INHALATION (20:28)
[2022-02-23 20:43] LABS: Hematocrit 25.2 % (42.0-52.0); Hemoglobin 8.4 g/dL (11.7-16.6)
[2022-02-23] MEDS: ferrous sulfate EC 325 mg Tablet PO (20:45)
[2022-02-23] MEDS: temazepam 15 mg Capsule 30 MG PO (20:45)
[2022-02-23] MEDS: venlafaxine ER (24HR) 75 mg Capsule PO (20:45)
[2022-02-23 21:33] LABS: Glucose Point of Care 95 mg/dL (70-110)
[2022-02-24] VITALS (8 sets, daily range): BP systolic 125–145; BP diastolic 76–89; PULSE 74–100; RESP 17–20; TEMP 36.3–37; O2SAT 91–99
[2022-02-24] MEDS: sodium chloride 0.9% 1,000 ML 75 ML IV ×2 (02:49→18:16)
[2022-02-24 05:13] LABS: Basophils % 0.5 %; Eosinophils % 2.1 %; Hematocrit 26.3 % (42.0-52.0); Hemoglobin 8.6 g/dL (11.7-16.6); Lymphocytes # 0.5 10^3/uL (0.8-4.8); Lymphocytes % 23.7 %; Mean Corpuscular HGB Conc 32.7 g/dL (30.0-36.0); Mean Corpuscular Hemoglobin 28.6 pg (28.0-34.0); Mean Corpuscular Volume 87.4 fl (80-94); Mean Platelet Volume 8.3 fL (7.4-10.4); Monocytes # 0.2 10^3/uL (0.2-0.9); Monocytes % 12.4 %; Neutrophils # 1.15 10^3/uL (1.8-7.7); Neutrophils % 59.2 %; Nucleated Red Blood Cells % 0 %; Platelet Count 300 10^3/cmm (130-400); Red Blood Count 3.01 10^6/uL (4.1-5.3); Red Cell Distribution Width 14.4 % (12.1-15.1); White Blood Count 1.9 10^3/uL (4.0-10.0)
[2022-02-24] MEDS: levothyroxine 25 mcg Tablet PO (05:36)
[2022-02-24 05:44] LABS: Alanine Aminotransferase 13 U/L (0-41); Albumin Level 2.8 g/dL (3.5-5.2); Alkaline Phosphatase 54 U/L (40-130); Anion Gap 12.1 (5-19); Aspartate Amino Transferase 19 U/L (0-40); Blood Urea Nitrogen 10 mg/dL (8-23); Calcium 7.6 mg/dL (8.5-10.5); Carbon Dioxide 27 mmol/L (22-29); Chloride 95 mmol/L (98-107); Globulin 2.6 g/dL (1.3-4.6); Glomerular Filtration Rate 112.5 mL/min (90-130); Glucose 82 mg/dL (65-115); Magnesium 1.9 mg/dL (1.7-2.3); Osmolality Calculated 268 mOsm/kg (285-295); Phosphorus 2.8 mg/dL (2.5-4.5); Potassium 4.1 mmol/L (3.5-5.1); Sodium 130 mmol/L (136-145); Total Bilirubin 0.2 mg/dL (0.15-1.2); Total Protein 5.4 g/dL (6.6-8.7)
[2022-02-24 06:54] LABS: Glucose Point of Care 96 mg/dL (70-110)
[2022-02-24] MEDS: levETIRAcetam 500 mg Tablet 750 MG PO ×2 (08:11→18:14)
[2022-02-24] MEDS: venlafaxine ER (24HR) 75 mg Capsule PO (08:12)
[2022-02-24] MEDS: metoprolol tartrate 25 mg Tablet PO ×2 (08:12→20:47)
[2022-02-24] MEDS: budesonide 0.5 mg/2 mL Neb INHALATION ×2 (08:35→20:32)
[2022-02-24] MEDS: apixaban 5 mg Tablet PO ×2 (08:47→18:13)
[2022-02-24] MEDS: pantoprazole 40 mg SDV IVP ×2 (11:31→23:57)
[2022-02-24] MEDS: sucralfate 1 gm Tablet PO ×2 (11:31→23:43)
--- NOTE | 2022-02-24 12:30 | PM.PN ---
Subjective Subjective: Patient was seen this morning, he tells me that he has a good appetite, continues to feel a bit fatigued, no bloody or black stools Vitals/I&O/Wt Last Vital Signs Temp 98.1 F 02/24/22 11:24 Pulse 74 02/24/22 11:24 Resp 18 02/24/22 11:24 BP 129/78 02/24/22 11:24 Pulse Ox 96 02/24/22 11:24 O2 Del Method 02/24/22 11:24 O2 Flow Rate 2 02/24/22 11:24 02/23/22 02/24/22 02/24/22 22:59 06:59 14:59 Intake Total 270 / 2090 200 / 2290 120 / 120 Output Total 1700 / 1700 700 / 2400 Balance -1430 / 390 -500 / -110 120 / 120 Weight last 48 hrs Weight 50.984 kg Weight 63.503 kg Physical Exam Const: COMMON NORMALS: no acute distress and patient oriented x3 Resp: COMMON NORMALS: normal respiratory effort, No retractions, No use of accessory muscles and clear to auscultation bilaterally AUSCULTATION: clear to auscultation bilaterally Cardio: COMMON NORMALS: regular rate, regular rhythm, S1 normal heart sound present and S2 normal heart sound present RATE: regular rate RHYTHM: regular rhythm HEART SOUNDS: S1 normal heart sound present and S2 normal heart sound present GI: COMMON NORMALS: Normal to inspection, nondistended, normoactive bowel sounds present, non-tender and no masses OTHER: Colostomy in place, tissue is fleshy, pink, with stool in bag Extremity: COMMON NORMALS: no pedal edema Neuro: COMMON NORMALS: patient oriented x3 Psych: COMMON NORMALS: mental status grossly normal Data : 02/24/22 04:40 02/24/22 04:40 Micro: Microbiology 02/22/22 16:17 Blood Culture - Preliminary Blood NEGATIVE TO DATE 02/22/22 16:14 Blood Culture - Preliminary Blood NEGATIVE TO DATE 02/22/22 16:45 Urine Culture - Preliminary Urine Catheterized Gram Negative Rods A&P Assessment and plan (1) Hyponatremia: (2) Hypotension: (3) Liver cirrhosis: (4) COPD (chronic obstructive pulmonary disease): (5) Dehydration: (6) Anemia: (7) Severe muscle deconditioning: (8) Protein calorie malnutrition: (9) Afib: (10) HTN (hypertension): (11) Osmotic myelinolysis: (12) Pneumonia: (13) Weakness: (14) Seizure disorder: (15) Status post partial resection of colon: (16) BPH (benign prostatic hyperplasia): Plan 66-year-old male with multiple comorbidities as listed above, cachectic, chronically ill, malnourished, presented to the emergency room last night with generalized malaise and weakness. Noted to have hypotension. No overt signs or symptoms of sepsis at this time. UTI, continue Rocephin Lymphopenia, monitor Hyponatremia, hypovolemic, continue IV fluids Protein calorie malnutrition seen, will consult dietary Consult speech therapy Deconditioning, severe muscular deconditioning, PT OT would benefit from skilled rehab Has a chronic indwelling suprapubic catheter, he tells that it was replaced a few weeks ago, continue empiric Rocephin Hypotension, resolved, hold home medications of Cardizem, hydralazine, continue IV fluids Acute on chronic anemia, hemoglobin down to 8.6, no overt signs of bleeding, no blood from colostomy, Chronic left-sided pleural effusion, concern for empyema in the past, after further evaluation on last hospital visit not enough for thoracocentesis Atrial fibrillation, continue metoprolol, continue Eliquis History of liver cirrhosis, no reported esophageal varices, continue to monitor Low TSH, start low-dose levothyroxine 25 mcg once daily He has a chronic indwelling suprapubic catheter, UA positive however tough to interpret given that its from a longstanding suprapubic cath. Pending urine culture.On empiric ceftriaxone in the interim. Hold his home doses of diltiazem, hydralazine given hypotension. Continue metoprolol 25 mg p.o. twice daily. Gentle IV hydration with normal saline at 75 cc an hour. Monitor sodium. Patient appears to be clinically dehydrated. He is unable to tell me if he has had an adequate caloric intake recently. Chest x-ray shows left lower lobe pleural effusion, however it appears to be stable given compared to previous radiographs. Recently was unable to be tapped as not enough fluid was noted. Initially upon presentation patient was on supplemental oxygen, however at the time of my assessment he saturating 92% on room air. Low suspicion for pneumonia at this time. Family states unable to care for patient appropriately, will reach out to case management for appropriate disposition planning Attestations Medical Necessity Statement*: Patient requires hospital for UTI, hyponatremia, deconditioning Coding Level of Care Code Acute Law Firm Receptionist for Chg F[employer] Diagnoses Hyponatremia E87.1 Hypotension I95.9 Liver cirrhosis K74.60 COPD (chronic obstructive pulmonary disease) J44.9 Dehydration E86.0 Anemia D64.9 Severe muscle deconditioning R29.898 Protein calorie malnutrition E46 Afib I48.91 HTN (hypertension) I10 Osmotic myelinolysis G37.2 Pneumonia J18.9 Weakness R53.1 Seizure disorder G40.909 Status post partial resection of colon Z90.49 BPH (benign prostatic hyperplasia) N40.0
[2022-02-24] MEDS: cyanocobalamin 1,000 mcg Tablet 500 MCG PO (18:13)
[2022-02-24] MEDS: ferrous sulfate EC 325 mg Tablet PO (18:14)
[2022-02-24] MEDS: cefTRIAXone 1,000 MG in sodium chloride 0.9% (plus) 50 ML 100 MG IV (18:16)
--- NOTE | 2022-02-24 18:58 | PC.NURSE ---
Bedside report given to jazmyn lorenzana at this time
[2022-02-25 03:27] VITALS: BP 132/86; PULSE 106; RESP 24; TEMP 36.8; O2SAT 94
[2022-02-25 05:12] LABS: Basophils % 0.6 %; Eosinophils % 0.6 %; Hematocrit 29.7 % (42.0-52.0); Hemoglobin 9.8 g/dL (11.7-16.6); Lymphocytes % 31.8 %; Mean Corpuscular Hemoglobin 28.3 pg (28.0-34.0); Mean Corpuscular Volume 85.8 fl (80-94); Mean Platelet Volume 8.7 fL (7.4-10.4); Monocytes # 0.4 10^3/uL (0.2-0.9); Monocytes % 13.5 %; Neutrophils # 1.58 10^3/uL (1.8-7.7); Neutrophils % 50.9 %; Nucleated Red Blood Cells % 0 %; Platelet Count 320 10^3/cmm (130-400); Red Blood Count 3.46 10^6/uL (4.1-5.3); Red Cell Distribution Width 14.3 % (12.1-15.1); White Blood Count 3.1 10^3/uL (4.0-10.0)
[2022-02-25 05:30] LABS: Alanine Aminotransferase 13 U/L (0-41); Albumin Level 2.4 g/dL (3.5-5.2); Alkaline Phosphatase 56 U/L (40-130); Anion Gap 10.9 (5-19); Aspartate Amino Transferase 17 U/L (0-40); Blood Urea Nitrogen 9 mg/dL (8-23); Calcium 7.1 mg/dL (8.5-10.5); Carbon Dioxide 25 mmol/L (22-29); Chloride 95 mmol/L (98-107); Globulin 2.8 g/dL (1.3-4.6); Glomerular Filtration Rate 134.4 mL/min (90-130); Glucose 83 mg/dL (65-115); Magnesium 1.7 mg/dL (1.7-2.3); Osmolality Calculated 262 mOsm/kg (285-295); Phosphorus 2.3 mg/dL (2.5-4.5); Potassium 3.9 mmol/L (3.5-5.1); Sodium 127 mmol/L (136-145); Total Bilirubin 0.2 mg/dL (0.15-1.2); Total Protein 5.2 g/dL (6.6-8.7)
[2022-02-25] MEDS: levothyroxine 25 mcg Tablet PO (06:04)
[2022-02-25 08:00] VITALS: BP 129/89; PULSE 92; PULSE 95; RESP 17; RESP 18; TEMP 36.5; O2SAT 94; O2SAT 95
[2022-02-25] MEDS: budesonide 0.5 mg/2 mL Neb INHALATION (09:01)
[2022-02-25 09:12] VITALS: PULSE 90
[2022-02-25] MEDS: ropinirole 1 mg Tablet PO (09:34)
[2022-02-25] MEDS: levETIRAcetam 500 mg Tablet 750 MG PO (09:34)
[2022-02-25] MEDS: venlafaxine ER (24HR) 75 mg Capsule PO (09:34)
[2022-02-25] MEDS: metoprolol tartrate 25 mg Tablet PO (09:34)
[2022-02-25] MEDS: apixaban 5 mg Tablet PO (09:34)
[2022-02-25] MEDS: sodium chloride 1 gm Tablet PO (10:02)
[2022-02-25 12:00] VITALS: BP 111/76; PULSE 75; RESP 18; TEMP 36.5; O2SAT 95
--- NOTE | 2022-02-25 12:05 | PM.DCS ---
Discharge Providers Date of Admission: 02/22/22 21:35 Date of Discharge: February 25, 2022 Attending Provider at Admission: Meg York MD Attending Provider at Discharge: Vincent Sinclair MD Primary Care Provider: JAYNA Rivera Diagnoses at Discharge Discharge Diagnosis (1) Hyponatremia: Status: Acute (2) Hypotension: Status: Acute (3) Liver cirrhosis: Status: Acute Permanent problem details: etoh abuse (4) COPD (chronic obstructive pulmonary disease): Status: Acute (5) Dehydration: Status: Acute (6) Anemia: Status: Acute (7) Severe muscle deconditioning: Status: Acute (8) Protein calorie malnutrition: Status: Acute (9) Afib: Status: Acute (10) HTN (hypertension): Status: Acute (11) Osmotic myelinolysis: Status: Acute (12) Pneumonia: Status: Acute (13) Weakness: Status: Acute (14) Seizure disorder: Status: Acute (15) Status post partial resection of colon: Status: Acute (16) BPH (benign prostatic hyperplasia): Status: Acute Reason for Visit Reason for Visit: High BP- Sent by [facility] Hospital Course Ludwin Lux is a 66 year old male with past medical history of COPD, atrial fibrillation, BPH, chronic hyponatremia, COPD, gastritis, hypertension, 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 He has a history of recurrent chronic UTIs with a suprapubic catheter in place which is replaced every 2 weeks.? He was recently admitted here between February 03 to February 13 for a rectal mass and overflow incontinence.? Sigmoidectomy and colostomy was performed on this admission.? No evidence of malignancy was found.? Hospital course had been complicated by development of seizures for which patient was started on Keppra.? He had altered mental status upon admission which resolved at the time of discharge showed patient back to his baseline.? Multiple medications were adjusted on his last visit.? He presented to the emergency room earlier today complaining of generalized weakness and malaise.?? Patient was admitted for acute improved with fluid therapy, discharged with instructions to drink plenty of fluid, and his salt replacement therapy Has protein calorie malnutrition, dietary consulted, diet advanced, For severe muscular deconditioning, recommended skilled rehab however patient's family initially were inclined but eventually wanted to take patient home Chronic indwelling suprapubic catheter, urine culture was positive for E. coli, managed with Rocephin, discharged with cefdinir There is also concerns for hypotension on admission, his Cardizem and hydralazine have been discontinued on discharge He also developed acute on chronic anemia during his hospitalization, no transfusion of packed red blood cells required, but discharged on Protonix and Carafate with close follow-up with primary care provider as outpatient for recheck CBC TSH was low on admission, due to his deconditioning, protein, malnutrition, I have elected to put him on low-dose levothyroxine 25 mcg once daily, recheck TSH and 6 weeks Physical Exam Const: COMMON NORMALS: no acute distress and patient oriented x3 Resp: COMMON NORMALS: normal respiratory effort, No retractions, No use of accessory muscles and clear to auscultation bilaterally AUSCULTATION: clear to auscultation bilaterally Cardio: COMMON NORMALS: regular rate, regular rhythm, S1 normal heart sound present and S2 normal heart sound present RATE: regular rate RHYTHM: regular rhythm HEART SOUNDS: S1 normal heart sound present and S2 normal heart sound present GI: COMMON NORMALS: Normal to inspection, nondistended, normoactive bowel sounds present and non-tender OTHER: Colostomy in place,, reducible, pink Extremity: COMMON NORMALS: no pedal edema Neuro: COMMON NORMALS: patient oriented x3 Psych: COMMON NORMALS: mental status grossly normal Discharge Data Studies Completed and Pending Completed Studies During Hospitalization Category Date Time Status CT head wo con* [id number] Stat Cat Scan 02/22/22 15:47 Completed XR chest 1V portable [id number] Stat Exams 02/22/22 15:47 Completed Pending at discharge Category Date Time Status Blood Culture Stat Lab 02/22/22 16:14 Results Complete Blood Count w/Auto AM LABS Lab 02/26/22 04:00 Ordered Comprehensive Metabolic Panel AM LABS Lab 02/26/22 04:00 Ordered Magnesium AM LABS Lab 02/26/22 04:00 Ordered Phosphorus AM LABS Lab 02/26/22 04:00 Ordered Radiology Impressions Chest X-Ray 02/22/22 15:47 IMPRESSION: Relatively stable appearance of left basilar pleural effusion/associated consolidation. See discussion above and most recent chest CT exam report. Head CT 02/22/22 15:47 IMPRESSION: No acute intracranial findings. Laboratory Results WBC 3.1 10^3/uL (4.0-10.0) L 02/25/22 04:21 RBC 3.46 10^6/uL (4.1-5.3) L 02/25/22 04:21 Hgb 9.8 g/dL (11.7-16.6) L 02/25/22 04:21 Hct 29.7 % (42.0-52.0) L 02/25/22 04:21 MCV 85.8 fl (80-94) 02/25/22 04:21 MCH 28.3 pg (28.0-34.0) 02/25/22 04:21 MCHC 33.0 g/dL (30.0-36.0) 02/25/22 04:21 RDW 14.3 % (12.1-15.1) 02/25/22 04:21 Plt Count 320 10^3/cmm (130-400) 02/25/22 04:21 MPV 8.7 fL (7.4-10.4) 02/25/22 04:21 Neut % (Auto) 50.9 % 02/25/22 04:21 Lymph % (Auto) 31.8 % 02/25/22 04:21 [place] % (Auto) 13.5 % 02/25/22 04:21 Eos % (Auto) 0.6 % 02/25/22 04:21 Baso % (Auto) 0.6 % 02/25/22 04:21 Neut # (Auto) 1.58 10^3/uL (1.8-7.7) L 02/25/22 04:21 Lymph # (Auto) 1.0 10^3/uL (0.8-4.8) 02/25/22 04:21 [place] # (Auto) 0.4 10^3/uL (0.2-0.9) 02/25/22 04:21 Eos # (Auto) 0.0 10^3/uL (0.0-0.8) 02/25/22 04:21 Baso # (Auto) 0.0 10^3/uL (0.0-0.1) 02/25/22 04:21 Nucleated RBC % (auto) 0 % 02/25/22 04:21 Nucleated RBCs # 0.0 /100WBC 02/25/22 04:21 Sodium 127 mmol/L (136-145) L 02/25/22 04:21 Potassium 3.9 mmol/L (3.5-5.1) 02/25/22 04:21 Chloride 95 mmol/L (98-107) L 02/25/22 04:21 Carbon Dioxide 25 mmol/L (22-29) 02/25/22 04:21 Anion Gap 10.9 (5-19) 02/25/22 04:21 BUN 9 mg/dL (8-23) 02/25/22 04:21 Creatinine 0.6 mg/dL (0.7-1.2) L 02/25/22 04:21 GFR Calculation 134.4 mL/min (90-130) H 02/25/22 04:21 Glucose 83 mg/dL (65-115) 02/25/22 04:21 POC Glucose 96 mg/dL (70-110) 02/24/22 06:47 Calculated Osmolality 262 mOsm/kg (285-295) L 02/25/22 04:21 Lactate 0.7 mmol/L (0.5-2.2) 02/22/22 18:31 Calcium 7.1 mg/dL (8.5-10.5) L 02/25/22 04:21 Phosphorus 2.3 mg/dL (2.5-4.5) L 02/25/22 04:21 Magnesium 1.7 mg/dL (1.7-2.3) 02/25/22 04:21 Iron 17 ug/dL (59-158) L 02/23/22 03:23 TIBC 158 mcg/dl 02/23/22 03:23 % Saturation 10.7 % (20-50) L 02/23/22 03:23 Unsat Iron Binding 141 ug/dL (112-347) 02/23/22 03:23 Ferritin 217 ng/mL (30-400) 02/23/22 03:23 Total Bilirubin 0.2 mg/dL (0.15-1.2) 02/25/22 04:21 AST 17 U/L (0-40) 02/25/22 04:21 ALT 13 U/L (0-41) 02/25/22 04:21 Alkaline Phosphatase 56 U/L (40-130) 02/25/22 04:21 Troponin T Baseline 25 ng/L (0-15) H 02/22/22 15:11 Troponin T 120 Minute 22.15 ng/L (0-15) H 02/22/22 17:14 Delta Troponin T -2.85 ABS# (0-10) L 02/22/22 17:14 Troponin T Hi Sens 6Hr 27.58 ng/L (0-15) H 02/22/22 20:31 Troponin T Hi Sens 6Hr Delta 2.58 ng/L (0-12) 02/22/22 20:31 C-Reactive Protein 58.5 mg/L (0.0-4.9) H 02/22/22 15:11 Total Protein 5.2 g/dL (6.6-8.7) L 02/25/22 04:21 Albumin 2.4 g/dL (3.5-5.2) L 02/25/22 04:21 Globulin 2.8 g/dL (1.3-4.6) 02/25/22 04:21 Vitamin B12 1746 pg/mL (232-1245) H 02/23/22 03:23 Folate 15.8 ng/mL (4.5-32.2) 02/23/22 12:12 TSH 6.65 uIU/mL (0.27-4.20) H 02/23/22 03:23 Free T4 1.02 ng/dL (0.82-1.77) 02/23/22 03:23 Free T3 2.2 PG/ML (2.0-4.4) 02/23/22 03:23 Urine Color Yellow (Yellow) 02/22/22 16:45 Urine Appearance Clear (CLEAR) 02/22/22 16:45 Urine pH 6 (5-7) 02/22/22 16:45 Ur Specific [place] 1.010 (1.005-1.030) 02/22/22 16:45 Urine Protein 1+ (Negative) H 02/22/22 16:45 Urine Glucose (UA) Norm (Normal) 02/22/22 16:45 Urine Ketones Negative (Negative) 02/22/22 16:45 Urine Blood 2+ (Negative) H 02/22/22 16:45 Urine Nitrate Negative (Negative) 02/22/22 16:45 Urine Bilirubin Neg (Negative) 02/22/22 16:45 Urine Urobilinogen Norm mg/dL (Negative) 02/22/22 16:45 Ur Leukocyte Esterase 2+ (Negative) H 02/22/22 16:45 Urine RBC 5-10 /hpf (0-2) H 02/22/22 16:45 Urine WBC 25-40 /hpf (0-5) H 02/22/22 16:45 Ur Squamous Epith Cells None /hpf (0-5) 02/22/22 16:45 Amorphous Sediment Not Reportable 02/22/22 16:45 Urine Bacteria 1+ /hpf (NONE) H 02/22/22 16:45 Urine Yeast Trace /hpf 02/22/22 16:45 SARS-CoV-2 Ag (Rapid) positive (Negative) 02/23/22 07:50 Blood Type A Positive 02/22/22 16:17 Rho(D) Type Positive 02/22/22 16:17 Antibody Screen Negative 02/22/22 16:17 Vitals Last Vital Signs Temp 97.7 F 02/25/22 08:00 Pulse 90 02/25/22 09:12 Resp 17 02/25/22 08:00 BP 129/89 02/25/22 08:00 Pulse Ox 94 02/25/22 08:00 O2 Del Method 02/25/22 08:00 O2 Flow Rate 2.5 02/25/22 08:00 Discharge Plan Discharge Patient Disposition: Home Condition: Stable Prescriptions: New sucralfate 1 gram Tablet 1 g PO Q12H 30 Days Qty: 60 0RF pantoprazole [Protonix] 40 mg tablet,delayed release (DR/EC) 40 mg PO BID 30 Days Qty: 60 0RF levothyroxine 25 mcg Tablet 25 mcg PO QAM 30 Days Qty: 30 0RF cefdinir 300 mg capsule 300 mg PO BID 2 Days Qty: 4 0RF Continued ropinirole 1 mg tablet 1 mg PO BID PRN (Reason: Cramps) sennosides-docusate sodium [Stool Softener-Laxative] 8.6-50 mg tablet 2 tab PO DAILY hydroxyzine pamoate 50 mg capsule 50 mg PO Q6H PRN (Reason: Anxiety) temazepam 30 mg capsule 30 mg PO DAILY Hold Instructions: see pcp before resuming nystatin 100,000 unit/gram cream 1 applic TOPICAL BID PRN (Reason: Rash) fluticasone propionate 50 mcg/actuation spray,suspension 1 spray INTRANASAL DAILY PRN (Reason: Nasal Congestion) albuterol sulfate 2.5 mg /3 mL (0.083 %) Solution For Nebulization 2.5 mg INHALATION TID PRN (Reason: Shortness Of Breath Or Wheezing) sodium chloride 1 gram Tablet 1,000 mg PO BID Hold Instructions: see pcp before resuming ondansetron 8 mg tablet,disintegrating 8 mg PO Q8H PRN (Reason: Nausea And Vomiting) cyanocobalamin (vitamin B-12) [Vitamin B-12] 500 mcg Tablet 500 mcg PO QPM ferrous sulfate [iron] 325 mg (65 mg iron) Tablet 325 mg PO QPM budesonide 0.5 mg/2 mL Suspension For Nebulization 0.5 mg INHALATION BID mupirocin 2 % Ointment 1 applic TOPICAL BID PRN (Reason: Rash) Lactobacillus acidophilus 500 million cell Tablet 500 mmu cells PO DAILY formoterol fumarate [Perforomist] 20 mcg/2 mL Solution For Nebulization 2 ml INHALATION BID cranberry extract-vitamin C 250-60 mg Capsule 1 cap PO QPM Men's One Daily 400-20-300 mcg Tablet 1 tab PO QPM Eliquis 5 mg tablet 5 mg PO BID guaifenesin [Mucinex] 600 mg Tablet Extended Release 12hr 600 mg PO Q12H PRN (Reason: Congestion) Yupelri 175 mcg/3 mL Solution For Nebulization 175 mcg INHALATION DAILY polyethylene glycol 3350 [Miralax] 17 gram Powder In Packet 17 g PO DAILY metoprolol tartrate 25 mg Tablet 25 mg PO BID@0900,2100 30 Days Qty: 60 0RF venlafaxine 75 mg capsule,extended release 24hr 75 mg PO DAILY 30 Days Qty: 30 0RF levetiracetam [Keppra] 750 mg tablet 750 mg PO BID 30 Days Qty: 60 0RF Discontinued doxycycline hyclate 100 mg capsule 100 mg PO DAILY Qty: 10 0RF diltiazem HCl 240 mg capsule,extended release 24hr 240 mg PO DAILY hydralazine 25 mg tablet 25 mg PO TID 30 Days Qty: 90 0RF Discharge Orders: Discharge Order (Routine); Ordered 02/25/22 Ordered By: Vincent Sinclair Referrals: Alexandro Lipscomb CPNP [Primary Care Provider] - Discharge Diet: Regular Discharge Activity: Resume usual activity Patient Instructions: Hyponatremia (ED), Hypotension (ED), Opioid Safety Activity Restrictions/Additional Instructions: Decrease hydralazine dose to twice daily from three times daily andmonitor blood pressure. Keep a journal. Follow up with primary care within the week, return for concerns -Follow-up with primary care provider in 1 week for recheck blood pressure -Have your primary care recheck your hemoglobin levels in 1 week -Recheck your thyroid function in 1 week Discharge Attestations Time Spent in Discharge Care*: less than 30 min Quality Metrics Clinical Quality Measures [ No reported AMI, CVA or VTE this stay] Coding Level of Care Code Acute Chg FW DC note Exam Detailed Diagnoses Hyponatremia E87.1 Hypotension I95.9 Liver cirrhosis K74.60 COPD (chronic obstructive pulmonary disease) J44.9 Dehydration E86.0 Anemia D64.9 Severe muscle deconditioning R29.898 Protein calorie malnutrition E46 Afib I48.91 HTN (hypertension) I10 Osmotic myelinolysis G37.2 Pneumonia J18.9 Weakness R53.1 Seizure disorder G40.909 Status post partial resection of colon Z90.49 BPH (benign prostatic hyperplasia) N40.0
--- NOTE | 2022-02-25 14:24 | PC.NURSE ---
Patient's IV removed intact. Patient tolerated well. Reviewed discharge with patient and patient's daughter Rachel. Patient and daughter verbalized understanding of discharge instructions. Patient assisted into wheel chair and pushed to private car.
[2022-02-25 14:30] VITALS: BP 111/76; PULSE 75; RESP 18; TEMP 36.5; O2SAT 95
== END 2022-02-25 14:24 | disposition home health service (06) | DRG 698 ==
LOC: ER 19:28 → ICU 21:39 → MEDSURG 02-23 19:44
PROVIDERS: Emergency Medicine; Admitting Provider Student in an Organized Health Care Education/Training Program; Emergency Provider Emergency Medicine; PCP Registered Nurse; Visit Provider Family Medicine
DX: T83.518A Infection and inflammatory reaction due to other urinary catheter, initial encounter (principal); E43 Unspecified severe protein-calorie malnutrition; E87.1 Hypo-osmolality and hyponatremia; J90 Pleural effusion, not elsewhere classified; Z68.1 Body mass index [BMI] 19.9 or less, adult; Y73.8 Miscellaneous gastroenterology and urology devices associated with adverse incidents, not elsewhere classified; B96.20 Unspecified Escherichia coli [E. coli] as the cause of diseases classified elsewhere; J44.9 Chronic obstructive pulmonary disease, unspecified; I48.91 Unspecified atrial fibrillation; N40.0 Benign prostatic hyperplasia without lower urinary tract symptoms; I10 Essential (primary) hypertension; K70.30 Alcoholic cirrhosis of liver without ascites; F10.10 Alcohol abuse, uncomplicated; I27.20 Pulmonary hypertension, unspecified; Z87.440 Personal history of urinary (tract) infections; Z99.3 Dependence on wheelchair; Z93.1 Gastrostomy status; F17.200 Nicotine dependence, unspecified, uncomplicated; I95.9 Hypotension, unspecified; E86.0 Dehydration; Z79.01 Long term (current) use of anticoagulants; Z79.51 Long term (current) use of inhaled steroids; Z90.49 Acquired absence of other specified parts of digestive tract; G40.909 Epilepsy, unspecified, not intractable, without status epilepticus; D64.9 Anemia, unspecified
CPT/HCPCS: 36415; 36416; 70450; 71045; 80053; 80503; 81001; 82607; 82728; 82746; 82962; 83540; 83550; 83605; 83735; 84100; 84439; 84443; 84481; 84484; 85014; 85018; 85025; 86140; 86850; 86900; 87040; 87077; 87086; 87186; 87205; 87426; 92523; 92610; 93005; 94640; 96365; 96367; 97161; 97165; 97530; 99024; 99285; C9113; J0456; J0696; J3475; J7030; J7050; J7611; J7626

== ENCOUNTER 2022-03-06 18:07 | Inpatient (IN) | payer MEDICARE, MEDICAID, SELFPAY ==
[2022-03-06] VITALS (7 sets, daily range): BP systolic 119–133; BP diastolic 74–82; PULSE 90–116; RESP 16–18; TEMP 36.4–36.6; O2SAT 90–95; BMI 20.5
--- NOTE | 2022-03-06 18:10 | ECG_ITS ---
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 Measurements Intervals [place] Rate: 93 P: 95 NV: 164 QRS: 93 QRSD: 103 T: -90 QT: 375 QTc: 468 Interpretive Statements SINUS RHYTHM BORDERLINE RIGHT AXIS DEVIATION [QRS AXIS > 90] SEPTAL MYOCARDIAL INFARCTION , OF INDETERMINATE AGE [40+ ms Q WAVE IN V1/V2] MODERATE T-WAVE ABNORMALITY, CONSIDER LATERAL ISCHEMIA [-0.1+ mV T-WAVE IN I/aVL/V5/V6] MODERATE T-WAVE ABNORMALITY, CONSIDER INFERIOR ISCHEMIA [-0.1+ mV T-WAVE IN II/aVF] Compared to ECG 02/23/2022 01:14:59 T-wave abnormality now present Possible ischemia now present Myocardial infarct finding still present Electronically Signed On 03-07-2022 3:46:49 CDT by Sly Mcallister M.D. [email or web address]
--- NOTE | 2022-03-06 18:10 | XRR_ITS ---
PROCEDURE INFORMATION: Exam: XR Chest Exam date and time: 03/06/2022 6:16 PM Age: 66 years old Clinical indication: Shortness of breath; Additional info: Dyspnea/cough TECHNIQUE: Imaging protocol: Radiologic exam of the chest. Views: 1 view. COMPARISON: CR XR chest 1V portable [id number] 02/22/2022 3:55 PM FINDINGS: Lungs: Increasing opacity in the left and lower thorax with volume loss suggesting progression of collapse/pneumonia and left pleural effusion. Postobstructive or malignant process may be present in this setting. Right lung is grossly clear. Stable minimal blunting of right CP angle suggesting pleuroparenchymal thickening or trace right pleural effusion. Pleural spaces: See Lungs finding. No pneumothorax. Heart/Mediastinum: No cardiomegaly. Bones/joints: No acute findings. XR/XR chest 1V portable [id number] IMPRESSION: Worsening of left-sided opacity. See discussion above.
[2022-03-06] MEDS: sodium chloride 0.9% 1,000 ML 999 ML IV (18:30)
--- NOTE | 2022-03-06 18:41 | CTR_ITS ---
PROCEDURE INFORMATION: Exam: CT Head Without Contrast Exam date and time: 03/06/2022 7:16 PM Age: 66 years old Clinical indication: Other: Weakness, failure to thrive; Additional info: AMS TECHNIQUE: Imaging protocol: Computed tomography of the head without contrast. Radiation optimization: All CT scans at this facility use at least one of these dose optimization techniques: automated exposure control; mA and/or kV adjustment per patient size (includes targeted exams where dose is matched to clinical indication); or iterative reconstruction. COMPARISON: CT head wo con* [id number] 02/22/2022 4:25 PM RADIATION DOSE METRICS: Total DLP (mGy-cm): 1102.68 FINDINGS: Brain: Mild diffuse hypodense changes are noted in the bilateral periventricular regions, likely related to chronic ischemic small vessel disease. There is mild-moderate brain parenchymal atrophy. No acute intracranial hemorrhage, mass effect or midline shift. Cerebral ventricles: No pathologic ventricular dilatation. Paranasal sinuses: Visualized sinuses are unremarkable. No fluid levels. Mastoid air cells: Visualized mastoid air cells are well aerated. Bones/joints: Unremarkable. No acute fracture. Soft tissues: Unremarkable. CT/CT head wo con* [id number] IMPRESSION: No acute intracranial findings.
--- NOTE | 2022-03-06 18:59 | ED_ITS ---
HPI - General Adult General: Chief complaint: General Medical Stated complaint: FAILURE TO THRIVE Time Seen by Provider: 03/06/22 18:10 Source: patient, family and EMS Mode of arrival: EMS Limitations: no limitations History of Present Illness: 66-year-old male with a history of a colostomy and urostomy and a stroke he is essentially bedbound. He lives at home with family per EMS he is became increasingly weak and has refused to eat or drink over the last 4 to 5 days. He stating that he does not want to do it anymore he does have some confusion no falls he is extremely emancipated here. Review of Systems General: Reports: ROS unobtainable due to mental status PFSH ED PFSH: Medical History Acute exacerbation of chronic obstructive pulmonary disease Afib BPH (benign prostatic hyperplasia) Chronic hyponatremia COPD (chronic obstructive pulmonary disease) Coronavirus infection Common cold variant 229E Disability Dolichocolon Gastritis HTN (hypertension) Liver cirrhosis etoh abuse 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 Presence of externally removable percutaneous endoscopic gastrostomy (PEG) tube Pulmonary HTN Surgical History H/O hemorrhoidectomy Status post laparoscopic-assisted sigmoidectomy Family History Denies family history of Diabetes Social History Smoking and tobacco status: current every day smoker Alcohol intake: unknown Physical Exam Const: COMMON NORMALS: negative for patient oriented x3 GENERAL APPEARANCE: in distress, ill appearing and frail appearing HENMT: COMMON NORMALS: normocephalic and atraumatic HEAD & SCALP: normoce phalic and atraumatic Eye: COMMON NORMALS: Equal, round and reactive pupils present and EOMs intact bilaterally PUPIL: Yes Equal, round and reactive pupils present Neck/C-Spine: COMMON NORMALS: full ROM and supple Chest: COMMONS NORMALS: normal inspection of the chest and normal palpation of entire chest wall Resp: COMMON NORMALS: normal respiratory effort, No retractions, No use of accessory muscles and clear to auscultation bilaterally AUSCULTATION: clear to auscultation bilaterally Cardio: COMMON NORMALS: regular rate, regular rhythm and No murmurs present (Cardio) RATE: regular rate RHYTHM: regular rhythm GI: COMMON NORMALS: Normal to inspection, nondistended, normoactive bowel sounds present, Soft to palpation, non-tender and no masses PALPATION: Yes Soft to palpation Extremity: COMMON NORMALS: normal to inspection and full ROM Neuro: COMMON NORMALS: negative for patient oriented x3 Psych: COMMON NORMALS: Normal thought process present and cooperative THOUGHT PROCESS: Normal thought process present Skin: COMMON NORMALS: no rashes or lesions noted and no wounds GENERAL SKIN EXAM: no rashes or lesions noted Course Vital Signs: Vital signs: Vital Signs Temperature 97.6 F 03/06/22 18:09 Pulse Rate 90 03/06/22 18:09 Respiratory Rate 18 03/06/22 18:09 Blood Pressure 128/82 03/06/22 18:09 Pulse Oximetry 94 03/06/22 18:09 Oxygen Delivery Me thod 03/06/22 18:09 MDM - General Adult Medical Decision Making Patient presents here with generalized weakness and failure to thrive patient is unable to set up he is very cachectic he does have hyponatremia that is chronic in nature I spoke with hospitalist will admit for observation. Lab Data : 03/06/22 19:03 03/06/22 19:03 Radiology Impressions Chest X-Ray 03/06/22 18:10 IMPRESSION: Worsening of left-sided opacity. See discussion above. Head CT 03/06/22 18:41 IMPRESSION: No acute intracranial findings. Laboratory Results WBC 10.8 10^3/uL (4.0-10.0) H 03/06/22 19:03 RBC 3.28 10^6/uL (4.1-5.3) L 03/06/22 19:03 Hgb 9.3 g/dL (11.7-16.6) L 03/06/22 19:03 Hct 27.7 % (42.0-52.0) L 03/06/22 19:03 MCV 84.5 fl (80-94) 03/06/22 19:03 MCH 28.4 pg (28.0-34.0) 03/06/22 19:03 MCHC 33.6 g/dL (30.0-36.0) 03/06/22 19:03 RDW 14.2 % (12.1-15.1) 03/06/22 19:03 Plt Count 305 10^3/cmm (130-400) 03/06/22 19:03 MPV 8.7 fL (7.4-10.4) 03/06/22 19:03 Neut % (Auto) 88.7 % 03/06/22 19:03 Lymph % (Auto) 5.5 % 03/06/22 19:03 [place] % (Auto) 4.9 % 03/06/22 19:03 Eos % (Auto) 0.1 % 03/06/22 19:03 Baso % (Auto) 0.2 % 03/06/22 19:03 Neut # (Auto) 9.56 10^3/uL (1.8-7.7) H 03/06/22 19:03 Lymph # (Auto) 0.6 10^3/uL (0.8-4.8) L 03/06/22 19:03 [place] # (Auto) 0.5 10^3/uL (0.2-0.9) 03/06/22 19:03 Eos # (Auto) 0.0 10^3/uL (0.0-0.8) 03/06/22 19:03 Baso # (Auto) 0.0 10^3/uL (0.0-0.1) 03/06/22 19:03 Nucleated RBC % (auto) 0 % 03/06/22 19:03 Nucleated RBCs # 0.0 /100WBC 03/06/22 19:03 Sodium 125 mmol/L (136-145) L 03/06/22 19:03 Potassium 4.1 mmol/L (3.5-5.1) 03/06/22 19:03 Chloride 92 mmol/L (98-107) L 03/06/22 19:03 Carbon Dioxide 22 mmol/L (22-29) 03/06/22 19:03 Anion Gap 15.1 (5-19) 03/06/22 19:03 BUN 14 mg/dL (8-23) 03/06/22 19:03 Creatinine 0.7 mg/dL (0.7-1.2) 03/06/22 19:03 GFR Calculation 112.5 mL/min (90-130) 03/06/22 19:03 Glucose 60 mg/dL (65-115) L 03/06/22 19:03 Calculated Osmolality 258 mOsm/kg (285-295) L 03/06/22 19:03 Lactic Acid 1.0 mmol/L (0.5-2.2) 03/06/22 19:03 Calcium 7.5 mg/dL (8.5-10.5) L 03/06/22 19:03 Total Bilirubin 0.4 mg/dL (0.15-1.2) 03/06/22 19:03 AST 14 U/L (0-40) 03/06/22 19:03 ALT 10 U/L (0-41) 03/06/22 19:03 Alkaline Phosphatase 82 U/L (40-130) 03/06/22 19:03 Creatine Kinase 40 U/L (39-308) 03/06/22 19:03 Total Protein 6.0 g/dL (6.6-8.7) L 03/06/22 19:03 Albumin 2.6 g/dL (3.5-5.2) L 03/06/22 19:03 Globulin 3.4 g/dL (1.3-4.6) 03/06/22 19:03 Lipase 16 U/L (13-60) 03/06/22 19:03 Discharge Plan Discharge Patient Disposition: Admitted As Inpatient Clinical Impression: Hyponatremia, Adult failure to thrive Condition: Stable Prescriptions: No Action ropinirole 1 mg tablet 1 mg PO BID PRN (Reason: Cramps) sennosides-docusate sodium [Stool Softener-Laxative] 8.6-50 mg tablet 2 tab PO DAILY hydroxyzine pamoate 50 mg capsule 50 mg PO Q6H PRN (Reason: Anxiety) temazepam 30 mg capsule 30 mg PO DAILY Hold Instructions: see pcp before resuming nystatin 100,000 unit/gram cream 1 applic TOPICAL BID PRN (Reason: Rash) fluticasone propionate 50 mcg/actuation spray,suspension 1 spray INTRANASAL DAILY PRN (Reason: Nasal Congestion) albuterol sulfate 2.5 mg /3 mL (0.083 %) Solution For Nebulization 2.5 mg INHALATION TID PRN (Reason: Shortness Of Breath Or Wheezing) sodium chloride 1 gram Tablet 1,000 mg PO BID Hold Instructions: see pcp before resuming ondansetron 8 mg tablet,disintegrating 8 mg PO Q8H PRN (Reason: Nausea And Vomiting) cyanocobalamin (vitamin B-12) [Vitamin B-12] 500 mcg Tablet 500 mcg PO QPM ferrous sulfate [iron] 325 mg (65 mg iron) Tablet 325 mg PO QPM budesonide 0.5 mg/2 mL Suspension For Nebulization 0.5 mg INHALATION BID mupirocin 2 % Ointment 1 applic TOPICAL BID PRN (Reason: Rash) Lactobacillus acidophilus 500 million cell Tablet 500 mmu cells PO DAILY formoterol fumarate [Perforomist] 20 mcg/2 mL Solution For Nebulization 2 ml INHALATION BID cranberry extract-vitamin C 250-60 mg Capsule 1 cap PO QPM Men's One Daily 400-20-300 mcg Tablet 1 tab PO QPM Eliquis 5 mg tablet 5 mg PO BID guaifenesin [Mucinex] 600 mg Tablet Extended Release 12hr 600 mg PO Q12H PRN (Reason: Congestion) Yupelri 175 mcg/3 mL Solution For Nebulization 175 mcg INHALATION DAILY polyethylene glycol 3350 [Miralax] 17 gram Powder In Packet 17 g PO DAILY metoprolol tartrate 25 mg Tablet 25 mg PO BID@0900,2100 30 Days Qty: 60 0RF venlafaxine 75 mg capsule,extended release 24hr 75 mg PO DAILY 30 Days Qty: 30 0RF levetiracetam [Keppra] 750 mg tablet 750 mg PO BID 30 Days Qty: 60 0RF sucralfate 1 gram Tablet 1 g PO Q12H 30 Days Qty: 60 0RF levothyroxine 25 mcg Tablet 25 mcg PO QAM 30 Days Qty: 30 0RF Protonix 40 mg tablet,delayed release (DR/EC) 40 mg PO BID 30 Days Qty: 60 0RF Referrals: Alexandro Lipscomb CPNP [Primary Care Provider] - Coding Level of Care Code ED Distance Learning Coordinator for Chg Fwd Exam Comprehensive
[2022-03-06 19:22] LABS: Basophils % 0.2 %; Eosinophils % 0.1 %; Hematocrit 27.7 % (42.0-52.0); Hemoglobin 9.3 g/dL (11.7-16.6); Lymphocytes # 0.6 10^3/uL (0.8-4.8); Lymphocytes % 5.5 %; Mean Corpuscular HGB Conc 33.6 g/dL (30.0-36.0); Mean Corpuscular Hemoglobin 28.4 pg (28.0-34.0); Mean Corpuscular Volume 84.5 fl (80-94); Mean Platelet Volume 8.7 fL (7.4-10.4); Monocytes # 0.5 10^3/uL (0.2-0.9); Monocytes % 4.9 %; Neutrophils # 9.56 10^3/uL (1.8-7.7); Neutrophils % 88.7 %; Nucleated Red Blood Cells % 0 %; Platelet Count 305 10^3/cmm (130-400); Red Blood Count 3.28 10^6/uL (4.1-5.3); Red Cell Distribution Width 14.2 % (12.1-15.1); White Blood Count 10.8 10^3/uL (4.0-10.0)
[2022-03-06 19:55] LABS: Alanine Aminotransferase 10 U/L (0-41); Albumin Level 2.6 g/dL (3.5-5.2); Alkaline Phosphatase 82 U/L (40-130); Anion Gap 15.1 (5-19); Aspartate Amino Transferase 14 U/L (0-40); Blood Urea Nitrogen 14 mg/dL (8-23); Calcium 7.5 mg/dL (8.5-10.5); Carbon Dioxide 22 mmol/L (22-29); Chloride 92 mmol/L (98-107); Creatine Phosphokinase 40 U/L (39-308); Creatinine Clr Calc Pharmacy 83.0552; Globulin 3.4 g/dL (1.3-4.6); Glomerular Filtration Rate 112.5 mL/min (90-130); Glucose 60 mg/dL (65-115); Lipase 16 U/L (13-60); Osmolality Calculated 258 mOsm/kg (285-295); Potassium 4.1 mmol/L (3.5-5.1); Sodium 125 mmol/L (136-145); Total Bilirubin 0.4 mg/dL (0.15-1.2)
[2022-03-06 20:30] LABS: Add Urine Microscopic? YES; Bilirubin Urine Neg (Negative); Blood Urine Neg (Negative); Glucose Urine UA Norm (Normal); Ketones Urine 1+ (Negative); Leukocyte Esterase Urine Negative (Negative); Nitrate Urine Negative (Negative); Protein Urine 1+ (Negative); Urine Appearance Clear (CLEAR); Urine Color Yellow (Yellow); Urobilinogen Urine Norm (Negative); pH Urine 6 (5-7)
[2022-03-06 20:31] LABS: Add Urine Culture? No; RBC Urine 0-4 /hpf (0-2); WBC Urine 0-4 /hpf (0-5)
[2022-03-06 20:54] LABS: INR 1.62 (0.8-1.2)
[2022-03-06 21:00] LABS: Ammonia 10 umol/L (16-60)
--- NOTE | 2022-03-06 21:17 | P.HP_ITS ---
Providers/Chief Complaint Primary Care Provider: JAYNA Rivera Chief Complaint: FAILURE TO THRIVE History of Present Illness Ludwin Lux is a 66 year old male with past medical history of COPD, atrial fibrillation, BPH, chronic hyponatremia, COPD, gastritis, hypertension, 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 He has a history of recurrent chronic UTIs with a suprapubic c atheter in place which is replaced every 2 weeks.? He was recently admitted here between February 03 to February 13 for a rectal mass and overflow incontinence.? Sigmoidectomy and colostomy was performed on this admission.? No evidence of malignancy was found.? Hospital course had been complicated by development of seizures for which patient was started on Keppra.? He had altered mental status upon admission which resolved at the time of discharge showed patient back to his baseline.? Readmitted between February 22 to February 25 with generalized weakness and malaise, COVID + on rapid Ag. He had signs of dehydration, protein calorie malnutrition, UTI which was appropriately treated. His antihypertensive medications were adjusted.. For his severe muscular deconditioning, skilled rehab was recommended, however it appears that after initial consideration patient and his family refused. They elected to return home. Low-dose levothyroxine was also started with recommendation to recheck T SH in 6 weeks. Patient is brought back to the ER by his family with the same complaints of increasing generalized weakness, fatigue, inability to eat or drink over the past 4 to 5 days. It appears he has also been intermittently confused, which is similar to his prior baseline. No current history of fever chest pain dyspnea, abdominal pain nausea. Imaging today shows worsening left-sided infiltrates on chest x-ray. Review of Systems General: Reports: 10 or more systems reviewed and unremarkable except in HPI and below Const: Denies: fever(s), chills or body aches Eyes: Denies: change in vision, blurry vision or photophobia ENMT: Reports: hoarseness; Denies: throat pain, enlarged tonsils, odynophagia or nasal congestion Card: Denies: chest pain, palpitations, irregular heart rhythm, edema, swelling of feet/ankles, lightheadedness, pre-syncope, dyspnea on exertion or orthopnea Resp: Denies: dyspnea, productive cough, non-productive cough, wheezing, stri nghia, pain on inspiration, change in phlegm color, hemoptysis or chest congestion GI: Denies: abdominal pain, nausea, vomiting, hematemesis, coffee ground emesis, dysphagia, heartburn, diarrhea, constipation, GI cramping, change in stool character, hematochezia or melena : Denies: flank pain, dysuria, urinary frequency, urinary urgency, urinary hesitancy or hematuria Musc: Denies: neck pain, back pain, extremity pain, joint swelling, joint warmth or deformity Neuro: Denies: headache(s), numbness in extremities, weakness in extremities, sensory changes, difficulty walking, frequent falls, dizziness, vertigo, behavioral changes, Slurred speech present or seizure-like activity Psych: Denies: anxiety, depression, suicidal ideation or homicidal ideation Endo: Denies: polyuria, polydipsia, tired all the time, cold intolerance or hot flashes Thiago/Lymph: Denies: easy bruising or easy bleeding Medications/Allergies Home Medications Medication Instructions Recorded Confirmed Last Taken Type fluticasone propionate 50 1 spray intranasal DAILY PRN Nasal 06/21/21 02/25/22 Unknown History mcg/actuation nasal Congestion spray,suspension hydroxyzine pamoate 50 mg capsule 50 mg PO Q6H PRN Anxiety 06/21/21 02/25/22 02/02/22 History nystatin 100,000 unit/gram topical 1 applic topical BID PRN Rash 06/21/21 02/25/22 Unknown History cream ropinirole 1 mg tablet 1 mg PO BID PRN Cramps 06/21/21 02/25/22 Unknown History sennosides 8.6 mg-docusate sodium 2 tab PO DAILY 06/21/21 02/25/22 02/02/22 Hi story 50 mg tablet (Stool Softener-Laxative) temazepam 30 mg capsule 30 mg PO DAILY 06/21/21 02/25/22 02/02/22 History Lactobacillus acidophilus 500 500 mmu cells PO DAILY 02/03/22 02/25/22 02/03/22 History million cell tablet albuterol sulfate 2.5 mg/3 mL 2.5 mg inhalation TID PRN 02/03/22 02/25/22 02/03/22 History (0.083 %) solution for nebulization Shortness Of Breath Or Wheezing apixaban 5 mg tablet (Eliquis) 5 mg PO BID 02/03/22 02/25/22 02/03/22 History budesonide 0.5 mg/2 mL suspension 0.5 mg inhalation BID 02/03/22 02/25/22 02/03/22 History for nebulization cranberry extract-vitamin C 250 1 cap PO QPM 02/03/22 02/25/22 02/02/22 History mg-60 mg capsule cyanocobalamin (vitamin B-12) 500 500 mcg PO QPM 02/03/22 02/25/22 02/02/22 History mcg tablet (Vitamin B-12) ferrous sulfate 325 mg (65 mg 325 mg PO QPM 02/03/22 02/25/22 02/02/22 History iron) tablet (iron) formoterol fumarate 20 mcg/2 mL 2 ml inhalation BID 02/03/22 02/25/22 02/03/22 History solution for nebulization (Perforomist) guaifenesin 600 mg tablet, 600 mg PO Q12H PRN Congestion 02/03/22 02/25/22 Unknown History extended release 12 hr (Mucinex) nzxbayuw-btacwfgy-rjdkn acid 400 1 tab PO QPM 02/03/22 02/25/22 02/02/22 History mcg-vit K 20 mcg-lycop 300 mcg tablet (Men's One Daily) mupirocin 2 % topical ointment 1 applic topical BID PRN Rash 02/03/22 02/25/22 Unknown History ondansetron 8 mg disintegrating 8 mg PO Q8H PRN Nausea And Vomiting 02/03/22 02/25/22 Unknown History tablet polyethylene glycol 3350 17 gram 17 g PO DAILY 02/03/22 02/25/22 Unknown History oral powder packet (Miralax) revefenacin 175 mcg/3 mL solution 175 mcg inhalation DAILY 02/03/22 02/25/22 02/03/22 History for nebulization (Yupelri) sodium chloride 1 gram tablet 1,000 mg PO BID 02/03/22 02/25/22 02/03/22 History levetiracetam 750 mg tablet 750 mg PO BID 30 days #60 tabs 02/13/22 02/25/22 Unknown Rx (Keppra) metoprolol tartrate 25 mg tablet 25 mg PO BID@0900,2100 30 days #60 02/13/22 02/25/22 Unknown Rx tabs venlafaxine 75 mg capsule,extended 75 mg PO DAILY 30 days #30 caps 02/13/22 02/25/22 Unknown Rx release 24 hr levothyroxine 25 mcg tablet 25 mcg PO QAM 30 days #30 tabs 02/25/22 Unknown Rx pantoprazole 40 mg tablet,delayed 40 mg PO BID 30 days #60 tabs 02/25/22 Unknown Rx release (Protonix) sucralfate 1 gram tablet 1 g PO Q12H 30 days #60 tabs 02/25/22 Unknown Rx Allergies Allergy/AdvReac Type Severity Reaction Status Date / Time Sulfa (Sulfonamide Allergy ALGY-Rash Verified 02/25/22 09:55 Antibiotics) PFSH Acute PFSH: Medical History Acute exacerbation of chronic obstructive pulmonary disease Afib BPH (benign prostatic hyperplasia) Chronic hyponatremia COPD (chronic obstructive pulmonary disease) Coronavirus infection Common cold variant 229E Disability Dolichocolon Gastritis HTN (hypertension) Liver cirrhosis etoh abuse 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 Presence of externally removable percutaneous endoscopic gastrostomy (PEG) tube Pulmonary HTN Surgical History H/O hemorrhoidectomy Status post laparoscopic-assisted sigmoidectomy Family History Denies family history of Diabetes Social History Smoking and tobacco status: current every day smoker Alcohol intake: unknown Vitals/I&O/Wt Last Vital Signs Temp 97.6 F 03/06/22 18:09 Pulse 99 03/06/22 20:38 Resp 18 03/06/22 20:38 BP 133/82 03/06/22 20:38 Pulse Ox 95 03/06/22 20:38 O2 Del Method 03/06/22 18:09 Weight last 48 hrs Weight 61.235 kg Physical Exam Narrative: General: No acute distress, AO x2-3, which appears to be his recent baseline HEENT: PERRLA, pupils bilaterally equal and reactive, pallors not present Chest: Scattered crackles to auscultation bilateral lower lobes.? No CVS: S1-S2 regular, no murmurs, no tachycardia, no gallops, no rubs Abdomen: Soft, nontender, no organomegaly, bowel sounds present Neuro: No focal deficits, no facial deformity, AO x3, power 5/5 in all limbs ? Data : 03/06/22 19:03 03/06/22 19:03 Other data: Radiology Impressions Chest X-Ray 03/06/22 18:10 IMPRESSION: Worsening of left-sided opacity. See discussion above. Head CT 03/06/22 18:41 IMPRESSION: No acute intracranial findings. Laboratory Results WBC 10.8 10^3/uL (4.0-10.0) H 03/06/22 19:03 RBC 3.28 10^6/uL (4.1-5.3) L 03/06/22 19:03 Hgb 9.3 g/dL (11.7-16.6) L 03/06/22 19:03 Hct 27.7 % (42.0-52.0) L 03/06/22 19:03 MCV 84.5 fl (80-94) 03/06/22 19:03 MCH 28.4 pg (28.0-34.0) 03/06/22 19:03 MCHC 33.6 g/dL (30.0-36.0) 03/06/22 19:03 RDW 14.2 % (12.1-15.1) 03/06/22 19:03 Plt Count 305 10^3/cmm (130-400) 03/06/22 19:03 MPV 8.7 fL (7.4-10.4) 03/06/22 19:03 Neut % (Auto) 88.7 % 03/06/22 19:03 Lymph % (Auto) 5.5 % 03/06/22 19:03 Coleman % (Auto) 4.9 % 03/06/22 19:03 Eos % (Auto) 0.1 % 03/06/22 19:03 Baso % (Auto) 0.2 % 03/06/22 19:03 Neut # (Auto) 9.56 10^3/uL (1.8-7.7) H 03/06/22 19:03 Lymph # (Auto) 0.6 10^3/uL (0.8-4.8) L 03/06/22 19:03 Coleman # (Auto) 0.5 10^3/uL (0.2-0.9) 03/06/22 19:03 Eos # (Auto) 0.0 10^3/uL (0.0-0.8) 03/06/22 19:03 Baso # (Auto) 0.0 10^3/uL (0.0-0.1) 03/06/22 19:03 Nucleated RBC % (auto) 0 % 03/06/22 19:03 Nucleated RBCs # 0.0 /100WBC 03/06/22 19:03 PT 19.60 SECONDS (12.1-14.9) H 03/06/22 19:03 INR 1.62 (0.8-1.2) H 03/06/22 19:03 Sodium 125 mmol/L (136-145) L 03/06/22 19:03 Potassium 4.1 mmol/L (3.5-5.1) 03/06/22 19:03 Chloride 92 mmol/L (98-107) L 03/06/22 19:03 Carbon Dioxide 22 mmol/L (22-29) 03/06/22 19:03 Anion Gap 15.1 (5-19) 03/06/22 19:03 BUN 14 mg/dL (8-23) 03/06/22 19:03 Creatinine 0.7 mg/dL (0.7-1.2) 03/06/22 19:03 GFR Calculation 112.5 mL/min (90-130) 03/06/22 19:03 Glucose 60 mg/dL (65-115) L 03/06/22 19:03 POC Glucose 102 mg/dL (70-110) 03/07/22 00:24 Calculated Osmolality 258 mOsm/kg (285-295) L 03/06/22 19:03 Lactic Acid 1.0 mmol/L (0.5-2.2) 03/06/22 19:03 Calcium 7.5 mg/dL (8.5-10.5) L 03/06/22 19:03 Total Bilirubin 0.4 mg/dL (0.15-1.2) 03/06/22 19:03 AST 14 U/L (0-40) 03/06/22 19:03 ALT 10 U/L (0-41) 03/06/22 19:03 Alkaline Phosphatase 82 U/L (40-130) 03/06/22 19:03 Ammonia 10 umol/L (16-60) L 03/06/22 20:35 Creatine Kinase 40 U/L (39-308) 03/06/22 19:03 Total Protein 6.0 g/dL (6.6-8.7) L 03/06/22 19:03 Albumin 2.6 g/dL (3.5-5.2) L 03/06/22 19:03 Globulin 3.4 g/dL (1.3-4.6) 03/06/22 19:03 Lipase 16 U/L (13-60) 03/06/22 19:03 Urine Color Yellow (Yellow) 03/06/22 19:10 Urine Appearance Clear (CLEAR) 03/06/22 19:10 Urine pH 6 (5-7) 03/06/22 19:10 Ur Specific Hamilton 1.020 (1.005-1.030) 03/06/22 19:10 Urine Protein 1+ (Negative) H 03/06/22 19:10 Urine Glucose (UA) Norm (Normal) 03/06/22 19:10 Urine Ketones 1+ (Negative) H 03/06/22 19:10 Urine Blood Neg (Negative) 03/06/22 19:10 Urine Nitrate Negative (Negative) 03/06/22 19:10 Urine Bilirubin Neg (Negative) 03/06/22 19:10 Urine Urobilinogen Norm mg/dL (Negative) 03/06/22 19:10 Ur Leukocyte Esterase Negative (Negative) 03/06/22 19:10 Urine RBC 0-4 /hpf (0-2) H 03/06/22 19:10 Urine WBC 0-4 /hpf (0-5) H 03/06/22 19:10 Ur Squamous Epith Cells None /hpf (0-5) 03/06/22 19:10 Amorphous Sediment Not Reportable 03/06/22 19:10 Urine Bacteria None /hpf (NONE) 03/06/22 19:10 A&P Assessment and plan (1) Adult failure to thrive: (2) Protein calorie malnutrition: (3) Pneumonia: (4) Severe muscle deconditioning: (5) COPD (chronic obstructive pulmonary disease): (6) Liver cirrhosis: Plan 66-year-old male with multiple comorbidities as listed above, cachectic, chronically ill, chronically bedbound, malnourished, recent COVID (Ag + on 02/23) presented to the emergency room with generalized malaise and weakness. Tmax 99.9 F No overt signs of sepsis CXR with grossly worsened left sided lung infiltrates. 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 There has been left lower lobe opacity present at least since 01/2022, thoracentesis was planned but could not be completed as there wasnt enough fluid. High suspicion for malignancy with possible post obstructive pneumonia. Will obtain Ct chest. Empiric rc with Zosyn and vancomycin Obtain soutum cx and gram stain, MRSA screen Hold eliquis for now in case needs thoracentesis UA currently with negative leuk esterase and negative nitrate, not concerning for UTI Clinically appears to be dehydrated. Hypoglycemia noted on CMP at 60. Suspect this is secondary to poor po intake. Gentle IV hydration with D5 normal saline at 75 cc an hour.? Monitor sodium.? Continue nebulization with duonebs, budesonide, revefenacin Code status: Full code DVt ppx: holding eliquis for now for possible thoracentesis Attestations Medical Necessity Statement*: >2 mdinight admission anticipated for pneumonia, iv abx, further assessment of worsening left pneumonia Coding Level of Care Code Acute Associate Professor Of Engineering for Chg Fwd Diagnoses Adult failure to thrive R62.7 Protein calorie malnutrition E46 Pneumonia J18.9 Severe muscle deconditioning R29.898 COPD (chronic obstructive pulmonary disease) J44.9 Liver cirrhosis K74.60
[2022-03-06 21:23] LABS: Glucose Point of Care 67 mg/dL (70-110)
[2022-03-06] MEDS: dextrose 50% syringe 50 mL IVP (21:48)
[2022-03-07] VITALS (11 sets, daily range): BP systolic 101–124; BP diastolic 67–77; PULSE 74–106; RESP 16–18; TEMP 36.4–37.7; O2SAT 92–99
[2022-03-07] MEDS: sucralfate 1 gm Tablet PO ×3 (00:23→21:20)
[2022-03-07] MEDS: sodium chloride 0.9% 1,000 ML 75 ML IV (00:23)
[2022-03-07 00:36] LABS: Glucose Point of Care 102 mg/dL (70-110)
--- NOTE | 2022-03-07 02:18 | CT_ITS ---
WS: [id number] CT CHEST TECHNIQUE: Noncontrast CT of the chest with coronal and sagittal reformatted images. CLINICAL INFORMATION: worsened left sided pneumonia COMPARISON: CTA chest February 09, 2022 DLP: 387.[address] scans at [facility] use at least one of these dose optimization techniques: automated e xposure control; mA and/or kV adjustment per patient size (includes targeted exams where dose is matc hed to clinical indication); or iterative reconstruction. FINDINGS: Small LEFT pleural effusion with thickened pleura suspicious for empyema. This is similar in appearan ce to the prior examination. Increased consolidation in the LEFT lower lobe with progressed pneumonia . Progressed airspace opacities extending into the LEFT upper lobe. Secretions with near complete opa cification of the LEFT mainstem bronchus is progressed compared to previous. RIGHT lung remains well aerated. Volume loss LEFT lung with RIGHT to LEFT mediastinal shift. Aortic calcification. Ascending thoracic aorta measuring 3.5 CM. A few small hepatic cysts. Partially visualized LEFT renal cyst. Adrenal glands appear normal. Small amount of perihepatic fluid with edema in the upper abdominal mesentery. Moderate thoracic kyphosis. Schmorl's nodes in the mid thoracic spine. CT/CT chest wo con [id number] IMPRESSION: 1. Small LEFT pleural effusion similar to previous with thickened visceral and parietal pleura suspicious for empyema. 2. Progressed pneumonia with consolidation in the LEFT lower lobe with patchy infiltrates extending into the LEFT upper lobe. Volume loss LEFT lung with RIGH T to LEFT mediastinal shift. 3. Near complete opacification of the LEFT mainstem bronchus is new compared t o previous. 4. RIGHT lung remains well aerated with trace pleural fluid/pleural thickening .
--- NOTE | 2022-03-07 02:46 | PC.PHAR ---
Pharmacokinetic dosing service Date: 03/07/22 Time: 024 Objective: Patient: Ludwin Lux Floor: 256-1 Age: 66 yo Serum creatinine: 0.7 mg/dL Height: 68.0 Inches Weight (kg): 61.235 Diagnosis: Relevant medical/social history: Cultures and sensitivities: Other labs: Assessment: IBW (kg): 68.40 Dosing wt(kg): 61.235 Estimated Creatinine clearance (ml/min): 88.7 CRCL method: Cockcroft and Gault using ibw(default). Drug selected: Vancomycin Loading dose (mg): 0 Vd (liters): 55.1 (factor used: 0.9 L/kg) Noe (hr-1): 0.078 Half life (hrs): 8.89 Recommended dose: 1000 mg Interval: 12 hrs Infusion time (hrs): 1.5 Predicted peak (mcg/mL): 28.2 Predicted trough (mcg/mL): 12.43 Total body weight is being used for vancomycin dosing. Renal function is stable [ ] /unstable [ ] Recommendations: Give Vancomycin 1000 mg q 12 hrs with an expected Cpeak of 28.2 mcg/ml and an expected Ctrough of 12.43 mcg/ml Renal dosing of other antibiotics (review renal dosing of other medications and list guidelines here): Thank you for the consult, will continue to follow. Signature: Dot Petersen [facility]
[2022-03-07] MEDS: vancomycin 1,000 MG in sodium chloride 0.9% 250 ML 250 MG IV ×2 (03:29→14:05)
[2022-03-07 03:33] LABS: SARS Covid-2 Antigen negative (Negative)
[2022-03-07] MEDS: dextrose 5%-sod chloride 0.9% 1,000 ML 75 ML IV ×3 (04:35→20:31)
[2022-03-07] MEDS: piperacillin-tazobactam 3.375 GM in sodium chloride 0.9% (plus) 50 ML IV ×3 (04:35→20:15)
[2022-03-07 05:26] LABS: Basophils % 0.5 %; Eosinophils % 0.1 %; Hematocrit 24.5 % (42.0-52.0); Hemoglobin 8.3 g/dL (11.7-16.6); Lymphocytes # 0.5 10^3/uL (0.8-4.8); Lymphocytes % 6.3 %; Mean Corpuscular HGB Conc 33.9 g/dL (30.0-36.0); Mean Corpuscular Hemoglobin 28.6 pg (28.0-34.0); Mean Corpuscular Volume 84.5 fl (80-94); Mean Platelet Volume 8.7 fL (7.4-10.4); Monocytes # 0.6 10^3/uL (0.2-0.9); Neutrophils # 7.23 10^3/uL (1.8-7.7); Neutrophils % 85.4 %; Nucleated Red Blood Cells % 0 %; Platelet Count 269 10^3/cmm (130-400); Red Cell Distribution Width 14.2 % (12.1-15.1); White Blood Count 8.5 10^3/uL (4.0-10.0)
[2022-03-07 05:43] LABS: Alanine Aminotransferase 10 U/L (0-41); Albumin Level 2.5 g/dL (3.5-5.2); Alkaline Phosphatase 71 U/L (40-130); Anion Gap 14.2 (5-19); Aspartate Amino Transferase 13 U/L (0-40); Blood Urea Nitrogen 12 mg/dL (8-23); Calcium 7.7 mg/dL (8.5-10.5); Carbon Dioxide 22 mmol/L (22-29); Chloride 95 mmol/L (98-107); Creatinine Clr Calc Pharmacy 83.0552; Glomerular Filtration Rate 112.5 mL/min (90-130); Glucose 82 mg/dL (65-115); Osmolality Calculated 263 mOsm/kg (285-295); Potassium 4.2 mmol/L (3.5-5.1); Sodium 127 mmol/L (136-145); Total Bilirubin 0.3 mg/dL (0.15-1.2); Total Protein 5.5 g/dL (6.6-8.7)
[2022-03-07] MEDS: levothyroxine 25 mcg Tablet PO (06:14)
[2022-03-07] MEDS: sennosides-docusate Tablet 2 TAB PO (08:05)
[2022-03-07] MEDS: levETIRAcetam 500 mg Tablet 750 MG PO ×2 (08:05→17:09)
[2022-03-07] MEDS: metoprolol tartrate 25 mg Tablet PO ×2 (08:06→20:13)
[2022-03-07] MEDS: temazepam 15 mg Capsule 30 MG PO (08:06)
[2022-03-07] MEDS: pantoprazole DR 40 mg Tablet PO ×2 (08:06→17:09)
[2022-03-07] MEDS: polyethylene glycol 3350 Pkt 17 gm PO (08:07)
[2022-03-07] MEDS: venlafaxine ER (24HR) 75 mg Capsule PO (08:07)
[2022-03-07] MEDS: budesonide 0.5 mg/2 mL Neb INHALATION ×2 (08:14→19:57)
--- NOTE | 2022-03-07 10:42 | PC.PHAR ---
PTS DAUGHTER DICK [phone] STATES SHE TAKES CARE OF THE PTS MEDICATIONS-NOTES ARE MADE IN THE PHARMACY COMMENTS
--- NOTE | 2022-03-07 10:56 | PC.NURSE ---
Dr. Rosas rounded, patient NPO, to discuss POC with family to make further decisions for care.
--- NOTE | 2022-03-07 12:14 | PC.NURSE ---
Notified RT to place chest vest per Dr. Rosas
[2022-03-07] MEDS: ipratropium-albuterol 3 mL Neb INHALATION ×2 (13:27→19:57)
--- NOTE | 2022-03-07 14:16 | PM.PN ---
Subjective Subjective: H&P and labs appreciated. Today morning seen with daughter at bedside. Patient is awake but not alert. Appears lethargic. Has remained medically stable and afebrile. On 2 L nasal cannula saturation 92%. Vitals/I&O/Wt Last Vital Signs Temp 98.3 F 03/07/22 11:38 Pulse 98 03/07/22 13:53 Resp 18 03/07/22 13:53 BP 101/70 03/07/22 11:38 Pulse Ox 92 03/07/22 13:53 O2 Del Method 03/07/22 13:53 O2 Flow Rate 2 03/07/22 13:53 03/06/22 03/07/22 03/07/22 22:59 06:59 14:59 Intake Total 1000 / 1000 250 / 1250 110 / 110 Output Total 740 / 740 Balance 1000 / 1000 -490 / 510 110 / 110 Weight last 48 hrs Weight 61.235 kg Weight 61.235 kg Physical Exam Narrative: General: No acute distress, AO x2-3, which appears to be his recent baseline, chronically sick appearing, lethargic HEENT: PERRLA, pupils bilaterally equal and reactive, pallors not present Chest: Coarse crackles, decreased air entry in left hemithorax, diffuse rhonchi all over the lung lopez CVS: S1-S2 regular, no murmurs, no tachycardia, no gallops, no rubs Abdomen: Soft, nontender, no organomegaly, bowel sounds present Neuro: No focal deficits, no facial deformity, AO x3, power 5/5 in all limbs Data : 03/07/22 04:48 03/07/22 04:48 Micro: Microbiology 03/07/22 04:48 Blood Culture - Preliminary Blood SPECIMEN COLLECTED 03/07/22 04:50 Blood Culture - Preliminary Blood SPECIMEN COLLECTED A&P Assessment and plan (1) Pneumonia: Qualifiers: Pneumonia type: aspiration pneumonia Laterality: left (2) Adult failure to thrive: (3) Protein calorie malnutrition: Qualifiers: Protein-calorie malnutrition severity: moderate Qualified Code(s): E44.0 - Moderate protein-calorie malnutrition (4) Severe muscle deconditioning: (5) COPD (chronic obstructive pulmonary disease): (6) Osmotic myelinolysis: (7) Hyponatremia: (8) Liver cirrhosis: (9) Afib: Plan 66-year-old male with multiple comorbidities as listed above, cachectic, chronically ill, chronically bedbound, malnourished, recent COVID (Ag + on 02/23) presented to the emergency room with generalized malaise and weakness. Generalized weakness and malaise: Most likely secondary to chronic illness, recovering from COVID-19, worsening of left-sided pneumonia which appears to be aspiration, acute on chronic hyponatremia, poor oral intake. Check Keppra levels, urine Legionella and bacterial antigen, vitamin B12 and folate levels. UTI less likely given urinalysis. Appreciate ammonia levels. CT head results appreciated. On last discharge patient's venlafaxine was decreased. Increase to 150 mg daily. Restart home dose of mirtazapine. Infectious source: Most likely pneumonia: Check MRSA swab. Sputum culture. Highly concerning for aspiration pneumonia. Modified barium swallow. NPO. For now continue with empiric vancomycin and Zosyn. Will DC vancomycin if MRSA negative. CT chest results appreciated. Empyema less likely. Acute on chronic hyponatremia: Mostly secondary to poor oral intake. D5 NS at 75 cc/h. Restart home dose of salt tablets 1 g twice daily. Were recently discontinued on last discharge. Continue other chronic medications. Analgesia: Tylenol as needed Glycemic control: Not needed Nutrition: NPO. High concerns for aspiration pneumonia CODE STATUS: Full code. Discussed in detail with patient's daughter at bedside. We discussed unfortunately patient has baseline poor physical conditioning, failure to thrive given his chronic illnesses. We discussed unfortunately if patient has an adverse event of cardiac arrest, chances of patient reviving him getting back to his baseline which is already poor is very low. Daughter verbalizes understanding and thinks DNR/DNI is appropriate but would want to talk about this with her other sister who is the DPOA and patient's . Requesting family meeting on 03/08. PUD prophylaxis: Protonix DVT prophylaxis: Restart home dose of Eliquis Discharge planning: Home with caregiver once medically stable Continue with care at [facility]. This documentation was created by [employer] ditching machine engineer software. Every effort was made to ensure accuracy of ditching machine engineer. Any obvious errors or omissions should be clarified with the author of the document. Attestations Medical Necessity Statement*: Requires further hospitalization for management of generalized and weakness, multifactorial, left-sided aspiration pneumonia, acute on chronic hyponatremia Time Spent in Patient Care: Greater than 35 minutes Coding Level of Care Code Acute Auto Design Detailer for Chg Fwd Diagnoses Pneumonia J18.9 Pneumonia type: aspiration pneumonia Laterality: left Adult failure to thrive R62.7 Protein calorie malnutrition E44.0 Protein-calorie malnutrition severity: moderate Severe muscle deconditioning R29.898 COPD (chronic obstructive pulmonary disease) J44.9 Osmotic myelinolysis G37.2 Hyponatremia E87.1 Liver cirrhosis K74.60 Afib I48.91
[2022-03-07] MEDS: sodium chloride 1 gm Tablet PO (17:09)
[2022-03-07] MEDS: sodium chloride 3.5% neb 4 mL Neb INHALATION (19:57)
[2022-03-07] MEDS: apixaban 5 mg Tablet PO (20:14)
[2022-03-07] MEDS: mirtazapine 15 mg Tablet 7.5 MG PO (20:14)
[2022-03-08] VITALS (19 sets, daily range): BP systolic 114–146; BP diastolic 50–90; PULSE 76–99; RESP 16–18; TEMP 36.4–37.1; O2SAT 93–100
[2022-03-08] MEDS: ipratropium-albuterol 3 mL Neb INHALATION ×4 (01:19→19:50)
[2022-03-08] MEDS: vancomycin 1,000 MG in sodium chloride 0.9% 250 ML 250 MG IV ×2 (02:39→16:03)
[2022-03-08] MEDS: piperacillin-tazobactam 3.375 GM in sodium chloride 0.9% (plus) 50 ML IV ×3 (04:01→21:14)
[2022-03-08] MEDS: levothyroxine 25 mcg Tablet PO (05:01)
[2022-03-08 05:18] LABS: Basophils % 0.4 %; Eosinophils % 0.4 %; Hematocrit 22.4 % (42.0-52.0); Hemoglobin 7.5 g/dL (11.7-16.6); Lymphocytes # 0.4 10^3/uL (0.8-4.8); Lymphocytes % 7.6 %; Mean Corpuscular HGB Conc 33.5 g/dL (30.0-36.0); Mean Corpuscular Volume 86.5 fl (80-94); Mean Platelet Volume 8.9 fL (7.4-10.4); Monocytes # 0.3 10^3/uL (0.2-0.9); Monocytes % 6.3 %; Neutrophils # 4.56 10^3/uL (1.8-7.7); Neutrophils % 84.6 %; Nucleated Red Blood Cells % 0 %; Platelet Count 232 10^3/cmm (130-400); Red Blood Count 2.59 10^6/uL (4.1-5.3); Red Cell Distribution Width 14.2 % (12.1-15.1); White Blood Count 5.4 10^3/uL (4.0-10.0)
[2022-03-08 05:39] LABS: Alanine Aminotransferase 10 U/L (0-41); Albumin Level 2.1 g/dL (3.5-5.2); Alkaline Phosphatase 62 U/L (40-130); Anion Gap 11.7 (5-19); Aspartate Amino Transferase 27 U/L (0-40); Blood Urea Nitrogen 10 mg/dL (8-23); Calcium 7.4 mg/dL (8.5-10.5); Carbon Dioxide 22 mmol/L (22-29); Chloride 99 mmol/L (98-107); Globulin 2.8 g/dL (1.3-4.6); Glomerular Filtration Rate 134.4 mL/min (90-130); Glucose 89 mg/dL (65-115); Osmolality Calculated 267 mOsm/kg (285-295); Potassium 3.7 mmol/L (3.5-5.1); Sodium 129 mmol/L (136-145); Total Bilirubin 0.3 mg/dL (0.15-1.2); Total Protein 4.9 g/dL (6.6-8.7)
[2022-03-08 06:02] LABS: Creatinine Clr Calc Pharmacy 83.0552
[2022-03-08] MEDS: venlafaxine ER (24HR) 75 mg Capsule 150 MG PO (08:04)
[2022-03-08] MEDS: pantoprazole DR 40 mg Tablet PO ×2 (08:04→17:52)
[2022-03-08] MEDS: temazepam 15 mg Capsule 30 MG PO (08:04)
[2022-03-08] MEDS: sennosides-docusate Tablet 2 TAB PO (08:04)
[2022-03-08] MEDS: apixaban 5 mg Tablet PO (08:05)
[2022-03-08] MEDS: metoprolol tartrate 25 mg Tablet PO ×2 (08:05→21:16)
[2022-03-08] MEDS: levETIRAcetam 500 mg Tablet 750 MG PO ×2 (08:05→17:52)
[2022-03-08] MEDS: nicotine 14 mg Patch 1 PATCH TRANSDERMA (08:06)
[2022-03-08] MEDS: sodium chloride 1 gm Tablet PO ×2 (08:06→17:52)
[2022-03-08] MEDS: sodium chloride 3.5% neb 4 mL Neb INHALATION ×2 (08:11→19:50)
[2022-03-08] MEDS: budesonide 0.5 mg/2 mL Neb INHALATION ×2 (08:11→19:50)
--- NOTE | 2022-03-08 09:00 | FL_ITS ---
WS: [id number] Modified barium swallow, 03/08/2022 Clinical Data: Oropharyngeal dysphagia Comparison: None. Fluoroscopy time: 2min [id number] # of spot films: 10 Findings: The patient demonstrated marked delay in initiating the oral propulsion of material from the mouth to the hypopharynx. There is no definite aspiration or penetration but there were coughing episodes. Th ere is also hypopharyngeal delay in propelling material to the esophagus. The barium tablet showed de lay in the upper third of the esophagus but with additional oral barium the tablet did pass into the stomach. FL/FL barium swallow modifd [id number] Impression: 1. Delay in initiating oral propulsion from the mouth or hypopharynx. 2. No evidence of aspiration of penetration but coughing did occur. 3. Delay in transporting the barium tablet from the upper third of the esophagu s to the stomach
[2022-03-08] MEDS: polyethylene glycol 3350 Pkt 17 gm PO (10:01)
[2022-03-08 10:07] LABS: Levetiracetam Immunoassy 24.2 mcg/mL (6.0-46.0)
[2022-03-08] MEDS: sucralfate 1 gm Tablet PO ×2 (11:00→21:17)
--- NOTE | 2022-03-08 11:49 | PC.NURSE ---
Notified Dr. Muro of the patients continued difficultly swallowing medications.
--- NOTE | 2022-03-08 12:47 | P.PN_ITS ---
Subjective Subjective: H&P and labs appreciated. Today morning seen with daughter at bedside. Patient is awake but not alert. Appears lethargic. Has remained medically stable and afebrile. On 2 L nasal cannula saturation 92%. Vitals/I&O/Wt Last Vital Signs Temp 97.5 F L 03/08/22 12:00 Pulse 82 03/08/22 12:00 Resp 17 03/08/22 12:00 BP 114/78 03/08/22 12:00 Pulse Ox 97 03/08/22 12:00 O2 Del Method 03/08/22 12:00 O2 Flow Rate 2 03/08/22 11:18 03/07/22 03/08/22 03/08/22 22:59 06:59 14:59 Intake Total 1738.75 / 2605.00 300 / 2905.00 1050 / 1050 Output Total 25 / 250 / 275 Balance 1713.75 / 2580.00 50 / 2630.00 1050 / 1050 Weight last 48 hrs Weight 61.235 kg Weight 61.235 kg Physical Exam Narrative: General: No acute distress, AO x2-3, which appears to be his recent baseline, chronically sick appearing, lethargic HEENT: PERRLA, pupils bilaterally equal and reactive, pallors not present Chest: Coarse crackles, decreased air entry in left hemithorax, diffuse rhonchi all over the lung lopez CVS: S1-S2 regular, no murmurs, no tachycardia, no gallops, no rubs Abdomen: Soft, nontender, no organomegaly, bowel sounds present Neuro: No focal deficits, no facial deformity, AO x3, power 5/5 in all limbs Data : 03/08/22 04:00 03/08/22 04:00 Micro: Microbiology 03/07/22 04:50 Blood Culture - Preliminary Blood NEGATIVE TO DATE 03/07/22 04:48 Blood Culture - Preliminary Blood NEGATIVE TO DATE 03/06/22 19:10 Legionella Urinary Antigen - Final Unknown Source 03/07/22 03:12 MRSA Culture - Final Nose A&P Assessment and plan (1) Pneumonia: Qualifiers: Pneumonia type: aspiration pneumonia Laterality: left (2) Adult failure to thrive: (3) Protein calorie malnutrition: Qualifiers: Protein-calorie malnutrition severity: moderate Qualified Code(s): E44.0 - Moderate protein-calorie malnutrition (4) Severe muscle deconditioning: (5) COPD (chronic obstructive pulmonary disease): (6) Osmotic myelinolysis: (7) Hyponatremia: (8) Liver cirrhosis: (9) Afib: (10) Anemia: Plan 66-year-old male with multiple comorbidities as listed above, cachectic, chronically ill, chronically bedbound, malnourished, recent COVID (Ag + on 02/23) presented to the emergency room with generalized malaise and weakness. Generalized weakness and malaise: Most likely secondary to chronic illness including severe protein energy malnutrition and failure to thrive, recovering from COVID-19, worsening of left-sided pneumonia which appears to be aspiration, acute on chronic hyponatremia, poor oral intake. Keppra levels appropriate. Appreciate vitamin B12 and folate levels. UTI less likely given urinalysis. Appreciate ammonia levels. CT head results appreciated. Continue with home psych medications including mirtazapine, venlafaxine. Infectious source: Most likely pneumonia: MRSA negative. Highly concerning for aspiration pneumonia. Appreciate modified barium swallow. Patient having difficulty to swallow and possible aspiration because of generalized weakness from failure to thrive. Discussed in detail with patient and family at bedside. They are agreeable for PEG tube placement. Surgery consulted. Start on clear liquid diet for now. Continue with Zosyn. Stop vancomycin. Acute on chronic hyponatremia: Mostly secondary to poor oral intake. D5 NS at 75 cc/h. Restart home dose of salt tablets 1 g twice daily. Were recently discontinued on last discharge. Monitor BMP daily. Anemia: No active site of bleeding. No melena as per family. Most likely secondary to chronic severe protein energy malnutrition. As per family multiple episodes of transfusions in the past. Transfuse monitor PRBC. Continue Protonix and Carafate. Check LDH, haptoglobin, reticulocyte count. Atrial fibrillation: Rate controlled. Continue with home dose of metoprolol. Hold off on Eliquis given need of PEG tube. Start on full dose Lovenox 1 mg/kg body weight every 12 hourly from 03/09. Will hold off on Lovenox given on the morning of PEG tube placement. Continue other chronic medications. Analgesia: Tylenol as needed Glycemic control: Not needed Nutrition: Clear liquid diet. PEG tube placement to be done. CODE STATUS: Full code. Discussed in detail with patient and patient's family at bedside including daughters and . We discussed given poor baseline health, physical condition and failure to thrive that in event of cardiac arrest with chest compressions and ventilator patient's health would deteriorate further. For now patient wants everything to be done in case of a cardiac arrest. He is agreeable for PEG tube placement. DPOA paperwork to be done. Case management alerted. PUD prophylaxis: Protonix DVT prophylaxis: Lovenox 1 mg/kg body weight every 12 hourly. To be held on the day of PEG tube placement. Discharge planning: Home with caregiver once medically stable Continue with care at [facility] [place]. This documentation was created by [employer] disability insurance claim examiner software. Every effort was made to ensure accuracy of disability insurance claim examiner. Any obvious errors or omissions should be clarified with the author of the document. Attestations Medical Necessity Statement*: Requires further hospitalization for management of generalized weakness and malaise, aspiration pneumonia in setting of adult failure to thrive from chronic protein energy malnutrition, anemia Time Spent in Patient Care: Greater than 35 minutes Coding Level of Care Code Acute Piccolo Mechanic for [facility] Fwd Diagnoses Pneumonia J18.9 Pneumonia type: aspiration pneumonia Laterality: left Adult failure to thrive R62.7 Protein calorie malnutrition E44.0 Protein-calorie malnutrition severity: moderate Severe muscle deconditioning R29.898 COPD (chronic obstructive pulmonary disease) J44.9 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
[2022-03-08 13:08] LABS: Reticulocyte % 1.6 % (0.5-2.0)
[2022-03-08 13:24] LABS: Lactate Dehydrogenase 136 U/L (135-225)
--- NOTE | 2022-03-08 13:27 | PM.CONSULT ---
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 He recovered well. There were no issues with colostomy. She came to the hospital because of the failure to thrive. It sounds like he is aspirating. Medicine team requested the placement of the PEG tube. The patient is on Eliquis for A. fib. Last dose was this morning. Review of Systems Narrative: Unable to obtain, unable to obtain, the patient is not able to communicate Medications/Allergies Home Medications Medication Instructions Recorded Confirmed Last Taken Type fluticasone propionate 50 1 spray intranasal DAILY PRN 06/21/21 03/07/22 Unknown History mcg/actuation nasal Allergy Symptoms spray,suspension hydroxyzine pamoate 50 mg capsule 50 mg PO Q8H PRN Anxiety 06/21/21 03/07/22 02/02/22 History ropinirole 1 mg tablet 1 mg PO BEDTIME PRN Restless Leg(S) 06/21/21 03/07/22 Unknown History sennosides 8.6 mg-docusate sodium 1 tab PO BID 06/21/21 03/07/22 02/02/22 History 50 mg tablet (Stool Softener-Laxative) temazepam 30 mg capsule 30 mg PO BEDTIME PRN Sleep 06/21/21 03/07/22 02/02/22 History albuterol sulfate 2.5 mg/3 mL 2.5 mg inhalation TID PRN 02/03/22 03/07/22 02/03/22 History (0.083 %) solution for nebulization Shortness Of Breath Or Wheezing apixaban 5 mg tablet (Eliquis) 5 mg PO BID 02/03/22 03/07/22 02/03/22 History budesonide 0.5 mg/2 mL suspension 0.5 mg inhalation BID 02/03/22 03/07/22 02/03/22 History for nebulization cranberry extract-vitamin C 250 1 cap PO QPM 02/03/22 03/07/22 02/02/22 History mg-60 mg capsule cyanocobalamin (vitamin B-12) 500 500 mcg PO QPM 02/03/22 03/07/22 02/02/22 History mcg tablet (Vitamin B-12) ferrous sulfate 325 mg (65 mg 325 mg PO QPM 02/03/22 03/07/22 02/02/22 History iron) tablet (iron) formoterol fumarate 20 mcg/2 mL 2 ml inhalation BID 02/03/22 03/07/22 02/03/22 History solution for nebulization (Perforomist) guaifenesin 600 mg tablet, 600 mg PO DAILY PRN Congestion 02/03/22 03/07/22 Unknown History extended release 12 hr (Mucinex) akqwjznv-xhxlrooe-deswq acid 400 1 tab PO QPM 02/03/22 03/07/22 02/02/22 History mcg-vit K 20 mcg-lycop 300 mcg tablet (Men's One Daily) mupirocin 2 % topical ointment 1 applic topical BID PRN Rash 02/03/22 03/07/22 Unknown History ondansetron 8 mg disintegrating 8 mg PO Q8H PRN Nausea And Vomiting 02/03/22 03/07/22 Unknown History tablet polyethylene glycol 3350 17 gram 17 g PO DAILY 02/03/22 03/07/22 Unknown History oral powder packet (Miralax) revefenacin 175 mcg/3 mL solution 175 mcg inhalation DAILY 02/03/22 03/07/22 02/03/22 History for nebulization (Yufabiolai) sodium chloride 1 gram tablet 1,000 mg PO BID 02/03/22 03/07/22 02/03/22 History levetiracetam 750 mg tablet 750 mg PO BID 30 days #60 tabs 02/13/22 03/07/22 Unknown Rx (Keppra) metoprolol tartrate 25 mg tablet 25 mg PO BID@0900,2100 30 days #60 02/13/22 03/07/22 Unknown Rx tabs levothyroxine 25 mcg tablet 25 mcg PO QAM 30 days #30 tabs 02/25/22 03/07/22 Unknown Rx L.acidophil-L.casei-B.bifid-B.longum-FOS 1 cap PO DAILY 03/07/22 03/07/22 Unknown History 2 billion cell-50 mg capsule (Probiotic Blend) mirtazapine 7.5 mg tablet 7.5 mg PO BEDTIME 03/07/22 03/07/22 Unknown History pantoprazole 40 mg tablet,delayed 40 mg PO BID PRN Acid Reflux 03/07/22 03/07/22 Unknown History release sucralfate 1 gram tablet 1 g PO Q12H PRN UNKNOWN 03/07/22 03/07/22 Unknown History venlafaxine 225 mg tablet,extended 225 mg PO QAM 03/07/22 03/07/22 Unknown History release 24 hr Allergies Allergy/AdvReac Type Severity Reaction Status Date / Time Sulfa (Sulfonamide Allergy ALGY-Rash Verified 03/07/22 10:42 Antibiotics) Current Medications Generic Name Dose Route Start Last Admin Trade Name Freq PRN Reason Stop Dose Admin Albuterol Sulfate 2.5 mg 03/06/22 22:27 03/08/22 11:14 Albuterol 2.5 Mg/0.5 Ml Neb INHALATION 2.5 mg TID PRN Administration Shortness Of Breath Or Wheezing Albuterol/Ipratropium 3 ml 03/07/22 14:00 03/08/22 08:11 Ipratropium-Albuterol 3 Ml Neb INHALATION 3 ml Q6H.RESP ANGELA Administration Apixaban 5 mg 03/07/22 21:00 03/08/22 08:05 Apixaban 5 Mg Tablet PO 5 mg BID@0900,2100 ANGELA Administration Budesonide 0.5 mg 03/07/22 08:00 03/08/22 08:11 Budesonide 0.5 Mg/2 Ml Neb INHALATION 0.5 mg BID.RESPIRATORY ANGELA Administration Dextrose/Sodium Chloride 1,000 mls @ 75 mls/hr 03/07/22 02:15 03/08/22 09:54 Dextrose 5%-Sod Chloride 0.9% IV Infused .[id number] ANGELA Infusion Piperacillin Sod/Tazobactam 50 mls @ 12.5 mls/hr 03/07/22 04:00 03/08/22 13:23 Sod 3.375 gm/ Sodium Chloride IV 12.5 mls/hr Q8H ANGELA Administration Protocol Vancomycin HCl 1,000 mg/ 250 mls @ 250 mls/hr 03/07/22 03:00 03/08/22 03:39 Sodium Chloride IV Infused Q12H ANGELA Infusion Levetiracetam 750 mg 03/07/22 09:00 03/08/22 08:05 Levetiracetam 500 Mg Tablet PO 750 mg BID ANGELA Administration Levothyroxine Sodium 25 mcg 03/07/22 06:00 03/08/22 05:01 Levothyroxine 25 Mcg Tablet PO 25 mcg QAM ANGELA Administration Metoprolol Tartrate 25 mg 03/07/22 09:00 03/08/22 08:05 Metoprolol Tartrate 25 Mg Tablet PO 25 mg BID@0900,2100 ANGELA Administration Mirtazapine 7.5 mg 03/07/22 21:00 03/07/22 20:14 Mirtazapine 15 Mg Tablet PO 7.5 mg BEDTIME ANGELA Administration Nicotine 1 patch 03/08/22 09:00 03/08/22 08:06 Nicotine 14 Mg Patch TRANSDERMA 1 patch DAILY ANGELA Administration Non-Formulary Medication 1 cap 03/07/22 18:00 03/07/22 15:23 Cranberry Extract-Vitamin C PO Not Given QPM ANGELA Non-Formulary Medication 175 mcg 03/07/22 09:00 03/08/22 10:50 Revefenacin [Yupelri] INHALATION Not Given DAILY ANGELA Pantoprazole Sodium 40 mg 03/07/22 09:00 03/08/22 08:[address] 40 Mg Tablet PO 40 mg BID ANGELA Administration Polyethylene Glycol 17 gm 03/07/22 09:00 03/08/22 10:01 Polyethylene Glycol 3350 Pkt 17 Gm PO 17 gm DAILY ANGELA Administration Senna/Docusate Sodium 2 tab 03/07/22 09:00 03/08/22 08:04 Sennosides-Docusate Tablet PO 2 tab DAILY ANGELA Administration Sodium Chloride 1 gm 03/07/22 18:00 03/08/22 08:06 Sodium Chloride 1 Gm Tablet PO 1 gm BID ANGELA Administration Sodium Chloride 4 ml 03/07/22 20:00 03/08/22 08:11 Sodium Chloride 3.5% Neb 4 Ml Neb INHALATION 4 ml BID.RESPIRATORY ANGELA Administration Sucralfate 1 gm 03/06/22 22:21 03/08/22 11:00 Sucralfate 1 Gm Tablet PO 1 gm Q12H ANGELA Administration Temazepam 30 mg 03/07/22 09:00 03/08/22 08:04 Temazepam 15 Mg Capsule PO 30 mg DAILY ANGELA Administration Venlafaxine HCl 150 mg 03/08/22 09:00 03/08/22 08:04 Venlafaxine Er (24hr) 75 Mg Capsule PO 150 mg DAILY ANGELA Administration PFSH Acute PFSH: Medical History (Updated 03/08/22 @ 13:39 by Karel Harrison MD) Acute exacerbation of chronic obstructive pulmonary disease Afib BPH (benign prostatic hyperplasia) Chronic hyponatremia COPD (chronic obstructive pulmonary disease) Coronavirus infection Common cold variant 229E COVID-19 Disability Dolichocolon Gastritis HTN (hypertension) Liver cirrhosis etoh abuse 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 Presence of externally removable percutaneous endoscopic gastrostomy (PEG) tube Pulmonary HTN Surgical History (Updated 03/07/22 @ 14:20 by Norm Muro MD) H/O hemorrhoidectomy Status post laparoscopic-assisted sigmoidectomy Status post partial resection of colon Family History Denies family history of Diabetes Social History Smoking and tobacco status: current every day smoker Alcohol intake: unknown Vitals/I&O/Wt Last Vital Signs Temp 97.5 F L 03/08/22 12:00 Pulse 82 03/08/22 12:00 Resp 17 03/08/22 12:00 BP 114/78 03/08/22 12:00 Pulse Ox 97 03/08/22 12:00 O2 Del Method 03/08/22 12:00 O2 Flow Rate 2 03/08/22 11:18 03/07/22 03/08/22 03/08/22 22:59 06:59 14:59 Intake Total 1738.75 / 2605.00 300 / 2905.00 1050 / 1050 Output Total 25 / 25 250 / 275 Balance 1713.75 / 2580.00 50 / 2630.00 1050 / 1050 Weight last 48 hrs Weight 135 lb Weight 135 lb Physical Exam Narrative: General: No acute distress Psych: Unable to communicate, both comprehension and expression are altered Eyes: [sclerae are white] Head/ENT: [normocephalic, symmetric] CV: [regular] pulse, [tachychardic], no JVD Lungs: [symmetrical chest rise] Abdomen: [soft, ND] colostomy in place. Scar from the previous PEG tube. Midline incision is well-healed. Ext: [no obvious traumatic deformities] Skin: warm Data : 03/08/22 04:00 03/08/22 04:00 Micro: Microbiology 03/06/22 19:10 Bacterial Antigens - Final Urine Kidney 03/07/22 04:50 Blood Culture - Preliminary Blood NEGATIVE TO DATE 03/07/22 04:48 Blood Culture - Preliminary Blood NEGATIVE TO DATE 03/06/22 19:10 Legionella Urinary Antigen - Final Unknown Source 03/07/22 03:12 MRSA Culture - Final Nose A&P Assessment and plan (1) Adult failure to thrive: (2) Protein calorie malnutrition: Qualifiers: Protein-calorie malnutrition severity: moderate Qualified Code(s): E44.0 - Moderate protein-calorie malnutrition (3) Anticoagulation adequate: Plan The placement of the PEG tube was discussed with the patient's family. Indications were discussed, specifically, persistent dysphagia and aspiration. At this time the patient has been through the major surgery and recovered relatively well. The patient wants to continue with full care, they think that better nutrition may improve his overall condition. Risks and benefits of PEG placement was discussed with the patient including possibility of bleeding, infection, damage to surrounding structures, accidental perforation of the stomach, bowel, dislodgment of the PEG tube, inability to maintain nutrition. Patient family agreed to proceed. The patient is on blood thinners. We will hold his apixaban today, possibly can perform procedure on Sunday or Sunday. He will be on therapeutic Lovenox on , hold all anticoagulation on Sunday a.m. Coding Level of Care Code Acute Building Services Engineer for [facility] Fwd Diagnoses Adult failure to thrive R62.7 Protein calorie malnutrition E44.0 Protein-calorie malnutrition severity: moderate Anticoagulation adequate Z79.01
[2022-03-08 13:59] LABS: Vancomycin Trough 18.2 ug/mL (10-15)
--- NOTE | 2022-03-08 15:14 | PC.NURSE ---
This nurse discussed with family the change of diet to clear liquids per doctor orders.
[2022-03-08] MEDS: sodium chloride 0.9% (100 ml) 100 ML (17:34)
[2022-03-08] MEDS: mirtazapine 15 mg Tablet 7.5 MG PO (21:16)
[2022-03-08] MEDS: dextrose 5%-sod chloride 0.9% 1,000 ML 75 ML IV (21:40)
[2022-03-09] VITALS (13 sets, daily range): BP systolic 126–156; BP diastolic 76–95; PULSE 77–98; RESP 16–25; TEMP 36.7–37.1; O2SAT 94–100
[2022-03-09] MEDS: ipratropium-albuterol 3 mL Neb INHALATION ×4 (01:38→20:30)
[2022-03-09] MEDS: vancomycin 1,000 MG in sodium chloride 0.9% 250 ML 250 MG IV ×2 (02:49→15:16)
[2022-03-09 05:11] LABS: Basophils % 0.5 %; Eosinophils % 0.7 %; Hemoglobin 9.6 g/dL (11.7-16.6); Lymphocytes # 0.3 10^3/uL (0.8-4.8); Lymphocytes % 7.7 %; Mean Corpuscular HGB Conc 32.3 g/dL (30.0-36.0); Mean Corpuscular Hemoglobin 28.7 pg (28.0-34.0); Mean Corpuscular Volume 88.7 fl (80-94); Mean Platelet Volume 8.6 fL (7.4-10.4); Monocytes # 0.3 10^3/uL (0.2-0.9); Monocytes % 6.3 %; Neutrophils # 3.47 10^3/uL (1.8-7.7); Neutrophils % 84.1 %; Nucleated Red Blood Cells % 0 %; Platelet Count 236 10^3/cmm (130-400); Red Blood Count 3.35 10^6/uL (4.1-5.3); White Blood Count 4.1 10^3/uL (4.0-10.0)
[2022-03-09 05:16] LABS: Hematocrit 29.7 % (42.0-52.0)
[2022-03-09] MEDS: levothyroxine 25 mcg Tablet PO (05:32)
[2022-03-09 05:35] LABS: Alanine Aminotransferase 13 U/L (0-41); Albumin Level 2.5 g/dL (3.5-5.2); Alkaline Phosphatase 62 U/L (40-130); Anion Gap 12.3 (5-19); Aspartate Amino Transferase 23 U/L (0-40); Blood Urea Nitrogen 7 mg/dL (8-23); Calcium 7.5 mg/dL (8.5-10.5); Carbon Dioxide 23 mmol/L (22-29); Chloride 100 mmol/L (98-107); Globulin 2.8 g/dL (1.3-4.6); Glomerular Filtration Rate 134.4 mL/min (90-130); Glucose 90 mg/dL (65-115); Osmolality Calculated 272 mOsm/kg (285-295); Potassium 3.3 mmol/L (3.5-5.1); Sodium 132 mmol/L (136-145); Total Bilirubin 0.4 mg/dL (0.15-1.2); Total Protein 5.3 g/dL (6.6-8.7)
[2022-03-09 05:38] LABS: Creatinine Clr Calc Pharmacy 83.0552
[2022-03-09] MEDS: piperacillin-tazobactam 3.375 GM in sodium chloride 0.9% (plus) 50 ML IV ×3 (05:54→21:16)
[2022-03-09] MEDS: temazepam 15 mg Capsule 30 MG PO (08:17)
[2022-03-09] MEDS: levETIRAcetam 500 mg Tablet 750 MG PO ×2 (08:17→17:49)
[2022-03-09] MEDS: nicotine 14 mg Patch 1 PATCH TRANSDERMA (08:18)
[2022-03-09] MEDS: polyethylene glycol 3350 Pkt 17 gm PO (08:18)
[2022-03-09] MEDS: sodium chloride 1 gm Tablet PO ×2 (08:18→17:50)
[2022-03-09] MEDS: venlafaxine ER (24HR) 75 mg Capsule 150 MG PO (08:19)
[2022-03-09] MEDS: metoprolol tartrate 25 mg Tablet PO ×2 (08:19→21:16)
[2022-03-09] MEDS: pantoprazole DR 40 mg Tablet PO ×2 (08:19→17:50)
[2022-03-09] MEDS: sennosides-docusate Tablet 2 TAB PO (08:19)
[2022-03-09] MEDS: enoxaparin 60 mg/0.6 mL Syringe SUBCUT ×2 (08:19→21:15)
[2022-03-09] MEDS: budesonide 0.5 mg/2 mL Neb INHALATION ×2 (08:57→20:30)
[2022-03-09] MEDS: sodium chloride 3.5% neb 4 mL Neb INHALATION (08:58)
[2022-03-09] MEDS: dextrose 5%-sod chloride 0.9% 1,000 ML 75 ML IV (09:54)
[2022-03-09] MEDS: sucralfate 1 gm Tablet PO ×2 (10:48→21:21)
--- NOTE | 2022-03-09 12:57 | PC.SOCIAL ---
Pg 2 IMM Explained to pt Pg 2 IMM. No questions voiced. Provided pt a copy. Initialed, dated, & timed a copy & placed in chart.
--- NOTE | 2022-03-09 14:55 | P.PN_ITS ---
Subjective Subjective: No acute events overnight. Patient has remained hemodynamically stable and afebrile. Today morning seen with family at bedside. Patient is again stating he is hungry and wants to eat. He wants to eat a cheeseburger or drink coffee. We discussed for now decided to continue with clear liquid diet. We discussed plan for PEG tube tomorrow morning. Vitals/I&O/Wt Last Vital Signs Temp 98.7 F 03/09/22 12:00 Pulse 78 03/09/22 14:05 Resp 16 03/09/22 14:03 BP 144/89 03/09/22 12:00 Pulse Ox 94 03/09/22 14:03 O2 Del Method 03/09/22 14:03 O2 Flow Rate 2 03/09/22 14:03 03/08/22 03/09/22 03/09/22 22:59 06:59 14:59 Intake Total 1010.017 / 2060.017 900 / 2960.017 1447.5 / 1447.5 Output Total 350 / 350 2049 / 2049 Balance 1010.017 / 2060.017 550 / 2610.017 -602.5 / -602.5 Physical Exam Narrative: General: No acute distress, AO x2-3, which appears to be his recent baseline, chronically sick appearing, lethargic HEENT: PERRLA, pupils bilaterally equal and reactive, pallors not present Chest: Coarse crackles, decreased air entry in left hemithorax, diffuse rhonchi all over the lung lopez CVS: S1-S2 regular, no murmurs, no tachycardia, no gallops, no rubs Abdomen: Soft, nontender, no organomegaly, bowel sounds present Neuro: No focal deficits, no facial deformity, AO x3, power 5/5 in all limbs Data : 03/09/22 04:46 03/09/22 04:46 Micro: Microbiology 03/08/22 10:15 Gram Stain - Final Sputum - Expectorated Sputum Sputum Culture - Preliminary 03/06/22 19:10 Bacterial Antigens - Final Urine Kidney A&P Assessment and plan (1) Pneumonia: Qualifiers: Pneumonia type: aspiration pneumonia Laterality: left (2) Adult failure to thrive: (3) Protein calorie malnutrition: Qualifiers: Protein-calorie malnutrition severity: moderate Qualified Code(s): E44.0 - Moderate protein-calorie malnutrition (4) Severe muscle deconditioning: (5) COPD (chronic obstructive pulmonary disease): (6) Osmotic myelinolysis: (7) Hyponatremia: (8) Liver cirrhosis: (9) Afib: (10) Anemia: Plan 66-year-old male with multiple comorbidities as listed above, cachectic, chronically ill, chronically bedbound, malnourished, recent COVID (Ag + on 02/23) presented to the emergency room with generalized malaise and weakness. Generalized weakness and malaise: Most likely secondary to chronic illness including severe protein energy malnutrition and failure to thrive, recovering from COVID-19, worsening of left-sided pneumonia which appears to be aspiration, acute on chronic hyponatremia, poor oral intake. Keppra levels appropriate. Appreciate vitamin B12 and folate levels. UTI less likely given urinalysis. Appreciate ammonia levels. CT head results appreciated. Continue with home psych medications including mirtazapine, venlafaxine. Infectious source: Most likely pneumonia: MRSA negative. Highly concerning for aspiration pneumonia. Appreciate modified barium swallow. Patient having difficulty to swallow and possible aspiration because of generalized weakness from failure to thrive. Discussed in detail with patient and family at bedside. They are agreeable for PEG tube placement. Surgery consulted. Start on clear liquid diet for now. Continue with Zosyn. Stop vancomycin. Acute on chronic hyponatremia: Mostly secondary to poor oral intake. D5 NS at 75 cc/h. Restart home dose of salt tablets 1 g twice daily. Were recently discontinued on last discharge. Monitor BMP daily. Anemia: No active site of bleeding. No melena as per family. Most likely secondary to chronic severe protein energy malnutrition. As per family multiple episodes of transfusions in the past. Transfuse monitor PRBC. Continue Protonix and Carafate. Check LDH, haptoglobin, reticulocyte count. Atrial fibrillation: Rate controlled. Continue with home dose of metoprolol. Hold off on Eliquis given need of PEG tube. Start on full dose Lovenox 1 mg/kg body weight every 12 hourly from 03/09. Will hold off on Lovenox given on the morning of PEG tube placement. Continue other chronic medications. Analgesia: Tylenol as needed Glycemic control: Not needed Nutrition: Clear liquid diet. PEG tube placement to be done. CODE STATUS: Full code. Discussed in detail with patient and patient's family at bedside including daughters and . We discussed given poor baseline health, physical condition and failure to thrive that in event of cardiac arrest with chest compressions and ventilator patient's health would deteriorate further. For now patient wants everything to be done in case of a cardiac arrest. He is agreeable for PEG tube placement. DPOA paperwork to be done. Case management alerted. PUD prophylaxis: Protonix DVT prophylaxis: Lovenox 1 mg/kg body weight every 12 hourly. To be held on the day of PEG tube placement. Discharge planning: Home with caregiver once medically stable Continue with care at [facility]. Plan for the day: Continue vancomycin and Zosyn. Continue clear liquid diet. N.p.o. after midnight. Plan for PEG tube placement tomorrow. Continue with Lovenox 1 mg/kg body weight every 12 hourly today. Hold off every morning dose of 03/10. Continue with IV fluids. Care discussed in detail with family again at bedside. Patient wants to continue and go ahead with PEG tube placement when able so we can start with nutrition. He wants to remain full code. This documentation was created by [employer] physician recruiter software. Every effort was made to ensure accuracy of physician recruiter. Any obvious errors or omissions should be clarified with the author of the document. Attestations Medical Necessity Statement*: Requires further hospitalization for management of generalized weakness and malaise in setting of failure to thrive and moderate, severe protein is a malnutrition via PEG tube placement is awaited Time Spent in Patient Care: 16 - 35 minutes Coding Level of Care Code Acute Qa Analyst for [facility] Fwd Diagnoses Pneumonia J18.9 Pneumonia type: aspiration pneumonia Laterality: left Adult failure to thrive R62.7 Protein calorie malnutrition E44.0 Protein-calorie malnutrition severity: moderate Severe muscle deconditioning R29.898 COPD (chronic obstructive pulmonary disease) J44.9 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
--- NOTE | 2022-03-09 19:24 | PC.NURSE ---
report given to PAUL Hernandez.
[2022-03-09] MEDS: mirtazapine 15 mg Tablet 7.5 MG PO (21:16)
[2022-03-10] VITALS (12 sets, daily range): BP systolic 112–157; BP diastolic 79–93; PULSE 81–98; RESP 16–24; TEMP 36.2–36.9; O2SAT 93–100
[2022-03-10] MEDS: vancomycin 1,000 MG in sodium chloride 0.9% 250 ML 250 MG IV (02:37)
[2022-03-10] MEDS: ipratropium-albuterol 3 mL Neb INHALATION ×2 (02:59→09:37)
[2022-03-10] MEDS: piperacillin-tazobactam 3.375 GM in sodium chloride 0.9% (plus) 50 ML IV ×2 (04:04→21:40)
[2022-03-10 05:00] LABS: Basophils # 0.1 10^3/uL (0.0-0.1); Basophils % 1.2 %; Eosinophils # 0.2 10^3/uL (0.0-0.8); Eosinophils % 4.7 %; Hematocrit 30.1 % (42.0-52.0); Hemoglobin 10.1 g/dL (11.7-16.6); Lymphocytes # 0.5 10^3/uL (0.8-4.8); Lymphocytes % 11.4 %; Mean Corpuscular HGB Conc 33.6 g/dL (30.0-36.0); Mean Corpuscular Hemoglobin 28.9 pg (28.0-34.0); Mean Platelet Volume 8.8 fL (7.4-10.4); Monocytes # 0.3 10^3/uL (0.2-0.9); Monocytes % 8.5 %; Neutrophils # 2.95 10^3/uL (1.8-7.7); Neutrophils % 73.5 %; Nucleated Red Blood Cells % 0 %; Platelet Count 239 10^3/cmm (130-400)
[2022-03-10] MEDS: dextrose 5%-sod chloride 0.9% 1,000 ML 75 ML IV ×2 (05:25→21:40)
[2022-03-10] MEDS: levothyroxine 25 mcg Tablet PO (05:26)
[2022-03-10 05:40] LABS: Alanine Aminotransferase 13 U/L (0-41); Albumin Level 2.1 g/dL (3.5-5.2); Alkaline Phosphatase 55 U/L (40-130); Anion Gap 11.3 (5-19); Aspartate Amino Transferase 23 U/L (0-40); Blood Urea Nitrogen 4 mg/dL (8-23); Calcium 7.4 mg/dL (8.5-10.5); Carbon Dioxide 22 mmol/L (22-29); Chloride 105 mmol/L (98-107); Globulin 2.9 g/dL (1.3-4.6); Glomerular Filtration Rate 165.9 mL/min (90-130); Glucose 100 mg/dL (65-115); Osmolality Calculated 277 mOsm/kg (285-295); Potassium 3.3 mmol/L (3.5-5.1); Sodium 135 mmol/L (136-145); Total Bilirubin 0.3 mg/dL (0.15-1.2)
[2022-03-10 05:41] LABS: Creatinine Clr Calc Pharmacy 83.0552
[2022-03-10] MEDS: budesonide 0.5 mg/2 mL Neb INHALATION (09:37)
--- NOTE | 2022-03-10 11:38 | PC.NUTR ---
When PEG tube in place, recommend consideration of Jevity 1.2 bolus tube feeds, administration schedule of 240 mls @ 8am/noon/4pm/8pm. Please give water flushes of 60 mls before and after feeds. When tolerated, give additional 240 mls at 4pm or 8pm. When Pt discharges, this will equal 5 cartons/day with same administration schedule. Details in RD assessment.
--- NOTE | 2022-03-10 13:16 | P.PN_ITS ---
Subjective Subjective: Doing well. No acute events. He is more awake. Vitals/I&O/Wt Last Vital Signs Temp 97.9 F 03/10/22 12:00 Pulse 93 03/10/22 12:00 Resp 17 03/10/22 12:00 BP 132/80 03/10/22 12:00 Pulse Ox 96 03/10/22 12:00 O2 Del Method 03/10/22 12:00 O2 Flow Rate 2 03/10/22 09:43 03/09/22 03/10/22 03/10/22 22:59 06:59 14:59 Intake Total 660 / 2107.5 2000 / 4107.5 Output Total 2250 / 4300 2460 / 6760 Balance -1590 / -2192.5 -460 / -2652.5 Weight last 48 hrs Weight 135 lb Physical Exam Narrative: General: No acute distress Psych: Unable to communicate, both comprehension and expression are altered Eyes: [sclerae are white] Head/ENT: [normocephalic, symmetric] CV: [regular] pulse, [tachychardic], no JVD Lungs: [symmetrical chest rise] Abdomen: [soft, ND] colostomy in place. Scar from the previous PEG tube. Midline incision is well-healed. Ext: [no obvious traumatic deformities] Skin: warm Data : 03/10/22 04:26 03/10/22 04:26 Micro: Microbiology 03/08/22 10:15 Gram Stain - Final Sputum - Expectorated Sputum Sputum Culture - Preliminary A&P Assessment and plan (1) Adult failure to thrive: (2) Protein calorie malnutrition: Qualifiers: Protein-calorie malnutrition severity: moderate Qualified Code(s): E44.0 - Moderate protein-calorie malnutrition (3) Anticoagulation adequate: Plan Proceed with the placement of the PEG tube. Attestations Medical Necessity Statement*: Per primary team Per primary team Coding Level of Care Code Acute Green Coffee Blender for Chg Fwd Diagnoses Adult failure to thrive R62.7 Protein calorie malnutrition E44.0 Protein-calorie malnutrition severity: moderate Anticoagulation adequate Z79.01
--- NOTE | 2022-03-10 13:43 | PM.PN ---
Subjective Subjective: No acute events overnight. Patient seen with family at bedside. Patient states he is hungry. Denies any nausea vomiting, headache. Vitals/I&O/Wt Last Vital Signs Temp 97.9 F 03/10/22 12:00 Pulse 93 03/10/22 12:00 Resp 17 03/10/22 12:00 BP 132/80 03/10/22 12:00 Pulse Ox 96 03/10/22 12:00 O2 Del Method 03/10/22 12:00 O2 Flow Rate 2 03/10/22 09:43 03/09/22 03/10/22 03/10/22 22:59 06:59 14:59 Intake Total 660 / 2107.5 2000 / 4107.5 Output Total 2250 / 4300 2460 / 6760 Balance -1590 / -2192.5 -460 / -2652.5 Weight last 48 hrs Weight 61.235 kg Physical Exam Narrative: General: No acute distress, AO x2-3, which appears to be his recent baseline, chronically sick appearing, lethargic HEENT: PERRLA, pupils bilaterally equal and reactive, pallors not present Chest: Coarse crackles, decreased air entry in left hemithorax, diffuse rhonchi all over the lung lopez CVS: S1-S2 regular, no murmurs, no tachycardia, no gallops, no rubs Abdomen: Soft, nontender, no organomegaly, bowel sounds present Neuro: No focal deficits, no facial deformity, AO x3, power 5/5 in all limbs Data : 03/10/22 04:26 03/10/22 04:26 Micro: Microbiology 03/08/22 10:15 Gram Stain - Final Sputum - Expectorated Sputum Sputum Culture - Preliminary A&P Assessment and plan (1) Pneumonia: Qualifiers: Pneumonia type: aspiration pneumonia Laterality: left (2) Adult failure to thrive: (3) Protein calorie malnutrition: Qualifiers: Protein-calorie malnutrition severity: moderate Qualified Code(s): E44.0 - Moderate protein-calorie malnutrition (4) Severe muscle deconditioning: (5) COPD (chronic obstructive pulmonary disease): (6) Osmotic myelinolysis: (7) Hyponatremia: (8) Liver cirrhosis: (9) Afib: (10) Anemia: Plan 66-year-old male with multiple comorbidities as listed above, cachectic, chronically ill, chronically bedbound, malnourished, recent COVID (Ag + on 02/23) presented to the emergency room with generalized malaise and weakness. Generalized weakness and malaise: Most likely secondary to chronic illness including severe protein energy malnutrition and failure to thrive, recovering from COVID-19, worsening of left-sided pneumonia which appears to be aspiration, acute on chronic hyponatremia, poor oral intake. Keppra levels appropriate. Appreciate vitamin B12 and folate levels. UTI less likely given urinalysis. Appreciate ammonia levels. CT head results appreciated. Continue with home psych medications including mirtazapine, venlafaxine. Infectious source: Most likely pneumonia: MRSA negative. Highly concerning for aspiration pneumonia. Appreciate modified barium swallow. Patient having difficulty to swallow and possible aspiration because of generalized weakness from failure to thrive. Discussed in detail with patient and family at bedside. They are agreeable for PEG tube placement. Surgery consulted. Start on clear liquid diet for now. Continue with Zosyn. Acute on chronic hyponatremia: Mostly secondary to poor oral intake. D5 NS at 75 cc/h. Restart home dose of salt tablets 1 g twice daily. Were recently discontinued on last discharge. Monitor BMP daily. Anemia: No active site of bleeding. No melena as per family. Most likely secondary to chronic severe protein energy malnutrition. As per family multiple episodes of transfusions in the past. Hemoglobin stable post 1 unit of blood transfusion. Continue Protonix and Carafate. Check LDH, haptoglobin, reticulocyte count. Atrial fibrillation: Rate controlled. Continue with home dose of metoprolol. Hold off on Eliquis given need of PEG tube. Start on full dose Lovenox 1 mg/kg body weight every 12 hourly from 03/09. Will hold off on Lovenox given on the morning of PEG tube placement. Continue other chronic medications. Analgesia: Tylenol as needed Glycemic control: Not needed Nutrition: Clear liquid diet. PEG tube placement to be done. CODE STATUS: Full code. Discussed in detail with patient and patient's family at bedside including daughters and . We discussed given poor baseline health, physical condition and failure to thrive that in event of cardiac arrest with chest compressions and ventilator patient's health would deteriorate further. For now patient wants everything to be done in case of a cardiac arrest. He is agreeable for PEG tube placement. DPOA paperwork to be done. Case management alerted. PUD prophylaxis: Protonix DVT prophylaxis: Lovenox 1 mg/kg body weight every 12 hourly. To be held on the day of PEG tube placement. Discharge planning: Home with caregiver once medically stable Continue with care at [facility]. Plan for the day: Plan for PEG tube placement today. Hold off on morning dose of Lovenox. Will start PEG tube feeds when cleared from surgical point of view. Plan to discharge in next 24 hours if remains hemodynamically stable and afebrile and tolerating tube feeds well. Restart Eliquis postprocedure from tomorrow morning. Continue IV antibiotics for 24 hours postprocedure. Post 100 blood transfusion. Hemoglobin stable. This documentation was created by [employer] advisor advocate angel co founder software. Every effort was made to ensure accuracy of advisor advocate angel co founder. Any obvious errors or omissions should be clarified with the author of the document. Attestations Medical Necessity Statement*: Requires further hospitalization for further management of adult failure to thrive, severe physical deconditioning requiring PEG tube placement for nutritional appropriateness, aspiration pneumonia Coding Level of Care Code Acute Digital Measurement Advisor for 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
--- NOTE | 2022-03-10 14:01 | P.ANESASSM_ITS ---
Pre-Anesthetic Assessment Height/Weight: Height 1.73 m Weight 61.235 kg Temp Pulse Resp BP Pulse Ox O2 Del Method O2 Flow Rate 97.9 F 93 17 132/80 96 2 03/10/22 12:00 03/10/22 12:00 03/10/22 12:00 03/10/22 12:00 03/10/22 12:00 03/10/22 12:00 03/10/22 09:43 Preop Diagnosis: Impaction, colon obstruction Operation Date: 03/10/22 14:00 Proposed Procedures p EGD WITH PEG TUBE INSERTION(Not Applicable) - Karel Harrison MD Familial anesthetic complications: none Social Alcohol (history of alcohol abuse) and Tobacco (2ppd) Exam alert and oriented x 3 Airway Submandibular: within normal limits Cervical ROM: within normal limits Mallampati: Class III Dentition: false History/ROS No significant history except as noted Pulmonary Chronic Obstructive Pulmonary Disease and Shortness of Breath CV/HEM Atrial Fibrillation None reported Hepatic Cirrhosis GI Gastroesophageal Reflux Disease Metabolic Thyroid Disease Neuropsych Seizure (on keppra) Anesthetic Plan ASA status: 4 Anesthesia: Anesthesia Evaluation and MAC Risk of > 500 ml blood loss (7ml/kg in children): No Medications/Allergies Home Medications Medication Instructions Recorded Confirmed Last Taken Type fluticasone propionate 50 1 spray intranasal DAILY PRN 06/21/21 03/07/22 Unknown History mcg/actuation nasal Allergy Symptoms spray,suspension hydroxyzine pamoate 50 mg capsule 50 mg PO Q8H PRN Anxiety 06/21/21 03/07/22 02/02/22 History ropinirole 1 mg tablet 1 mg PO BEDTIME PRN Restless Leg(S) 06/21/21 03/07/22 Unknown History sennosides 8.6 mg-docusate sodium 1 tab PO BID 06/21/21 03/07/22 02/02/22 History 50 mg tablet (Stool Softener-Laxative) temazepam 30 mg capsule 30 mg PO BEDTIME PRN Sleep 06/21/21 03/07/22 02/02/22 History albuterol sulfate 2.5 mg/3 mL 2.5 mg inhalation TID PRN 02/03/22 03/07/22 02/03/22 History (0.083 %) solution for nebulization Shortness Of Breath Or Wheezing apixaban 5 mg tablet (Eliquis) 5 mg PO BID 02/03/22 03/07/22 02/03/22 History budesonide 0.5 mg/2 mL suspension 0.5 mg inhalation BID 02/03/22 03/07/22 02/03/22 History for nebulization cranberry extract-vitamin C 250 1 cap PO QPM 02/03/22 03/07/22 02/02/22 History mg-60 mg capsule cyanocobalamin (vitamin B-12) 500 500 mcg PO QPM 02/03/22 03/07/22 02/02/22 History mcg tablet (Vitamin B-12) ferrous sulfate 325 mg (65 mg 325 mg PO QPM 02/03/22 03/07/22 02/02/22 History iron) tablet (iron) formoterol fumarate 20 mcg/2 mL 2 ml inhalation BID 02/03/22 03/07/22 02/03/22 H istory solution for nebulization (Perforomist) guaifenesin 600 mg tablet, 600 mg PO DAILY PRN Congestion 02/03/22 03/07/22 Unknown History extended release 12 hr (Mucinex) vvfgwbaj-dlapjjii-bxiri acid 400 1 tab PO QPM 02/03/22 03/07/22 02/02/22 History mcg-vit K 20 mcg-lycop 300 mcg tablet (Men's One Daily) mupirocin 2 % topical ointment 1 applic topical BID PRN Rash 02/03/22 03/07/22 Unknown History ondansetron 8 mg disintegrating 8 mg PO Q8H PRN Nausea And Vomiting 02/03/22 03/07/22 Unknown History tablet polyethylene glycol 3350 17 gram 17 g PO DAILY 02/03/22 03/07/22 Unknown History oral powder packet (Miralax) revefenacin 175 mcg/3 mL solution 175 mcg inhalation DAILY 02/03/22 03/07/22 02/03/22 History for nebulization (Yupetatianai) sodium chloride 1 gram tablet 1,000 mg PO BID 02/03/22 03/07/22 02/03/22 History levetiracetam 750 mg tablet 750 mg PO BID 30 days #60 tabs 02/13/22 03/07/22 Unknown Rx (Keppra) metoprolol tartrate 25 mg tablet 25 mg PO BID@0900,2100 30 days #60 02/13/22 03/07/22 Unknown Rx tabs levothyroxine 25 mcg tablet 25 mcg PO QAM 30 days #30 tabs 02/25/22 03/07/22 Unknown Rx L.acidophil-L.casei-B.bifid-B.longum-FOS 1 cap PO DAILY 03/07/22 03/07/22 Unknown History 2 billion cell-50 mg capsule (Probiotic Blend) mirtazapine 7.5 mg tablet 7.5 mg PO BEDTIME 03/07/22 03/07/22 Unknown History pantoprazole 40 mg tablet,delayed 40 mg PO BID PRN Acid Reflux 03/07/22 03/07/22 Unknown History release sucralfate 1 gram tablet 1 g PO Q12H PRN UNKNOWN 03/07/22 03/07/22 Unknown History venlafaxine 225 mg tablet,extended 225 mg PO QAM 03/07/22 03/07/22 Unknown Hi story release 24 hr Allergies Allergy/AdvReac Type Severity Reaction Status Date / Time Sulfa (Sulfonamide Allergy ALGY-Rash Verified 03/07/22 10:42 Antibiotics) Current Medications Generic Name Dose Route Start Last Admin Trade Name Freq PRN Reason Stop Dose Admin Albuterol Sulfate 2.5 mg 03/06/22 22:27 03/08/22 11:14 Albuterol 2.5 Mg/0.5 Ml Neb INHALATION 2.5 mg TID PRN Administration Shortness Of Breath Or Wheezing Albuterol/Ipratropium 3 ml 03/07/22 14:00 03/10/22 09:37 Ipratropium-Albuterol 3 Ml Neb INHALATION 3 ml Q6H.RESP ANGELA Administration Apixaban 5 mg 03/07/22 21:00 03/08/22 08:05 Apixaban 5 Mg Tablet PO 5 mg BID@0900,2100 ANGELA Administration Budesonide 0.5 mg 03/07/22 08:00 03/10/22 09:37 Budesonide 0.5 Mg/2 Ml Neb INHALATION 0.5 mg BID.RESPIRATORY ANGELA Administration Enoxaparin Sodium 60 mg 03/09/22 08:00 03/10/22 02:11 Enoxaparin 60 Mg/0.6 Ml Syringe SUBCUT Not Given Q12H ANGELA Piperacillin Sod/Tazobactam 50 mls @ 12.5 mls/hr 10/18/22 04:00 03/10/22 04:04 Sod 3.375 gm/ Sodium Chloride IV 12.5 mls/hr Q8H ANGELA Administration Protocol Vancomycin HCl 1,000 mg/ 250 mls @ 250 mls/hr 03/07/22 03:00 03/10/22 04:05 Sodium Chloride IV Infused Q12H ANGELA Infusion Dextrose/Sodium Chloride 1,000 mls @ 75 mls/hr 03/10/22 06:45 03/10/22 05:25 Dextrose 5%-Sod Chloride 0.9% IV 75 mls/hr .[id number] ANGELA Administration Levetiracetam 750 mg 03/07/22 09:00 03/10/22 08:44 Levetiracetam 500 Mg Tablet PO Not Given BID ANGELA Levothyroxine Sodium 25 mcg 03/07/22 06:00 03/10/22 05:26 Levothyroxine 25 Mcg Tablet PO 25 mcg QAM ANGELA Administration Metoprolol Tartrate 25 mg 03/07/22 09:00 03/10/22 11:59 Metoprolol Tartrate 25 Mg Tablet PO Not Given BID@0900,2100 ANGELA Mirtazapine 7.5 mg 03/07/22 21:00 03/09/22 21:16 Mirtazapine 15 Mg Tablet PO 7.5 mg BEDTIME ANGELA Administration Nicotine 1 patch 03/08/22 09:00 03/09/22 08:18 Nicotine 14 Mg Patch TRANSDERMA 1 patch DAILY ANGELA Administration Non-Formulary Medication 1 cap 03/07/22 18:00 03/09/22 18:03 Cranberry Extract-Vitamin C PO Not Given QPM ANGELA Non-Formulary Medication 175 mcg 03/07/22 09:00 03/10/22 12:00 Revefenacin [Yupelri] INHALATION Not Given DAILY ANGELA Pantoprazole Sodium 40 mg 03/07/22 09:00 03/10/22 08:[address] 40 Mg Tablet PO Not Given BID ANGELA Polyethylene Glycol 17 gm 03/07/22 09:00 03/10/22 08:44 Polyethylene Glycol 3350 Pkt 17 Gm PO Not Given DAILY ANGELA Senna/Docusate Sodium 2 tab 03/07/22 09:00 03/10/22 08:44 Sennosides-Docusate Tablet PO Not Given DAILY ANGELA Sodium Chloride 1 gm 03/07/22 18:00 03/10/22 08:45 Sodium Chloride 1 Gm Tablet PO Not Given BID ANGELA Sodium Chloride 4 ml 03/07/22 20:00 03/10/22 09:37 Sodium Chloride 3.5% Neb 4 Ml Neb INHALATION Not Given BID.RESPIRATORY ANGELA Sucralfate 1 gm 03/06/22 22:21 03/10/22 11:59 Sucralfate 1 Gm Tablet PO Not Given Q12H ANGELA Temazepam 30 mg 03/07/22 09:00 03/10/22 08:45 Temazepam 15 Mg Capsule PO Not Given DAILY ANGELA Venlafaxine HCl 150 mg 03/08/22 09:00 03/10/22 08:45 Venlafaxine Er (24hr) 75 Mg Capsule PO Not Given DAILY ANGELA PFSH Anesthesia Medical History (Updated 03/08/22 @ 13:39 by Karel Harrison MD) Acute exacerbation of chronic obstructive pulmonary disease Afib BPH (benign prostatic hyperplasia) Chronic hyponatremia COPD (chronic obstructive pulmonary disease) Coronavirus infection Common cold variant 229E COVID-19 Disability Dolichocolon Gastritis HTN (hypertension) Liver cirrhosis etoh abuse 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 Presence of externally removable percutaneous endoscopic gastrostomy (PEG) tube Pulmonary HTN Surgical History (Updated 03/07/22 @ 14:20 by Norm Muro MD) H/O hemorrhoidectomy Status post laparoscopic-assisted sigmoidectomy Status post partial resection of colon Family History Denies family history of Diabetes Social History Smoking and tobacco status: current every day smoker Alcohol intake: unknown Data Anesthesia : 03/10/22 04:26 03/10/22 04:26 Short CBC 03/09/22 03/10/22 Range/Units 04:46 04:26 WBC 4.1 4.0 (4.0-10.0) 10^3/uL Hgb 9.6 L 10.1 L (11.7-16.6) g/dL Hct 29.7 L D 30.1 L (42.0-52.0) % MCV 88.7 86.0 (80-94) fl Plt Count 236 239 (130-400) 10^3/cmm Neut % (Auto) 84.1 73.5 % Neut # (Auto) 3.47 2.95 (1.8-7.7) 10^3/uL BMP 03/09/22 03/10/22 04:46 04:26 Sodium 132 L 135 L Potassium 3.3 L 3.3 L Chloride 100 105 Carbon Dioxide 23 22 BUN 7 L 4 L Creatinine 0.6 L 0.5 L Glucose 90 100 Calcium 7.5 L 7.4 L Liver Function 03/09/22 03/10/22 Range/Units 04:46 04:26 Total Bilirubin 0.4 0.3 (0.15-1.2) mg/dL AST 23 23 (0-40) U/L ALT 13 13 (0-41) U/L Alkaline Phosphatase 62 55 (40-130) U/L Albumin 2.5 L 2.1 L (3.5-5.2) g/dL Blood Bank 03/08/22 13:18 Blood Type A Positive Rho(D) Type Positive Antibody Screen Negative Microbiology 03/08/22 10:15 Gram Stain - Final Sputum - Expectorated Sputum Sputum Culture - Preliminary Cardiac Studies: No Data to Display
[2022-03-10] MEDS: sodium chloride 0.9% 1,000 ML 30 ML IV (14:20)
--- NOTE | 2022-03-10 15:20 | ANE.PACU2 ---
Inpatient post-anesthesia follow up: Airway intact: Yes Vital signs: Temperature 97.1 F Pulse Rate 95 Respiratory Rate 18 Blood Pressure 127/79 Pulse Oximetry 100 Oxygen Delivery Me thod Nasal Cannula Oxygen Flow Rate 4 Fraction of Inspir ed Oxygen Hydration adequate: Yes Nausea and vomiting: No Pain level: 2 Mental status: Baseline
[2022-03-10] MEDS: enoxaparin 60 mg/0.6 mL Syringe SUBCUT (21:40)
[2022-03-10] MEDS: metoprolol tartrate 25 mg Tablet PO (21:41)
[2022-03-10] MEDS: apixaban 5 mg Tablet PO (21:41)
[2022-03-10] MEDS: sucralfate 1 gm Tablet PO (21:41)
[2022-03-10] MEDS: sodium chloride 1 gm Tablet PO (21:41)
[2022-03-10] MEDS: levETIRAcetam 500 mg Tablet 750 MG PO (21:41)
[2022-03-10] MEDS: cyanocobalamin 1,000 mcg Tablet 500 MCG PO (21:41)
[2022-03-10] MEDS: mirtazapine 15 mg Tablet 7.5 MG PO (21:42)
--- NOTE | 2022-03-10 22:13 | PC.NURSE ---
Addendum entered by Kelly Trujillo RN 03/10/22 23:36: Ordered to change Protonix to IV. Addendum entered by Kelly Trujillo RN 03/10/22 23:27: Also notified of Effexor ER due at 6 am that will not be able to be given due to not being able to crush it. Original Note: Unable to administer PO Ferrous Sulfate and ER Protonix. These medications cannot be crushed. Dr. York notified.
[2022-03-11] VITALS (7 sets, daily range): BP systolic 154–156; BP diastolic 90–96; PULSE 71–89; RESP 18–20; TEMP 36.3–36.6; O2SAT 96–99
[2022-03-11 02:07] LABS: Vancomycin Trough 20.6 ug/mL (10-15)
--- NOTE | 2022-03-11 02:21 | PC.NURSE ---
Vanc trough 20.6. Pharmacy ordered to hold dose that is due at this time.
[2022-03-11] MEDS: ipratropium-albuterol 3 mL Neb INHALATION ×2 (03:05→08:22)
[2022-03-11] MEDS: levothyroxine 25 mcg Tablet PO (04:50)
[2022-03-11] MEDS: piperacillin-tazobactam 3.375 GM in sodium chloride 0.9% (plus) 50 ML IV (04:50)
[2022-03-11] MEDS: vancomycin 1,000 MG in sodium chloride 0.9% 250 ML 250 MG IV (04:50)
--- NOTE | 2022-03-11 07:19 | P.PN_ITS ---
Subjective Subjective: No acute events overnight. He is doing well postoperatively. No drainage from the PEG site. Vitals/I&O/Wt Last Vital Signs Temp 97.5 F L 03/11/22 04:00 Pulse 77 03/11/22 04:00 Resp 18 03/11/22 04:00 BP 154/92 03/11/22 04:00 Pulse Ox 97 03/11/22 04:00 O2 Del Method 03/11/22 03:00 O2 Flow Rate 4 03/10/22 14:58 FiO2 2 03/11/22 03:00 03/10/22 03/11/22 03/11/22 22:59 06:59 14:59 Intake Total 1600 / 1650 300 / 1950 Output Total 250 / 250 450 / 700 Balance 1350 / 1400 -150 / 1250 Weight last 48 hrs Weight 97 lb 8 oz Weight 135 lb Physical Exam Narrative: General: No acute distress Psych: Seems to be more awake today well oriented to person Eyes: [sclerae are white] Head/ENT: [normocephalic, symmetric] CV: [regular] pulse, [tachychardic], no JVD Lungs: [symmetrical chest rise] Abdomen: [soft, ND] colostomy in place. PEG in place. Dressing clean dry intact. Ext: [no obvious traumatic deformities] Skin: warm Data : 03/10/22 04:26 03/10/22 04:26 A&P Assessment and plan (1) Adult failure to thrive: (2) Protein calorie malnutrition: Qualifiers: Protein-calorie malnutrition severity: moderate Qualified Code(s): E44.0 - Moderate protein-calorie malnutrition (3) Anticoagulation adequate: Plan Uncomplicated postoperative. Okay to restart Eliquis Start feeding through the PEG and advance per dietary recommendations General surgery will sign off. Please call with questions/concerns. Attestations Medical Necessity Statement*: Per primary team Coding Level of Care Code Acute Meter Repair Shop Supervisor for Chg Fwd Diagnoses Adult failure to thrive R62.7 Protein calorie malnutrition E44.0 Protein-calorie malnutrition severity: moderate Anticoagulation adequate Z79.01
[2022-03-11] MEDS: sodium chloride 3.5% neb 4 mL Neb INHALATION (08:22)
[2022-03-11] MEDS: budesonide 0.5 mg/2 mL Neb INHALATION (08:22)
--- NOTE | 2022-03-11 09:13 | PC.SOCIAL ---
Imm update Imm page 2 updated with patient at bedside. Copy of page 2 provided. Patient verbalized understanding. Copy in chart initialed, dated and timed.
[2022-03-11] MEDS: nicotine 14 mg Patch 1 PATCH TRANSDERMA (09:52)
[2022-03-11] MEDS: temazepam 15 mg Capsule 30 MG PO (09:52)
[2022-03-11] MEDS: polyethylene glycol 3350 Pkt 17 gm PO (09:52)
[2022-03-11] MEDS: sucralfate 1 gm Tablet PO (09:52)
[2022-03-11] MEDS: levETIRAcetam 500 mg Tablet 750 MG PO (09:53)
[2022-03-11] MEDS: metoprolol tartrate 25 mg Tablet PO (09:55)
[2022-03-11] MEDS: apixaban 5 mg Tablet PO (09:55)
[2022-03-11] MEDS: pantoprazole 40 mg SDV IVP (09:56)
--- NOTE | 2022-03-11 11:06 | PM.DCS ---
Discharge Providers Date of Admission: 03/06/22 22:21 Date of Discharge: March 11, 2022 Attending Provider at Admission: Meg York MD Attending Provider at Discharge: Norm Muro MD Consults: Surgery: Dr. 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 He has a history of recurrent chronic UTIs with a suprapubic catheter in place which is replaced every 2 weeks.? He was recently admitted here between February 03 to February 13 for a rectal mass and overflow incontinence.? Sigmoidectomy and colostomy was performed on this admission.? No evidence of malignancy was found.? Hospital course had been complicated by development of seizures for which patient was started on Keppra.? He had altered mental status upon admission which resolved at the time of discharge showed patient back to his baseline.? Readmitted between February 22 to February 25 with generalized weakness and malaise, COVID + on rapid Ag.? He had signs of dehydration, protein calorie malnutrition, UTI which was appropriately treated.? His antihypertensive medications were adjusted..? For his severe muscular deconditioning, skilled rehab was recommended, however it appears that after initial consideration patient and his family refused.? They elected to return home.? Low-dose levothyroxine was also started with recommendation to recheck TSH in 6 weeks. Patient is brought back to the ER by his family with the same complaints of increasing generalized weakness, fatigue, inability to eat or drink over the past 4 to 5 days.? It appears he has also been intermittently confused, which is similar to his prior baseline. No current history of fever chest pain dyspnea, abdominal pain nausea.? Imaging today shows worsening left-sided infiltrates on chest x-ray. Patient was admitted to hospital further evaluation and management for generalized weakness, adult failure to thrive, left-sided chest infiltrates consistent with aspiration pneumonia. On admission patient was also found to be anemic. Etiology of anemia is most likely secondary to severe protein energy malnutrition. He received monitor blood transfusion and posttransfusion hemoglobin remained stable. He was started on broad-spectrum antibiotics. His oxygen supplementation remained stable during hospitalization. Modified barium swallow was done which was consistent with aspiration due to physical deconditioning. Goals of care were discussed in detail with the patient and family at bedside. Patient wanted to do everything for his health and wants to remain full code. Nutritional status and further management to improve nutritional status were discussed in detail with the patient and they were agreeable for PEG tube placement given goals of care. Surgery was consulted and he underwent EGD/PEG tube placement on 03/10. He was found to have no acute etiology. He tolerated procedure well. He was restarted on PEG tube feeds. Has been discharged on hemodynamically stable condition advised to follow-up with his primary care provider within next 1 week. He is to take Augmentin and Levaquin which are the antibiotics for next 3 days. He is to follow-up with his primary care provider in the next 1 month for repeat thyroid profile as well. Diet has been advanced as per dietitian recommendations. Physical Exam Narrative: General: No acute distress, AO x2-3, which appears to be his recent baseline, chronically sick appearing, lethargic HEENT: PERRLA, pupils bilaterally equal and reactive, pallors not present Chest: Coarse crackles, decreased air entry in left hemithorax, diffuse rhonchi all over the lung lopez CVS: S1-S2 regular, no murmurs, no tachycardia, no gallops, no rubs Abdomen: Soft, nontender, no organomegaly, bowel sounds present Neuro: No focal deficits, no facial deformity, AO x3, power 5/5 in all limbs Discharge Data Studies Completed and Pending Completed Studies During Hospitalization Category Date Time Status CT chest wo con [id number] Routine Cat Scan 03/07/22 02:[address] head wo con* [id number] Stat Cat Scan 03/06/22 18:41 Completed [place] barium swallow modifd [id number] Routine Exams 03/08/22 09:00 Completed XR chest 1V portable [id number] Stat Exams 03/06/22 18:10 Completed Pending at discharge Category Date Time Status Blood Culture AM LABS Lab 03/07/22 04:48 Results Sputum Culture and Gram Stain Routine Lab 03/08/22 10:15 Results Radiology Impressions Chest X-Ray 03/06/22 18:10 IMPRESSION: Worsening of left-sided opacity. See discussion above. Head CT 03/06/22 18:41 IMPRESSION: No acute intracranial findings. Chest CT 03/07/22 02:18 IMPRESSION: 1. Small LEFT pleural effusion similar to previous with thickened visceral and parietal pleura suspicious for empyema. 2. Progressed pneumonia with consolidation in the LEFT lower lobe with patchy infiltrates extending into the LEFT upper lobe. Volume loss LEFT lung with RIGHT to LEFT mediastinal shift. 3. Near complete opacification of the LEFT mainstem bronchus is new compared to previous. 4. RIGHT lung remains well aerated with trace pleural fluid/pleural thickening. Modified Barium Swallow 03/08/22 09:00 Impression: 1. Delay in initiating oral propulsion from the mouth or hypopharynx. 2. No evidence of aspiration of penetration but coughing did occur. 3. Delay in transporting the barium tablet from the upper third of the esophagus to the stomach Laboratory Results WBC 4.0 10^3/uL (4.0-10.0) 03/10/22 04:26 RBC 3.50 10^6/uL (4.1-5.3) L 03/10/22 04:26 Hgb 10.1 g/dL (11.7-16.6) L 03/10/22 04:26 Hct 30.1 % (42.0-52.0) L 03/10/22 04:26 MCV 86.0 fl (80-94) 03/10/22 04:26 MCH 28.9 pg (28.0-34.0) 03/10/22 04:26 MCHC 33.6 g/dL (30.0-36.0) 03/10/22 04:26 RDW 14.0 % (12.1-15.1) 03/10/22 04:26 Plt Count 239 10^3/cmm (130-400) 03/10/22 04:26 MPV 8.8 fL (7.4-10.4) 03/10/22 04:26 Neut % (Auto) 73.5 % 03/10/22 04:26 Lymph % (Auto) 11.4 % 03/10/22 04:26 [place] % (Auto) 8.5 % 03/10/22 04:26 Eos % (Auto) 4.7 % 03/10/22 04:26 Baso % (Auto) 1.2 % 03/10/22 04:26 Reticulocyte % (Auto) 1.6 % (0.5-2.0) 03/08/22 04:00 Neut # (Auto) 2.95 10^3/uL (1.8-7.7) 03/10/22 04:26 Lymph # (Auto) 0.5 10^3/uL (0.8-4.8) L 03/10/22 04:26 [place] # (Auto) 0.3 10^3/uL (0.2-0.9) 03/10/22 04:26 Eos # (Auto) 0.2 10^3/uL (0.0-0.8) 03/10/22 04:26 Baso # (Auto) 0.1 10^3/uL (0.0-0.1) 03/10/22 04:26 Nucleated RBC % (auto) 0 % 03/10/22 04:26 Nucleated RBCs # 0.0 /100WBC 03/10/22 04:26 Haptoglobin 209.0 mg/L (30-200) H 03/08/22 04:00 PT 19.60 SECONDS (12.1-14.9) H 03/06/22 19:03 INR 1.62 (0.8-1.2) H 03/06/22 19:03 Sodium 135 mmol/L (136-145) L 03/10/22 04:26 Potassium 3.3 mmol/L (3.5-5.1) L 03/10/22 04:26 Chloride 105 mmol/L (98-107) 03/10/22 04:26 Carbon Dioxide 22 mmol/L (22-29) 03/10/22 04:26 Anion Gap 11.3 (5-19) 03/10/22 04:26 BUN 4 mg/dL (8-23) L 03/10/22 04:26 Creatinine 0.5 mg/dL (0.7-1.2) L 03/10/22 04:26 GFR Calculation 165.9 mL/min (90-130) H 03/10/22 04:26 Glucose 100 mg/dL (65-115) 03/10/22 04:26 POC Glucose 102 mg/dL (70-110) 03/07/22 00:24 Calculated Osmolality 277 mOsm/kg (285-295) L 03/10/22 04:26 Lactic Acid 1.0 mmol/L (0.5-2.2) 03/06/22 19:03 Calcium 7.4 mg/dL (8.5-10.5) L 03/10/22 04:26 Total Bilirubin 0.3 mg/dL (0.15-1.2) 03/10/22 04:26 AST 23 U/L (0-40) 03/10/22 04:26 ALT 13 U/L (0-41) 03/10/22 04:26 Alkaline Phosphatase 55 U/L (40-130) 03/10/22 04:26 Ammonia 10 umol/L (16-60) L 03/06/22 20:35 Lactate Dehydrogenase 136 U/L (135-225) 03/08/22 04:00 Creatine Kinase 40 U/L (39-308) 03/06/22 19:03 Total Protein 5.0 g/dL (6.6-8.7) L 03/10/22 04:26 Albumin 2.1 g/dL (3.5-5.2) L 03/10/22 04:26 Globulin 2.9 g/dL (1.3-4.6) 03/10/22 04:26 Lipase 16 U/L (13-60) 03/06/22 19:03 Urine Color Yellow (Yellow) 03/06/22 19:10 Urine Appearance Clear (CLEAR) 03/06/22 19:10 Urine pH 6 (5-7) 03/06/22 19:10 Ur Specific [place] 1.020 (1.005-1.030) 03/06/22 19:10 Urine Protein 1+ (Negative) H 03/06/22 19:10 Urine Glucose (UA) Norm (Normal) 03/06/22 19:10 Urine Ketones 1+ (Negative) H 03/06/22 19:10 Urine Blood Neg (Negative) 03/06/22 19:10 Urine Nitrate Negative (Negative) 03/06/22 19:10 Urine Bilirubin Neg (Negative) 03/06/22 19:10 Urine Urobilinogen Norm mg/dL (Negative) 03/06/22 19:10 Ur Leukocyte Esterase Negative (Negative) 03/06/22 19:10 Urine RBC 0-4 /hpf (0-2) H 03/06/22 19:10 Urine WBC 0-4 /hpf (0-5) H 03/06/22 19:10 Ur Squamous Epith Cells None /hpf (0-5) 03/06/22 19:10 Amorphous Sediment Not Reportable 03/06/22 19:10 Urine Bacteria None /hpf (NONE) 03/06/22 19:10 Vancomycin Trough 20.6 ug/mL (10-15) H 03/11/22 01:30 Levetiracetam 24.2 mcg/mL (6.0-46.0) 03/07/22 04:48 SARS-CoV-2 Ag (Rapid) negative (Negative) 03/07/22 02:58 Blood Type A Positive 03/08/22 13:18 Rho(D) Type Positive 03/08/22 13:18 Antibody Screen Negative 03/08/22 13:18 Crossmatch See Detail 03/08/22 13:18 Vitals Last Vital Signs Temp 97.8 F 03/11/22 07:35 Pulse 87 03/11/22 08:22 Resp 18 03/11/22 08:22 BP 155/91 03/11/22 07:35 Pulse Ox 96 03/11/22 08:22 O2 Del Method 03/11/22 08:22 O2 Flow Rate 2 03/11/22 08:22 FiO2 2 03/11/22 03:00 Discharge Plan Discharge Patient Disposition: Home Health Service Condition: Stable Prescriptions: New amoxicillin-pot clavulanate [Augmentin] 500-125 mg tablet 1 tab PO BID Qty: 6 0RF levofloxacin 500 mg tablet 500 mg PO Q24H 3 Days Qty: 3 0RF Continued ropinirole 1 mg tablet 1 mg PO BEDTIME PRN (Reason: Restless Leg(S)) sennosides-docusate sodium [Stool Softener-Laxative] 8.6-50 mg tablet 1 tab PO BID hydroxyzine pamoate 50 mg capsule 50 mg PO Q8H PRN (Reason: Anxiety) temazepam 30 mg capsule 30 mg PO BEDTIME PRN (Reason: Sleep) Hold Instructions: see pcp before resuming fluticasone propionate 50 mcg/actuation spray,suspension 1 spray INTRANASAL DAILY PRN (Reason: Allergy Symptoms) albuterol sulfate 2.5 mg /3 mL (0.083 %) Solution For Nebulization 2.5 mg INHALATION TID PRN (Reason: Shortness Of Breath Or Wheezing) sodium chloride 1 gram Tablet 1,000 mg PO BID Hold Instructions: see pcp before resuming ondansetron 8 mg tablet,disintegrating 8 mg PO Q8H PRN (Reason: Nausea And Vomiting) cyanocobalamin (vitamin B-12) [Vitamin B-12] 500 mcg Tablet 500 mcg PO QPM ferrous sulfate [iron] 325 mg (65 mg iron) Tablet 325 mg PO QPM budesonide 0.5 mg/2 mL Suspension For Nebulization 0.5 mg INHALATION BID mupirocin 2 % Ointment 1 applic TOPICAL BID PRN (Reason: Rash) formoterol fumarate [Perforomist] 20 mcg/2 mL Solution For Nebulization 2 ml INHALATION BID cranberry extract-vitamin C 250-60 mg Capsule 1 cap PO QPM Men's One Daily 400-20-300 mcg Tablet 1 tab PO QPM Eliquis 5 mg tablet 5 mg PO BID guaifenesin [Mucinex] 600 mg Tablet Extended Release 12hr 600 mg PO DAILY PRN (Reason: Congestion) Yupelri 175 mcg/3 mL Solution For Nebulization 175 mcg INHALATION DAILY polyethylene glycol 3350 [Miralax] 17 gram Powder In Packet 17 g PO DAILY metoprolol tartrate 25 mg Tablet 25 mg PO BID@0900,2100 30 Days Qty: 60 0RF levetiracetam [Keppra] 750 mg tablet 750 mg PO BID 30 Days Qty: 60 0RF Probiotic Blend 2 billion cell-50 mg Capsule 1 cap PO DAILY Rx Instructions: give with meal/snack pantoprazole 40 mg tablet,delayed release (DR/EC) 40 mg PO BID PRN (Reason: Acid Reflux) sucralfate 1 gram tablet 1 g PO Q12H PRN (Reason: UNKNOWN) mirtazapine 7.5 mg tablet 7.5 mg PO BEDTIME venlafaxine 225 mg tablet extended release 24hr 225 mg PO QAM levothyroxine 25 mcg Tablet 25 mcg PO QAM 30 Days Qty: 30 0RF Discharge Orders: Discharge Order (Routine); Ordered 03/11/22 Ordered By: Norm Muro Referrals: Alexandro Lipscomb CPNP [Primary Care Provider] - 2 weeks Discharge Diet: Start new tube feeds as directed Discharge Activity: Resume usual activity and Increase activity as tolerated Patient Instructions: GI Discharge Instructions, Opioid Safety Activity Restrictions/Additional Instructions: Take tube feeds at 8 AM/noon/4 PM/8 PM. Take 240 cc of tube feeds with each meal and free water flushes 60 cc before and after each feeds. Increase your oral intake gradually. Continue Augmentin I will admit antibiotics for next 3 days. Discharge Attestations Time Spent in Discharge Care*: greater than 30 min Specific Discharge Activities: educating patient, educating and/or supporting family/caregiver, discussing with pcp/other providers, discussing with onsite case manager/social workers/dc planners, documenting/other paperwork and evaluating patient/reviewing data Status at Discharge: Cognitive status at discharge: mildly impaired cognition, Behavioral status at discharge: cooperative, Functional status at discharge: bed bound, Overall status at discharge: patient is back to baseline Quality Metrics Clinical Quality Measures [ No reported AMI, CVA or VTE this stay] Coding Level of Care Code Acute Chg FW DC note Diagnoses Adult failure to thrive R62.7 Protein calorie malnutrition E44.0 Protein-calorie malnutrition severity: moderate Anticoagulation adequate Z79.01
== END 2022-03-11 14:10 | disposition home health service (06) | DRG 177 ==
LOC: ER 20:30 → MEDSURG 21:24
PROVIDERS: Family Medicine; Surgery; Admitting Provider Student in an Organized Health Care Education/Training Program; Emergency Provider Emergency Medicine; PCP Registered Nurse; Visit Provider Student in an Organized Health Care Education/Training Program
PROC: 0DJ08ZZ Inspection of Upper Intestinal Tract, Via Natural or Artificial Opening Endoscopic (ICD-10-PCS; CPT 43235; principal; 2022-03-10 14:00)
DX: J69.0 Pneumonitis due to inhalation of food and vomit (principal); E43 Unspecified severe protein-calorie malnutrition; E87.1 Hypo-osmolality and hyponatremia; R64 Cachexia; Z68.1 Body mass index [BMI] 19.9 or less, adult; R62.7 Adult failure to thrive; D64.9 Anemia, unspecified; J44.9 Chronic obstructive pulmonary disease, unspecified; I48.91 Unspecified atrial fibrillation; N40.0 Benign prostatic hyperplasia without lower urinary tract symptoms; I10 Essential (primary) hypertension; K70.30 Alcoholic cirrhosis of liver without ascites; F10.10 Alcohol abuse, uncomplicated; R41.0 Disorientation, unspecified; E86.0 Dehydration; E16.1 Other hypoglycemia; F17.200 Nicotine dependence, unspecified, uncomplicated; R13.10 Dysphagia, unspecified; K21.9 Gastro-esophageal reflux disease without esophagitis; R56.9 Unspecified convulsions; Z96.0 Presence of urogenital implants; Z79.01 Long term (current) use of anticoagulants; Z87.440 Personal history of urinary (tract) infections; Z93.1 Gastrostomy status; Z90.49 Acquired absence of other specified parts of digestive tract; Z86.16 Personal history of COVID-19; Z86.73 Personal history of transient ischemic attack (TIA), and cerebral infarction without residual deficits; Z74.01 Bed confinement status; Z66 Do not resuscitate
CPT/HCPCS: 12345; 36415; 36416; 36430; 43246; 70450; 71045; 71250; 74230; 80053; 80177; 80202; 81001; 82140; 82550; 82962; 83010; 83605; 83615; 83690; 85025; 85045; 85610; 86403; 86850; 86900; 86920; 87040; 87070; 87205; 87426; 87449; 87641; 92611; 93005; 94640; 94669; 96360; 96372; 99285; C9113; J1650; J2543; J2704; J3370; J7030; J7050; J7611; J7626; P9016

== ENCOUNTER 2022-03-28 17:06 | Inpatient (IN) | payer MEDICARE, MEDICAID, SELFPAY ==
[2022-03-28] VITALS (17 sets, daily range): BP systolic 116–144; BP diastolic 72–93; PULSE 94–103; RESP 18–29; TEMP 36.8–37.1; O2SAT 80–100; BMI 19.3
--- NOTE | 2022-03-28 17:09 | XRR_ITS ---
PROCEDURE INFORMATION: Exam: XR Chest Exam date and time: 03/28/2022 6:22 PM Age: 66 years old Clinical indication: Dyspnea and shortness of breath; Additional info: Dyspnea/cough TECHNIQUE: Imaging protocol: Radiologic exam of the chest. Views: 1 view. COMPARISON: CT chest con [id number] 03/07/2022 9:06 AM FINDINGS: Lungs: Consolidation again noted in the mid and lower left lung. Ill-defined opacity at the right lung base may reflect atelectasis given effusion. Pleural spaces: Moderate volume left and small volume right pleural effusions. No pneumothorax. Heart/Mediastinum: Cardiomegaly. Bones/joints: Unremarkable. XR/XR chest 1V portable [id number] IMPRESSION: Moderate volume left and small volume right pleural effusions. Consolidation again noted in the mid and lower left lung.
--- NOTE | 2022-03-28 17:36 | W.ED.SOB ---
Documented by User: Billy Fuentes DO 04/06/22 07:00 HPI - SOB/Dyspnea General: Chief Complaint: Shortness of Breath/Dyspnea Stated Complaint: SOB Time Seen by Provider: 03/28/22 17:08 Source: patient Mode of arrival: EMS History of Present Illness: HPI Narrative: 66-year-old male with severe end-stage COPD presents emergency room with hypoxia. They have increased his oxygen to 5 L. He was recently hospitalized for failure to thrive he is back home unfortunately continues to smoke he has a PEG tube a colostomy and indwelling Urias. He denies any known history of cancer diagnoses significant temporal wasting his last albumin was 2.1. No fever sweats or chills no productive cough is more short MD elicited complaint: shortness of breath and cough Pertinent past history: COPD Onset (ago): day(s) Context: recent illness Timing: constant Severity: severe Exacerbating factors: lying flat and exertion Relieving factors: nothing Known history of: COPD Associated symptoms: Deny abdominal pain, chest congestion, chest pain, cough, diaphoresis, dizziness, extremity pain, fever(s), hemoptysis, lightheadedness, myalgias, nausea, orthopnea, palpitations, paresthesias, polydipsia, polyuria, rash, sense of impending doom, syncope or vomiting Treatment prior to arrival: oxygen and bronchodilator Review of Systems Const: Denies: fever(s), chills, fatigue, malaise or diaphoresis ENMT: Denies: throat pain, ear or mastoid pain, nasal discharge or nasal congestion Card: Denies: chest pain, palpitations, lightheadedness, syncope or orthopnea Resp: Reports: dyspnea, non-productive cough and wheezing; Denies: hemoptysis or chest congestion GI: Denies: abdominal pain, nausea or vomiting : Denies: flank pain, dysuria, urinary frequency or urinary urgency Musc: Denies: extremity pain Skin/Breast: Denies: rash or pruritus Neuro: Denies: dizziness Endo: Denies: polyuria or polydipsia PFSH ED PFSH: Medical History Acute exacerbation of chronic obstructive pulmonary disease Afib Anticoagulation adequate BPH (benign prostatic hyperplasia) Chronic hyponatremia COPD (chronic obstructive pulmonary disease) Coronavirus infection Common cold variant 229E COVID-19 Disability Dolichocolon Gastritis HTN (hypertension) Liver cirrhosis etoh abuse 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 Presence of externally removable percutaneous endoscopic gastrostomy (PEG) tube Pulmonary HTN Surgical History H/O hemorrhoidectomy Status post laparoscopic-assisted sigmoidectomy Status post partial resection of colon Family History Denies family history of Diabetes Social History Smoking and tobacco status: current every day smoker Alcohol intake: unknown Physical Exam Const: GENERAL APPEARANCE: cooperative and comfortable ORIENTATION/CONSCIOUSNESS: Yes awake, Yes oriented to person, Yes oriented to place and Yes oriented to time HENMT: COMMON NORMALS: normocephalic and atraumatic HEAD & SCALP: normocephalic and atraumatic Resp: COMMON NORMALS: normal respiratory effort, No retractions and No use of accessory muscles AUSCULTATION: rhonchi and wheezes Cardio: COMMON NORMALS: regular rate, regular rhythm and No murmurs present (Cardio) RATE: regular rate RHYTHM: regular rhythm GI: COMMON NORMALS: Soft to palpation and No hepatosplenomegaly present AUSCULTATION: Yes normoactive bowel sounds PALPATION: Yes Soft to palpation, No Tenderness to palpation present (GI), No Guarding due to palpation present (GI) and Yes No hepatosplenomegaly present Extremity: COMMON NORMALS: normal to inspection, capillary refill normal, no clubbing, cyanosis or edema, no calf tenderness and no pedal edema Neuro: SENSORIUM/ORIENTATION: Yes oriented to person, Yes oriented to place and Yes oriented to time Skin: COMMON NORMALS: no rashes or lesions noted GENERAL SKIN EXAM: no rashes or lesions noted Course Vital Signs: Vital signs: Vital Signs Temperature 97.8 F 03/31/22 12:31 Pulse Rate 105 H 03/31/22 12:31 Respiratory Rate 17 03/31/22 12:31 Blood Pressure 136/92 03/31/22 12:31 Pulse Oximetry 94 03/31/22 12:31 Oxygen Delivery Me thod 03/31/22 11:36 Oxygen Flow Rate 2 03/31/22 11:17 Fraction of Inspir ed Oxygen 40 03/29/22 07:40 MDM - SOB/Dyspnea Medical Decision Making Care signed out to Dr. Vegas at change of shift. See final notes for diagnosis and disposition. Patient presents here with dyspnea along with hyponatremia he does have a pneumonia patient is on BiPAP currently as he was hypoxic on oxygen spoke to hospitalist will admit to the ICU. Lab Data 03/31/22 04:58 03/31/22 04:58 Labs/Radiology: Radiology Impressions Chest X-Ray 03/31/22 04:00 IMPRESSION: 1. Moderate left and small right pleural effusion with adjacent basilar consolidation versus atelectasis. 2. Emphysema. Retraction of the left hilum cephalad. Laboratory Results WBC 6.4 10^3/uL (4.0-10.0) 03/28/22 17: RBC 2.98 10^6/uL (4.1-5.3) L 03/28/22 17: Hgb 8.5 g/dL (11.7-16.6) L 03/28/22 17: Hct 25.7 % (42.0-52.0) L 03/28/22 17:22 MCV 86.2 fl (80-94) 03/28/22 17: MCH 28.5 pg (28.0-34.0) 03/28/22 17: MCHC 33.1 g/dL (30.0-36.0) 03/28/22 17: RDW 14.7 % (12.1-15.1) 03/28/22 17: Plt Count 331 10^3/cmm (130-400) 03/28/22 17: MPV 8.8 fL (7.4-10.4) 03/28/22 17: Neut % (Auto) 81.5 % 03/28/22 17: Lymph % (Auto) 10.4 % 03/28/22 17: Prairie % (Auto) 6.0 % 03/28/22 17: Eos % (Auto) 1.3 % 03/28/22 17: Baso % (Auto) 0.5 % 03/28/22 17: Neut # (Auto) 5.20 10^3/uL (1.8-7.7) 03/28/22 17: Lymph # (Auto) 0.7 10^3/uL (0.8-4.8) L 03/28/22: Prairie # (Auto) 0.4 10^3/uL (0.2-0.9) 03/28/22 17: Eos # (Auto) 0.1 10^3/uL (0.0-0.8) 03/28/22: Baso # (Auto) 0.0 10^3/uL (0.0-0.1) 03/28/22: Nucleated RBC % (auto) 0 % 03/28/22: Nucleated RBCs # 0.0 /100WBC 03/28/22: Specimen Type Arterial 03/28/22 18:07 Sample Site Brachial, right 03/28/22 18:07 ABG pH 7.42 (7.35-7.45) 03/28/22 18:07 ABG pCO2 39.0 mmHg (35-45) 03/28/22 18:07 ABG pO2 49.5 mmHg (80.0-100.0) L 03/28/22 18:07 ABG HCO3 25.4 mmol/L (22-26) 03/28/22 18:07 ABG O2 Saturation 86.1 03/28/22 18:07 ABG Base Excess 1.0 mmol/L (-2.0-2.0) 03/28/22 18:07 Hammad Test N/a 03/28/22 18:07 A-a O2 Gradient 30.5 mmHg (5-10) H 03/28/22 18:07 Hematocrit 26.8 % (42-52) L 03/28/22 18:07 Hgb O2 Saturation 81.9 % (95-100) L 03/28/22 18:07 Carboxyhemoglobin 4.5 %THgb (0.4-20.1) 03/28/22 18:07 Methemoglobin 0.4 % (0.4-1.5) 03/28/22 18:07 Total Hemoglobin 8.7 g/dL (14-18) L 03/28/22 18:07 Sodium 119.0 mmol/L (131-143) L 03/28/22 18:07 Potassium 4.3 mmol/L (3.5-5.0) 03/28/22 18:07 Glucose 93.0 mg/dL (70-115) 03/28/22 18:07 Ionized Calcium 1.1 mmol/L (1.1-1.4) 03/28/22 18:07 O2 Delivery Device Nc 03/28/22 18:07 O2 Liters/Min 6.0 % 03/28/22 18:07 FiO2 46.0 % 03/28/22 18:07 Automatic Riveting Machine Operator ID glc 03/28/22 18:07 Sodium 122 mmol/L (136-145) L 03/28/22 19:18 Potassium 4.4 mmol/L (3.5-5.1) 03/28/22 17:22 Chloride 84 mmol/L (98-107) L 03/28/22 17:22 Carbon Dioxide 27 mmol/L (22-29) 03/28/22 17:22 Anion Gap 12.4 (5-19) 03/28/22 17:22 BUN 12 mg/dL (8-23) 03/28/22 17:22 Creatinine 0.5 mg/dL (0.7-1.2) L 03/28/22 17:22 GFR Calculation 165.9 mL/min (90-130) H 03/28/22 17:22 Glucose 85 mg/dL (65-115) 03/28/22 17:22 Calculated Osmolality 247 mOsm/kg (285-295) L 03/28/22 17:22 Calcium 8.2 mg/dL (8.5-10.5) L 03/28/22 17:22 Total Bilirubin 0.2 mg/dL (0.15-1.2) 03/28/22 17:22 AST 12 U/L (0-40) 03/28/22 17:22 ALT 8 U/L (0-41) 03/28/22 17:22 Alkaline Phosphatase 74 U/L (40-130) 03/28/22 17:22 Troponin T Baseline 28 ng/L (0-15) H 03/28/22 17:20 Troponin T 120 Minute 28.05 ng/L (0-15) H 03/28/22 19:18 Delta Troponin T 0.05 ABS# (0-10) 03/28/22 19:18 Total Protein 6.5 g/dL (6.6-8.7) L 03/28/22 17:22 Albumin 2.9 g/dL (3.5-5.2) L 03/28/22 17: Globulin 3.6 g/dL (1.3-4.6) 03/28/22 17:22 TSH 1.99 uIU/mL (0.27-4.20) 03/28/22 19:18 Discharge Plan Discharge Patient Disposition: Admitted As Inpatient Admit Provider: Akash Martinez Clinical Impression: Community acquired pneumonia, Acute hyponatremia, Acute respiratory failure with hypoxemia Condition: Stable Coding Level of Care Code ED Manager Packaging for Chg Fwd Exam Detailed Documented by User: Milton Vegas MD 03/28/22 19:40 HPI - SOB/Dyspnea General: Chief Complaint: Shortness of Breath/Dyspnea Stated Complaint: SOB Time Seen by Provider: 03/28/22 17:08 [facility] ED PFSH: Medical History Acute exacerbation of chronic obstructive pulmonary disease Afib Anticoagulation adequate BPH (benign prostatic hyperplasia) Chronic hyponatremia COPD (chronic obstructive pulmonary disease) Coronavirus infection Common cold variant 229E COVID-19 Disability Dolichocolon Gastritis HTN (hypertension) Liver cirrhosis etoh abuse 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 Presence of externally removable percutaneous endoscopic gastrostomy (PEG) tube Pulmonary HTN Surgical History H/O hemorrhoidectomy Status post laparoscopic-assisted sigmoidectomy Status post partial resection of colon Family History Denies family history of Diabetes Social History Smoking and tobacco status: current every day smoker Alcohol intake: unknown Course Vital Signs: Vital signs: Vital Signs Temperature 97.8 F 03/31/22 12:31 Pulse Rate 105 H 03/31/22 12:31 Respiratory Rate 17 03/31/22 12:31 Blood Pressure 136/92 03/31/22 12:31 Pulse Oximetry 94 03/31/22 12:31 Oxygen Delivery Me thod 03/31/22 11:36 Oxygen Flow Rate 2 03/31/22 11:17 Fraction of Inspir ed Oxygen 40 03/29/22 07:40 MDM - SOB/Dyspnea Medical Decision Making Patient presents here with dyspnea along with hyponatremia he does have a pneumonia patient is on BiPAP currently as he was hypoxic on oxygen spoke to hospitalist will admit to the ICU. Lab Data 03/31/22 04:58 03/31/22 04:58 Labs/Radiology: Radiology Impressions Chest X-Ray 03/31/22 04:00 IMPRESSION: 1. Moderate left and small right pleural effusion with adjacent basilar consolidation versus atelectasis. 2. Emphysema. Retraction of the left hilum cephalad. Laboratory Results WBC 6.4 10^3/uL (4.0-10.0) 03/28/22 17: RBC 2.98 10^6/uL (4.1-5.3) L 03/28/22 17: Hgb 8.5 g/dL (11.7-16.6) L 03/28/22 17: Hct 25.7 % (42.0-52.0) L 03/28/22 17:22 MCV 86.2 fl (80-94) 03/28/22 17:22 MCH 28.5 pg (28.0-34.0) 03/28/22 17: MCHC 33.1 g/dL (30.0-36.0) 03/28/22 17:22 RDW 14.7 % (12.1-15.1) 03/28/22 17:22 Plt Count 331 10^3/cmm (130-400) 03/28/22 17:22 MPV 8.8 fL (7.4-10.4) 03/28/22 17:22 Neut % (Auto) 81.5 % 03/28/22 17: Lymph % (Auto) 10.4 % 03/28/22 17: Prairie % (Auto) 6.0 % 03/28/22 17:22 Eos % (Auto) 1.3 % 03/28/22 17: Baso % (Auto) 0.5 % 03/28/22 17: Neut # (Auto) 5.20 10^3/uL (1.8-7.7) 03/28/22 17: Lymph # (Auto) 0.7 10^3/uL (0.8-4.8) L 03/28/22 17: Prairie # (Auto) 0.4 10^3/uL (0.2-0.9) 03/28/22 17: Eos # (Auto) 0.1 10^3/uL (0.0-0.8) 03/28/22 17: Baso # (Auto) 0.0 10^3/uL (0.0-0.1) 03/28/22 17: Nucleated RBC % (auto) 0 % 03/28/22: Nucleated RBCs # 0.0 /100WBC 03/28/22: Specimen Type Arterial 03/28/22 18:07 Sample Site Brachial, right 03/28/22 18:07 ABG pH 7.42 (7.35-7.45) 03/28/22 18:07 ABG pCO2 39.0 mmHg (35-45) 03/28/22 18:07 ABG pO2 49.5 mmHg (80.0-100.0) L 03/28/22 18:07 ABG HCO3 25.4 mmol/L (22-26) 03/28/22 18:07 ABG O2 Saturation 86.1 03/28/22 18:07 ABG Base Excess 1.0 mmol/L (-2.0-2.0) 03/28/22 18:07 Hammad Test N/a 03/28/22 18:07 A-a O2 Gradient 30.5 mmHg (5-10) H 03/28/22 18:07 Hematocrit 26.8 % (42-52) L 03/28/22 18:07 Hgb O2 Saturation 81.9 % (95-100) L 03/28/22 18:07 Carboxyhemoglobin 4.5 %THgb (0.4-20.1) 03/28/22 18:07 Methemoglobin 0.4 % (0.4-1.5) 03/28/22 18:07 Total Hemoglobin 8.7 g/dL (14-18) L 03/28/22 18:07 Sodium 119.0 mmol/L (131-143) L 03/28/22 18:07 Potassium 4.3 mmol/L (3.5-5.0) 03/28/22 18:07 Glucose 93.0 mg/dL (70-115) 03/28/22 18:07 Ionized Calcium 1.1 mmol/L (1.1-1.4) 03/28/22 18:07 O2 Delivery Device Nc 03/28/22 18:07 O2 Liters/Min 6.0 % 03/28/22 18:07 FiO2 46.0 % 03/28/22 18:07 Automatic Riveting Machine Operator ID glc 03/28/22 18:07 Sodium 122 mmol/L (136-145) L 03/28/22 19:18 Potassium 4.4 mmol/L (3.5-5.1) 03/28/22 17:22 Chloride 84 mmol/L (98-107) L 03/28/22 17:22 Carbon Dioxide 27 mmol/L (22-29) 03/28/22 17:22 Anion Gap 12.4 (5-19) 03/28/22 17:22 BUN 12 mg/dL (8-23) 03/28/22 17:22 Creatinine 0.5 mg/dL (0.7-1.2) L 03/28/22 17:22 GFR Calculation 165.9 mL/min (90-130) H 03/28/22 17:22 Glucose 85 mg/dL (65-115) 03/28/22 17:22 Calculated Osmolality 247 mOsm/kg (285-295) L 03/28/22 17:22 Calcium 8.2 mg/dL (8.5-10.5) L 03/28/22 17:22 Total Bilirubin 0.2 mg/dL (0.15-1.2) 03/28/22 17:22 AST 12 U/L (0-40) 03/28/22 17:22 ALT 8 U/L (0-41) 03/28/22 17:22 Alkaline Phosphatase 74 U/L (40-130) 03/28/22 17:22 Troponin T Baseline 28 ng/L (0-15) H 03/28/22 17:20 Troponin T 120 Minute 28.05 ng/L (0-15) H 03/28/22 19:18 Delta Troponin T 0.05 ABS# (0-10) 03/28/22 19:18 Total Protein 6.5 g/dL (6.6-8.7) L 03/28/22 17:22 Albumin 2.9 g/dL (3.5-5.2) L 03/28/22 17:22 Globulin 3.6 g/dL (1.3-4.6) 03/28/22 17:22 TSH 1.99 uIU/mL (0.27-4.20) 03/28/22 19:18 Critical Care Time Critical Care Time: Critical Care Time: Yes Total Critical Care Time: 40 Attestation: The high probability of a clinically significant, sudden or life threatening deterioration of the patient's resp system(s) required my full and direct attention, intervention and personal management. The critical care time is as shown. This time is in addition to time spent performing any reported procedures but includes the following: [x] Data and vital sign review and interpretation [x] Patient assessment, examination and intervention [x] Documentation [x] Medication orders and management Discharge Plan Discharge Patient Disposition: Admitted As Inpatient Admit Provider: Akash Martinez Clinical Impression: Community acquired pneumonia, Acute hyponatremia, Acute respiratory failure with hypoxemia Condition: Stable Coding Level of Care Code ED Manager Packaging for Demetria Fwemilee Exam Detailed
[2022-03-28 17:55] LABS: Basophils % 0.5 %; Eosinophils # 0.1 10^3/uL (0.0-0.8); Eosinophils % 1.3 %; Hematocrit 25.7 % (42.0-52.0); Hemoglobin 8.5 g/dL (11.7-16.6); Lymphocytes # 0.7 10^3/uL (0.8-4.8); Lymphocytes % 10.4 %; Mean Corpuscular HGB Conc 33.1 g/dL (30.0-36.0); Mean Corpuscular Hemoglobin 28.5 pg (28.0-34.0); Mean Corpuscular Volume 86.2 fl (80-94); Mean Platelet Volume 8.8 fL (7.4-10.4); Monocytes # 0.4 10^3/uL (0.2-0.9); Neutrophils % 81.5 %; Nucleated Red Blood Cells % 0 %; Platelet Count 331 10^3/cmm (130-400); Red Blood Count 2.98 10^6/uL (4.1-5.3); Red Cell Distribution Width 14.7 % (12.1-15.1); White Blood Count 6.4 10^3/uL (4.0-10.0)
[2022-03-28 18:02] LABS: Alanine Aminotransferase 8 U/L (0-41); Albumin Level 2.9 g/dL (3.5-5.2); Alkaline Phosphatase 74 U/L (40-130); Anion Gap 12.4 (5-19); Aspartate Amino Transferase 12 U/L (0-40); Blood Urea Nitrogen 12 mg/dL (8-23); Calcium 8.2 mg/dL (8.5-10.5); Carbon Dioxide 27 mmol/L (22-29); Chloride 84 mmol/L (98-107); Globulin 3.6 g/dL (1.3-4.6); Glomerular Filtration Rate 165.9 mL/min (90-130); Glucose 85 mg/dL (65-115); Osmolality Calculated 247 mOsm/kg (285-295); Potassium 4.4 mmol/L (3.5-5.1); Total Bilirubin 0.2 mg/dL (0.15-1.2); Total Protein 6.5 g/dL (6.6-8.7)
[2022-03-28 18:07] LABS: Sodium 119 mmol/L (136-145)
[2022-03-28 18:17] LABS: ABG PH Result 7.42 (7.35-7.45); Alveolar-Arterial Oxygen Gradi 30.5 mmHg (5-10); Arterial Blood Gas Hematocrit 26.8 % (42-52); Blood Gas Operator Identificat glc; Blood Gas Sample Site Brachial, right; Blood Gas Sample Type Arterial; Carboxyhemoglobin 4.5 %THgb (0.4-20.1); HCO3 ABG 25.4 mmol/L (22-26); HGB O2 Sat 81.9 % (95-100); Ionized Calcium Level - ABG 1.1 mmol/L (1.1-1.4); Methemoglobin 0.4 % (0.4-1.5); Oxygen Device NC; Oxygen Saturation ABG 86.1; PO2 ABG 49.5 mmHg (80.0-100.0); Potassium Level - ABG 4.3 mmol/L (3.5-5.0); Total Hemoglobin 8.7 g/dL (14-18)
--- NOTE | 2022-03-28 18:20 | ECG_ITS ---
[facility] Test Date: 2022-03-28 Pat Name: uLdwin Lux Department: Room: Gender: Male Wood Setter: : 1955 Requested By: Milton Vegas Order Number: [id number] Prakash MD: Maicol Randall M.D. Measurements Intervals [place] Rate: 102 P: 81 NM: 162 QRS: 78 QRSD: 101 T: 246 QT: 356 QTc: 465 Interpretive Statements SINUS TACHYCARDIA POSSIBLE ANTERIOR MYOCARDIAL INFARCTION , OF INDETERMINATE AGE [30 ms Q WAVE IN V3/V4, OR R < 0.2 mV IN V4] MODERATE T-WAVE ABNORMALITY, CONSIDER LATERAL ISCHEMIA [-0.1+ mV T-WAVE IN I/aVL/V5/V6] MODERATE T-WAVE ABNORMALITY, CONSIDER INFERIOR ISCHEMIA [-0.1+ mV T-WAVE IN II/aVF] Compared to ECG 03/06/2022 18:16:48 Sinus rhythm no longer present Myocardial infarct finding still present T-wave abnormality still present Possible ischemia still present Electronically Signed On 03-28-2022 21:03:51 MORTAR MAN by Maicol Randall M.D. [email or web address].[employer]/store/OM/[id number]
[2022-03-28] MEDS: azithromycin 500 MG in sodium chloride 0.9% 250 ML 250 MG IV (18:34)
[2022-03-28 18:35] LABS: Troponin(5th) Baseline 28 ng/L (0-15)
--- NOTE | 2022-03-28 19:06 | PC.NURSE ---
upon receiving report pt SPO2 in the 70s with poor waveform, pulse ox switched to finger and SPO2 read 82% with consistent waveform on 6LNC. Dr. Vegas notified, respiratory called for further intervention.
[2022-03-28 19:55] LABS: Troponin 5 2HR 28.05 ng/L (0-15)
[2022-03-28 19:56] LABS: Troponin 5 2HR Delta 0.05 ABS# (0-10)
[2022-03-28] MEDS: cefTRIAXone 1,000 MG in sodium chloride 0.9% (plus) 50 ML 100 MG IV (20:00)
--- NOTE | 2022-03-28 20:10 | ECG_ITS ---
[facility] Test Date: 2022-03-28 Pat Name: Ludwin Lux Department: Room: ICU02 Gender: Male Tool Programmer: : 1955 Requested By: Milton Vegas Order Number: [id number] Prakash MD: Maicol Randall M.D. Measurements Intervals [place] Rate: 97 P: 77 LA: 140 QRS: 73 QRSD: 99 T: 131 QT: 380 QTc: 483 Interpretive Statements SINUS RHYTHM ANTERIOR MYOCARDIAL INFARCTION , OF INDETERMINATE AGE [40+ ms Q WAVE AND/OR ST/T ABNORMALITY IN V3/V4] MODERATE T-WAVE ABNORMALITY, CONSIDER LATERAL ISCHEMIA [-0.1+ mV T-WAVE IN I/aVL/V5/V6] Compared to ECG 03/28/2022 18:20:42 Sinus tachycardia no longer present Myocardial infarct finding still present T-wave abnormality still present Possible ischemia still present Electronically Signed On 03-28-2022 21:09:43 ROCK WORKER by Maicol Randall M.D. [email or web address]/store/[id number]
[2022-03-28] MEDS: nicotine 21 mg Patch 1 PATCH TRANSDERMA (20:14)
--- NOTE | 2022-03-28 21:21 | PM.HP ---
Providers/Chief Complaint Admitting Physician: Akash Martinez Primary Care Provider: JAYNA Rivera Chief Complaint: SOB History of Present Illness 66-year-old gentleman with multiple recent hospitalizations returns to the hospital due to respiratory distress, hypoxia, not normally oxygen requiring 4-5 L nasal cannula, and then requiring starting BiPAP in ER. With noted moderate volume left and small right pleural effusions, consolidation again noted in the mid lower left lung. CT scan of the chest during prior hospitalization 03/07 with small left pleural effusion with thickening visceral and parietal pleura suspicious for empyema reported, progression of pneumonia with consolidation left lower lobe and patchy infiltrates extending into the left upper lobe. Volume loss left lung with right left mediastinal shift. Near complete opacification of the left mainstem bronchus new compared to prior. Right lung well aerated with trace pleural fluid/pleural thickening. During last hospitalization he had also had PEG tube placed. He receives feeding through PEG tube but also has been eating dysphagia diet with reassessment with speech therapy, and states was doing relatively okay up until several days ago. He overall does not have a good cough. He has been having overall wasting, has not been walking in several years, etiology of this is not clear. He was post to have an appointment with neurology today due to also new onset seizure he suffered during hospitalization before last. He also has chronic hyponatremia, although currently sodium worse at 119. Review of Systems General: Reports: ROS unobtainable due to medical condition Resp: Reports: dyspnea Medications/Allergies Home Medications Medication Instructions Recorded Confirmed Last Taken Type fluticasone propionate 50 1 spray intranasal DAILY PRN 06/21/21 03/28/22 Unknown History mcg/actuation nasal Allergy Symptoms spray,suspension hydroxyzine pamoate 50 mg capsule 50 mg PO Q8H PRN Anxiety 06/21/21 03/28/22 02/02/22 History ropinirole 1 mg tablet 1 mg PO BEDTIME PRN Restless Leg(S) 06/21/21 03/28/22 Unknown History sennosides 8.6 mg-docusate sodium 1 tab PO BID 06/21/21 03/28/22 03/28/22 History 50 mg tablet (Stool Softener-Laxative) temazepam 30 mg capsule 30 mg PO BEDTIME PRN Sleep 06/21/21 03/28/22 02/02/22 History albuterol sulfate 2.5 mg/3 mL 2.5 mg inhalation TID PRN 02/03/22 03/28/22 03/28/22 History (0.083 %) solution for nebulization Shortness Of Breath Or Wheezing apixaban 5 mg tablet (Eliquis) 5 mg PO BID 02/03/22 03/28/22 03/28/22 History budesonide 0.5 mg/2 mL suspension 0.5 mg inhalation BID 02/03/22 03/28/22 03/28/22 History for nebulization cranberry extract-vitamin C 250 1 cap PO QPM 02/03/22 03/28/22 03/27/22 History mg-60 mg capsule cyanocobalamin (vitamin B-12) 500 500 mcg PO QPM 02/03/22 03/28/22 03/27/22 History mcg tablet (Vitamin B-12) ferrous sulfate 325 mg (65 mg 325 mg PO QPM 02/03/22 03/28/22 03/27/22 History iron) tablet (iron) formoterol fumarate 20 mcg/2 mL 2 ml inhalation BID 02/03/22 03/28/22 03/28/22 History solution for nebulization (Perforomist) guaifenesin 600 mg tablet, 600 mg PO DAILY PRN Congestion 02/03/22 03/28/22 Unknown History extended release 12 hr (Mucinex) yfmifbqa-jsxbskch-pjtej acid 400 1 tab PO QPM 02/03/22 03/28/22 03/27/22 History mcg-vit K 20 mcg-lycop 300 mcg tablet (Men's One Daily) mupirocin 2 % topical ointment 1 applic topical BID PRN Rash 02/03/22 03/28/22 Unknown History ondansetron 8 mg disintegrating 8 mg PO Q8H PRN Nausea And Vomiting 02/03/22 03/28/22 Unknown History tablet polyethylene glycol 3350 17 gram 17 g PO DAILY 02/03/22 03/28/22 03/28/22 History oral powder packet (Miralax) revefenacin 175 mcg/3 mL solution 175 mcg inhalation DAILY 02/03/22 03/28/22 03/28/22 History for nebulization (Yupelri) sodium chloride 1 gram tablet 1,000 mg PO BID 02/03/22 03/28/2222 History L.acidophil-L.casei-B.bifid-B.longum-FOS 1 cap PO DAILY 03/07/22 03/28/22 03/28/22 History 2 billion cell-50 mg capsule (Probiotic Blend) mirtazapine 7.5 mg tablet 7.5 mg PO BEDTIME 03/07/22 03/28/22 03/27/22 History pantoprazole 40 mg tablet,delayed 40 mg PO BID PRN Acid Reflux 03/07/22 03/28/22 03/28/22 History release sucralfate 1 gram tablet 1 g PO Q12H PRN Gastric Reflux 03/07/22 03/28/22 Unknown History venlafaxine 225 mg tablet,extended 225 mg PO QAM 03/07/22 03/28/22 Unknown History release 24 hr levetiracetam 750 mg tablet 750 mg PO DAILY 03/28/22 03/28/22 03/28/22 History (Keppra) levothyroxine 25 mcg tablet 25 mcg PO DAILY 03/28/22 03/28/22 03/28/22 History metoprolol tartrate 25 mg tablet 25 mg PO BID 03/28/22 03/28/22 03/28/22 History Allergies Allergy/AdvReac Type Severity Reaction Status Date / Time Sulfa (Sulfonamide Allergy ALGY-Rash Verified 03/07/22 10:42 Antibiotics) PFSH Acute PFSH: Medical History Acute exacerbation of chronic obstructive pulmonary disease Afib Anticoagulation adequate BPH (benign prostatic hyperplasia) Chronic hyponatremia COPD (chronic obstructive pulmonary disease) Coronavirus infection Common cold variant 229E COVID-19 Disability Dolichocolon Gastritis HTN (hypertension) Liver cirrhosis etoh abuse 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 Presence of externally removable percutaneous endoscopic gastrostomy (PEG) tube Pulmonary HTN Surgical History H/O hemorrhoidectomy Status post laparoscopic-assisted sigmoidectomy Status post partial resection of colon Family History Denies family history of Diabetes Social History Smoking and tobacco status: current every day smoker Alcohol intake: unknown Vitals/I&O/Wt Last Vital Signs Temp 98.3 F 03/28/22 17:08 Pulse 99 03/28/22 19:34 Resp 21 H 03/28/22 19:30 BP 116/79 03/28/22 19:30 Pulse Ox 98 03/28/22 19:34 O2 Del Method 03/28/22 18:30 O2 Flow Rate 4 03/28/22 18:30 FiO2 50 03/28/22 19:34 Weight last 48 hrs Weight 63.503 kg Physical Exam Narrative: Family at bedside Const: COMMON NORMALS: patient oriented x3 and alert GENERAL APPEARANCE: cooperative and other (Appears deconditioned, weak, with muscle loss) ORIENTATION/CONSCIOUSNESS: Yes awake OTHER: BiPAP HENMT: COMMON NORMALS: oropharynx normal Neck/C-Spine: COMMON NORMALS: no JVD Resp: COMMON NORMALS: normal respiratory effort and clear to auscultation bilaterally AUSCULTATION: rhonchi and diminished lung sounds on the left in the lower lung lopez Cardio: COMMON NORMALS: no JVD, regular rhythm, S1 normal heart sound present, S2 normal heart sound present and No murmurs present (Cardio) RHYTHM: regular rhythm HEART SOUNDS: S1 normal heart sound present and S2 normal heart sound present GI: COMMON NORMALS: Normal to inspection, nondistended, normoactive bowel sounds present, Soft to palpation and non-tender PALPATION: Yes Soft to palpation Extremity: COMMON NORMALS: no joint enlargement and no pedal edema OTHER: Some contracture in the left arm/hand. Neuro: COMMON NORMALS: patient oriented x3 and moves all extremities SENSORIUM/ORIENTATION: Yes alert Skin: COMMON NORMALS: no rashes or lesions noted GENERAL SKIN EXAM: no rashes or lesions noted Data : 03/28/22 17:22 03/28/22 17:22 A&P Assessment and plan (1) Acute respiratory failure with hypoxemia: Recently hospitalized also with pneumonia. Complete antibiotic course with Levaquin and Augmentin. Concern for recurrence of pneumonia or possibly incompletely resolved, although family did report he was feeling better. Has been found to be aspirating recently, although reportedly was doing okay with speech therapy with dysphagia diet in addition to the tube feeds. However, does have very weak, ineffectual cough at baseline. Appears may have some sort of progressive wasting disease, possibly contributing to his swallowing and respiratory difficulties. Not normally on oxygen at baseline. Possible aspiration pneumonia. Recently hospitalized. We will for now empirically treat with Zosyn, vancomycin. Sputum culture if he can provide. Check MRSA PCR. Currently requiring BiPAP, wean off to heated high flow if tolerating. Chest physiotherapy with chest vest, Mucomyst, 3% saline nebs. With noted left mainstem bronchus mucous plugging last admission. Also noted left side atelectasis, left pleural effusion. May end up still needing bronchoscopy. Additionally noted pleural thickening. Consider subsequently thoracentesis with cytology. Consider repeat CT. Last time concern for possible empyema on imaging, although currently is not appearing septic. Maintain n.p.o. and question may be whether it is safe for him to resume oral intake at all. Will benefit from further assessment, possibly repeat barium swallow once he is out of acute failure. (2) Pneumonia: As above. (3) Acute hyponatremia: Follow-up sodium after he has received small amounts of NaCl with antibiotic infusions. Acute on chronic hyponatremia, usually sodium runs closer to 130s. Currently 119. May be related to SIADH secondary to acute respiratory illness. His reports he otherwise had had good nutritional intake with combination of tube feeds and oral intake. He does not appear fluid overloaded. Will check TSH. Plan Progressive wasting disease: Unclear etiology underlying wasting. Would benefit from neurological assessment. He was going to see them for seizure, perhaps consideration can also be given if there is another cause like myotonic dystrophy underlying his progressive issues. There is consideration of history of osmotic myelinolysis. He has had progressive functional decline. Family report currently unable to help him with repositioning. Sarcopenia, protein calorie malnutrition: N.p.o. currently. Continue tube feeds. Consider dietitian reassessment depending on whether he is able to safely resume oral intake. Family report chronic left-sided weakness, consideration of possible past CVA, may benefit from further assessment by MRI once out of acute condition COPD A. fib BPH Chronic hyponatremia Gastritis HTN Liver cirrhosis Remote history of alcohol abuse History of osmotic myelinolysis Tremors Pulmonary hypertension Attestations Medical Necessity Statement*: Admission over 2 midnights in the assessment and management of acute respite failure with hypoxia, pneumonia, possible recurrent aspiration, as well as acute on chronic hyponatremia. Coding Level of Care Code Acute Business Asst for [facility] Fwd Diagnoses Acute respiratory failure with hypoxemia J96.01 Pneumonia J18.9 Acute hyponatremia E87.1
[2022-03-28] MEDS: piperacillin-tazobactam 3.375 GM in sodium chloride 0.9% (plus) 50 ML IV (21:46)
[2022-03-28] MEDS: pantoprazole 40 mg SDV IVP (21:47)
--- NOTE | 2022-03-28 21:52 | PC.PHAR ---
Vancomycin is dosed at 1500mg IVPB every 12 hours to produce a predicted trough level of 12.51 (population based pharmacokinetic analysis). A trough level has been ordered from the lab to be obtained before the fourth dose to confirm and adjust if needed.
[2022-03-28] MEDS: vancomycin 1,500 MG/300 ML PIGGYBACK 150 MG IV (22:18)
[2022-03-28 22:21] LABS: Thyroid Stimulating Hormone 1.99 uIU/mL (0.27-4.20)
[2022-03-28 22:41] LABS: Sodium 122 mmol/L (136-145)
[2022-03-28] MEDS: acetylcysteine 200 mg/mL SDV 4 mL 100 MG INHALATION (23:20)
[2022-03-28] MEDS: ipratropium-albuterol 3 mL Neb INHALATION (23:20)
[2022-03-29] VITALS (43 sets, daily range): BP systolic 96–142; BP diastolic 75–96; PULSE 84–107; RESP 17–28; TEMP 36.6; O2SAT 64–100; BMI 19.9
--- NOTE | 2022-03-29 00:05 | ECG_ITS ---
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 Measurements Intervals [place] Rate: 98 P: [place]: QRS: 79 QRSD: 102 T: 267 QT: 361 QTc: 462 Interpretive Statements SUPRAVENTRICULAR RHYTHM, indeterminate secondary to underlying baseline artifact ANTEROSEPTAL MYOCARDIAL INFARCTION , OF INDETERMINATE AGE [40+ ms Q WAVE IN V1-V4] MODERATE T-WAVE ABNORMALITY, CONSIDER INFERIOR ISCHEMIA [-0.1+ mV T-WAVE IN II/aVF] Compared to ECG 03/28/2022 20:10:30 Supraventricular rhythm now present Myocardial infarct finding still present T-wave abnormality still present Possible ischemia still present Electronically Signed On 03-30-2022 15:03:21 [employer] by Zack Ceja M.D. [email or web address]
--- NOTE | 2022-03-29 00:08 | PC.NURSE ---
Patient arrived on unit @2120 from ED. Patient presents AOx4 w/ no reports of pain. Saturation in the 70s on NC upon transport but recovered rapidly on CPAP %100 Fi02. Patient has been cooperative with plan of care but repeatedly asks for food. Currently NPO due to aspiration history and possible aspiration pneumonia. Integumentary appears non remarkable with exception of skin tag on sacral region. Lungs are diminished and expiratory wheezes observed. Left base is absent which corresponds to Chest Xray findings. Ostomy bag drained of soft brown stool.
[2022-03-29] MEDS: acetaminophen 650 mg/20.3 mL UDC PEG-TUBE (02:53)
[2022-03-29] MEDS: temazepam 15 mg Capsule 30 MG PEG-TUBE (02:54)
[2022-03-29] MEDS: ipratropium-albuterol 3 mL Neb INHALATION ×4 (03:08→15:51)
[2022-03-29] MEDS: acetylcysteine 200 mg/mL SDV 4 mL 100 MG INHALATION ×3 (03:08→11:03)
[2022-03-29 03:29] LABS: Basophils % 0.2 %; Hematocrit 24.7 % (42.0-52.0); Hemoglobin 8.1 g/dL (11.7-16.6); Lymphocytes # 0.3 10^3/uL (0.8-4.8); Lymphocytes % 4.3 %; Mean Corpuscular HGB Conc 32.8 g/dL (30.0-36.0); Mean Corpuscular Hemoglobin 28.9 pg (28.0-34.0); Mean Corpuscular Volume 88.2 fl (80-94); Mean Platelet Volume 9.2 fL (7.4-10.4); Monocytes # 0.2 10^3/uL (0.2-0.9); Monocytes % 3.3 %; Neutrophils # 5.78 10^3/uL (1.8-7.7); Neutrophils % 91.7 %; Nucleated Red Blood Cells % 0 %; Platelet Count 302 10^3/cmm (130-400); Red Cell Distribution Width 14.7 % (12.1-15.1); White Blood Count 6.3 10^3/uL (4.0-10.0)
[2022-03-29 03:52] LABS: Anion Gap 15.6 (5-19); Blood Urea Nitrogen 13 mg/dL (8-23); Calcium 7.9 mg/dL (8.5-10.5); Carbon Dioxide 23 mmol/L (22-29); Chloride 88 mmol/L (98-107); Glomerular Filtration Rate 165.9 mL/min (90-130); Glucose 118 mg/dL (65-115); Osmolality Calculated 255 mOsm/kg (285-295); Potassium 4.6 mmol/L (3.5-5.1); Sodium 122 mmol/L (136-145)
[2022-03-29 04:20] LABS: Creatinine Clr Calc Pharmacy 81.3306
[2022-03-29] MEDS: piperacillin-tazobactam 3.375 GM in sodium chloride 0.9% (plus) 50 ML IV ×3 (04:49→20:54)
[2022-03-29] MEDS: venlafaxine 75 mg Tablet 225 MG PEG-TUBE (06:07)
--- NOTE | 2022-03-29 07:03 | PM.CONSULT ---
Providers/Reason For Consult Consulting Physician/Specialty*: Moises Sharif MD/Pulmonary Critical Care Reason for Consult*: Suspected aspiration pneumonia causing mucous plugging and left lung atelectasis Requesting Physician: Akash Martinez Attending Physician: Akash Martinez Primary Care Provider: JAYNA Rivera History of Present Illness History of Present Illness Ludwin Lux is a 66 year old male with past medical history of COPD, atrial fibrillation, BPH, chronic hyponatremia, COPD, gastritis, hypertension, liver cirrhosis secondary to alcohol abuse, osmotic myelinolysis, pulmonary hypertension. with multiple recent hospitalizations for generalized weakness, adult failure to thrive, left-sided chest infiltrates consistent with aspiration pneumonia during most recent admission 20 days ago. Patient is severely deconditioned and during last hospitalization he had also had PEG tube placed.? He receives feeding through PEG tube but also has been eating dysphagia diet with reassessment with speech therapy, and states was doing relatively okay up until several days ago.? He overall does not have a good cough.? He has been having overall wasting, has not been walking in several years, etiology of this is not clear. He was found to have rectal mass February 03 to February 13 for a rectal mass and overflow incontinence.? Sigmoidectomy and colostomy was performed on this admission.? No evidence of malignancy was found. Pathology revealed ?Microscopic features consistent with sigmoid volvulus. He has a history of recurrent chronic UTIs with a suprapubic catheter in place which is replaced every 2 weeks Now he returns to the hospital due to respiratory distress, hypoxia, on supplemental oxygen requiring 4-5 L nasal cannula, and then requiring starting BiPAP in ER.? Chest x ray today showed moderate volume left and small right pleural effusions, consolidation again noted in the mid lower left lung.? Upon review CT scan of the chest during prior hospitalization 03/07 showed small left pleural effusion with thickening visceral and parietal pleura suspicious for empyema reported, progression of pneumonia with consolidation left lower lobe and patchy infiltrates extending into the left upper lobe.? Volume loss left lung with right left mediastinal shift.? Near complete opacification of the left mainstem bronchus new compared to prior.? Right lung well aerated with trace pleural fluid/pleural thickening. He was supposed to follow up with neurology due to also new onset seizure he suffered during hospitalization before last. He also has chronic hyponatremia, although currently sodium worse at 119. Pulmonary consult requested for worsening hypoxia as well posible bilateral effusion and left lung atelectasis with possible mucus plugging. Today morning seen patient at bedside-he is currently on high flow nasal cannula 40% Appears weak and cachectic requesting to give him something to eat He received Mucomyst, hypertonic saline and chest physiotherapy yesterday night-today morning chest x-ray was pending -I checked with bedside ultrasound and there is a mild to moderate left pleural effusion -I will perform bronchoscopy today to check for any mucous plugging causing atelectasis of left lower lobe leading to pleural effusion. Everything explained to patient's daughter over phone as well. -Daughter reported she really does not have any obvious evidence of aspiration but does report he has weak cough -Other labs and imaging reviewed-sodium improved from 06 08-06 11 Review of Systems General: Reports: 10 or more systems reviewed and unremarkable except in HPI and below Medications/Allergies Home Medications Medication Instructions Recorded Confirmed Last Taken Type fluticasone propionate 50 1 spray intranasal DAILY PRN 06/21/21 03/28/22 Unknown History mcg/actuation nasal Allergy Symptoms spray,suspension hydroxyzine pamoate 50 mg capsule 50 mg PO Q8H PRN Anxiety 06/21/21 03/28/22 02/02/22 History ropinirole 1 mg tablet 1 mg PO BEDTIME PRN Restless Leg(S) 06/21/21 03/28/22 Unknown History sennosides 8.6 mg-docusate sodium 1 tab PO BID 06/21/21 03/28/22 03/28/22 History 50 mg tablet (Stool Softener-Laxative) temazepam 30 mg capsule 30 mg PO BEDTIME PRN Sleep 06/21/21 03/28/22 02/02/22 History albuterol sulfate 2.5 mg/3 mL 2.5 mg inhalation TID PRN 02/03/22 03/28/22 03/28/22 History (0.083 %) solution for nebulization Shortness Of Breath Or Wheezing apixaban 5 mg tablet (Eliquis) 5 mg PO BID 02/03/22 03/28/22 03/28/22 History budesonide 0.5 mg/2 mL suspension 0.5 mg inhalation BID 02/03/22 03/28/22 03/28/22 History for nebulization cranberry extract-vitamin C 250 1 cap PO QPM 02/03/22 03/28/22 03/27/22 History mg-60 mg capsule cyanocobalamin (vitamin B-12) 500 500 mcg PO QPM 02/03/22 03/28/22 03/27/22 History mcg tablet (Vitamin B-12) ferrous sulfate 325 mg (65 mg 325 mg PO QPM 02/03/22 03/28/22 03/27/22 History iron) tablet (iron) formoterol fumarate 20 mcg/2 mL 2 ml inhalation BID 02/03/22 03/28/22 03/28/22 History solution for nebulization (Perforomist) guaifenesin 600 mg tablet, 600 mg PO DAILY PRN Congestion 02/03/22 03/28/22 Unknown History extended release 12 hr (Mucinex) lhmfbxir-katbnaok-rtkfs acid 400 1 tab PO QPM 02/03/22 03/28/22 03/27/22 History mcg-vit K 20 mcg-lycop 300 mcg tablet (Men's One Daily) mupirocin 2 % topical ointment 1 applic topical BID PRN Rash 02/03/22 03/28/22 Unknown History ondansetron 8 mg disintegrating 8 mg PO Q8H PRN Nausea And Vomiting 02/03/22 03/28/22 Unknown History tablet polyethylene glycol 3350 17 gram 17 g PO DAILY 02/03/22 03/28/22 03/28/22 History oral powder packet (Miralax) revefenacin 175 mcg/3 mL solution 175 mcg inhalation DAILY 02/03/22 03/28/22 03/28/22 History for nebulization (Yupelri) sodium chloride 1 gram tablet 1,000 mg PO BID 02/03/22 03/28/22 03/28/22 History L.acidophil-L.casei-B.bifid-B.longum-FOS 1 cap PO DAILY 03/07/22 03/28/22 03/28/22 History 2 billion cell-50 mg capsule (Probiotic Blend) mirtazapine 7.5 mg tablet 7.5 mg PO BEDTIME 03/07/22 03/28/22 03/27/22 History pantoprazole 40 mg tablet,delayed 40 mg PO BID PRN Acid Reflux 03/07/22 03/28/22 03/28/22 History release sucralfate 1 gram tablet 1 g PO Q12H PRN Gastric Reflux 03/07/22 03/28/22 Unknown History venlafaxine 225 mg tablet,extended 225 mg PO QAM 03/07/22 03/28/22 Unknown History release 24 hr levetiracetam 750 mg tablet 750 mg PO DAILY 03/28/22 03/28/22 03/28/22 History (Keppra) levothyroxine 25 mcg tablet 25 mcg PO DAILY 03/28/22 03/28/22 03/28/22 History metoprolol tartrate 25 mg tablet 25 mg PO BID 03/28/22 03/28/22 03/28/22 History Allergies Allergy/AdvReac Type Severity Reaction Status Date / Time Sulfa (Sulfonamide Allergy ALGY-Rash Verified 03/07/22 10:42 Antibiotics) Current Medications Generic Name Dose Route Start Last Admin Trade Name Freq PRN Reason Stop Dose Admin Acetaminophen 650 mg 03/29/22 02:46 03/29/22 02:53 Acetaminophen 650 Mg/20.3 Ml Udc PEG-TUBE 650 mg Q4H PRN Administration MILD PAIN OR INCREASE TEMP Acetylcysteine 100 mg 03/29/22 00:00 03/29/22 03:08 Acetylcysteine 200 Mg/Ml Sdv 4 Ml INHALATION 100 mg Q4H.RESPIRATORY ANGELA Administration Albuterol/Ipratropium 3 ml 03/28/22 22:41 03/29/22 03:08 Ipratropium-Albuterol 3 Ml Neb INHALATION 3 ml Q4H PRN Administration SHORTNESS OF BREATH Piperacillin Sod/Tazobactam 50 mls @ 12.5 mls/hr 03/28/22 21:38 03/29/22 04:49 Sod 3.375 gm/ Sodium Chloride IV 12.5 mls/hr Q8H ANGELA Administration Protocol Vancomycin/PEG/NADA/Lysine/Water 1,500 mg in 300 mls @ 150 mls/hr 03/28/22 22:00 03/29/22 00:41 Vancocin IV Infused Q12H ANGELA Infusion Pantoprazole Sodium 40 mg 03/28/22 21:38 03/28/22 21:47 Pantoprazole 40 Mg Sdv IVP 40 mg Q24H ANGELA Administration Temazepam 30 mg 03/28/22 23:29 03/29/22 02:54 Temazepam 15 Mg Capsule PEG-TUBE 30 mg BEDTIME PRN Administration Sleep Venlafaxine HCl 225 mg 03/29/22 06:00 03/29/22 06:07 Venlafaxine 75 Mg Tablet PEG-TUBE 225 mg QAM ANGELA Administration PFSH Acute PFSH: Medical History Acute exacerbation of chronic obstructive pulmonary disease Afib Anticoagulation adequate BPH (benign prostatic hyperplasia) Chronic hyponatremia COPD (chronic obstructive pulmonary disease) Coronavirus infection Common cold variant 229E COVID-19 Disability Dolichocolon Gastritis HTN (hypertension) Liver cirrhosis etoh abuse 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 Presence of externally removable percutaneous endoscopic gastrostomy (PEG) tube Pulmonary HTN Surgical History H/O hemorrhoidectomy Status post laparoscopic-assisted sigmoidectomy Status post partial resection of colon Family History Denies family history of Diabetes Social History Smoking and tobacco status: current every day smoker Alcohol intake: unknown Vitals/I&O/Wt Last Vital Signs Temp 98.8 F 03/28/22 21:20 Pulse 103 H 03/29/22 04:30 Resp 20 H 03/29/22 04:30 BP 124/80 03/29/22 04:30 Pulse Ox 97 03/29/22 04:30 O2 Del Method 03/29/22 04:30 O2 Flow Rate 30 03/29/22 04:30 FiO2 50 03/29/22 04:30 03/28/22 03/29/22 03/29/22 22:59 06:59 14:59 Intake Total 0 / 0 730 / 730 Output Total 1125 / 1125 Balance 0 / 0 -395 / -395 Weight last 48 hrs Weight 131 lb 5 oz Weight 127 lb 8 oz Weight 140 lb Physical Exam Narrative: General: alert, NAD HEENT: conj clear, EOMI, PERRL, mmm, Neck: supple, no meningismus Heme: no cervical LAP Pulmonary: Reduced breath sounds on left lower lung zone Cardiovascular: rrr, nl s1s2, no mrg Abdomen: soft, nt, nd, no r/g, bs+ Extremities: pulses +, no edema, no c/c : no CVA tenderness Skin: intact, no rash MSK: no back or neck pain Neurologic: grossly intact Data : 03/29/22 02:12 03/29/22 02:12 Other Labs: Radiology Impressions Chest X-Ray 03/28/22 17:09 IMPRESSION: Moderate volume left and small volume right pleural effusions. Consolidation again noted in the mid and lower left lung. Laboratory Results WBC 6.3 10^3/uL (4.0-10.0) 03/29/22 02:12 RBC 2.80 10^6/uL (4.1-5.3) L 03/29/22 02:12 Hgb 8.1 g/dL (11.7-16.6) L 03/29/22 02:12 Hct 24.7 % (42.0-52.0) L 03/29/22 02:12 MCV 88.2 fl (80-94) 03/29/22 02:12 MCH 28.9 pg (28.0-34.0) 03/29/22 02:12 MCHC 32.8 g/dL (30.0-36.0) 03/29/22 02:12 RDW 14.7 % (12.1-15.1) 03/29/22 02:12 Plt Count 302 10^3/cmm (130-400) 03/29/22 02:12 MPV 9.2 fL (7.4-10.4) 03/29/22 02:12 Neut % (Auto) 91.7 % 03/29/22 02:12 Lymph % (Auto) 4.3 % 03/29/22 02:12 Ashley % (Auto) 3.3 % 03/29/22 02:12 Eos % (Auto) 0.0 % 03/29/22 02:12 Baso % (Auto) 0.2 % 03/29/22 02:12 Neut # (Auto) 5.78 10^3/uL (1.8-7.7) 03/29/22 02:12 Lymph # (Auto) 0.3 10^3/uL (0.8-4.8) L 03/29/22 02:12 Ashley # (Auto) 0.2 10^3/uL (0.2-0.9) 03/29/22 02:12 Eos # (Auto) 0.0 10^3/uL (0.0-0.8) 03/29/22 02:12 Baso # (Auto) 0.0 10^3/uL (0.0-0.1) 03/29/22 02:12 Nucleated RBC % (auto) 0 % 03/29/22 02:12 Nucleated RBCs # 0.0 /100WBC 03/29/22 02:12 Specimen Type Arterial 03/28/22 18:07 Sample Site Brachial, right 03/28/22 18:07 ABG pH 7.42 (7.35-7.45) 03/28/22 18:07 ABG pCO2 39.0 mmHg (35-45) 03/28/22 18:07 ABG pO2 49.5 mmHg (80.0-100.0) L 03/28/22 18:07 ABG HCO3 25.4 mmol/L (22-26) 03/28/22 18:07 ABG O2 Saturation 86.1 03/28/22 18:07 ABG Base Excess 1.0 mmol/L (-2.0-2.0) 03/28/22 18:07 Hammad Test N/a 03/28/22 18:07 A-a O2 Gradient 30.5 mmHg (5-10) H 03/28/22 18:07 Hematocrit 26.8 % (42-52) L 03/28/22 18:07 Hgb O2 Saturation 81.9 % (95-100) L 03/28/22 18:07 Carboxyhemoglobin 4.5 %THgb (0.4-20.1) 03/28/22 18:07 Methemoglobin 0.4 % (0.4-1.5) 03/28/22 18:07 Total Hemoglobin 8.7 g/dL (14-18) L 03/28/22 18:07 Sodium 119.0 mmol/L (131-143) L 03/28/22 18:07 Potassium 4.3 mmol/L (3.5-5.0) 03/28/22 18:07 Glucose 93.0 mg/dL (70-115) 03/28/22 18:07 Ionized Calcium 1.1 mmol/L (1.1-1.4) 03/28/22 18:07 O2 Delivery Device Nc 03/28/22 18:07 O2 Liters/Min 6.0 % 03/28/22 18:07 FiO2 46.0 % 03/28/22 18:07 Automotive Service Technician ID glc 03/28/22 18:07 Sodium 122 mmol/L (136-145) L 03/29/22 02:12 Potassium 4.6 mmol/L (3.5-5.1) 03/29/22 02:12 Chloride 88 mmol/L (98-107) L 03/29/22 02:12 Carbon Dioxide 23 mmol/L (22-29) 03/29/22 02:12 Anion Gap 15.6 (5-19) 03/29/22 02:12 BUN 13 mg/dL (8-23) 03/29/22 02:12 Creatinine 0.5 mg/dL (0.7-1.2) L 03/29/22 02:12 GFR Calculation 165.9 mL/min (90-130) H 03/29/22 02:12 Glucose 118 mg/dL (65-115) H 03/29/22 02:12 Calculated Osmolality 255 mOsm/kg (285-295) L 03/29/22 02:12 Calcium 7.9 mg/dL (8.5-10.5) L 03/29/22 02:12 Total Bilirubin 0.2 mg/dL (0.15-1.2) 03/28/22 17:22 AST 12 U/L (0-40) 03/28/22 17:22 ALT 8 U/L (0-41) 03/28/22 17:22 Alkaline Phosphatase 74 U/L (40-130) 03/28/22 17:22 Troponin T Baseline 28 ng/L (0-15) H 03/28/22 17:20 Troponin T 120 Minute 28.05 ng/L (0-15) H 03/28/22 19:18 Delta Troponin T 0.05 ABS# (0-10) 03/28/22 19:18 Troponin T Hi Sens 6Hr 27.10 ng/L (0-15) H 03/29/22 02:12 Troponin T Hi Sens 6Hr Delta -0.90 ng/L (0-12) L 03/29/22 02:12 Total Protein 6.5 g/dL (6.6-8.7) L 03/28/22 17:22 Albumin 2.9 g/dL (3.5-5.2) L 03/28/22 17:22 Globulin 3.6 g/dL (1.3-4.6) 03/28/22 17:22 TSH 1.99 uIU/mL (0.27-4.20) 03/28/22 19:18 A&P Assessment and plan (1) Pneumonia: (2) Acute hyponatremia: (3) Acute respiratory failure with hypoxemia: (4) Adult failure to thrive: (5) Protein calorie malnutrition: Qualifiers: Protein-calorie malnutrition severity: moderate Qualified Code(s): E44.0 - Moderate protein-calorie malnutrition (6) Severe muscle deconditioning: (7) Weakness: (8) Mucus plugging of bronchi: (9) Atelectasis of left lung: Plan #Acute hypoxic respiratory failure in patient with suspected mucous plugging of left airways due to ineffective cough reflex and diaphragmatic weakness #Overall severe physical deconditioning-causing a week of may have contributed #Left pleural effusion on ultrasound probably secondary to atelectatic left lung -On room air at baseline-currently requiring 4 L nasal cannula -I will perform bronchoscopic inspection of airways and airway clearance -Depending on findings-later I will plan to do at least a diagnostic thoracentesis if there is no improvement in his pleural effusion;-We will send for BAL cultures; -currently on vancomycin and Zosyn -Recommended to continue chest physiotherapy with chest vest, Mucomyst, hypertonic saline nebs -He may need a swallow evaluation during hospitalization #Hyponatremia--Improving with ns @ 30cc/hr #Progressive wasting -Unclear etiology -Recently biopsy rectal mass did not show any malignancy -He may need a PET/CT as outpatient to rule out any occult malignancy #Possible previous history of CVA -Causing chronic left-sided weakness especially contractures of left upper lobe -MRI as outpatient Medical condition, labs, investigations, and plan of care-everything explained in detail to the patient and daughter on phone. Consult Attestations Medical Necessity Statement: Need further evaluation-May stay in hospital for 24 to 48 hours Time Spent in Patient Care: Greater than 35 minutes (>than 50% of time spent in counselling and/or direct pt care on unit). Critical Care Time: The high probability of a clinically significant, sudden or life threatening deterioration of the patient's [ respiratory] system(s) required my full and direct attention, intervention and personal management. The critical care time is as shown. This time is in addition to time spent performing any reported procedures but includes the following: [x] Data and vital sign review and interpretation [x] Patient assessment, examination and intervention [x] Documentation [x] Medication orders and management Critical Care Time (min): 50 Coding Level of Care Code Acute Bolt Labeler for g Fwd Diagnoses Pneumonia J18.9 Acute hyponatremia E87.1 Acute respiratory failure with hypoxemia J96.01 Adult failure to thrive R62.7 Protein calorie malnutrition E44.0 Protein-calorie malnutrition severity: moderate Severe muscle deconditioning R29.898 Weakness R53.1 Mucus plugging of bronchi T17.500A Atelectasis of left lung J98.11 Time Spent (min) 50
[2022-03-29] MEDS: sodium chloride 3.5% neb 4 mL Neb INHALATION (07:29)
[2022-03-29] MEDS: budesonide 0.5 mg/2 mL Neb INHALATION ×2 (07:40→11:04)
[2022-03-29] MEDS: levETIRAcetam 500 mg Tablet 750 MG PEG-TUBE (09:04)
[2022-03-29] MEDS: apixaban 5 mg Tablet PEG-TUBE ×2 (09:04→17:21)
[2022-03-29] MEDS: guaiFENesin 600 mg Tablet PEG-TUBE ×2 (09:04→17:21)
[2022-03-29] MEDS: polyethylene glycol 3350 Pkt 17 gm PEG-TUBE (09:05)
[2022-03-29] MEDS: sennosides-docusate Tablet 1 TAB PEG-TUBE ×2 (09:05→17:21)
[2022-03-29] MEDS: vancomycin 1,500 MG/300 ML PIGGYBACK 150 MG IV ×2 (09:05→22:46)
[2022-03-29] MEDS: metoprolol tartrate 25 mg Tablet PEG-TUBE ×2 (09:05→17:21)
[2022-03-29] MEDS: levothyroxine 25 mcg Tablet PEG-TUBE (09:05)
--- NOTE | 2022-03-29 14:06 | ANES.PREANE2 ---
Pre-Anesthetic Assessment Height/Weight: Height 1.73 m Weight 59.562 kg Temp Pulse Resp BP Pulse Ox O2 Del Method O2 Flow Rate 97.8 F 97 22 H 132/88 88 L 2 03/29/22 08:00 03/29/22 13:00 03/29/22 13:00 03/29/22 13:00 03/29/22 13:00 03/29/22 11:05 03/29/22 11:05 FiO2 40 03/29/22 07:40 Preop Diagnosis: Impaction, colon obstruction Operation Date: 03/29/22 13:40 Proposed Procedures p Bronchoscopy(Not Applicable) - Moises Grier DatarMD Familial anesthetic complications: none Was Beta Joselo taken within 24 hours: Yes Last Intake: 08:00 Social Alcohol and Tobacco Exam alert, oriented x 3, clear to auscultation bilaterally and regular rate & rhythm Airway Submandibular: within normal limits Cervical ROM: within normal limits Mallampati: Class I Dentition: false Pulmonary Chronic Obstructive Pulmonary Disease, Cough, Exertional Dyspnea and Shortness of Breath aspiration pneumonia, pul HTN CV/HEM Atrial Fibrillation, Anemia and Hypertension Chronic Renal Insufficiency Hepatic Cirrhosis GI Gastroesophageal Reflux Disease PEG tube Metabolic None reported Musc/skel Weakness Neuropsych Seizure Anesthetic Plan ASA status: 3 Anesthesia: General and MAC Risk of > 500 ml blood loss (7ml/kg in children): No Medications/Allergies Home Medications Medication Instructions Recorded Confirmed Last Taken Type fluticasone propionate 50 1 spray intranasal DAILY PRN 06/21/21 03/28/22 Unknown History mcg/actuation nasal Allergy Symptoms spray,suspension hydroxyzine pamoate 50 mg capsule 50 mg PO Q8H PRN Anxiety 06/21/21 03/28/22 02/02/22 History ropinirole 1 mg tablet 1 mg PO BEDTIME PRN Restless Leg(S) 06/21/21 03/28/22 Unknown History sennosides 8.6 mg-docusate sodium 1 tab PO BID 06/21/21 03/28/22 03/28/22 History 50 mg tablet (Stool Softener-Laxative) temazepam 30 mg capsule 30 mg PO BEDTIME PRN Sleep 06/21/21 03/28/22 02/02/22 History albuterol sulfate 2.5 mg/3 mL 2.5 mg inhalation TID PRN 02/03/22 03/28/2203/28/22 History (0.083 %) solution for nebulization Shortness Of Breath Or Wheezing apixaban 5 mg tablet (Eliquis) 5 mg PO BID 02/03/22 03/28/22 03/28/22 History budesonide 0.5 mg/2 mL suspension 0.5 mg inhalation BID 02/03/22 03/28/22 03/28/22 History for nebulization cranberry extract-vitamin C 250 1 cap PO QPM 02/03/22 03/28/22 03/27/22 History mg-60 mg capsule cyanocobalamin (vitamin B-12) 500 500 mcg PO QPM 02/03/22 03/28/22 03/27/22 History mcg tablet (Vitamin B-12) ferrous sulfate 325 mg (65 mg 325 mg PO QPM 02/03/22 03/28/22 03/27/22 History iron) tablet (iron) formoterol fumarate 20 mcg/2 mL 2 ml inhalation BID 02/03/22 03/28/22 03/28/22 History solution for nebulization (Perforomist) guaifenesin 600 mg tablet, 600 mg PO DAILY PRN Congestion 02/03/22 03/28/22 Unknown History extended release 12 hr (Mucinex) zfhjlvwf-rppzhfra-tqgum acid 400 1 tab PO QPM 02/03/22 03/28/22 03/27/22 History mcg-vit K 20 mcg-lycop 300 mcg tablet (Men's One Daily) mupirocin 2 % topical ointment 1 applic topical BID PRN Rash 02/03/22 03/28/22 Unknown History ondansetron 8 mg disintegrating 8 mg PO Q8H PRN Nausea And Vomiting 02/03/22 03/28/22 Unknown History tablet polyethylene glycol 3350 17 gram 17 g PO DAILY 02/03/22 03/28/22 03/28/22 History oral powder packet (Miralax) revefenacin 175 mcg/3 mL solution 175 mcg inhalation DAILY 02/03/22 03/28/22 03/28/22 History for nebulization (Yupelri) sodium chloride 1 gram tablet 1,000 mg PO BID 02/03/22 03/28/22 03/28/22 History L.acidophil-L.casei-B.bifid-B.longum-FOS 1 cap PO DAILY 03/07/22 03/28/22 03/28/22 History 2 billion cell-50 mg capsule (Probiotic Blend) mirtazapine 7.5 mg tablet 7.5 mg PO BEDTIME 03/07/22 03/28/22 03/27/22 History pantoprazole 40 mg tablet,delayed 40 mg PO BID PRN Acid Reflux 03/07/22 03/28/22 03/28/22 History release sucralfate 1 gram tablet 1 g PO Q12H PRN Gastric Reflux 03/07/22 03/28/22 Unknown History venlafaxine 225 mg tablet,extended 225 mg PO QAM 03/07/22 03/28/22 Unknown History release 24 hr levetiracetam 750 mg tablet 750 mg PO DAILY 03/28/22 03/28/22 03/28/22 History (Keppra) levothyroxine 25 mcg tablet 25 mcg PO DAILY 03/28/22 03/28/22 03/28/22 History metoprolol tartrate 25 mg tablet 25 mg PO BID 03/28/22 03/28/22 03/28/22 History Allergies Allergy/AdvReac Type Severity Reaction Status Date / Time Sulfa (Sulfonamide Allergy ALGY-Rash Verified 03/07/22 10:42 Antibiotics) Current Medications Generic Name Dose Route Start Last Admin Trade Name Freq PRN Reason Stop Dose Admin Acetaminophen 650 mg 03/29/22 02:46 03/29/22 02:53 Acetaminophen 650 Mg/20.3 Ml Udc PEG-TUBE 650 mg Q4H PRN Administration MILD PAIN OR INCREASE TEMP Acetylcysteine 100 mg 03/29/22 00:00 03/29/22 11:03 Acetylcysteine 200 Mg/Ml Sdv 4 Ml INHALATION 100 mg Q4H.RESPIRATORY ANGELA Administration Albuterol/Ipratropium 3 ml 03/28/22 22:41 03/29/22 11:03 Ipratropium-Albuterol 3 Ml Neb INHALATION 3 ml Q4H PRN Administration SHORTNESS OF BREATH Apixaban 5 mg 03/29/22 09:00 03/29/22 09:04 Apixaban 5 Mg Tablet PEG-TUBE 5 mg BID ANGELA Administration Budesonide 0.5 mg 03/29/22 08:00 03/29/22 11:04 Budesonide 0.5 Mg/2 Ml Neb INHALATION 0.5 mg BID ANGELA Administration Guaifenesin 600 mg 03/29/22 09:00 03/29/22 09:04 Guaifenesin 600 Mg Tablet PEG-TUBE 600 mg BID ANGELA Administration Piperacillin Sod/Tazobactam 50 mls @ 12.5 mls/hr 03/28/22 21:38 03/29/22 13:30 Sod 3.375 gm/ Sodium Chloride IV 12.5 mls/hr Q8H ANGELA Administration Protocol Vancomycin/PEG/NADA/Lysine/Water 1,500 mg in 300 mls @ 150 mls/hr 03/28/22 22:00 03/29/22 13:19 Vancocin IV Infused Q12H ANGELA Infusion Levetiracetam 750 mg 03/29/22 09:00 03/29/22 09:04 Levetiracetam 500 Mg Tablet PEG-TUBE 750 mg DAILY ANGELA Administration Levothyroxine Sodium 25 mcg 03/29/22 09:00 03/29/22 09:05 Levothyroxine 25 Mcg Tablet PEG-TUBE 25 mcg DAILY ANGELA Administration Metoprolol Tartrate 25 mg 03/29/22 09:00 03/29/22 09:05 Metoprolol Tartrate 25 Mg Tablet PEG-TUBE 25 mg BID ANGELA Administration Pantoprazole Sodium 40 mg 03/28/22 21:38 03/28/22 21:47 Pantoprazole 40 Mg Sdv IVP 40 mg Q24H ANGELA Administration Polyethylene Glycol 17 gm 03/29/22 09:00 03/29/22 09:05 Polyethylene Glycol 3350 Pkt 17 Gm PEG-TUBE 17 gm DAILY ANGELA Administration Senna/Docusate Sodium 1 tab 03/29/22 09:00 03/29/22 09:05 Sennosides-Docusate Tablet PEG-TUBE 1 tab BID ANGELA Administration Sodium Chloride 4 ml 03/29/22 08:00 03/29/22 07:29 Sodium Chloride 3.5% Neb 4 Ml Neb INHALATION 4 ml BID.RESPIRATORY ANGELA Administration Temazepam 30 mg 03/28/22 23:29 03/29/22 02:54 Temazepam 15 Mg Capsule PEG-TUBE 30 mg BEDTIME PRN Administration Sleep Venlafaxine HCl 225 mg 03/29/22 06:00 03/29/22 06:07 Venlafaxine 75 Mg Tablet PEG-TUBE 225 mg QAM ANGELA Administration PFSH Anesthesia Medical History Acute exacerbation of chronic obstructive pulmonary disease Afib Anticoagulation adequate BPH (benign prostatic hyperplasia) Chronic hyponatremia COPD (chronic obstructive pulmonary disease) Coronavirus infection Common cold variant 229E COVID-19 Disability Dolichocolon Gastritis HTN (hypertension) Liver cirrhosis etoh abuse 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 Presence of externally removable percutaneous endoscopic gastrostomy (PEG) tube Pulmonary HTN Surgical History H/O hemorrhoidectomy Status post laparoscopic-assisted sigmoidectomy Status post partial resection of colon Family History Denies family history of Diabetes Social History Smoking and tobacco status: current every day smoker Alcohol intake: unknown Data Anesthesia : 03/29/22 02:12 03/29/22 02:12 Short CBC 03/28/22 03/29/22 Range/Units 17:22 02:12 WBC 6.4 6.3 (4.0-10.0) 10^3/uL Hgb 8.5 L 8.1 L (11.7-16.6) g/dL Hct 25.7 L 24.7 L (42.0-52.0) % MCV 86.2 88.2 (80-94) fl Plt Count 331 302 (130-400) 10^3/cmm Neut % (Auto) 81.5 91.7 % Neut # (Auto) 5.20 5.78 (1.8-7.7) 10^3/uL BMP 03/28/22 03/28/22 03/29/22 17:22 19:18 02:12 Sodium 119 L* 122 L 122 L Potassium 4.4 4.6 Chloride 84 L 88 L Carbon Dioxide 27 23 BUN 12 13 Creatinine 0.5 L 0.5 L Glucose 85 118 H Calcium 8.2 L 7.9 L Cardiac Enzymes 03/28/22 03/28/22 03/29/22 Range/Units 17:20 19:18 02:12 Troponin T Baseline 28 H (0-15) ng/L Troponin T 120 Minute 28.05 H (0-15) ng/L Delta Troponin T 0.05 (0-10) ABS# Troponin T Hi Sens 6Hr 27.10 H (0-15) ng/L Troponin T Hi Sens 6Hr Delta -0.90 L (0-12) ng/L Liver Function 03/28/22 Range/Units 17:22 Total Bilirubin 0.2 (0.15-1.2) mg/dL AST 12 (0-40) U/L ALT 8 (0-41) U/L Alkaline Phosphatase 74 (40-130) U/L Albumin 2.9 L (3.5-5.2) g/dL ABG 03/28/22 18:07 Specimen Type Arterial Sample Site Brachial, right ABG pH 7.42 ABG pCO2 39.0 ABG pO2 49.5 L ABG HCO3 25.4 ABG O2 Saturation 86.1 ABG Base Excess 1.0 A-a O2 Gradient 30.5 H O2 Delivery Device Nc O2 Liters/Min 6.0 FiO2 46.0 Microbiology 03/28/22 23:30 MRSA Culture - Final Nose Cardiac Studies: No Data to Display
[2022-03-29] MEDS: lidocaine 1% INJ 20 mL XX (14:38)
--- NOTE | 2022-03-29 15:21 | PM.OP ---
Operative Report Date of procedure: March 29, 2022 Pre-op diagnosis: Preop Diagnosis suspected mucous plugging leading to left lung atelectasis and pleural effusion Post-op diagnosis: Same Procedure done: 09082 Bronch via Trach site 08664 Dx Bronchoscope w/Washings or airway inspection 81640 Dx Bronchoscope w/BAL [id number] Bronchoscopy w/ therapeutic aspiration of the tracheobronchial tree (clearance of airway secretions, removal of mucus plugs) Surgeon: Moises Sharif MD, [facility] Brief History: 66-year-old male Mr. Adria Lux presents with worsening shortness of breath and acute hypoxic respiratory failure. Patient is severely deconditioned and has a left lower lobe opacity suspicious for mucous plugging/leading to atelectasis and accumulation of pleural fluid. Today scheduled for bronchoscopic evaluation of airways and clearance of airways Procedure: Procedure: 22170 Bronch via Trach site 28121 Dx Bronchoscope w/Washings or airway inspection 26457 Dx Bronchoscope w/BAL [id number] Bronchoscopy w/ therapeutic aspiration of the tracheobronchial tree (clearance of airway secretions, removal of mucus plugs) Pre-Operative Diagnosis: Mucous plugging causing left lung atelectasis and pleural effusion Post-Operative Diagnosis: Same Indication: Left lung atelectasis with ipsilateral tracheal stent left-possible mucous plugging Anesthesia: Propofol Pre-procedure Evaluation: Patient was evaluated clinically and ancillary testing reviewed. The risk of having active MTB infection is very low in my clinical judgement. ASA: 3 Malampati score: 2 Consent: Consents were obtained from [facility] and placed in the chart Procedure Details: Time out was performed by the procedure team and nursing staff. Vent support maintained on Fio2 100. Patient was given nebulization with lidocaine. The bronchoscope was introduced oral bite-block. A bronchoscopic airway exam was performed to evaluate the visible tracheobronchial tree to the segmental level. Summary of Significant Findings: -Bronchoscope passed through oral bite-block 3 ml 1% lidocaine instilled on vocal cords and bronchoscope was passed through into the trachea. There was significant viscous mucus appeared at the main sanjana. The trachea was saber shaped. There is no mucosal abnormalities or bleeding noted. Another 2 mL of 1% lidocaine was instilled right and left main bronchus.. The scope was then passed through right main bronchus and copious amount of thick viscous secretions were noted. All the secretions from right upper lobe, right lower lobe, right middle lobe were suctioned. There were no endobronchial lesions and mucosa appeared normal. Then the scope was passed through the left bronchial tree. Again copious amounts of thick viscous secretions noted throughout left bronchial tree including left upper lobe, lingula, left lower lobe subsegments, which were all suctioned right away. There were no visible endobronchial lesions and mucosa appeared normal. 30 cc normal saline was instilled in left lower lobe and 20 cc mucus containing aspirate BAL was obtained from left lower lobe. The bronchoscope was then removed and the procedure terminated. Estimated Blood Loss: None Specimens: Bronchoalveolar lavage was taken from left lower lobe for wash analysis and microbiology cultures. Complications:None; patient tolerated the procedure well. Disposition: Patient will be transferred back to ICU Moises Sharif MD, [facility] Pulmonary critical Care Medicine [facility]
--- NOTE | 2022-03-29 17:00 | ANE.PACU2 ---
Inpatient post-anesthesia follow up: Airway intact: Yes Vital signs: Temperature 97.8 F Pulse Rate [Curren t] 99 Pulse Rate [Therap y Changed] 103 Pulse Rate 97 Respiratory Rate [ Current] 20 Respiratory Rate [ Therapy 20 Changed] Respiratory Rate 18 Blood Pressure 132/88 Pulse Oximetry [Cu rrent] 98 Pulse Oximetry [Th erapy 97 Changed] Pulse Oximetry 93 Oxygen Delivery Me thod Nasal Cannula Oxygen Flow Rate [ Current] 30 Oxygen Flow Rate [ Therapy 30 Changed] Oxygen Flow Rate 2 Fraction of Inspir ed Oxygen [ 50 Current] Fraction of Inspir ed Oxygen [ 40 Therapy Changed] Fraction of Inspir ed Oxygen 50 Hydration adequate: Yes Nausea and vomiting: No Pain level: 2 Mental status: Baseline
--- NOTE | 2022-03-29 17:11 | P.PN_ITS ---
Subjective Subjective: Patient was seen and examined this morning, s/p bronchoscopy. Currently saturating well on 2Ls oxygen through nc Medications: Medication Review Details: Generic Name Dose Route Start Last Admin Trade Name Freq PRN Reason Stop Dose Admin Acetaminophen 650 mg 03/29/22 02:46 03/29/22 02:53 Acetaminophen 65 0 Mg/20.3 Ml Udc PEG-TUBE 650 mg Q4H PRN Administration MILD PAIN OR INCR EASE TEMP Albuterol/Ipratrop ium 3 ml 03/28/22 22:41 03/29/22 15:51 Ipratropium-Albu terol 3 Ml Neb INHALATION 3 ml Q4H PRN Administration SHORTNESS OF AMILCAR TH Apixaban 5 mg 03/29/22 09:00 03/29/22 09:04 Apixaban 5 Mg Ta blet PEG-TUBE 5 mg BID ANGELA Administration Budesonide 0.5 mg 03/29/22 08:00 03/29/22 11:04 Budesonide 0.5 M g/2 Ml Neb INHALATION 0.5 mg BID ANGELA Administration Guaifenesin 600 mg 03/29/22 09:00 03/29/22 09:04 Guaifenesin 600 Mg Tablet PEG-TUBE 600 mg BID ANGELA Administration Piperacillin Sod/T azobactam 50 mls @ 12.5 mls /hr 03/28/22 21:38 03/29/22 13:30 Sod 3.375 gm/ So dium Chloride IV 12.5 mls/hr Q8H ANGELA Administration Protocol Vancomycin/PEG/NAD A/Lysine/Water 1,500 mg in 300 m ls @ 150 mls/hr 03/28/22 22:00 03/29/22 13:19 Vancocin IV Infused Q12H ANGELA Infusion Sodium Chloride 1,000 mls @ 30 ml s/hr 03/29/22 14:30 03/29/22 15:08 Sodium Chloride 0.9% IV 03/30/22 14:29 Not Given .Q24H ANGELA Levetiracetam 750 mg 03/29/22 09:00 03/29/22 09:04 Levetiracetam 50 0 Mg Tablet PEG-TUBE 750 mg DAILY ANGELA Administration Levothyroxine Sodi um 25 mcg 03/29/22 09:00 03/29/22 09:05 Levothyroxine 25 Mcg Tablet PEG-TUBE 25 mcg DAILY ANGELA Administration Metoprolol Tartrat e 25 mg 03/29/22 09:00 03/29/22 09:05 Metoprolol Tartr ate 25 Mg Tablet PEG-TUBE 25 mg BID ANGELA Administration Pantoprazole Sodiu m 40 mg 03/28/22 21:38 03/28/22 21:47 Pantoprazole 40 Mg Sdv IVP 40 mg Q24H ANGELA Administration Polyethylene Glyco l 17 gm 03/29/22 09:00 03/29/22 09:05 Polyethylene Gly col 3350 Pkt 17 Gm PEG-TUBE 17 gm DAILY ANGELA Administration Senna/Docusate Sod ium 1 tab 03/29/22 09:00 03/29/22 09:05 Sennosides-Docus ate Tablet PEG-TUBE 1 tab BID ANGELA Administration Sodium Chloride 4 ml 03/29/22 08:00 03/29/22 07:29 Sodium Chloride 3.5% Neb 4 Ml Neb INHALATION 4 ml BID.RESPIRATORY S CH Administration Temazepam 30 mg 03/28/22 23:29 03/29/22 02:54 Temazepam 15 Mg Capsule PEG-TUBE 30 mg BEDTIME PRN Administration Sleep Venlafaxine HCl 225 mg 03/29/22 06:00 03/29/22 06:07 Venlafaxine 75 M g Tablet PEG-TUBE 225 mg QAM ANGELA Administration Vitals/I&O/Wt Last Vital Signs Temp 97.8 F 03/29/22 08:00 Pulse 101 H 03/29/22 17:00 Resp 18 03/29/22 15:45 BP 138/85 03/29/22 17:00 Pulse Ox 100 03/29/22 17:00 O2 Del Method 03/29/22 15:45 O2 Flow Rate 2 03/29/22 15:45 FiO2 40 03/29/22 07:40 03/29/22 03/29/22 03/29/22 06:59 14:59 22:59 Intake Total 730 / 730 350 / 350 240 / 590 Output Total 1125 / 1125 Balance -395 / -395 350 / 350 240 / 590 Weight last 48 hrs Weight 59.562 kg Weight 57.833 kg Weight 63.503 kg Physical Exam Resp: OTHER: Decreased air entry in left lung field Cardio: COMMON NORMALS: regular rate, regular rhythm, S1 normal heart sound present, S2 normal heart sound present, No gallops present (Cardio), No murmurs present (Cardio), No rub (Cardio) and Peripheral pulses 2+ throughout RATE: regular rate RHYTHM: regular rhythm HEART SOUNDS: S1 normal heart sound present and S2 normal heart sound present PERIPHERAL PULSES: Peripheral pulses 2+ throughout GI: COMMON NORMALS: Normal to inspection, nondistended, normoactive bowel sounds present, Soft to palpation, non-tender, No hepatosplenomegaly present and no masses AUSCULTATION: Yes normoactive bowel sounds PALPATION: Yes Soft to palpation and Yes No hepatosplenomegaly present RECTAL EXAM: Yes deferred Extremity: COMMON NORMALS: no clubbing, cyanosis or edema and no pedal edema Data : 03/30/22 08:42 03/30/22 08:42 Micro: Microbiology 03/28/22 23:30 MRSA Culture - Final Nose A&P Assessment and plan (1) Acute respiratory failure with hypoxemia: Recently hospitalized also with pneumonia. Complete antibiotic course with Levaquin and Augmentin. Concern for recurrence of pneumonia or possibly incompletely resolved, although family did report he was feeling better. Has been found to be aspirating recently, although reportedly was doing okay with speech therapy with dysphagia diet in addition to the tube feeds. However, does have very weak, ineffectual cough at baseline. Appears may have some sort of progressive wasting disease, possibly contributing to his swallowing and respiratory difficulties. Not normally on oxygen at baseline. Possible aspiration pneumonia. Recently hospitalized. We will for now empirically treat with Zosyn, vancomycin. Sputum culture if he can provide. Check MRSA PCR. Currently requiring BiPAP, wean off to heated high flow if tolerating. Chest physiotherapy with chest vest, Mucomyst, 3% saline nebs. With noted left mainstem bronchus mucous plugging last admission. Also noted left side atelectasis, left pleural effusion. May end up still needing bronchoscopy. Additionally noted pleural thickening. Consider subsequently thoracentesis with cytology. Consider repeat CT. Last time concern for possible empyema on imaging, although currently is not appearing septic. Maintain n.p.o. and question may be whether it is safe for him to resume oral intake at all. Will benefit from further assessment, possibly repeat barium swallow once he is out of acute failure. (2) Pneumonia: As above. (3) Acute hyponatremia: Follow-up sodium after he has received small amounts of NaCl with antibiotic infusions. Acute on chronic hyponatremia, usually sodium runs closer to 130s. Currently 119. May be related to SIADH secondary to acute respiratory illness. His reports he otherwise had had good nutritional intake with combination of tube feeds and oral intake. He does not appear fluid overloaded. Will check TSH. Plan 66 year old male with past medical history of COPD, rectal mass ,atrial fibrillation, BPH, chronic hyponatremia, COPD, gastritis, hypertension, liver cirrhosis secondary to alcohol abuse, osmotic myelinolysis, pulmonary hypertension. Recently hospitalized for severe physical deconditioning adult failure to thrive, aspiration pneumonia, status post PEG tube placement to meet the nutritional goal in the view of at risk for recurrent aspiration pneumonia, possibly secondary to poor cough, was brought in with chief complaint of worsening shortness of breath, currently patient does not use oxygen at home Assessment: Acute hypoxic respiratory failure secondary to significant mucous plugging, left pleural effusions secondary to reabsorption atelectasis, possible pneumonia Acute on chronic hyponatremia possibly secondary to SIADH secondary to pneumonia COPD History of atrial fibrillation on Eliquis History of liver cirrhosis History of pulmonary hypertension Remote history of alcohol abuse Plan: X-ray chest: Done on admission has shown: Moderate volume left and small volume right pleural effusions. Consolidation again noted in the mid and lower left lung. CT scan chest without contrast done during prior admission had shown: Secretions with near complete opacification of the LEFT mainstem bronchus is progressed compared to previous.RIGHT lung remains well aerated.Volume loss LEFT lung with RIGHT to LEFT mediastinal shift. CT scan finding the trigger for suspecting mucous plugging. Patient today had bronchoscopy : Which showed significant mucus plugging. Patient has been empirically kept on broad-spectrum antibiotics, monitor x-ray chest. Continue with DuoNebs , Mucomyst, hypertonic saline, Mucinex, budesonide inhaler. Follow BAL results Supplemental oxygen as needed. For history of acute on chronic hyponatremia: Monitor BMP, patient usually stays around 130, serum sodium is slowly improving. CODE STATUS: Full code DVT prophylaxis: On Lovenox Attestations Medical Necessity Statement*: Patient is in hospital for management of respiratory failure with hypoxia. Time Spent in Patient Care: Greater than 35 minutes (>than 50% of time spent in counselling and/or direct pt care on unit) . Coding Level of Care Code [facility] [employer] for [employer]g Fwd Exam Expanded Problem Focused Diagnoses Acute respiratory failure with hypoxemia J96.01 Pneumonia J18.9 Acute hyponatremia E87.1
--- NOTE | 2022-03-29 17:27 | XRR_ITS ---
PROCEDURE INFORMATION: Exam: XR Chest Exam date and time: 03/29/2022 6:20 PM Age: 66 years old Clinical indication: Cough; Additional info: Post bronchoscopy TECHNIQUE: Imaging protocol: Radiologic exam of the chest. Views: 1 view. COMPARISON: CR (CHEST, ) 03/28/2022 6:22 PM FINDINGS: Lungs: Slightly improved ventilation of the left upper lobe and right lung base. Patchy airspace opacities are unchanged in the right lung base and peripheral right mid lung. Stable patchy consolidation in the left perihilar region. Stable consolidation in the left base. Pleural spaces: Large left and small right pleural effusions. No pneumothorax. Heart/Mediastinum: Unremarkable. No cardiomegaly. Bones/joints: Unremarkable. XR/XR chest 1V portable [id number] IMPRESSION: 1. No pneumothorax following bronchoscopy. 2. Bilateral multilobar pneumonia. 3. Large left and small right pleural effusions.
[2022-03-29 17:57] LABS: Apprearance, Bronch Wash Hazy (CLEAR)
[2022-03-29 17:58] LABS: Color, Bronc Wash Colorless
[2022-03-29 18:52] LABS: Total Cells Counted Bronch 300
[2022-03-29 18:53] LABS: PATH Referral Yes
[2022-03-29] MEDS: mirtazapine 15 mg Tablet 7.5 MG PEG-TUBE (20:15)
[2022-03-29] MEDS: pantoprazole 40 mg SDV IVP (20:56)
[2022-03-30] VITALS (11 sets, daily range): BP systolic 132–143; BP diastolic 84–94; PULSE 89–111; RESP 16–23; TEMP 36.4–36.8; O2SAT 90–100
[2022-03-30] MEDS: piperacillin-tazobactam 3.375 GM in sodium chloride 0.9% (plus) 50 ML IV ×3 (05:17→21:12)
[2022-03-30] MEDS: venlafaxine 75 mg Tablet 225 MG PEG-TUBE (05:17)
[2022-03-30] MEDS: budesonide 0.5 mg/2 mL Neb INHALATION ×2 (07:28→19:46)
[2022-03-30] MEDS: sodium chloride 3.5% neb 4 mL Neb INHALATION (07:28)
[2022-03-30] MEDS: ipratropium-albuterol 3 mL Neb INHALATION ×2 (07:28→19:46)
[2022-03-30 08:57] LABS: Basophils % 0.6 %; Eosinophils # 0.1 10^3/uL (0.0-0.8); Eosinophils % 1.9 %; Hematocrit 26.8 % (42.0-52.0); Hemoglobin 8.7 g/dL (11.7-16.6); Lymphocytes # 0.4 10^3/uL (0.8-4.8); Lymphocytes % 7.2 %; Mean Corpuscular HGB Conc 32.5 g/dL (30.0-36.0); Mean Corpuscular Hemoglobin 28.3 pg (28.0-34.0); Mean Corpuscular Volume 87.3 fl (80-94); Mean Platelet Volume 8.6 fL (7.4-10.4); Monocytes # 0.5 10^3/uL (0.2-0.9); Monocytes % 8.5 %; Neutrophils % 81.2 %; Nucleated Red Blood Cells % 0 %; Platelet Count 314 10^3/cmm (130-400); Red Blood Count 3.07 10^6/uL (4.1-5.3); White Blood Count 5.3 10^3/uL (4.0-10.0)
[2022-03-30 09:18] LABS: Anion Gap 13.3 (5-19); Blood Urea Nitrogen 11 mg/dL (8-23); Calcium 8.1 mg/dL (8.5-10.5); Carbon Dioxide 26 mmol/L (22-29); Chloride 95 mmol/L (98-107); Glomerular Filtration Rate 165.9 mL/min (90-130); Glucose 72 mg/dL (65-115); Osmolality Calculated 268 mOsm/kg (285-295); Potassium 4.3 mmol/L (3.5-5.1); Sodium 130 mmol/L (136-145)
[2022-03-30 09:24] LABS: Creatinine Clr Calc Pharmacy 81.3306
[2022-03-30 09:48] LABS: Vancomycin Trough 27.5 ug/mL (10-15)
[2022-03-30] MEDS: levETIRAcetam 500 mg Tablet 750 MG PEG-TUBE (10:18)
[2022-03-30] MEDS: metoprolol tartrate 25 mg Tablet PEG-TUBE ×2 (10:25→18:00)
[2022-03-30] MEDS: levothyroxine 25 mcg Tablet PEG-TUBE (10:26)
[2022-03-30] MEDS: guaiFENesin 600 mg Tablet PEG-TUBE ×2 (10:26→18:00)
[2022-03-30] MEDS: sennosides-docusate Tablet 1 TAB PEG-TUBE ×2 (10:26→18:00)
[2022-03-30] MEDS: apixaban 5 mg Tablet PEG-TUBE ×2 (10:27→18:00)
[2022-03-30] MEDS: polyethylene glycol 3350 Pkt 17 gm PEG-TUBE (10:27)
--- NOTE | 2022-03-30 10:57 | PC.CHAP ---
Pastoral Care Encounter/Spiritual Assessment Type of Contact [] Declined cell operation supervisor visit [] Patient/Family/Request visit [] Outpatient visit [] Follow-up visit [] Physician referral [] Code/Alert [x] Routine visit [] Staff referral [] Actively dying [] Patient sleeping [] Family support [] [] Out of room [] Palliative care [] [x] Receiving care in room [] Pre-surgical visit [] Trauma [x] Long length of stay [] ICU visit [] Other: Relational/Emotional Strength [x] Patient feels connected with others/family/visitors/staff [] Distress [] Loneliness/isolation [] Abandonment Spirituality of Patient [x] Person of Casi [] Attends Uatsdin of their Casi [x] Believes in Prayer [] Reads Bible or Worship materials [] There are Spiritual issues to be addressed Stonecutter Assistant Interventions [x] Prayer [x] Active listening [x] Non-anxious presence [x] Spiritual/emotional support [] Crisis/trauma care [x] Spiritual counseling [] Bereavement support [] Provided bereavement packet [] Provided Bible/devotional materials [] Provided toy/stuffed animal, coloring book to patient or family member [] Provided Communion [] Anointing/Register [] Salvation [x] Completed spiritual assessment [] Other: Impact on Illness or Injury [] Angry [] Fearful [x] Anxious [] Often cries [] Exhaustion [x] Unable to work [] Unable to attend orthodox [] Unable to walk/stand [] Unable to read [] Unable to drive [] Unable to eat/drink [] Unable to sleep [] Unable to be with family [] Patient intubated [] Other: Summary older person +4 family is in great deal of pain SOS breath wiating on tests well get to go home Time spent with patient 10 mins
--- NOTE | 2022-03-30 11:38 | P.PN_ITS ---
Subjective Subjective: Patient was seen and examined this morning, saturating well on 2Ls oxygen through nc , serum sodium is back to baseline. Good urine output. SOB has improved. Medications: Medication Review Details: Generic Name Dose Route Start Last Admin Trade Name Freq PRN Reason Stop Dose Admin Acetaminophen 650 mg 03/29/22 02:46 03/29/22 02:53 Acetaminophen 65 0 Mg/20.3 Ml Udc PEG-TUBE 650 mg Q4H PRN Administration MILD PAIN OR INCR EASE TEMP Acetylcysteine 100 mg 03/29/22 16:00 03/30/22 07:28 Acetylcysteine 2 00 Mg/Ml Sdv 4 Ml INHALATION Not Given Q12H ANGELA Albuterol/Ipratrop ium 3 ml 03/28/22 22:41 03/30/22 07:28 Ipratropium-Albu terol 3 Ml Neb INHALATION 3 ml Q4H PRN Administration SHORTNESS OF AMILCAR TH Apixaban 5 mg 03/29/22 09:00 03/30/22 10:27 Apixaban 5 Mg Ta blet PEG-TUBE 5 mg BID ANGELA Administration Budesonide 0.5 mg 03/29/22 08:00 03/29/22 21:00 Budesonide 0.5 M g/2 Ml Neb INHALATION Not Given BID ANGELA Guaifenesin 600 mg 03/29/22 09:00 03/30/22 10:26 Guaifenesin 600 Mg Tablet PEG-TUBE 600 mg BID ANGELA Administration Piperacillin Sod/T azobactam 50 mls @ 12.5 mls /hr 03/28/22 21:38 03/30/22 09:17 Sod 3.375 gm/ So dium Chloride IV Infused Q8H ANGELA Infusion Protocol Levetiracetam 750 mg 03/29/22 09:00 03/30/22 10:18 Levetiracetam 50 0 Mg Tablet PEG-TUBE 750 mg DAILY ANGELA Administration Levothyroxine Sodi um 25 mcg 03/29/22 09:00 03/30/22 10:26 Levothyroxine 25 Mcg Tablet PEG-TUBE 25 mcg DAILY ANGELA Administration Metoprolol Tartrat e 25 mg 03/29/22 09:00 03/30/22 10:25 Metoprolol Tartr ate 25 Mg Tablet PEG-TUBE 25 mg BID ANGELA Administration Mirtazapine 7.5 mg 03/29/22 21:00 03/29/22 20:15 Mirtazapine 15 M g Tablet PEG-TUBE 7.5 mg BEDTIME ANGELA Administration Polyethylene Glyco l 17 gm 03/29/22 09:00 03/30/22 10:27 Polyethylene Gly col 3350 Pkt 17 Gm PEG-TUBE 17 gm DAILY ANGELA Administration Senna/Docusate Sod ium 1 tab 03/29/22 09:00 03/30/22 10:26 Sennosides-Docus ate Tablet PEG-TUBE 1 tab BID ANGELA Administration Sodium Chloride 4 ml 03/29/22 08:00 03/30/22 07:28 Sodium Chloride 3.5% Neb 4 Ml Neb INHALATION 4 ml BID.RESPIRATORY S CH Administration Temazepam 30 mg 03/28/22 23:29 03/29/22 02:54 Temazepam 15 Mg Capsule PEG-TUBE 30 mg BEDTIME PRN Administration Sleep Venlafaxine HCl 225 mg 03/29/22 06:00 03/30/22 05:17 Venlafaxine 75 M g Tablet PEG-TUBE 225 mg QAM ANGELA Administration Vitals/I&O/Wt Last Vital Signs Temp 98 F 03/30/22 08:00 Pulse 105 H 03/30/22 08:00 Resp 16 03/30/22 08:00 BP 132/94 03/30/22 08:00 Pulse Ox 97 03/30/22 08:00 O2 Del Method 03/30/22 08:00 O2 Flow Rate 2 03/30/22 08:00 FiO2 40 03/29/22 07:40 03/29/22 03/30/22 03/30/22 22:59 06:59 14:59 Intake Total 1130 / 1480 410 / 1890 50 / 50 Output Total 1999 1600 / 3600 Balance -870 / -520 -1190 / -1710 50 / 50 Weight last 48 hrs Weight 57.833 kg Weight 59.562 kg Weight 57.833 kg Weight 63.503 kg Physical Exam Resp: OTHER: Decreased air entry in left lung field Cardio: COMMON NORMALS: regular rate, regular rhythm, S1 normal heart sound present, S2 normal heart sound present, No gallops present (Cardio), No murmurs present (Cardio), No rub (Cardio) and Peripheral pulses 2+ throughout RATE: regular rate RHYTHM: regular rhythm HEART SOUNDS: S1 normal heart sound present and S2 normal heart sound present PERIPHERAL PULSES: Peripheral pulses 2+ throughout GI: COMMON NORMALS: Normal to inspection, nondistended, normoactive bowel sounds present, Soft to palpation, non-tender, No hepatosplenomegaly present and no masses AUSCULTATION: Yes normoactive bowel sounds PALPATION: Yes Soft to palpation and Yes No hepatosplenomegaly present RECTAL EXAM: Yes deferred Extremity: COMMON NORMALS: no clubbing, cyanosis or edema and no pedal edema Data : 03/30/22 08:42 03/30/22 08:42 Micro: Microbiology 03/29/22 04:55 Gram Stain - Final Sputum - Expectorated Sputum 03/28/22 23:30 MRSA Culture - Final Nose A&P Assessment and plan (1) Acute respiratory failure with hypoxemia: Recently hospitalized also with pneumonia. Complete antibiotic course with Levaquin and Augmentin. Concern for recurrence of pneumonia or possibly incompletely resolved, although family did report he was feeling better. Has been found to be aspirating recently, although reportedly was doing okay with speech therapy with dysphagia diet in addition to the tube feeds. However, does have very weak, ineffectual cough at baseline. Appears may have some sort of progressive wasting disease, possibly contributing to his swallowing and respiratory difficulties. Not normally on oxygen at baseline. Possible aspiration pneumonia. Recently hospitalized. We will for now empirically treat with Zosyn, vancomycin. Sputum culture if he can provide. Check MRSA PCR. Currently requiring BiPAP, wean off to heated high flow if tolerating. Chest physiotherapy with chest vest, Mucomyst, 3% saline nebs. With noted left mainstem bronchus mucous plugging last admission. Also noted left side atelectasis, left pleural effusion. May end up still needing bronchoscopy. Additionally noted pleural thickening. Consider subsequently thoracentesis with cytology. Consider repeat CT. Last time concern for possible empyema on imaging, although currently is not appearing septic. Maintain n.p.o. and question may be whether it is safe for him to resume oral intake at all. Will benefit from further assessment, possibly repeat barium swallow once he is out of acute failure. (2) Pneumonia: As above. (3) Acute hyponatremia: Follow-up sodium after he has received small amounts of NaCl with antibiotic infusions. Acute on chronic hyponatremia, usually sodium runs closer to 130s. Currently 119. May be related to SIADH secondary to acute respiratory illness. His reports he otherwise had had good nutritional intake with combination of tube feeds and oral intake. He does not appear fluid overloaded. Will check TSH. Plan 66 year old male with past medical history of COPD, rectal mass ,atrial fibrillation, BPH, chronic hyponatremia, COPD, gastritis, hypertension, liver cirrhosis secondary to alcohol abuse, osmotic myelinolysis, pulmonary hypertension. Recently hospitalized for severe physical deconditioning adult failure to thrive, aspiration pneumonia, status post PEG tube placement to meet the nutritional goal in the view of at risk for recurrent aspiration pneumonia, possibly secondary to poor cough, was brought in with chief complaint of worsening shortness of breath, currently patient does not use oxygen at home Assessment: Acute hypoxic respiratory failure secondary to significant mucous plugging, left pleural effusions secondary to reabsorption atelectasis, possible pneumonia Lt Pleural effusion Acute on chronic hyponatremia possibly secondary to SIADH secondary to pneumonia COPD History of atrial fibrillation on Eliquis History of liver cirrhosis History of pulmonary hypertension Remote history of alcohol abuse Plan: X-ray chest: Done on admission has shown: Moderate volume left and small volume right pleural effusions. Consolidation again noted in the mid and lower left lung. CT scan chest without contrast done during prior admission had shown: Secretions with near complete opacification of the LEFT mainstem bronchus is progressed compared to previous.RIGHT lung remains well aerated.Volume loss LEFT lung with RIGHT to LEFT mediastinal shift. CT scan finding the trigger for suspecting mucous plugging. S/P bronchoscopy : Which showed significant mucus plugging. Patient has been empirically kept on broad-spectrum antibiotics, monitor x-ray chest. Continue with DuoNebs , Mucomyst, hypertonic saline, Mucinex, budesonide inhaler. Follow BAL results MRSA PCR: Negative, sputum gram stain : GNR Supplemental oxygen as needed. For history of acute on chronic hyponatremia: Monitor BMP, patient usually stays around 130, serum sodium is at baseline CODE STATUS: Full code DVT prophylaxis: On Lovenox Attestations Medical Necessity Statement*: Patient is in? hospital for management of respiratory failure with hypoxia. Time Spent in Patient Care: Greater than 35 minutes (>than 50% of time spent in counselling and/or direct pt care on unit) . Coding Level of Care Code Acute Associate Professor Of Biblical Studies for Demetria Villalobos Diagnoses Acute respiratory failure with hypoxemia J96.01 Pneumonia J18.9 Acute hyponatremia E87.1
[2022-03-30] MEDS: pantoprazole DR 40 mg Tablet PO (18:00)
--- NOTE | 2022-03-30 19:02 | PC.NURSE ---
Report given to Anitha MILLER
[2022-03-30] MEDS: acetylcysteine 200 mg/mL SDV 4 mL 100 MG INHALATION (19:47)
[2022-03-30] MEDS: temazepam 15 mg Capsule 30 MG PEG-TUBE (20:23)
[2022-03-30] MEDS: mirtazapine 15 mg Tablet 7.5 MG PEG-TUBE (20:23)
[2022-03-31] VITALS (7 sets, daily range): BP systolic 134–147; BP diastolic 88–92; PULSE 87–107; RESP 16–18; TEMP 36.5–36.9; O2SAT 87–97
--- NOTE | 2022-03-31 04:00 | XRR_ITS ---
PROCEDURE INFORMATION: Exam: XR Chest Exam date and time: 03/31/2022 4:53 AM Age: 66 years old Clinical indication: Condition or disease; Lung condition and disease; Pneumonia; Prior surgery; Surgery date: 3-7 days post-operative; Surgery type: Bronch TECHNIQUE: Imaging protocol: Radiologic exam of the chest. Views: 1 view. COMPARISON: CR (CHEST, ) 03/29/2022 6:20 PM FINDINGS: Lungs: Emphysema. Retraction of the left hilum cephalad. Pleural spaces: moderate left and small right pleural effusion with adjacent basilar consolidation versus atelectasis. Heart/Mediastinum: Unremarkable. No cardiomegaly. Bones/joints: Unremarkable. XR/XR chest 1V portable [id number] IMPRESSION: 1. Moderate left and small right pleural effusion with adjacent basilar consolidation versus atelectasis. 2. Emphysema. Retraction of the left hilum cephalad.
[2022-03-31] MEDS: piperacillin-tazobactam 3.375 GM in sodium chloride 0.9% (plus) 50 ML IV (05:45)
[2022-03-31 05:48] LABS: Basophils # 0.1 10^3/uL (0.0-0.1); Basophils % 0.9 %; Eosinophils # 0.3 10^3/uL (0.0-0.8); Hematocrit 30.1 % (42.0-52.0); Hemoglobin 9.4 g/dL (11.7-16.6); Lymphocytes # 0.5 10^3/uL (0.8-4.8); Lymphocytes % 8.3 %; Mean Corpuscular HGB Conc 31.2 g/dL (30.0-36.0); Mean Corpuscular Hemoglobin 27.6 pg (28.0-34.0); Mean Corpuscular Volume 88.5 fl (80-94); Mean Platelet Volume 8.8 fL (7.4-10.4); Monocytes # 0.7 10^3/uL (0.2-0.9); Monocytes % 11.4 %; Neutrophils # 4.27 10^3/uL (1.8-7.7); Neutrophils % 73.9 %; Nucleated Red Blood Cells % 0 %; Platelet Count 377 10^3/cmm (130-400); Red Cell Distribution Width 14.8 % (12.1-15.1); White Blood Count 5.8 10^3/uL (4.0-10.0)
[2022-03-31 06:13] LABS: Anion Gap 13.1 (5-19); Blood Urea Nitrogen 10 mg/dL (8-23); Calcium 8.2 mg/dL (8.5-10.5); Carbon Dioxide 26 mmol/L (22-29); Chloride 98 mmol/L (98-107); Glomerular Filtration Rate 165.9 mL/min (90-130); Glucose 94 mg/dL (65-115); Osmolality Calculated 275 mOsm/kg (285-295); Potassium 4.1 mmol/L (3.5-5.1); Sodium 133 mmol/L (136-145)
[2022-03-31] MEDS: venlafaxine 75 mg Tablet 225 MG PEG-TUBE (06:14)
[2022-03-31] MEDS: ipratropium-albuterol 3 mL Neb INHALATION (08:45)
[2022-03-31] MEDS: sodium chloride 3.5% neb 4 mL Neb INHALATION (08:45)
[2022-03-31] MEDS: acetylcysteine 200 mg/mL SDV 4 mL 100 MG INHALATION (08:46)
[2022-03-31] MEDS: budesonide 0.5 mg/2 mL Neb INHALATION (08:46)
--- NOTE | 2022-03-31 10:07 | PC.SOCIAL ---
IMM update IMM updated with patient. Verbalized an understanding. Copy pg 2 provided. Initialled, dated, timed, and placed in chart.
[2022-03-31] MEDS: metoprolol tartrate 25 mg Tablet PEG-TUBE (10:26)
[2022-03-31] MEDS: levothyroxine 25 mcg Tablet PEG-TUBE (10:26)
[2022-03-31] MEDS: levETIRAcetam 500 mg Tablet 750 MG PEG-TUBE (10:26)
[2022-03-31] MEDS: pantoprazole DR 40 mg Tablet PO (10:26)
[2022-03-31] MEDS: guaiFENesin 600 mg Tablet PEG-TUBE (10:27)
[2022-03-31] MEDS: sennosides-docusate Tablet 1 TAB PEG-TUBE (10:27)
[2022-03-31] MEDS: apixaban 5 mg Tablet PEG-TUBE (10:27)
[2022-03-31] MEDS: polyethylene glycol 3350 Pkt 17 gm PEG-TUBE (10:27)
--- NOTE | 2022-03-31 13:42 | PM.DCS ---
Discharge Providers Date of Admission: 03/28/22 19:54 Date of Discharge: March 31, 2022 Attending Provider at Admission: Akash Martinez Attending Provider at Discharge: Med Weiss MD Primary Care Provider: JAYNA Rivera Diagnoses at Discharge Discharge Diagnosis (1) Acute respiratory failure with hypoxemia: Status: Acute (2) Pneumonia: Status: Acute (3) Acute hyponatremia: Status: Acute Reason for Visit Reason for Visit: SOB Hospital Course Hospital Course 66 year old male with past medical history of COPD, rectal mass ,atrial fibrillation, BPH, chronic hyponatremia, COPD, gastritis, hypertension, 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 Recently hospitalized for severe physical deconditioning adult failure to thrive, aspiration pneumonia, status post PEG tube placement to meet the nutritional goal in the view of at risk for recurrent aspiration pneumonia, possibly secondary to poor cough,? was brought in with chief complaint of worsening shortness of breath. He was admitted for the management of acute? hypoxic respiratory failure secondary to significant mucous plugging, left pleural effusions secondary to reabsorption atelectasis, possible pneumonia, he underwent bronchoscopy with removal of mucous plugging, to which he responded well, he was empirically kept on broad-spectrum antibiotic, BAL results are awaited, no thoracentesis was attempted, as the need was not felt at this time, he was discharged on p.o. Augmentin, at the time of discharge patient qualified for 2 L home oxygen. Overall he has responded well to above medical management, he will follow pulmonary as outpatient. Physical Exam Resp: OTHER: Decreased air entry in left lung field Cardio: COMMON NORMALS: regular rate, regular rhythm, S1 normal heart sound present, S2 normal heart sound present, No gallops present (Cardio), No murmurs present (Cardio), No rub (Cardio) and Peripheral pulses 2+ throughout RATE: regular rate RHYTHM: regular rhythm HEART SOUNDS: S1 normal heart sound present and S2 normal heart sound present PERIPHERAL PULSES: Peripheral pulses 2+ throughout GI: COMMON NORMALS: Normal to inspection, nondistended, normoactive bowel sounds present, Soft to palpation, non-tender, No hepatosplenomegaly present and no masses AUSCULTATION: Yes normoactive bowel sounds PALPATION: Yes Soft to palpation and Yes No hepatosplenomegaly present RECTAL EXAM: Yes deferred Extremity: COMMON NORMALS: no clubbing, cyanosis or edema and no pedal edema Discharge Data Studies Completed and Pending Completed Studies During Hospitalization Category Date Time Status XR chest 1V portable [id number] Routine Exams 03/29/22 17:27 Completed XR chest 1V portable [id number] Routine Exams 03/31/22 04:00 Completed XR chest 1V portable [id number] Stat Exams 03/28/22 17:09 Completed Pending at discharge Category Date Time Status Bronch Washing Culture & GS Routine Lab 03/29/22 14:40 Results Legionella Pneumophilla DFA Routine Lab 03/29/22 14:40 Received Sputum Culture and Gram Stain Routine Lab 03/29/22 04:55 Results Radiology Impressions Chest X-Ray 03/31/22 04:00 IMPRESSION: 1. Moderate left and small right pleural effusion with adjacent basilar consolidation versus atelectasis. 2. Emphysema. Retraction of the left hilum cephalad. Laboratory Results WBC 5.8 10^3/uL (4.0-10.0) 03/31/22 04:58 RBC 3.40 10^6/uL (4.1-5.3) L 03/31/22 04:58 Hgb 9.4 g/dL (11.7-16.6) L 03/31/22 04:58 Hct 30.1 % (42.0-52.0) L 03/31/22 04:58 MCV 88.5 fl (80-94) 03/31/22 04:58 MCH 27.6 pg (28.0-34.0) L 03/31/22 04:58 MCHC 31.2 g/dL (30.0-36.0) 03/31/22 04:58 RDW 14.8 % (12.1-15.1) 03/31/22 04:58 Plt Count 377 10^3/cmm (130-400) 03/31/22 04:58 MPV 8.8 fL (7.4-10.4) 03/31/22 04:58 Neut % (Auto) 73.9 % 03/31/22 04:58 Lymph % (Auto) 8.3 % 03/31/22 04:58 Rolette % (Auto) 11.4 % 03/31/22 04:58 Eos % (Auto) 5.0 % 03/31/22 04:58 Baso % (Auto) 0.9 % 03/31/22 04:58 Neut # (Auto) 4.27 10^3/uL (1.8-7.7) 03/31/22 04:58 Lymph # (Auto) 0.5 10^3/uL (0.8-4.8) L 03/31/22 04:58 Rolette # (Auto) 0.7 10^3/uL (0.2-0.9) 03/31/22 04:58 Eos # (Auto) 0.3 10^3/uL (0.0-0.8) 03/31/22 04:58 Baso # (Auto) 0.1 10^3/uL (0.0-0.1) 03/31/22 04:58 Nucleated RBC % (auto) 0 % 03/31/22 04:58 Nucleated RBCs # 0.0 /100WBC 03/31/22 04:58 Specimen Type Arterial 03/28/22 18:07 Sample Site Brachial, right 03/28/22 18:07 ABG pH 7.42 (7.35-7.45) 03/28/22 18:07 ABG pCO2 39.0 mmHg (35-45) 03/28/22 18:07 ABG pO2 49.5 mmHg (80.0-100.0) L 03/28/22 18:07 ABG HCO3 25.4 mmol/L (22-26) 03/28/22 18:07 ABG O2 Saturation 86.1 03/28/22 18:07 ABG Base Excess 1.0 mmol/L (-2.0-2.0) 03/28/22 18:07 Hammad Test N/a 03/28/22 18:07 A-a O2 Gradient 30.5 mmHg (5-10) H 03/28/22 18:07 Hematocrit 26.8 % (42-52) L 03/28/22 18:07 Hgb O2 Saturation 81.9 % (95-100) L 03/28/22 18:07 Carboxyhemoglobin 4.5 %THgb (0.4-20.1) 03/28/22 18:07 Methemoglobin 0.4 % (0.4-1.5) 03/28/22 18:07 Total Hemoglobin 8.7 g/dL (14-18) L 03/28/22 18:07 Sodium 119.0 mmol/L (131-143) L 03/28/22 18:07 Potassium 4.3 mmol/L (3.5-5.0) 03/28/22 18:07 Glucose 93.0 mg/dL (70-115) 03/28/22 18:07 Ionized Calcium 1.1 mmol/L (1.1-1.4) 03/28/22 18:07 O2 Delivery Device Nc 03/28/22 18:07 O2 Liters/Min 6.0 % 03/28/22 18:07 FiO2 46.0 % 03/28/22 18:07 Water Treatment Operator ID [id number] 03/28/22 18:07 Sodium 133 mmol/L (136-145) L 03/31/22 04:58 Potassium 4.1 mmol/L (3.5-5.1) 03/31/22 04:58 Chloride 98 mmol/L (98-107) 03/31/22 04:58 Carbon Dioxide 26 mmol/L (22-29) 03/31/22 04:58 Anion Gap 13.1 (5-19) 03/31/22 04:58 BUN 10 mg/dL (8-23) 03/31/22 04:58 Creatinine 0.5 mg/dL (0.7-1.2) L 03/31/22 04:58 GFR Calculation 165.9 mL/min (90-130) H 03/31/22 04:58 Glucose 94 mg/dL (65-115) 03/31/22 04:58 Calculated Osmolality 275 mOsm/kg (285-295) L 03/31/22 04:58 Calcium 8.2 mg/dL (8.5-10.5) L 03/31/22 04:58 Total Bilirubin 0.2 mg/dL (0.15-1.2) 03/28/22 17:22 AST 12 U/L (0-40) 03/28/22 17:22 ALT 8 U/L (0-41) 03/28/22 17:22 Alkaline Phosphatase 74 U/L (40-130) 03/28/22 17:22 Troponin T Baseline 28 ng/L (0-15) H 03/28/22 17:20 Troponin T 120 Minute 28.05 ng/L (0-15) H 03/28/22 19:18 Delta Troponin T 0.05 ABS# (0-10) 03/28/22 19:18 Troponin T Hi Sens 6Hr 27.10 ng/L (0-15) H 03/29/22 02:12 Troponin T Hi Sens 6Hr Delta -0.90 ng/L (0-12) L 03/29/22 02:12 Total Protein 6.5 g/dL (6.6-8.7) L 03/28/22 17:22 Albumin 2.9 g/dL (3.5-5.2) L 03/28/22 17:22 Globulin 3.6 g/dL (1.3-4.6) 03/28/22 17:22 TSH 1.99 uIU/mL (0.27-4.20) 03/28/22 19:18 Bronch Specimen Source Left lower lobe 03/29/22 14:40 Bronchial Fluid Color Colorless 03/29/22 14:40 Bronchial Fluid Appearance Hazy (CLEAR) 03/29/22 14:40 Bronchial Fluid WBC 3017 /uL 03/29/22 14:40 Bronchial Fluid RBC 1 10^3/uL 03/29/22 14:40 Bronch Cells Counted 300 03/29/22 14:40 Bronchial Neutrophils 272.00 % (0.9-2.3) H 03/29/22 14:40 Bronchial Lymphocytes 27.00 % (10.71-12.91) H 03/29/22 14:40 Bronchial Eosinophils 1.00 % (0.13-0.25) H 03/29/22 14:40 Bronchial Macrophages 0.00 % (83.6-86.8) L 03/29/22 14:40 Bronchial Diff Comment Yes 03/29/22 14:40 Vancomycin Trough 27.5 ug/mL (10-15) H* 03/30/22 08:42 Vitals Last Vital Signs Temp 97.8 F 03/31/22 12:31 Pulse 105 H 03/31/22 12:31 Resp 17 03/31/22 12:31 BP 136/92 03/31/22 12:31 Pulse Ox 94 03/31/22 12:31 O2 Del Method 03/31/22 11:36 O2 Flow Rate 2 03/31/22 11:17 FiO2 40 03/29/22 07:40 Discharge Plan Discharge Patient Disposition: Home Health Service Condition: Stable Prescriptions: New Augmentin 500-125 mg tablet 1 tab PO BID 7 Days Qty: 14 0RF Rx Instructions: Through PEG tube Continued ropinirole 1 mg tablet 1 mg PO BEDTIME PRN (Reason: Restless Leg(S)) sennosides-docusate sodium [Stool Softener-Laxative] 8.6-50 mg tablet 1 tab PO BID hydroxyzine pamoate 50 mg capsule 50 mg PO Q8H PRN (Reason: Anxiety) temazepam 30 mg capsule 30 mg PO BEDTIME PRN (Reason: Sleep) Hold Instructions: see pcp before resuming fluticasone propionate 50 mcg/actuation spray,suspension 1 spray INTRANASAL DAILY PRN (Reason: Allergy Symptoms) albuterol sulfate 2.5 mg /3 mL (0.083 %) Solution For Nebulization 2.5 mg INHALATION TID PRN (Reason: Shortness Of Breath Or Wheezing) sodium chloride 1 gram Tablet 1,000 mg PO BID Hold Instructions: see pcp before resuming ondansetron 8 mg tablet,disintegrating 8 mg PO Q8H PRN (Reason: Nausea And Vomiting) cyanocobalamin (vitamin B-12) [Vitamin B-12] 500 mcg Tablet 500 mcg PO QPM ferrous sulfate [iron] 325 mg (65 mg iron) Tablet 325 mg PO QPM budesonide 0.5 mg/2 mL Suspension For Nebulization 0.5 mg INHALATION BID mupirocin 2 % Ointment 1 applic TOPICAL BID PRN (Reason: Rash) formoterol fumarate [Perforomist] 20 mcg/2 mL Solution For Nebulization 2 ml INHALATION BID cranberry extract-vitamin C 250-60 mg Capsule 1 cap PO QPM Men's One Daily 400-20-300 mcg Tablet 1 tab PO QPM Eliquis 5 mg tablet 5 mg PO BID guaifenesin [Mucinex] 600 mg Tablet Extended Release 12hr 600 mg PO DAILY PRN (Reason: Congestion) Yupelri 175 mcg/3 mL Solution For Nebulization 175 mcg INHALATION DAILY polyethylene glycol 3350 [Miralax] 17 gram Powder In Packet 17 g PO DAILY Probiotic Blend 2 billion cell-50 mg Capsule 1 cap PO DAILY Rx Instructions: give with meal/snack pantoprazole 40 mg tablet,delayed release (DR/EC) 40 mg PO BID PRN (Reason: Acid Reflux) sucralfate 1 gram tablet 1 g PO Q12H PRN (Reason: Gastric Reflux) mirtazapine 7.5 mg tablet 7.5 mg PO BEDTIME venlafaxine 225 mg tablet extended release 24hr 225 mg PO QAM levothyroxine 25 mcg Tablet 25 mcg PO DAILY Keppra 750 mg Tablet 750 mg PO DAILY metoprolol tartrate 25 mg Tablet 25 mg PO BID Discharge Orders: Discharge Order (Routine); Ordered 03/31/22 Ordered By: Med Weiss Other Ambulatory Orders: DME: Oxygen (Order) Location: None Selected Ordered By: Med Weiss Referrals: [facility]) [Outside] Alexandro Lipscomb CPNP [Primary Care Provider] - 04/12/22 2:30 pm Patient Instructions: Amoxicillin/Clavulanate Potassium (By mouth), Using Oxygen at Home (GEN), Pneumonia (GEN), Opioid Safety, Pneumonia Stoplight Discharge Attestations Time Spent in Discharge Care*: less than 30 min Status at Discharge: Cognitive status at discharge: mildly impaired cognition, Behavioral status at discharge: cooperative, Quality Metrics Clinical Quality Measures [ No reported AMI, CVA or VTE this stay] Coding Level of Care Code Acute Chg FW DC note Diagnoses Acute respiratory failure with hypoxemia J96.01 Pneumonia J18.9 Acute hyponatremia E87.1
[2022-04-01 20:57] LABS: Legionella Specimen Source BRONCH WASH
== END 2022-03-31 13:00 | disposition home health service (06) | DRG 163 ==
LOC: ER 19:40 → ICU 19:54 → MEDSURG 03-29 18:17
PROVIDERS: Family Medicine; Internal Medicine Pulmonary Disease; Admitting Provider Internal Medicine; Emergency Provider Emergency Medicine; PCP Registered Nurse; Visit Provider Internal Medicine
PROC: 0BJ08ZZ Inspection of Tracheobronchial Tree, Via Natural or Artificial Opening Endoscopic (ICD-10-PCS; CPT 31622; principal; 2022-03-29 13:30)
DX: T17.890A Other foreign object in other parts of respiratory tract causing asphyxiation, initial encounter (principal); J18.9 Pneumonia, unspecified organism; J96.01 Acute respiratory failure with hypoxia; E87.1 Hypo-osmolality and hyponatremia; J44.0 Chronic obstructive pulmonary disease with (acute) lower respiratory infection; J98.11 Atelectasis; I69.954 Hemiplegia and hemiparesis following unspecified cerebrovascular disease affecting left non-dominant side; J90 Pleural effusion, not elsewhere classified; E44.0 Moderate protein-calorie malnutrition; Z68.1 Body mass index [BMI] 19.9 or less, adult; Z93.1 Gastrostomy status; Z88.2 Allergy status to sulfonamides; I48.91 Unspecified atrial fibrillation; N40.0 Benign prostatic hyperplasia without lower urinary tract symptoms; Z86.16 Personal history of COVID-19; I10 Essential (primary) hypertension; R25.1 Tremor, unspecified; I27.20 Pulmonary hypertension, unspecified; Z90.49 Acquired absence of other specified parts of digestive tract; F17.200 Nicotine dependence, unspecified, uncomplicated; Z87.01 Personal history of pneumonia (recurrent); Z79.01 Long term (current) use of anticoagulants; Z79.51 Long term (current) use of inhaled steroids; Z99.81 Dependence on supplemental oxygen; R68.3 Clubbing of fingers; Z87.440 Personal history of urinary (tract) infections; Z96.0 Presence of urogenital implants; K70.30 Alcoholic cirrhosis of liver without ascites; F10.11 Alcohol abuse, in remission
CPT/HCPCS: 31624; 36415; 36600; 71045; 80048; 80051; 80053; 80202; 80503; 82330; 82805; 84295; 84443; 84484; 85025; 87070; 87205; 87278; 87641; 89050; 92507; 92610; 93005; 94640; 94660; 94664; 94669; 94760; 96365; 96366; 96367; 99285; C9113; J0456; J0696; J2543; J2704; J3370; J7050; J7608; J7626

== ENCOUNTER 2022-04-17 12:52 | Outpatient (CLI) | payer MEDICARE, MEDICAID, SELFPAY ==
[2022-04-17 11:42] LABS: Basophils % 1.5 %; Eosinophils # 0.2 10^3/uL (0.0-0.8); Eosinophils % 6.3 %; Hematocrit 28.5 % (42.0-52.0); Hemoglobin 9.3 g/dL (11.7-16.6); Lymphocytes # 0.4 10^3/uL (0.8-4.8); Lymphocytes % 14.9 %; Mean Corpuscular HGB Conc 32.6 g/dL (30.0-36.0); Mean Corpuscular Hemoglobin 28.2 pg (28.0-34.0); Mean Corpuscular Volume 86.4 fl (80-94); Mean Platelet Volume 9.1 fL (7.4-10.4); Monocytes # 0.3 10^3/uL (0.2-0.9); Monocytes % 11.2 %; Neutrophils # 1.77 10^3/uL (1.8-7.7); Neutrophils % 65.7 %; Nucleated Red Blood Cells % 0 %; Platelet Count 334 10^3/cmm (130-400); Red Cell Distribution Width 14.7 % (12.1-15.1); White Blood Count 2.7 10^3/uL (4.0-10.0)
[2022-04-17 12:17] LABS: Alanine Aminotransferase 7 U/L (0-41); Alkaline Phosphatase 79 U/L (40-130); Aspartate Amino Transferase 14 U/L (0-40); Blood Urea Nitrogen 7 mg/dL (8-23); Calcium 8.5 mg/dL (8.5-10.5); Carbon Dioxide 29 mmol/L (22-29); Chloride 84 mmol/L (98-107); Free T4 Free Thyroxine 1.34 ng/dL (0.82-1.77); Glomerular Filtration Rate 214.6 mL/min (90-130); Glucose 138 mg/dL (65-115); Osmolality Calculated 252 mOsm/kg (285-295); Sodium 121 mmol/L (136-145); Thyroid Stimulating Hormone 2.79 uIU/mL (0.27-4.20); Total Bilirubin 0.2 mg/dL (0.15-1.2)
== END 2022-04-17 12:53 | disposition home or self-care (01) ==
LOC: LAB 12:54
PROVIDERS: PCP Registered Nurse; Visit Provider Family Medicine
DX: E03.9 Hypothyroidism, unspecified (principal); E87.1 Hypo-osmolality and hyponatremia
CPT/HCPCS: 80053; 84439; 84443; 85025

== ENCOUNTER → 2022-04-24 10:19 | Outpatient (BNVA) | payer MEDICARE, MEDICAID, SELFPAY | PROVIDERS: PCP Registered Nurse; Referring Provider Internal Medicine; Visit Provider Specialist | DX: G40.909 Epilepsy, unspecified, not intractable, without status epilepticus (principal) | CPT/HCPCS: 95812; 95816 ==

== ENCOUNTER 2022-05-02 17:16 | Emergency (ER) | payer MEDICARE, MEDICAID, SELFPAY ==
[2022-05-02] VITALS (19 sets, daily range): BP systolic 116–161; BP diastolic 83–99; PULSE 86–102; RESP 6–29; TEMP 37.2; O2SAT 85–99; BMI 25.0
--- NOTE | 2022-05-02 17:24 | ED_ITS ---
Documented by User: Jesse Sahu MD 05/09/22 19:16 HPI - Altered Mental Status General: Chief Complaint: Altered Mental Status Stated Complaint: AMS Time Seen by Provider: 05/02/22 17:24 Limitations: altered mental status History of Present Illness: Mr. Lux is a 66-year-old gentleman with complex past medical history including liver disease, possible seizure disorder, deconditioning, history of aspiration pneumonia, cirrhosis presenting to the emergency department for altered mental status. Upon initial evaluation patient not answering any questions or following commands. He appears to have somewhat rhythmic lateral tracking of eye movements and slow frequency head rotational movements concerning for possible underlying seizure. History is otherwise limited by absence of others in the room. Upon reassessment family in room and notes that patient is typically deconditioned and requires a wheelchair however is conversant and lucid. Starting yesterday he began hallucinating and having generalized change in m ental status. He only has a history of 1 seizure and has been compliant with his medication regimen. Breathing seems perhaps mildly worse. No reported history of trauma. No other specific changes identified. Onset (ago): unknown Review of Systems General: Reports: ROS unobtainable due to mental status PFS ED PFSH: Medical History Acute exacerbation of chronic obstructive pulmonary disease Acute hyponatremia Acute respiratory failure with hypoxemia Adult failure to thrive Afib Anticoagulation adequate Atelectasis of left lung BPH (benign prostatic hyperplasia) Chronic hyponatremia Community acquired pneumonia COPD (chronic obstructive pulmonary disease) Coronavirus infection Common cold variant 229E COVID-19 Disability Dolichocolon Gastritis HTN (hypertension) Liver cirrhosis etoh abuse Mucus plugging of bronchi 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 Pneumonia Presence of externally removable percutaneous endoscopic gastrostomy (PEG) tube Protein calorie malnutrition Pulmonary HTN Severe muscle deconditioning Weakness Surgical History H/O hemorrhoidectomy Status post laparoscopic-assisted sigmoidectomy Status post partial resection of colon Family History Denies family history of Diabetes Social History Smoking and tobacco status: current every day smoker Alcohol intake: unknown Physical Exam Const: GENERAL APPEARANCE: ill appearing HENMT: COMMON NORMALS: normocephalic and atraumatic HEAD & SCALP: normocephalic and atraumatic THROAT: posterior oropharynx normal Eye: COMMON NORMALS: conjunctivae normal CONJUNCTIVA: Yes conjunctivae normal SCLERA: sclerae normal Neck/C-Spine: COMMON NORMALS: supple GENERAL: Yes trachea midline Resp: EFFORT & INSPECTION: Yes tachypneic AUSCULTATION: rales and rhonchi OTHER: Patient hypoxemic on room air to low 80s with good waveform. Improved with 4 L supplemental oxygen via nasal cannula Cardio: COMMON NORMALS: regular rate and regular rhythm RATE: regular rate RHYTHM: regular rhythm GI: COMMON NORMALS: Soft to palpation PALPATION: Yes Soft to palpation, No Tenderness to palpation present (GI), No Guarding due to palpation present (GI) and No Rigid due to palpation Extremity: GENERAL: Yes normal exam except as noted and Yes edema (Trace to 1+ bilateral lower extremities) Neuro: SENSORIUM/ORIENTATION: Yes Orientation impaired Psych: MEMORY/COGNITION: Yes memory grossly impaired and Yes cognition grossly impaired Course Vital Signs: Vital signs: Vital Signs Temperature 98.9 F 05/02/22 17:16 Pulse Rate 116 H 05/03/22 01:43 Respiratory Rate 28 H 05/03/22 01:43 Blood Pressure 154/93 05/03/22 01:43 Pulse Oximetry 97 05/03/22 01:43 Oxygen Delivery Me thod 05/03/22 01:43 Oxygen Flow Rate 4 05/02/22 23:53 Fraction of Inspir ed Oxygen 100 05/03/22 01:43 MDM - Altered Mental Status Medical Decision Making 66-year-old gentleman with very complex history including liver disease and recurrent pneumonia presenting to the emergency department with altered mental status and hypoxemia. Patient quite ill on initial exam with abnormal mental status. He has scanning lateral eye movements and occasional movements of head left and right rotationally. He does not appear to have any threat reflex regarding his eyes and given problem list listed history of seizure concerned that there may be an underlying component of seizure though differentials remain broad and likely multifactorial. 2 mg Versed and 1 g Keppra load ordered. Upon close reevaluation the patient does appear to have some improvement in mental status though still remains markedly off baseline. EKG notable for sinus rhythm with nonspecific ST segment abnormalities diff usely, no STEMI. Laboratory studies with hematologic panel with no leukocytosis, normocytic anemia similar to patient's baseline. Metabolic panel with hyponatremia of 118, patient's baseline is variable but 125 is probably closer to average. Potassium is normal, chloride mildly low similar to baseline, creatinine with renal function preserved. Magnesium is low at 1.5 and magnesium replenishment ordered. Initial troponin 30 ng/L however repeat is slightly less therefore ACS as a cause is unlikely. Patient does have an elevated BNP at 30,000 which is significantly above baseline. No evidence of urinary tract infection. Rapid influenza and COVID-negative. Chest x-ray with significant bilateral infiltrates concerning for pneumonia. CT head and cervical spine are without evidence of acute pathology. CT chest abdomen pelvis with bilateral pneumonia, interstitial edema, right pleural effusion, concerning findings for bilateral empyemas, endobronchial tube free concern for aspiration. Abdominal component with ascites and postoperative changes. INR minimally elevated 1.36, patient is on Eliquis. Ammonia normal. Albumin 2.7. Initial ABG with mild hypercapnia though likely not significant enough to explain symptoms, hypoxemia noted, pH compensated on both initial and repeat with some improvement in PCO2 on repeat after approximately 3 hours. During ED course patient additionally received vancomycin 2 g, cefepime 4.5 g and fluids initiated at just 75 mL/h for mild correction of hyponatremia in combination with diuresis. Based on ED evaluation at this point the most likely cause of the patient's symptoms is multifactorial including altered mental status secondary to pneumonia, acute hypoxic respiratory failure secondary to pneumonia and effusions and empyemas, and underlying liver disease. I discussed the case with our post tensioning ironworker helper on-call and given evidence of empyema the patient will likely require intervention above our capability as we do not have cardiothoracic surgery available at this time. We will plan to look for placement. Patient care handed off to Dr. Vegas pending accepting outside facility. Medical Records I reviewed the patient's medical records. Lab Data I reviewed the patient's lab results. 05/02/22 17:50 05/02/22 17:50 Radiology Impressions Chest X-Ray 05/02/22 17:27 IMPRESSION: 1. Bilateral pleural effusions more on the left than on the right. 2. Right basilar atelectasis or infiltrate. 3. Worsening pneumonia on the left. 4. Findings suggesting moderate congestive failure. Cervical Spine CT 05/02/22 17:44 IMPRESSION: 1. Degenerative changes in the cervical spine. 2. No cervical spine fracture is identified. 3. Few small bubbles in the supraclavicular region possibly representing venous air. 4. No fracture is identified. Head CT 05/02/22 17:44 IMPRESSION: No acute finding. Chest/Abdomen/Pelvis CT 05/02/22 19:07 IMPRESSION: 1. Bilateral pneumonia 2. Emphysema 3. Findings suggesting interstitial edema 4. Right pleural effusion 5. Findings worrisome for empyema on both sides. 6. Extensive endobronchial material worrisome for aspiration IMPRESSION: 1. Ascites 2. Postoperative changes compared with 02/03/2022 3. Chronic changes as described above. Laboratory Results WBC 4.8 10^3/uL (4.0-10.0) 05/02/22 17:50 RBC 3.54 10^6/uL (4.1-5.3) L 05/02/22 17:50 Hgb 9.7 g/dL (11.7-16.6) L 05/02/22 17:50 Hct 29.2 % (42.0-52.0) L 05/02/22 17:50 MCV 82.5 fl (80-94) 05/02/22 17:50 MCH 27.4 pg (28.0-34.0) L 05/02/22 17:50 MCHC 33.2 g/dL (30.0-36.0) 05/02/22 17:50 RDW 14.5 % (12.1-15.1) 05/02/22 17:50 Plt Count 295 10^3/cmm (130-400) 05/02/22 17:50 MPV 8.6 fL (7.4-10.4) 05/02/22 17:50 Neut % (Auto) 73.3 % 05/02/22 17:50 Lymph % (Auto) 13.0 % 05/02/22 17:50 [place] % (Auto) 7.6 % 05/02/22 17:50 Eos % (Auto) 4.4 % 05/02/22 17:50 Baso % (Auto) 1.3 % 05/02/22 17:50 Neut # (Auto) 3.49 10^3/uL (1.8-7.7) 05/02/22 17:50 Lymph # (Auto) 0.6 10^3/uL (0.8-4.8) L 05/02/22 17:50 [place] # (Auto) 0.4 10^3/uL (0.2-0.9) 05/02/22 17:50 Eos # (Auto) 0.2 10^3/uL (0.0-0.8) 05/02/22 17:50 Baso # (Auto) 0.1 10^3/uL (0.0-0.1) 05/02/22 17:50 Nucleated RBC % (auto) 0 % 05/02/22 17:50 Nucleated RBCs # 0.0 /100WBC 05/02/22 17:50 PT 17.10 SECONDS (12.1-14.9) H 05/02/22 17:50 INR 1.36 (0.8-1.2) H 05/02/22 17:50 APTT 40.3 SECONDS (23.9-36.7) H 05/02/22 17:50 Specimen Type Arterial 05/03/22 00:25 Sample Site Radial, right 05/03/22 00:25 ABG pH 7.38 (7.35-7.45) 05/03/22 00:25 ABG pCO2 50.4 mmHg (35-45) H 05/03/22 00:25 ABG pO2 61.0 mmHg (80.0-100.0) L 05/03/22 00:25 ABG HCO3 29.6 mmol/L (22-26) H 05/03/22 00:25 ABG O2 Saturation 95.0 05/02/22 17:40 ABG Base Excess 3.7 mmol/L (-2.0-2.0) H 05/03/22 00:25 Hammad Test Pos 05/03/22 00:25 A-a O2 Gradient 15.9 mmHg (5-10) H 05/02/22 17:40 Hematocrit 31.8 % (42-52) L 05/03/22 00:25 Hgb O2 Saturation 92.8 % (95-100) L 05/02/22 17:40 Carboxyhemoglobin 1.8 %THgb (0.4-20.1) 05/02/22 17:40 Methemoglobin 0.6 % (0.4-1.5) 05/02/22 17:40 Total Hemoglobin 9.6 g/dL (14-18) L 05/02/22 17:40 Sodium 118.0 mmol/L (131-143) L 05/02/22 17:40 Potassium 4.2 mmol/L (3.5-5.0) 05/02/22 17:40 Glucose 76.0 mg/dL (70-115) 05/02/22 17:40 Ionized Calcium 1.1 mmol/L (1.1-1.4) 05/02/22 17:40 O2 Delivery Device Bipap 05/03/22 00:25 O2 Liters/Min 5.0 % 05/02/22 20:48 FiO2 100.0 % 05/03/22 00:25 PEEP 10.0 cmH20 05/03/22 00:25 Food Service Worker [email or web address] 05/03/22 00:25 Sodium 119 mmol/L (136-145) L* 05/02/22 23:31 Potassium 3.9 mmol/L (3.5-5.1) 05/02/22 23:31 Chloride 83 mmol/L (98-107) L 05/02/22 23:31 Carbon Dioxide 26 mmol/L (22-29) 05/02/22 23:31 Anion Gap 13.9 (5-19) 05/02/22 23:31 BUN 9 mg/dL (8-23) 05/02/22 23:31 Creatinine 0.3 mg/dL (0.7-1.2) L 05/02/22 23:31 GFR Calculation 299.1 mL/min (90-130) H 05/02/22 23:31 Glucose 70 mg/dL (65-115) 05/02/22 23:31 Calculated Osmolality 245 mOsm/kg (285-295) L 05/02/22 23:31 Lactic Acid 0.8 mmol/L (0.5-2.2) 05/02/22 17:50 Calcium 7.9 mg/dL (8.5-10.5) L 05/02/22 23:31 Magnesium 1.5 mg/dL (1.7-2.3) L 05/02/22 17:50 Total Bilirubin 0.2 mg/dL (0.15-1.2) 05/02/22 17:50 AST 12 U/L (0-40) 05/02/22 17:50 ALT 8 U/L (0-41) 05/02/22 17:50 Alkaline Phosphatase 70 U/L (40-130) 05/02/22 17:50 Ammonia 30 umol/L (16-60) 05/02/22 17:50 Troponin T Baseline 30 ng/L (0-15) H 05/02/22 18:00 Troponin T 120 Minute 29.81 ng/L (0-15) H 05/02/22 20:41 Delta Troponin T -0.19 ABS# (0-10) L 05/02/22 20:41 Troponin T Hi Sens 6Hr 31.57 ng/L (0-15) H 05/02/22 23:31 Troponin T Hi Sens 6Hr Delta 1.57 ng/L (0-12) 05/02/22 23:31 C-Reactive Protein 34.8 mg/L (0.0-4.9) H 05/02/22 17:50 NT-Pro-B Natriuret Pep 49825 pg/mL (0-125) H 05/02/22 17:50 Total Protein 6.3 g/dL (6.6-8.7) L 05/02/22 17:50 Albumin 2.7 g/dL (3.5-5.2) L 05/02/22 17:50 Globulin 3.6 g/dL (1.3-4.6) 05/02/22 17:50 Procalcitonin 0.07 ng/mL (0-0.5) 05/02/22 17:50 Urine Color Yellow (Yellow) 05/02/22 18:10 Urine Appearance Clear (CLEAR) 05/02/22 18:10 Urine pH 7 (5-7) 05/02/22 18:10 Ur Specific [place] 1.005 (1.005-1.030) 05/02/22 18:10 Urine Protein Neg (Negative) 05/02/22 18:10 Urine Glucose (UA) Norm (Normal) 05/02/22 18:10 Urine Ketones Negative (Negative) 05/02/22 18:10 Urine Blood 3+ (Negative) H 05/02/22 18:10 Urine Nitrate Negative (Negative) 05/02/22 18:10 Urine Bilirubin Neg (Negative) 05/02/22 18:10 Urine Urobilinogen Norm mg/dL (Negative) 05/02/22 18:10 Ur Leukocyte Esterase Negative (Negative) 05/02/22 18:10 Urine RBC 0-4 /hpf (0-2) H 05/02/22 18:10 Urine WBC None /hpf (0-5) 05/02/22 18:10 Ur Squamous Epith Cells 0-4 /hpf (0-5) H 05/02/22 18:10 Amorphous Sediment Not Reportable 05/02/22 18:10 Urine Bacteria Trace /hpf (NONE) 05/02/22 18:10 Influenza Type A Ag negative (Negative) 05/02/22 18:45 Influenza Type B Ag negative (Negative) 05/02/22 18:45 SARS-CoV-2 Ag (Rapid) Negative (Negative) 05/02/22 18:45 Critical Care Time Critical Care Time: Critical Care Time: Yes Total Critical Care Time: 80 Attestation: Due to a high probability of clinically significant, possibly life threatening deterioration, the patient required my highest level of attention and preparedness to intervene emergently and I personally spent this critical care time directly and personally managing the patient. This critical care time included obtaining a history; examining the patient; pulse oximetry; ordering and review of laboratory and imaging studies; arranging urgent treatment with development of a management plan; evaluation of patient's response to treatment; frequent reassessment; and, discussions with other providers as applicable. It was exclusive of separately billable procedures. Primary system involved is respiratory with additional factors from cardiac, infectious disease, and hepatic. Discharge Plan Discharge Patient Disposition: Xfer Short-Term Hosp Clinical Impression: Pneumonia, Hyponatremia, Anemia, Liver cirrhosis, Altered mental status, Ob served seizure-like activity, Aspiration pneumonia, Ascites, CHF exacerbation, Empyema of pleural space Condition: Stable Referrals: Alexandro Lipscomb CPNP [Primary Care Provider] - Sign Out Sign Out Data: Patient Sign Out occurred on 05/06/22 at 06:59. Patient's care was discussed, and care was transferred from to Billy Fuentes DO. Coding Level of Care Code ED Business Continuity Planning Director for Chg Fwd Exam Comprehensive Documented by User: Milton Vegas MD 05/03/22 00:51 HPI - Altered Mental Status General: Chief Complaint: Altered Mental Status Stated Complaint: AMS Time Seen by Provider: 05/02/22 17:24 PFS ED PFSH: Medical History Acute exacerbation of chronic obstructive pulmonary disease Acute hyponatremia Acute respiratory failure with hypoxemia Adult failure to thrive Afib Anticoagulation adequate Atelectasis of left lung BPH (benign prostatic hyperplasia) Chronic hyponatremia Community acquired pneumonia COPD (chronic obstructive pulmonary disease) Coronavirus infection Common cold variant 229E COVID-19 Disability Dolichocolon Gastritis HTN (hypertension) Liver cirrhosis etoh abuse Mucus plugging of bronchi 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 Pneumonia Presence of externally removable percutaneous endoscopic gastrostomy (PEG) tube Protein calorie malnutrition Pulmonary HTN Severe muscle deconditioning Weakness Surgical History H/O hemorrhoidectomy Status post laparoscopic-assisted sigmoidectomy Status post partial resection of colon Family History Denies family history of Diabetes Social History Smoking and tobacco status: current every day smoker Alcohol intake: unknown Course Vital Signs: Vital signs: Vital Signs Temperature 98.9 F 05/02/22 17:16 Pulse Rate 116 H 05/03/22 01:43 Respiratory Rate 28 H 05/03/22 01:43 Blood Pressure 154/93 05/03/22 01:43 Pulse Oximetry 97 05/03/22 01:43 Oxygen Delivery Me thod 05/03/22 01:43 Oxygen Flow Rate 4 05/02/22 23:53 Fraction of Inspir ed Oxygen 100 05/03/22 01:43 MDM - Altered Mental Status Medical Decision Making 66-year-old gentleman with very complex history including liver disease and recurrent pneumonia presenting to the emergency department with altered mental status and hypoxemia. Patient quite ill on initial exam with abnormal mental status. He has scanning lateral eye movements and occasional movements of head left and right rotationally. He does not appear to have any threat reflex regarding his eyes and given problem list listed history of seizure concerned that there may be an underlying component of seizure though differentials remain broad and likely multifactorial. 2 mg Versed and 1 g Keppra load ordered. Upon close reevaluation the patient does appear to have some improvement in mental status though still remains markedly off baseline. EKG notable for sinus rhythm with nonspecific ST segment abnormalities diffusely, no STEMI. Laboratory studies with hematologic panel with no leukocytosis, normocytic anemia similar to patient's baseline. Metabolic panel with hyponatremia of 118, patient's baseline is variable but 125 is probably closer to average. Potassium is normal, chloride mildly low similar to baseline, creatinine with renal function preserved. Magnesium is low at 1.5 and magnesium replenishment ordered. Initial troponin 30 ng/L however repeat is slightly less therefore ACS as a cause is unlikely. Patient does have an elevated BNP at 30,000 which is significantly above baseline. No evidence of urinary tract infection. Rapid influenza and COVID-negative. Chest x-ray with significant bilateral infiltrates concerning for pneumonia. CT head and cervical spine are without evidence of acute pathology. CT chest abdomen pelvis with bilateral pneumonia, interstitial edema, right pleural effusion, concerning findings for bilateral empyemas, endobronchial tube free concern for aspiration. Abdominal component with ascites and postoperative changes. INR minimally elevated 1.36, patient is on Eliquis. Ammonia normal. Albumin 2.7. Initial ABG with mild hypercapnia though likely not significant enough to explain symptoms, hypoxemia noted, pH compensated on both initial and repeat with some improvement in PCO2 on repeat after approximately 3 hours. During ED course patient additionally received vancomycin 2 g, cefepime 4.5 g a nd fluids initiated at just 75 mL/h for mild correction of hyponatremia in combination with diuresis. Based on ED evaluation at this point the most likely cause of the patient's symptoms is multifactorial including altered mental status secondary to pneumonia, acute hypoxic respiratory failure secondary to pneumonia and effusions and empyemas, and underlying liver disease. I discussed the case with our post tensioning ironworker helper on-call and given evidence of empyema the patient will likely require intervention above our capability as we do not have cardiothoracic surgery available at this time. We will plan to look for placement. Patient care handed off to Dr. Vegas pending accepting outside facility. Patient accepted hospital in [place] for higher level of care for CT surgery will transfer there at this time. Lab Data 05/02/22 17:50 12 17:50 Radiology Impressions Chest X-Ray 05/02/22 17:27 IMPRESSION: 1. Bilateral pleural effusions more on the left than on the right. 2. Right basilar atelectasis or infiltrate. 3. Worsening pneumonia on the left. 4. Findings suggesting moderate congestive failure. Cervical Spine CT 05/02/22 17:44 IMPRESSION: 1. Degenerative changes in the cervical spine. 2. No cervical spine fracture is identified. 3. Few small bubbles in the supraclavicular region possibly representing venous air. 4. No fracture is identified. Head CT 05/02/22 17:44 IMPRESSION: No acute finding. Chest/Abdomen/Pelvis CT 05/02/22 19:07 IMPRESSION: 1. Bilateral pneumonia 2. Emphysema 3. Findings suggesting interstitial edema 4. Right pleural effusion 5. Findings worrisome for empyema on both sides. 6. Extensive endobronchial material worrisome for aspiration IMPRESSION: 1. Ascites 2. Postoperative changes compared with 02/03/2022 3. Chronic changes as described above. Laboratory Results WBC 4.8 10^3/uL (4.0-10.0) 05/02/22 17:50 RBC 3.54 10^6/uL (4.1-5.3) L 05/02/22 17:50 Hgb 9.7 g/dL (11.7-16.6) L 05/02/22 17:50 Hct 29.2 % (42.0-52.0) L 05/02/22 17:50 MCV 82.5 fl (80-94) 05/02/22 17:50 MCH 27.4 pg (28.0-34.0) L 05/02/22 17:50 MCHC 33.2 g/dL (30.0-36.0) 05/02/22 17:50 RDW 14.5 % (12.1-15.1) 05/02/22 17:50 Plt Count 295 10^3/cmm (130-400) 05/02/22 17:50 MPV 8.6 fL (7.4-10.4) 05/02/22 17:50 Neut % (Auto) 73.3 % 05/02/22 17:50 Lymph % (Auto) 13.0 % 05/02/22 17:50 [place] % (Auto) 7.6 % 05/02/22 17:50 Eos % (Auto) 4.4 % 05/02/22 17:50 Baso % (Auto) 1.3 % 05/02/22 17:50 Neut # (Auto) 3.49 10^3/uL (1.8-7.7) 05/02/22 17:50 Lymph # (Auto) 0.6 10^3/uL (0.8-4.8) L 05/02/22 17:50 [place] # (Auto) 0.4 10^3/uL (0.2-0.9) 05/02/22 17:50 Eos # (Auto) 0.2 10^3/uL (0.0-0.8) 05/02/22 17:50 Baso # (Auto) 0.1 10^3/uL (0.0-0.1) 05/02/22 17:50 Nucleated RBC % (auto) 0 % 05/02/22 17:50 Nucleated RBCs # 0.0 /100WBC 05/02/22 17:50 PT 17.10 SECONDS (12.1-14.9) H 05/02/22 17:50 INR 1.36 (0.8-1.2) H 05/02/22 17:50 APTT 40.3 SECONDS (23.9-36.7) H 05/02/22 17:50 Specimen Type Arterial 05/03/22 00:25 Sample Site Radial, right 05/03/22 00:25 ABG pH 7.38 (7.35-7.45) 05/03/22 00:25 ABG pCO2 50.4 mmHg (35-45) H 05/03/22 00:25 ABG pO2 61.0 mmHg (80.0-100.0) L 05/03/22 00:25 ABG HCO3 29.6 mmol/L (22-26) H 05/03/22 00:25 ABG O2 Saturation 95.0 05/02/22 17:40 ABG Base Excess 3.7 mmol/L (-2.0-2.0) H 05/03/22 00:25 Hammad Test Pos 05/03/22 00:25 A-a O2 Gradient 15.9 mmHg (5-10) H 05/02/22 17:40 Hematocrit 31.8 % (42-52) L 05/03/22 00:25 Hgb O2 Saturation 92.8 % (95-100) L 05/02/22 17:40 Carboxyhemoglobin 1.8 %THgb (0.4-20.1) 05/02/22 17:40 Methemoglobin 0.6 % (0.4-1.5) 05/02/22 17:40 Total Hemoglobin 9.6 g/dL (14-18) L 05/02/22 17:40 Sodium 118.0 mmol/L (131-143) L 05/02/22 17:40 Potassium 4.2 mmol/L (3.5-5.0) 05/02/22 17:40 Glucose 76.0 mg/dL (70-115) 05/02/22 17:40 Ionized Calcium 1.1 mmol/L (1.1-1.4) 05/02/22 17:40 O2 Delivery Device Bipap 05/03/22 00:25 O2 Liters/Min 5.0 % 05/02/22 20:48 FiO2 100.0 % 05/03/22 00:25 PEEP 10.0 cmH20 05/03/22 00:25 Food Service Worker Hospital [email or web address] 05/03/22 00:25 Sodium 119 mmol/L (136-145) L* 05/02/22 23:31 Potassium 3.9 mmol/L (3.5-5.1) 05/02/22 23:31 Chloride 83 mmol/L (98-107) L 05/02/22 23:31 Carbon Dioxide 26 mmol/L (22-29) 05/02/22 23:31 Anion Gap 13.9 (5-19) 05/02/22 23:31 BUN 9 mg/dL (8-23) 05/02/22 23:31 Creatinine 0.3 mg/dL (0.7-1.2) L 05/02/22 23:31 GFR Calculation 299.1 mL/min (90-130) H 05/02/22 23:31 Glucose 70 mg/dL (65-115) 05/02/22 23:31 Calculated Osmolality 245 mOsm/kg (285-295) L 05/02/22 23:31 Lactic Acid 0.8 mmol/L (0.5-2.2) 05/02/22 17:50 Calcium 7.9 mg/dL (8.5-10.5) L 05/02/22 23:31 Magnesium 1.5 mg/dL (1.7-2.3) L 05/02/22 17:50 Total Bilirubin 0.2 mg/dL (0.15-1.2) 05/02/22 17:50 AST 12 U/L (0-40) 05/02/22 17:50 ALT 8 U/L (0-41) 05/02/22 17:50 Alkaline Phosphatase 70 U/L (40-130) 05/02/22 17:50 Ammonia 30 umol/L (16-60) 05/02/22 17:50 Troponin T Baseline 30 ng/L (0-15) H 05/02/22 18:00 Troponin T 120 Minute 29.81 ng/L (0-15) H 05/02/22 20:41 Delta Troponin T -0.19 ABS# (0-10) L 05/02/22 20:41 Troponin T Hi Sens 6Hr 31.57 ng/L (0-15) H 05/02/22 23:31 Troponin T Hi Sens 6Hr Delta 1.57 ng/L (0-12) 05/02/22 23:31 C-Reactive Protein 34.8 mg/L (0.0-4.9) H 05/02/22 17:50 NT-Pro-B Natriuret Pep 41502 pg/mL (0-125) H 05/02/22 17:50 Total Protein 6.3 g/dL (6.6-8.7) L 05/02/22 17:50 Albumin 2.7 g/dL (3.5-5.2) L 05/02/22 17:50 Globulin 3.6 g/dL (1.3-4.6) 05/02/22 17:50 Procalcitonin 0.07 ng/mL (0-0.5) 05/02/22 17:50 Urine Color Yellow (Yellow) 05/02/22 18:10 Urine Appearance Clear (CLEAR) 05/02/22 18:10 Urine pH 7 (5-7) 05/02/22 18:10 Ur Specific [place] 1.005 (1.005-1.030) 05/02/22 18:10 Urine Protein Neg (Negative) 05/02/22 18:10 Urine Glucose (UA) Norm (Normal) 05/02/22 18:10 Urine Ketones Negative (Negative) 05/02/22 18:10 Urine Blood 3+ (Negative) H 05/02/22 18:10 Urine Nitrate Negative (Negative) 05/02/22 18:10 Urine Bilirubin Neg (Negative) 05/02/22 18:10 Urine Urobilinogen Norm mg/dL (Negative) 05/02/22 18:10 Ur Leukocyte Esterase Negative (Negative) 05/02/22 18:10 Urine RBC 0-4 /hpf (0-2) H 05/02/22 18:10 Urine WBC None /hpf (0-5) 05/02/22 18:10 Ur Squamous Epith Cells 0-4 /hpf (0-5) H 05/02/22 18:10 Amorphous Sediment Not Reportable 05/02/22 18:10 Urine Bacteria Trace /hpf (NONE) 05/02/22 18:10 Influenza Type A Ag negative (Negative) 05/02/22 18:45 Influenza Type B Ag negative (Negative) 05/02/22 18:45 SARS-CoV-2 Ag (Rapid) Negative (Negative) 05/02/22 18:45 Discharge Plan Discharge Patient Disposition: Xfer Short-Term Hosp Clinical Impression: Pneumonia, Hyponatremia, Anemia, Liver cirrhosis, Altered mental status, Observed seizure-like activity, Aspiration pneumonia, Ascites, CHF exacerbation, Empyema of pleural space Condition: Stable Referrals: Alexandro Lipscomb CPNP [Primary Care Provider] - Sign Out Sign Out Data: Patient Sign Out occurred on 05/06/22 at 06:59. Patient's care was discussed, and care was transferred from to Billy Fuentes DO. Coding Level of Care Code ED Business Continuity Planning Director for Chg Fwd Exam Comprehensive Documented by User: Billy Fuentes DO 05/06/22 07:07 HPI - Altered Mental Status General: Chief Complaint: Altered Mental Status Stated Complaint: AMS Time Seen by Provider: 05/02/22 17:24 [facility] ED PFSH: Medical History Acute exacerbation of chronic obstructive pulmonary disease Acute hyponatremia Acute respiratory failure with hypoxemia Adult failure to thrive Afib Anticoagulation adequate Atelectasis of left lung BPH (benign prostatic hyperplasia) Chronic hyponatremia Community acquired pneumonia COPD (chronic obstructive pulmonary disease) Coronavirus infection Common cold variant 229E COVID-19 Disability Dolichocolon Gastritis HTN (hypertension) Liver cirrhosis etoh abuse Mucus plugging of bronchi 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 Pneumonia Presence of externally removable percutaneous endoscopic gastrostomy (PEG) tube Protein calorie malnutrition Pulmonary HTN Severe muscle deconditioning Weakness Surgical History H/O hemorrhoidectomy Status post laparoscopic-assisted sigmoidectomy Status post partial resection of colon Family History Denies family history of Diabetes Social History Smoking and tobacco status: current every day smoker Alcohol intake: unknown Course Vital Signs: Vital signs: Vital Signs Temperature 98.9 F 05/02/22 17:16 Pulse Rate 116 H 05/03/22 01:43 Respiratory Rate 28 H 05/03/22 01:43 Blood Pressure 154/93 05/03/22 01:43 Pulse Oximetry 97 05/03/22 01:43 Oxygen Delivery Me thod 05/03/22 01:43 Oxygen Flow Rate 4 05/02/22 23:53 Fraction of Inspir ed Oxygen 100 05/03/22 01:43 MDM - Altered Mental Status Medical Decision Making 66-year-old gentleman with very complex history including liver disease and recurrent pneumonia presenting to the emergency department with altered mental status and hypoxemia. Patient quite ill on initial exam with abnormal mental status. He has scanning lateral eye movements and occasional movements of head left and right rotationally. He does not appear to have any threat reflex re garding his eyes and given problem list listed history of seizure concerned that there may be an underlying component of seizure though differentials remain broad and likely multifactorial. 2 mg Versed and 1 g Keppra load ordered. Upon close reevaluation the patient does appear to have some improvement in mental status though still remains markedly off baseline. EKG notable for sinus rhythm with nonspecific ST segment abnormalities diffusely, no STEMI. Laboratory studies with hematologic panel with no leukocytosis, normocytic anemia similar to patient's baseline. Metabolic panel with hyponatremia of 118, patient's baseline is variable but 125 is probably closer to average. Potassium is normal, chloride mildly low similar to baseline, creatinine with renal function preserved. Magnesium is low at 1.5 and magnesium replenishment ordered. Initial troponin 30 ng/L however repeat is slightly less therefore ACS as a cause is unlikely. Patient does have an elevated BNP at 30,000 which is significantly above baseline. No evidence of urinary tract infection. Rapid influenza and COVID-negative. Chest x-ray with significant bilateral infiltrates concerning for pneumonia. CT head and cervical spine are without evidence of acute pathology. CT chest abdomen pelvis with bilateral pneumonia, interstitial edema, right pleural effusion, concerning findings for bilateral empyemas, endobronchial tube free concern for aspiration. Abdominal component with ascites and postoperative ch anges. INR minimally elevated 1.36, patient is on Eliquis. Ammonia normal. Albumin 2.7. Initial ABG with mild hypercapnia though likely not significant enough to explain symptoms, hypoxemia noted, pH compensated on both initial and repeat with some improvement in PCO2 on repeat after approximately 3 hours. During ED course patient additionally received vancomycin 2 g, cefepime 4.5 g and fluids initiated at just 75 mL/h for mild correction of hyponatremia in combination with diuresis. Based on ED evaluation at this point the most likely cause of the patient's symptoms is multifactorial including altered mental status secondary to pneumonia, acute hypoxic respiratory failure secondary to pneumonia and effusions and empyemas, and underlying liver disease. I discussed the case with our post tensioning ironworker helper on-call and given evidence of empyema the patient will likely require intervention above our capability as we do not have cardiothoracic surgery available at this time. We will plan to look for placement. Patient care handed off to Dr. Vegas pending accepting outside facility. Patient accepted hospital in [place] for higher level of care for CT surgery will transfer there at this time. Chart inadvertently picked up from sign queue. I did not participate in patient's care but had to sign off on which chart to get it removed from my work list. Lab Data 05/02/22 17:50 05/02/22 17:50 Radiology Impressions Chest X-Ray 05/02/22 17:27 IMPRESSION: 1. Bilateral pleural effusions more on the left than on the right. 2. Right basilar atelectasis or infiltrate. 3. Worsening pneumonia on the left. 4. Findings suggesting moderate congestive failure. Cervical Spine CT 05/02/22 17:44 IMPRESSION: 1. Degenerative changes in the cervical spine. 2. No cervical spine fracture is identified. 3. Few small bubbles in the supraclavicular region possibly representing venous air. 4. No fracture is identified. Head CT 05/02/22 17:44 IMPRESSION: No acute finding. Chest/Abdomen/Pelvis CT 05/02/22 19:07 IMPRESSION: 1. Bilateral pneumonia 2. Emphysema 3. Findings suggesting interstitial edema 4. Right pleural effusion 5. Findings worrisome for empyema on both sides. 6. Extensive endobronchial material worrisome for aspiration IMPRESSION: 1. Ascites 2. Postoperative changes compared with 02/03/2022 3. Chronic changes as described above. Laboratory Results WBC 4.8 10^3/uL (4.0-10.0) 05/02/22 17:50 RBC 3.54 10^6/uL (4.1-5.3) L 05/02/22 17:50 Hgb 9.7 g/dL (11.7-16.6) L 05/02/22 17:50 Hct 29.2 % (42.0-52.0) L 05/02/22 17:50 MCV 82.5 fl (80-94) 05/02/22 17:50 MCH 27.4 pg (28.0-34.0) L 05/02/22 17:50 MCHC 33.2 g/dL (30.0-36.0) 05/02/22 17:50 RDW 14.5 % (12.1-15.1) 05/02/22 17:50 Plt Count 295 10^3/cmm (130-400) 05/02/22 17:50 MPV 8.6 fL (7.4-10.4) 05/02/22 17:50 Neut % (Auto) 73.3 % 05/02/22 17:50 Lymph % (Auto) 13.0 % 05/02/22 17:50 [place] % (Auto) 7.6 % 05/02/22 17:50 Eos % (Auto) 4.4 % 05/02/22 17:50 Baso % (Auto) 1.3 % 05/02/22 17:50 Neut # (Auto) 3.49 10^3/uL (1.8-7.7) 05/02/22 17:50 Lymph # (Auto) 0.6 10^3/uL (0.8-4.8) L 05/02/22 17:50 [place] # (Auto) 0.4 10^3/uL (0.2-0.9) 05/02/22 17:50 Eos # (Auto) 0.2 10^3/uL (0.0-0.8) 05/02/22 17:50 Baso # (Auto) 0.1 10^3/uL (0.0-0.1) 05/02/22 17:50 Nucleated RBC % (auto) 0 % 05/02/22 17:50 Nucleated RBCs # 0.0 /100WBC 05/02/22 17:50 PT 17.10 SECONDS (12.1-14.9) H 05/02/22 17:50 INR 1.36 (0.8-1.2) H 05/02/22 17:50 APTT 40.3 SECONDS (23.9-36.7) H 05/02/22 17:50 Specimen Type Arterial 05/03/22 00:25 Sample Site Radial, right 05/03/22 00:25 ABG pH 7.38 (7.35-7.45) 05/03/22 00:25 ABG pCO2 50.4 mmHg (35-45) H 05/03/22 00:25 ABG pO2 61.0 mmHg (80.0-100.0) L 05/03/22 00:25 ABG HCO3 29.6 mmol/L (22-26) H 05/03/22 00:25 ABG O2 Saturation 95.0 05/02/22 17:40 ABG Base Excess 3.7 mmol/L (-2.0-2.0) H 05/03/22 00:25 Hammad Test Pos 05/03/22 00:25 A-a O2 Gradient 15.9 mmHg (5-10) H 05/02/22 17:40 Hematocrit 31.8 % (42-52) L 05/03/22 00:25 Hgb O2 Saturation 92.8 % (95-100) L 05/02/22 17:40 Carboxyhemoglobin 1.8 %THgb (0.4-20.1) 05/02/22 17:40 Methemoglobin 0.6 % (0.4-1.5) 05/02/22 17:40 Total Hemoglobin 9.6 g/dL (14-18) L 05/02/22 17:40 Sodium 118.0 mmol/L (131-143) L 05/02/22 17:40 Potassium 4.2 mmol/L (3.5-5.0) 05/02/22 17:40 Glucose 76.0 mg/dL (70-115) 05/02/22 17:40 Ionized Calcium 1.1 mmol/L (1.1-1.4) 05/02/22 17:40 O2 Delivery Device Bipap 05/03/22 00:25 O2 Liters/Min 5.0 % 05/02/22 20:48 FiO2 100.0 % 05/03/22 00:25 PEEP 10.0 cmH20 05/03/22 00:25 Food Service Worker Hospital ID [email or web address] 05/03/22 00:25 Sodium 119 mmol/L (136-145) L* 05/02/22 23:31 Potassium 3.9 mmol/L (3.5-5.1) 05/02/22 23:31 Chloride 83 mmol/L (98-107) L 05/02/22 23:31 Carbon Dioxide 26 mmol/L (22-29) 05/02/22 23:31 Anion Gap 13.9 (5-19) 05/02/22 23:31 BUN 9 mg/dL (8-23) 05/02/22 23:31 Creatinine 0.3 mg/dL (0.7-1.2) L 05/02/22 23:31 GFR Calculation 299.1 mL/min (90-130) H 05/02/22 23:31 Glucose 70 mg/dL (65-115) 05/02/22 23:31 Calculated Osmolality 245 mOsm/kg (285-295) L 05/02/22 23:31 Lactic Acid 0.8 mmol/L (0.5-2.2) 05/02/22 17:50 Calcium 7.9 mg/dL (8.5-10.5) L 05/02/22 23:31 Magnesium 1.5 mg/dL (1.7-2.3) L 05/02/22 17:50 Total Bilirubin 0.2 mg/dL (0.15-1.2) 05/02/22 17:50 AST 12 U/L (0-40) 05/02/22 17:50 ALT 8 U/L (0-41) 05/02/22 17:50 Alkaline Phosphatase 70 U/L (40-130) 05/02/22 17:50 Ammonia 30 umol/L (16-60) 05/02/22 17:50 Troponin T Baseline 30 ng/L (0-15) H 05/02/22 18:00 Troponin T 120 Minute 29.81 ng/L (0-15) H 05/02/22 20:41 Delta Troponin T -0.19 ABS# (0-10) L 05/02/22 20:41 Troponin T Hi Sens 6Hr 31.57 ng/L (0-15) H 05/02/22 23:31 Troponin T Hi Sens 6Hr Delta 1.57 ng/L (0-12) 05/02/22 23:31 C-Reactive Protein 34.8 mg/L (0.0-4.9) H 05/02/22 17:50 NT-Pro-B Natriuret Pep 00871 pg/mL (0-125) H 05/02/22 17:50 Total Protein 6.3 g/dL (6.6-8.7) L 05/02/22 17:50 Albumin 2.7 g/dL (3.5-5.2) L 05/02/22 17:50 Globulin 3.6 g/dL (1.3-4.6) 05/02/22 17:50 Procalcitonin 0.07 ng/mL (0-0.5) 05/02/22 17:50 Urine Color Yellow (Yellow) 05/02/22 18:10 Urine Appearance Clear (CLEAR) 05/02/22 18:10 Urine pH 7 (5-7) 05/02/22 18:10 Ur Specific [place] 1.005 (1.005-1.030) 05/02/22 18:10 Urine Protein Neg (Negative) 05/02/22 18:10 Urine Glucose (UA) Norm (Normal) 05/02/22 18:10 Urine Ketones Negative (Negative) 05/02/22 18:10 Urine Blood 3+ (Negative) H 05/02/22 18:10 Urine Nitrate Negative (Negative) 05/02/22 18:10 Urine Bilirubin Neg (Negative) 05/02/22 18:10 Urine Urobilinogen Norm mg/dL (Negative) 05/02/22 18:10 Ur Leukocyte Esterase Negative (Negative) 05/02/22 18:10 Urine RBC 0-4 /hpf (0-2) H 05/02/22 18:10 Urine WBC None /hpf (0-5) 05/02/22 18:10 Ur Squamous Epith Cells 0-4 /hpf (0-5) H 05/02/22 18:10 Amorphous Sediment Not Reportable 05/02/22 18:10 Urine Bacteria Trace /hpf (NONE) 05/02/22 18:10 Influenza Type A Ag negative (Negative) 05/02/22 18:45 Influenza Type B Ag negative (Negative) 05/02/22 18:45 SARS-CoV-2 Ag (Rapid) Negative (Negative) 05/02/22 18:45 Discharge Plan Discharge Patient Disposition: Xfer Short-Term Hosp Clinical Impression: Pneumonia, Hyponatremia, Anemia, Liver cirrhosis, Altered mental status, Observed seizure-like activity, Aspiration pneumonia, Ascites, CHF exacerbation, Empyema of pleural space Condition: Stable Referrals: Alexandro Lipscomb CPNP [Primary Care Provider] - Sign Out Sign Out Data: Patient Sign Out occurred on 05/06/22 at 06:59. Patient's care was discussed, a nd care was transferred from to Billy Fuentes DO. Coding Level of Care Code ED Business Continuity Planning Director for Chg Fwd Exam Comprehensive
--- NOTE | 2022-05-02 17:27 | XRR_ITS ---
PROCEDURE INFORMATION: Exam: XR Chest Exam date and time: 05/02/2022 6:02 PM Age: 66 years old Clinical indication: Shortness of breath; Additional info: AMS TECHNIQUE: Imaging protocol: Radiologic exam of the chest. Views: 1 view. COMPARISON: CR XR chest 1V portable [id number] 03/31/2022 4:53 AM FINDINGS: Lungs: There is moderate pulmonary venous congestion. There is scarring in the left mid lung and increasing infiltrate which could represent edema or pneumonia. Correlation with the clinical findings is suggested. There is atelectasis or infiltrate at the right lung base not significantly changed Pleural spaces: There are bilateral pleural effusions more on the left than on the right and larger than on the previous examination. Heart/Mediastinum: The heart is moderately enlarged. Bones/joints: Unremarkable. XR/XR chest 1V portable [id number] IMPRESSION: 1. Bilateral pleural effusions more on the left than on the right. 2. Right basilar atelectasis or infiltrate. 3. Worsening pneumonia on the left. 4. Findings suggesting moderate congestive failure.
--- NOTE | 2022-05-02 17:30 | ECG_ITS ---
[facility] Test Date: 2022-05-02 Pat Name: Ludwin Lux Department: Room: Gender: Male Automotive Service Advisor: : 1955 Requested By: Jesse Sahu Order Number: [id number] Prakash MD: Maicol Randall M.D. Measurements Intervals [place] Rate: 90 P: 80 FL: 151 QRS: 77 QRSD: 103 T: 239 QT: 382 QTc: 468 Interpretive Statements SINUS RHYTHM ANTEROSEPTAL MYOCARDIAL INFARCTION , OF INDETERMINATE AGE [40+ ms Q WAVE IN V1-V4] MODERATE T-WAVE ABNORMALITY, CONSIDER INFERIOR ISCHEMIA [-0.1+ mV T-WAVE IN II/aVF] Compared to ECG 03/29/2022 00:11:23 Supraventricular rhythm no longer present Myocardial infarct finding still present T-wave abnormality still present Possible ischemia still present Electronically Signed On 05-03-2022 0:06:07 TERRA COTTA MOLD MAKER by Maicol Ranadll M.D. [id number]
--- NOTE | 2022-05-02 17:37 | PC.PHAR ---
pt unable to verify - verified by ext med history and home med list provided by EMS
--- NOTE | 2022-05-02 17:44 | CTR_ITS ---
PROCEDURE INFORMATION: Exam: CT Cervical Spine Without Contrast Exam date and time: 05/02/2022 6:11 PM Age: 66 years old Clinical indication: Neck pain; Additional info: AMS TECHNIQUE: Imaging protocol: Computed tomography of the cervical spine without contrast. Radiation optimization: All CT scans at this facility use at least one of these dose optimization techniques: automated exposure control; mA and/or kV adjustment per patient size (includes targeted exams where dose is matched to clinical indication); or iterative reconstruction. COMPARISON: CT chest wo con [id number] 03/07/2022 9:06 AM RADIATION DOSE METRICS: Total DLP (mGy-cm): 213.5 FINDINGS: Tubes, catheters and devices: There are few bubbles of air in the supraclavicular regions on both sides of uncertain significance, possibly iatrogenic as this might represent small intravenous air related to catheter placement or intravenous infusion. This may not be clinically significant. Bones/joints: There is mild scoliosis concave towards the left. There is degenerative change with narrowing of the C3-C4 disc space with slight anterolisthesis and partial fusion of the posterior disc space as well as the facet joints. No fracture is identified. Uncovertebral hypertrophy causes foraminal narrowing bilaterally at C5-C6 and C6-C7. Lungs: There is some interlobular septal thickening in the apical regions which may represent some mild interstitial edema. Pleural spaces: There is left pleural effusion and pneumonic infiltrate in the left upper lobe. There is extensive centrilobular emphysema in both upper lobes. Soft tissues: Unremarkable. CT/CT cervical spin wo con* [id number] IMPRESSION: 1. Degenerative changes in the cervical spine. 2. No cervical spine fracture is identified. 3. Few small bubbles in the supraclavicular region possibly representing venous air. 4. No fracture is identified.
--- NOTE | 2022-05-02 17:44 | CTR_ITS ---
PROCEDURE INFORMATION: Exam: CT Head Without Contrast Exam date and time: 05/02/2022 6:11 PM Age: 66 years old Clinical indication: Altered mental status/memory loss; Additional info: AMS TECHNIQUE: Imaging protocol: Computed tomography of the head without contrast. Radiation optimization: All CT scans at this facility use at least one of these dose optimization techniques: automated exposure control; mA and/or kV adjustment per patient size (includes targeted exams where dose is matched to clinical indication); or iterative reconstruction. COMPARISON: CT head wo con* [id number] 03/06/2022 7:16 PM RADIATION DOSE METRICS: Total DLP (mGy-cm): 1211.3 FINDINGS: Brain: There is moderate cortical atrophy. Low-density changes in the white matter are consistent with nonspecific small vessel chronic ischemic change. There is no intracranial mass, hemorrhage or edema. Cerebral ventricles: No ventriculomegaly. Paranasal sinuses: Visualized sinuses are unremarkable. No fluid levels. Mastoid air cells: Visualized mastoid air cells are well aerated. Bones/joints: Unremarkable. No acute fracture. Soft tissues: Unremarkable. CT/CT head wo con* [id number] IMPRESSION: No acute finding.
[2022-05-02] MEDS: midazolam 1 mg/mL INJ 2 mL 2 MG IVP (17:47)
[2022-05-02 17:52] LABS: ABG PCO2 47.3 mmHg (35-45); Alveolar-Arterial Oxygen Gradi 15.9 mmHg (5-10); Arterial Blood Gas Hematocrit 29.3 % (42-52); Base Excess ABG 3.9 mmol/L (-2.0-2.0); Blood Gas Sample Site Brachial, left; Blood Gas Sample Type Arterial; Carboxyhemoglobin 1.8 %THgb (0.4-20.1); HCO3 ABG 29.3 mmol/L (22-26); HGB O2 Sat 92.8 % (95-100); Ionized Calcium Level - ABG 1.1 mmol/L (1.1-1.4); Methemoglobin 0.6 % (0.4-1.5); Oxygen Device NC; PO2 ABG 73.2 mmHg (80.0-100.0); Potassium Level - ABG 4.2 mmol/L (3.5-5.0); Total Hemoglobin 9.6 g/dL (14-18)
[2022-05-02 18:17] LABS: Basophils # 0.1 10^3/uL (0.0-0.1); Basophils % 1.3 %; Eosinophils # 0.2 10^3/uL (0.0-0.8); Eosinophils % 4.4 %; Hematocrit 29.2 % (42.0-52.0); Hemoglobin 9.7 g/dL (11.7-16.6); Lymphocytes # 0.6 10^3/uL (0.8-4.8); Mean Corpuscular HGB Conc 33.2 g/dL (30.0-36.0); Mean Corpuscular Hemoglobin 27.4 pg (28.0-34.0); Mean Corpuscular Volume 82.5 fl (80-94); Mean Platelet Volume 8.6 fL (7.4-10.4); Monocytes # 0.4 10^3/uL (0.2-0.9); Monocytes % 7.6 %; Neutrophils # 3.49 10^3/uL (1.8-7.7); Neutrophils % 73.3 %; Nucleated Red Blood Cells % 0 %; Platelet Count 295 10^3/cmm (130-400); Red Blood Count 3.54 10^6/uL (4.1-5.3); Red Cell Distribution Width 14.5 % (12.1-15.1); White Blood Count 4.8 10^3/uL (4.0-10.0)
[2022-05-02 18:33] LABS: Add Urine Microscopic? YES; Bilirubin Urine Neg (Negative); Blood Urine 3+ (Negative); Glucose Urine UA Norm (Normal); Ketones Urine Negative (Negative); Leukocyte Esterase Urine Negative (Negative); Nitrate Urine Negative (Negative); Protein Urine Neg (Negative); RBC Urine 0-4 /hpf (0-2); Specific Gravity, Urine 1.005 (1.005-1.030); Squamous Epithelial Cell Urine 0-4 /hpf (0-5); Urine Appearance Clear (CLEAR); Urine Color Yellow (Yellow); Urobilinogen Urine Norm (Negative); pH Urine 7 (5-7)
[2022-05-02 18:34] LABS: Add Urine Culture? No; Bacteria Urine TRACE /hpf
[2022-05-02 18:41] LABS: INR 1.36 (0.8-1.2)
[2022-05-02 18:42] LABS: Partial Thromboplastin Time 40.3 SECONDS (23.9-36.7)
[2022-05-02 18:43] LABS: Troponin(5th) Baseline 30 ng/L (0-15)
[2022-05-02 18:44] LABS: Ammonia 30 umol/L (16-60); Lactic Sepsis W/Reflex 0.8 mmol/L (0.5-2.2)
[2022-05-02] MEDS: piperacillin-tazobactam 4.5 GM in sodium chloride 0.9% (plus) 50 ML IV (18:45)
--- NOTE | 2022-05-02 19:07 | CTR_ITS ---
PROCEDURE INFORMATION: Exam: CT Chest With Contrast; Diagnostic Exam date and time: 05/02/2022 7:34 PM Age: 66 years old Clinical indication: Abdominal tenderness; Dyspnea; Prior surgery; Additional info: AMS TECHNIQUE: Imaging protocol: Diagnostic computed tomography of the chest with contrast. Radiation optimization: All CT scans at this facility use at least one of these dose optimization techniques: automated exposure control; mA and/or kV adjustment per patient size (includes targeted exams where dose is matched to clinical indication); or iterative reconstruction. Contrast material: OMNI 350; Contrast volume: 100 ml; Contrast route: INTRAVENOUS (IV); COMPARISON: 1. CT chest wo con [id number] 03/07/2022 9:[address] angio chest PE protcl [id number] 02/09/2022 6:43 PM RADIATION DOSE METRICS: Total DLP (mGy-cm): 868.98 FINDINGS: Lungs: There is moderate centrilobular emphysema with upper lobe predominance. There is extensive infiltrate in the left upper lobe and right lower lobe and there is consolidation of left lower lobe consistent with pneumonia. There is also some consolidation and atelectasis in the right lower lobe The findings in the left lung are not much changed compared with 03/07/2022 delete that. The findings of pneumonia and atelectasis in the right lower lobe are new. There is interlobular septal thickening in the aerated portions of both lungs worrisome for interstitial edema. There is extensive debris in the lower lobe bronchi bilaterally which could represent aspiration. Pleural spaces: There is loculated pleural fluid collection in the lower left chest with mildly thickened enhancing rim worrisome for empyema, larger than on 02/09/2022. There is small right pleural effusion with enhancing pleural reaction posteriorly which also raises concern for possible empyema and this is larger than on 02/09/2022. Heart: Unremarkable. No cardiomegaly. No pericardial effusion. Lymph nodes: There is no evidence of lymphadenopathy. Vasculature: There is mild ectasia of the ascending thoracic aorta which measures 3.9 cm in diameter.There is no thoracic aortic aneurysm or dissection. There is no gross evidence for pulmonary embolism. Bones/joints: Unremarkable. No acute fracture. Soft tissues: Unremarkable. PROCEDURE INFORMATION: Exam: CT Abdomen And Pelvis With Contrast Exam date and time: 05/02/2022 7:34 PM Age: 66 years old Clinical indication: Abdominal tenderness; Dyspnea; Prior surgery; Additional info: AMS TECHNIQUE: Imaging protocol: Computed tomography of the abdomen and pelvis with contrast. Radiation optimization: All CT scans at this facility use at least one of these dose optimization techniques: automated exposure control; mA and/or kV adjustment per patient size (includes targeted exams where dose is matched to clinical indication); or iterative reconstruction. Contrast material: OMNI 350; Contrast volume: 100 ml; Contrast route: INTRAVENOUS (IV); COMPARISON: CT abdomen pelvis w con* [id number] 02/03/2022 12:40 PM RADIATION DOSE METRICS: Total DLP (mGy-cm): 868.98 FINDINGS: Limitations: Study somewhat limited due to streak artifact created by the patient being scanned with the arms at the sides. Tubes, catheters and devices: There is a gastrostomy tube in place with its tip in the stomach. There is a gastrostomy tube in place unchanged in position. Liver: There are 2 small cysts in the left lobe of the liver unchanged from 02/03/2022. Gallbladder and bile ducts: Normal. No calcified stones. No ductal dilation. Pancreas: The pancreas is normal. Spleen: The spleen is normal. Adrenal glands: The adrenal glands are normal. Kidneys and ureters: Benign simple cysts of the left kidney are seen measuring 1.4 and 3 cm not changed from previous. The right kidney is normal. There is no evidence of hydronephrosis. Calcifications associated with both kidneys appear to be mostly vascular. Small nonobstructing stone not entirely excluded. Stomach and bowel: There is a new colostomy in the left lower quadrant of the abdomen. There is no evidence of intestinal obstruction. There are postsurgical changes in the sigmoid colon which may be new compared with 02/03/2022. Appendix: Not Identified Intraperitoneal space: There is a moderate amount of free intraperitoneal fluid present. Vasculature: The aorta demonstrates moderate atherosclerotic calcification. There is no evidence of an abdominal aortic aneurysm. Lymph nodes: There are mildly prominent periaortic lymph nodes measuring up to 10 x 14 mm. Urinary bladder: Unremarkable as visualized. Reproductive: Unremarkable as visualized. Bones/joints: There is multilevel lumbar stenosis. No fracture is identified. Soft tissues: Unremarkable. CT/CT chest abd pel w con* IMPRESSION: 1. Bilateral pneumonia 2. Emphysema 3. Findings suggesting interstitial edema 4. Right pleural effusion 5. Findings worrisome for empyema on both sides. 6. Extensive endobronchial material worrisome for aspiration IMPRESSION: 1. Ascites 2. Postoperative changes compared with 02/03/2022 3. Chronic changes as described above.
[2022-05-02 19:14] LABS: Influenza A by IFA negative (Negative); Influenza B by IFA negative (Negative)
--- NOTE | 2022-05-02 19:30 | ECG_ITS ---
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 Measurements Intervals [place] Rate: 97 P: 87 AL: 157 QRS: 81 QRSD: 98 T: 258 QT: 375 QTc: 477 Interpretive Statements SINUS RHYTHM ANTEROSEPTAL MYOCARDIAL INFARCTION , OF INDETERMINATE AGE [40+ ms Q WAVE IN V1-V4] MODERATE T-WAVE ABNORMALITY, CONSIDER LATERAL ISCHEMIA [-0.1+ mV T-WAVE IN I/aVL/V5/V6] MODERATE T-WAVE ABNORMALITY, CONSIDER INFERIOR ISCHEMIA [-0.1+ mV T-WAVE IN II/aVF] Compared to ECG 05/02/2022 18:06:31 No significant changes Electronically Signed On 05-03-2022 18:20:48 WATER TAXI CAPTAIN by Maicol Randall M.D. [id number]
--- NOTE | 2022-05-02 19:30 | PC.NURSE ---
patient transported to CT scan
[2022-05-02] MEDS: iohexol 350 mg/mL 500 mL Btl (per mL) IV (19:40)
[2022-05-02 19:43] LABS: Alanine Aminotransferase 8 U/L (0-41); Albumin Level 2.7 g/dL (3.5-5.2); Alkaline Phosphatase 70 U/L (40-130); Anion Gap 12.6 (5-19); Aspartate Amino Transferase 12 U/L (0-40); Blood Urea Nitrogen 10 mg/dL (8-23); C Reactive Protein 34.8 mg/L (0.0-4.9); Calcium 8.2 mg/dL (8.5-10.5); Carbon Dioxide 26 mmol/L (22-29); Chloride 84 mmol/L (98-107); Globulin 3.6 g/dL (1.3-4.6); Glomerular Filtration Rate 214.6 mL/min (90-130); Glucose 74 mg/dL (65-115); Magnesium 1.5 mg/dL (1.7-2.3); Osmolality Calculated 244 mOsm/kg (285-295); Potassium 4.6 mmol/L (3.5-5.1); Total Bilirubin 0.2 mg/dL (0.15-1.2); Total Protein 6.3 g/dL (6.6-8.7)
[2022-05-02 19:44] LABS: SARS Covid-2 Antigen Negative (Negative)
[2022-05-02 19:46] LABS: Sodium 118 mmol/L (136-145)
[2022-05-02 19:51] LABS: Procalcitonin 0.07 ng/mL (0-0.5)
[2022-05-02] MEDS: sodium chloride 0.9% 1,000 ML 75 ML IV (21:07)
[2022-05-02 21:25] LABS: Troponin 5 2HR 29.81 ng/L (0-15)
[2022-05-02 21:26] LABS: Troponin 5 2HR Delta -0.19 ABS# (0-10)
[2022-05-02 21:27] LABS: NT Pro B Type Natriuretic Pept 30433 pg/mL (0-125)
[2022-05-02 22:00] LABS: ABG PCO2 41.2 mmHg (35-45); ABG PH Result 7.44 (7.35-7.45); Arterial Blood Gas Hematocrit 29.9 % (42-52); Base Excess ABG 3.7 mmol/L (-2.0-2.0); Blood Gas Allen Test Pos; Blood Gas Sample Site Radial, left; Blood Gas Sample Type Arterial; HCO3 ABG 28.2 mmol/L (22-26); Oxygen Device NC; PO2 ABG 61.1 mmHg (80.0-100.0)
--- NOTE | 2022-05-02 22:19 | PC.NURSE ---
patient turned to right side
[2022-05-02] MEDS: FUROsemide 10 mg/mL SDV 4mL 40 MG IVP (22:55)
--- NOTE | 2022-05-02 23:54 | PC.NURSE ---
patient with gurgling noises, upper airway needing cleared; patient attempted to cough, but was unable to clear; attempted to suction with limited success.
[2022-05-03] LABS: Anion Gap 13.9 (5-19); Blood Urea Nitrogen 9 mg/dL (8-23); Calcium 7.9 mg/dL (8.5-10.5); Carbon Dioxide 26 mmol/L (22-29); Chloride 83 mmol/L (98-107); Glomerular Filtration Rate 299.1 mL/min (90-130); Glucose 70 mg/dL (65-115); Osmolality Calculated 245 mOsm/kg (285-295); Potassium 3.9 mmol/L (3.5-5.1)
[2022-05-03 00:05] LABS: Troponin 5 6HR 31.57 ng/L (0-15)
[2022-05-03 00:10] LABS: Troponin 5 6HR Delta 1.57 ng/L (0-12)
[2022-05-03 00:24] LABS: Sodium 119 mmol/L (136-145)
[2022-05-03 00:30] VITALS: BP 164/102; PULSE 107; RESP 27; RESP 33; O2SAT 90; O2SAT 93
--- NOTE | 2022-05-03 00:31 | PC.NURSE ---
patient not turning around after suctioning; oxygen sats remain 80-85% despite being placed on a NRB @ 15lpm; Dr. Vegas called to room to evaluate; orders for BiPap given; RT called and responded with BiPap; patient placed on BiPap with titration on settings; patient up to 22/10 @ 100% FiO2. patient sats up to 94%. ABG obtainted.
[2022-05-03 00:37] VITALS: BP 151/92; PULSE 107; RESP 27; O2SAT 94
[2022-05-03 00:37] LABS: ABG PCO2 50.4 mmHg (35-45); ABG PH Result 7.38 (7.35-7.45); Arterial Blood Gas Hematocrit 31.8 % (42-52); Base Excess ABG 3.7 mmol/L (-2.0-2.0); Blood Gas Allen Test Pos; Blood Gas Sample Site Radial, right; Blood Gas Sample Type Arterial; HCO3 ABG 29.6 mmol/L (22-26); Oxygen Device BIPAP
[2022-05-03 00:57] VITALS: BP 151/92; PULSE 109; RESP 20; O2SAT 93
--- NOTE | 2022-05-03 01:12 | PC.NURSE ---
report called to [facility] in [place]; EMS called for transport [facility] status. Carlos Alberto responding with truck will be enroute.
[2022-05-03 01:21] VITALS: BP 137/93; PULSE 106; RESP 25; O2SAT 96
[2022-05-03 01:43] VITALS: BP 154/93; PULSE 116; RESP 28; O2SAT 97
--- NOTE | 2022-05-03 02:11 | PC.NURSE ---
ems here to transport, report given and care turned over.
--- NOTE | 2022-05-03 03:00 | PC.NURSE ---
daughter called and informed of patient transport, room number and phone number to the facility; patient going to room 4112 at [facility] in [place], [place]
== END 2022-05-03 02:53 | disposition short-term general hospital (02) ==
PROVIDERS: Emergency Medicine; Emergency Provider Family Medicine; PCP Registered Nurse
DX: J69.0 Pneumonitis due to inhalation of food and vomit (principal); D64.9 Anemia, unspecified; K74.60 Unspecified cirrhosis of liver; R41.82 Altered mental status, unspecified; R56.9 Unspecified convulsions; R18.8 Other ascites; J86.9 Pyothorax without fistula; I11.0 Hypertensive heart disease with heart failure; I50.9 Heart failure, unspecified; J44.9 Chronic obstructive pulmonary disease, unspecified; F17.210 Nicotine dependence, cigarettes, uncomplicated; Z20.822 Contact with and (suspected) exposure to COVID-19
CPT/HCPCS: 36415; 36600; 70450; 71045; 71260; 72125; 74177; 80048; 80051; 80053; 81001; 82140; 82330; 82803; 82805; 83605; 83735; 83880; 84145; 84484; 85025; 85610; 85730; 86140; 87040; 87426; 87804; 93005; 96365; 96367; 96375; 99291; J1940; J1953; J2250; J2543; J3370; J7030; J7040; Q9967